=== PATIENT | female | born 1950 | race Caucasian/White ===

== ENCOUNTER 2022-04-19 22:33 | Inpatient (IN) | payer MEDICARE, SELFPAY ==
--- NOTE | ~2022-04-19 | XR_ITS ---
EXAMINATION: XR ERCP DATE: 04/22/2022 14:00 CDT INDICATION: GALLSTONES . TECHNIQUE: 2 fluoroscopic images of the right upper quadrant were obtained during ERCP performed by maryellen pedraza surgeon. I was not present in the operating room. Fluoroscopy exposure time was 105.7 seconds. Cum ulative dose was 23.51 mGy. COMPARISON: None FINDINGS: Endoscope projecting over the right upper quadrant. Wire access into the biliary tree. Contrast fills a minimally dilated common bile duct. Cholecystectomy clips. IMPRESSION: Fluoroscopic documentation of ERCP. Reviewed, dictated and finalized at location [facility].
[2022-04-19 22:20] VITALS: BMI 30.2
--- NOTE | 2022-04-19 22:41 | P.HP_ITS ---
H&P: HPI History of Present Illness Date/Time: 04/19/22 22:41 [facility] Social History Social History Smoking status: Unknown if ever smoked Alcohol intake: unknown Substance use: unknown Spiritual care concerns: No
--- NOTE | 2022-04-19 22:41 | PM.IMHP ---
H&P: HPI History of Present Illness Date/Time: 04/19/22 22:41 [facility] Social History Social History Smoking status: Unknown if ever smoked Alcohol intake: unknown Substance use: unknown Spiritual care concerns: No
[2022-04-19 22:53] VITALS: BP 120/58; PULSE 63; RESP 16; TEMP 36.3; O2SAT 99; BMI 30.2
--- NOTE | 2022-04-19 23:00 | PM.IMHP ---
H&P: HPI History of Present Illness Date/Time: 04/19/22 23:00 Chief Complaint: Choledocholithiasis. Narrative: This is a 71-year-old female with dementia, hypertension, gout, and breast cancer who is being directly admitted to the medical floor from [facility] for further treatment and evaluation as well as consultation with Gastroenterology after she was found to have elevated LFTs and evidence of choledocholithiasis on imaging today. She had a ground level fall at her home 2 weeks ago and sustained a left hip fracture, status post open reduction internal fixation with IM nail on 04/08/2022. Postoperatively she had a drop in her hemoglobin though that has remained stable around 8.0 g. She was sent to [place] for rehabilitation thereafter where unfortunately she has had issues with constipation, insomnia, and increasing confusion with hallucinations. On labs today she was found to have a marked increase in her LFTs and a subsequent CT of the abdomen and pelvis showed biliary ductal dilatation with suggestion of sludge or stone in the common bile duct. Her white blood cell count also jumped to 15.4 and transfer was initiated to [place] for consideration for ERCP. Dr. Sherman has agreed to see the patient in consultation and he recommends starting empiric antibiotics. At the time my evaluation the patient is disoriented and is alert and oriented only to self. She has no complaints aside from mild left hip and thigh pain. She has noticed abdominal pain whatsoever on exam. Review of Systems Review of Systems: Twelve systems were reviewed but are very limited given her dementia and confusion. She has no complaints and states no to every question asked of her. Specifically she denies headache, fever, chills, sweats, chest pain, shortness of breath, abdominal pain, nausea, vomiting, and dysuria. She has reportedly been quite constipated was given an enema today with a good bowel movement. [facility] Past Medical History Medical History (Updated 04/19/22 @ 23:47 by Lakia England PA-C) Alzheimer's dementia Breast cancer Gastroesophageal reflux disease Gout Hypertension Surgical History Surgical History (Updated 04/19/22 @ 23:40 by Lakia England PA-C) History of appendectomy History of bilateral mastectomy History of cholecystectomy History of open reduction and internal fixation (ORIF) procedure (04/08/22) Repair of left hip fracture with IM nail. Family History Family History (Updated 04/19/22 @ 23:09 by Lakia England PA-C) Other Family history unknown Social History Social History (Updated 04/19/22 @ 23:40 by Lakia England PA-C) Social History: Surrogate decision maker: Daya Carmona, daughter. Code status: Full code. Smoking status: Unknown if ever smoked Alcohol intake: never Substance use: never Spiritual care concerns: No Meds Home Medications and Allergies Home Medications Medication Instructions Recorded Confirmed Type acetaminophen 500 mg tablet 500 mg PO Q6H 04/19/22 04/19/22 History allopurinol 300 mg tablet 300 mg PO DAILY 04/19/22 04/19/22 History anastrozole 1 mg tablet 1 mg PO DAILY 04/19/22 04/19/22 History aspirin 81 mg tablet,delayed 81 mg PO DAILY 04/19/22 04/19/22 History release enalapril maleate 10 mg tablet 10 mg PO DAILY 04/19/22 04/19/22 History enoxaparin 40 mg/0.4 mL 40 mg subcut DAILY 04/19/22 04/19/22 History subcutaneous syringe (Lovenox) famotidine 20 mg tablet 20 mg PO BID 04/19/22 04/19/22 History magnesium oxide 400 mg PO DAILY 04/19/22 04/19/22 History memantine 10 mg tablet 10 mg PO QSHIFT 04/19/22 04/19/22 History metoprolol tartrate 25 mg tablet 12.5 mg PO BID 04/19/22 04/19/22 History orphenadrine citrate 100 mg 100 mg PO Q12H 04/19/22 04/19/22 History tablet,extended release piperacillin-tazobactam 3.375 gram 3.375 g IV Q6H 04/19/22 04/19/22 History intravenous solution potassium chloride 20 mEq 20 meq PO D
[2022-04-20] VITALS: BP 120/58; PULSE 63; RESP 16; TEMP 36.3; O2SAT 99
[2022-04-20] MEDS: SODIUM CHLORIDE 0.9% IV 1,000 ML 100 ML IV CONT (00:34)
[2022-04-20 06:14] LABS: Basophils Percent Auto 0.3 % (0.2-1.2); Eosinophils Absolute Auto 0.2 K/mm3 (0-0.3); Eosinophils Percent Auto 1.3 % (0-4.4); Hematocrit 24.3 % (37.0-47.0); Hemoglobin 7.8 g/dL (12.0-15.0); Immature Granulocyte Absolute 0.08 K/mm3 (0.00-0.031); Immature Granulocyte Percent A 0.5 % (0-0.5); Lymphocytes Absolute Auto 0.77 K/mm3 (0.9-3.2); Lymphocytes Percent Auto 5.2 % (18.3-44.2); Mean Corpuscular HGB Conc 32.1 g/dl (32-36); Mean Corpuscular Hemoglobin 30.7 pg (26-34); Mean Corpuscular Volume 95.7 fl (80-100); Mean Platelet Volume 10.9 fl (7.4-10.4); Monocytes Absolute Auto 0.5 K/mm3 (0.1-0.6); Neutrophils Absolute Auto 13.3 K/mm3 (1.3-6.7); Neutrophils Percent Auto 89.7 % (45.5-73.1); Platelet Count Result 309 k/mm3 (150-375); Red Blood Count 2.54 M/mm3 (4.2-5.4); Red Cell Distribution Width 14.1 % (11.5-14.5); White Blood Count 14.9 K/mm3 (4.5-10.0)
[2022-04-20 06:31] LABS: Alanine Aminotransferase 139 U/L (6-35); Albumin Level 3.2 g/dL (3.5-5.1); Alkaline Phosphatase 312 U/L (38-126); Anion Gap 5 mmol/L (8-16); Aspartate Amino Transferase 101 U/L (14-36); Bilirubin Direct 0.8 mg/dL (0-0.3); Bilirubin,Total 3.5 mg/dL (0.2-1.3); Blood Urea Nitrogen 26 mg/dL (7-17); Calcium 8.2 mg/dL (8.4-10.2); Carbon Dioxide 26 mmol/L (22-30); Chloride 101 mmol/L (98-107); Estimated CRCL calculation 42 ml/min; Estimated Glomerular Filt Rate 49; Glucose 78 mg/dL (65-110); Magnesium 1.8 mg/dL (1.6-2.3); Potassium 4.2 mmol/L (3.4-5.0); Sodium 132 mmol/L (137-145)
[2022-04-20 06:32] LABS: INR 1.2; Prothrombin Time 14.8 Seconds (11.1-14.7)
[2022-04-20 06:33] LABS: Partial Thromboplastin Time 35.8 SECONDS (22.3-36.8)
--- NOTE | 2022-04-20 07:16 | PM.IMPN ---
Progress Note: A&P Assessment and Plan (1) Choledocholithiasis: Code(s): K80.50 - Calculus of bile duct without cholangitis or cholecystitis without obstruction Status: Acute Assessment and Plan: CT of the abdomen and pelvis without contrast done at outside facility showed biliary ductal dilatation with suggestion of sludge were stones in the common bile duct. -WBC 14. Elevated LFTs. -GI consulted and appreciate recommendations. -Continue Zosyn IV Q6 hours. -Keep NPO until evaluated by GI for ERCP. (2) Transaminitis: Code(s): R74.01 - Elevation of levels of liver transaminase levels Status: Acute Assessment and Plan: Related to above. Hepatitis panel negative. (3) Delirium due to general medical condition: Code(s): F05 - Delirium due to known physiological condition Status: Acute Assessment and Plan: Underlying h/o dementia. Patient confused and family reports concerns for hallucinations. Her daughter reports the patient has not been sleeping, had recent hospitalization and hip surgery, as well as acute gallbladder disease. -Check TSH, B12 and ammonia level. -Keep awake during the day, blinds open, natural light and orient as needed. -Add seroquel 12.5 mg PO at HS and melatonin 5 mg PO at HS to help with hallucinations and insomnia. (4) Anemia: Code(s): D64.9 - Anemia, unspecified Status: Acute Assessment and Plan: Presumed postop anemia. Hgb 8 on admission and 7.8 this morning. May be a component of dilution since she is getting IV fluids. -Repeat H/H and monitor for s/s acute bleeding. (5) Elevated serum creatinine: Code(s): R79.89 - Other specified abnormal findings of blood chemistry Status: Acute Assessment and Plan: Creatinine 1.10, from 0.80 a few days ago. -Continue IV hydration and repeat labs in a.m. (6) Hypertension: Qualifiers: Hypertension type: primary hypertension Qualified Code(s): I10 - Essential (primary) hypertension Code(s): I10 - Essential (primary) hypertension Status: Chronic Assessment and Plan: Blood pressures stable. -Continue metoprolol with sips of water. (7) Dementia: Qualifiers: Dementia type: unspecified type Code(s): F03.90 - Unspecified dementia without behavioral disturbance Status: Chronic Assessment and Plan: -Continue memantine with sips of water. Plan Continue IV antibiotics and await GI recommendations. Time Spent With Patient Time with patient: 25 - 35 minutes (>50% time spent with patient and family education. ) Subjective Date/time seen: 04/20/22 07:16 Review of Systems Review of Systems: All systems reviewed & are unremarkable except as noted in HPI and below Neurologic: Comments: Confusion and hallucinations Exam Narrative: General: Well-developed older adult female supine in bed. HEENT: Normocephalic. Atraumatic. Wearing glasses. PERRL, EOMI. Mild icterus of the conjunctiva. Oral mucosa moist. Oropharynx clear. Neck: Supple. No lymphadenopathy or JVD. Respiratory: Lungs are clear to auscultation bilaterally. No wheezes, rhonchi or rales. RR regular and unlabored. Cardiovascular: Regular rate and rhythm with S1-S2. No murmur, gallop or rubs. Gastrointestinal: Abdomen is soft, nontender, and nondistended with positive bowel sounds. No guarding or rebound tenderness. Skin: Warm and dry. Mild jaundiced. Left hip dressing clean, dry and intact. Extremities: No cyanosis, clubbing, or edema. Radial and pedal pulses intact. Musculoskeletal: Moves all extremities, minimally reduced ROM at left hip. intact sensation. No cyanosis or pallor. Radial and dorsalis pedis pulses palpable and equal. Neurological: Alert and oriented to self only. Does not know month, year, or location. She knows she is [place] and states she does not like the president . Cranial
[2022-04-20 07:39] LABS: Hepatitis B Surface Antigen Negative (Negative)
[2022-04-20 07:45] LABS: HAV RESULT Negative (Negative); Hepatitis B Core IgM Result Negative (Negative)
[2022-04-20 07:57] LABS: Hepatitis C Virus Antibody Negative (Negative)
[2022-04-20] MEDS: DEXTROSE 5%/0.9% SOD CHL 1,000 ML 100 ML IV CONT (09:37)
[2022-04-20 09:43] VITALS: PULSE 70
[2022-04-20] MEDS: allopurinoL 300 MG TABLET PO (09:43)
[2022-04-20] MEDS: MEMANTINE 10 MG TABLET PO ×2 (09:43→20:11)
[2022-04-20] MEDS: SENNOSIDES 8.6 MG TABLET PO (09:43)
[2022-04-20] MEDS: ANASTROZOLE (*CHEMO) 1 MG TABLET PO (09:43)
[2022-04-20] MEDS: FAMOTIDINE 20 MG TABLET PO ×2 (09:43→17:02)
[2022-04-20] MEDS: METOPROLOL TARTRATE 12.5 MG TABLET PO ×2 (09:43→20:09)
--- NOTE | 2022-04-20 09:54 | PCOTNOTE ---
Attempted OT evaluation this AM; according to EMR pt. fell and required left hip ORIF on 04/08/22. RN to call MD and confirm weightbearing status. Will complete evaluation after WB status is confirmed.
--- NOTE | 2022-04-20 11:40 | PCPTNOTE ---
HOLD PT evaluation, talked with BRANDON Omalley, awaiting ortho orders for her WB status; pt had L hip ORIF 04-08-22 in [facility];
[2022-04-20 14:00] VITALS: BP 136/62; PULSE 64; RESP 16; TEMP 35.9; O2SAT 99
[2022-04-20 14:08] LABS: Hematocrit 23.6 % (37.0-47.0); Hemoglobin 7.5 g/dL (12.0-15.0)
--- NOTE | 2022-04-20 14:14 | WPDGICN ---
Assessment and Plan Assessment and plan (1) Cholangitis: Code(s): K83.09 - Other cholangitis Status: Acute Assessment and Plan: on antibiotic noted new elevation of wbc and liver enzymes will need ercp (2) Choledocholithiasis: Code(s): K80.50 - Calculus of bile duct without cholangitis or cholecystitis without obstruction Status: Acute Assessment and Plan: CT scan a/p reviewed and discussed with family members at bedside will need ERCP (3) Transaminitis: Code(s): R74.01 - Elevation of levels of liver transaminase levels Status: Acute Assessment and Plan: monitor, new elevation and most likely biliary cause she is post cholecystectomy (4) Delirium due to general medical condition: Code(s): F05 - Delirium due to known physiological condition Status: Acute Assessment and Plan: also more confused than usual per family (5) Leukocytosis: Code(s): D72.829 - Elevated white blood cell count, unspecified Status: Acute (6) History of cholecystectomy: Code(s): Z90.49 - Acquired absence of other specified parts of digestive tract Status: Acute (7) History of open reduction and internal fixation (ORIF) procedure: Onset Date: 04/08/22 Code(s): Z98.890 - Other specified postprocedural states Status: Acute GI Consult Note Consult date/time: 04/20/22 14:14 Reason for consult: cholangitis, dilated bile duct HPI: Sanam Yu is a 71 year old female with history of dementia, hypertension, gout, and breast cancer who was directly admitted to the medical floor from [facility] yesterday to the hospitalist service after her doctor discussed the case with me (she is awake and alert but confused, part of history obtained from medical records). She had a ground level fall at her home 2 weeks ago and sustained a left hip fracture, status post open reduction internal fixation with IM nail on 04/08/2022. Postoperatively she had a drop in her hemoglobin though that has remained stable around 8.0 but she had new onset of jaundice with hallucinations and found to have elevated liver enzymes, actually she was evaluated by Dr Barber nurse practitioner who reviewed CT scan a/p that showed biliary ductal dilatation 1.6 cm with suggestion of sludge or stone in the common bile duct, started on antibiotics and transferred her for ERCP evaluation. white blood cell up to 15.4, bili 6.5, alt 226, ast 254 (previously had normal liver enzymes) Review of Systems Constitutional: Constitutional: Reports lethargy Eyes: Eyes: Reports no additional eye complaints ENT: Reports Normal hearing present Cardiovascular: Cardiovascular: Denies chest pain Respiratory: Respiratory: Denies chest congestion Gastrointestinal: Gastrointestinal: Reports no additional gastrointestinal complaints Musculoskeletal: Comments: recent left hip surgery Neurologic: Reports confusion Psychiatric: Psychiatric: Reports confusion [facility] Past Medical History Medical History (Updated 04/20/22 @ 14:55 by Parish Sherman MD) Alzheimer's dementia Breast cancer Cholangitis Gastroesophageal reflux disease Gout Hypertension Leukocytosis Surgical History Surgical History (Updated 04/20/22 @ 14:55 by Parish Sherman MD) History of appendectomy History of bilateral mastectomy History of cholecystectomy History of open reduction and internal fixation (ORIF) procedure (04/08/22) Repair of left hip fracture with IM nail. Family History Family History (Updated 04/19/22 @ 23:09 by Lakia England PA-C) Other Family history unknown Social History Social History (Updated 04/19/22 @ 23:40 by Lakia England PA-C) Social History: Surrogate decision maker: Daya Carmona, daughter. Code status: Full code. Smoking status: Unknown if ever smoked Alcohol intake: never Substance use: never Spirit
[2022-04-20 14:35] LABS: Ammonia < 9 umol/L (9-30)
[2022-04-20 15:24] LABS: Folic Acid 11.1 ng/mL (2.76->20)
[2022-04-20 20:09] VITALS: PULSE 67
[2022-04-20] MEDS: QUEtiapine FUMARATE 12.5 MG TABLET PO (20:09)
[2022-04-20] MEDS: MELATONIN 5 MG TABLET PO (20:11)
[2022-04-20 23:44] VITALS: BP 147/67; PULSE 70; RESP 16; TEMP 36.8; O2SAT 98
[2022-04-21] MEDS: DEXTROSE 5%/0.9% SOD CHL 1,000 ML 100 ML IV CONT ×2 (04:28→15:39)
[2022-04-21 06:27] LABS: Basophils Percent Auto 0.5 % (0.2-1.2); Eosinophils Absolute Auto 0.4 K/mm3 (0-0.3); Eosinophils Percent Auto 4.4 % (0-4.4); Hematocrit 24.8 % (37.0-47.0); Hemoglobin 7.7 g/dL (12.0-15.0); Immature Granulocyte Absolute 0.04 K/mm3 (0.00-0.031); Immature Granulocyte Percent A 0.5 % (0-0.5); Lymphocytes Absolute Auto 0.89 K/mm3 (0.9-3.2); Lymphocytes Percent Auto 10.5 % (18.3-44.2); Mean Corpuscular Hemoglobin 30.1 pg (26-34); Mean Corpuscular Volume 96.9 fl (80-100); Monocytes Absolute Auto 0.3 K/mm3 (0.1-0.6); Neutrophils Absolute Auto 6.9 K/mm3 (1.3-6.7); Neutrophils Percent Auto 81.1 % (45.5-73.1); Platelet Count Result 306 k/mm3 (150-375); Red Blood Count 2.56 M/mm3 (4.2-5.4); Red Cell Distribution Width 13.9 % (11.5-14.5); White Blood Count 8.5 K/mm3 (4.5-10.0)
[2022-04-21 06:28] LABS: Alanine Aminotransferase 93 U/L (6-35); Albumin Level 3.1 g/dL (3.5-5.1); Alkaline Phosphatase 261 U/L (38-126); Anion Gap 3 mmol/L (8-16); Aspartate Amino Transferase 46 U/L (14-36); Bilirubin,Total 1.4 mg/dL (0.2-1.3); Blood Urea Nitrogen 17 mg/dL (7-17); Calcium 8.3 mg/dL (8.4-10.2); Carbon Dioxide 24 mmol/L (22-30); Chloride 106 mmol/L (98-107); Estimated CRCL calculation 51 ml/min; Estimated Glomerular Filt Rate > 60; Glucose 98 mg/dL (65-110); Potassium 3.8 mmol/L (3.4-5.0); Sodium 133 mmol/L (137-145)
[2022-04-21 09:17] VITALS: PULSE 50
[2022-04-21] MEDS: allopurinoL 300 MG TABLET PO (09:17)
[2022-04-21] MEDS: METOPROLOL TARTRATE 12.5 MG TABLET PO ×2 (09:17→19:50)
[2022-04-21] MEDS: MEMANTINE 10 MG TABLET PO ×2 (09:17→19:51)
[2022-04-21] MEDS: FAMOTIDINE 20 MG TABLET PO ×2 (09:17→17:18)
[2022-04-21] MEDS: SENNOSIDES 8.6 MG TABLET PO (09:17)
[2022-04-21] MEDS: ANASTROZOLE (*CHEMO) 1 MG TABLET PO (09:17)
--- NOTE | 2022-04-21 13:32 | WPDGIPROGNO ---
Progress Note: A&P Assessment and Plan (1) Choledocholithiasis: Code(s): K80.50 - Calculus of bile duct without cholangitis or cholecystitis without obstruction Status: Acute Assessment and Plan: ercp tomorrow liver enzymes trending down and she looks better on iv antibiotics (2) Cholangitis: Code(s): K83.09 - Other cholangitis Status: Acute Assessment and Plan: most likely diagnosis blood work in improving and she is already on iv abx (3) Leukocytosis: Code(s): D72.829 - Elevated white blood cell count, unspecified Status: Acute (4) History of cholecystectomy: Code(s): Z90.49 - Acquired absence of other specified parts of digestive tract Status: Acute (5) History of open reduction and internal fixation (ORIF) procedure: Onset Date: 04/08/22 Code(s): Z98.890 - Other specified postprocedural states Status: Acute (6) Anemia: Code(s): D64.9 - Anemia, unspecified Status: Acute Subjective Date/time seen: 04/21/22 13:32 Interval history: she is talking and seems better today, family at bedside. She is also comfortable, denies abd pain Review of Systems Constitutional: Constitutional: Reports lethargy Eyes: Eyes: Reports no additional eye complaints ENT: Reports Normal hearing present Cardiovascular: Cardiovascular: Denies chest pain Respiratory: Respiratory: Denies chest congestion Gastrointestinal: Gastrointestinal: Reports no additional gastrointestinal complaints Musculoskeletal: Comments: recent left hip surgery Neurologic: Reports confusion Psychiatric: Psychiatric: Reports confusion Exam Const: General: comfortable HENMT: General nose exam: Normal nares present Eyes: Sclera: scleral abnormality (icteric) Neck: Neck: supple Resp: Auscultation: clear to auscultation bilaterally Cardio: Rate: regular rate GI: GI Palp: Yes Soft to palpation and No Tenderness to palpation present (GI) Auscultation: normal bowel sounds Back/Spine/Pelvis: Other: s/p left hip surgery Skin: Other: jaundice Neuro: Other: awake and alert, she is talking appropriately Extrem: General: normal to inspection Psych: Affect: normal affect Objective Data Vital Signs Vital Signs: Vital Signs - 24 hr 04/20/22 14:00 04/20/22 20:09 04/20/22 23:44 Temperature 96.7 F L 98.2 F Pulse Rate 64 67 70 Respiratory Rate 16 16 Blood Pressure 136/62 147/67 H Pulse Oximetry 99 98 Oxygen Delivery 04/21/22 09:17 04/21/22 10:21 04/21/22 09:40 Temperature Pulse Rate 50 L Respiratory Rate Blood Pressure Pulse Oximetry Oxygen Delivery Room Air Room Air Intake/Output Intake/Output: Intake & Output 04/18/22 04/19/22 04/20/22 04/21/22 23:59 23:59 23:59 23:59 Intake Total 1100 1140 Output Total 1650 150 Balance -550 990 Meds/Results Medications: Active Medications Generic Name Dose Route Start Last Admin Trade Name Freq PRN Reason Stop Dose Admin Allopurinol 300 mg 04/20/22 08:00 04/21/22 09:17 Allopurinol 300 Mg Tablet PO 300 mg DAILY@0800 IDALIA Administration Anastrozole 1 mg 04/20/22 09:00 04/21/22 09:17 Anastrozole (*Chemo) 1 Mg Tablet PO 1 mg DAILY IDALIA Administration Famotidine 20 mg 04/20/22 09:00 04/21/22 09:17 Famotidine 20 Mg Tablet PO 20 mg BID IDALIA Administration Heparin Sodium (Porcine) 5,000 units 04/20/22 09:00 Heparin Sodium 5,000 Units/Ml Vial SUB-Q Q12HR IDALIA Piperacillin/Tazobactam/Dextrose 3.375 gm in 50 mls @ 100 mls/hr 04/20/22 12:00 04/21/22 12:18 Zosyn 3.375 Gm/D5w 50ml Pm IVPB 100 mls/hr Q6H IDALAI Administration Dextrose/Sodium Chloride 1,000 mls @ 100 mls/hr 04/20/22 07:20 04/21/22 10:07 Dextrose 5% Sodium Chloride 0.9% IV CONT Not Given .Q10H IDALIA Melatonin 5 mg 04/20/22 21:00 04/20/22 20:11 Melatonin 5 Mg Tablet PO 5 mg HS IDALIA Administration Memantine 10
--- NOTE | 2022-04-21 14:25 | PM.IMPN ---
Progress Note: A&P Assessment and Plan (1) Choledocholithiasis: Code(s): K80.50 - Calculus of bile duct without cholangitis or cholecystitis without obstruction Status: Acute Assessment and Plan: CT of the abdomen and pelvis without contrast done at outside facility showed biliary ductal dilatation with suggestion of sludge were stones in the common bile duct. -WBC 14 -->8.5 today. -Elevated LFTs trending down. Tbili 3.5--> 1.4. -GI consulted and appreciate recommendations. -ERCP planned for Sunday 04/22. NPO after midnight. -Continue Zosyn IV Q6 hours. (2) Transaminitis: Code(s): R74.01 - Elevation of levels of liver transaminase levels Status: Acute Assessment and Plan: Improving. Secondary to above. Continue current management. Hepatitis panel negative. (3) Delirium due to general medical condition: Code(s): F05 - Delirium due to known physiological condition Status: Acute Assessment and Plan: Underlying h/o dementia. Patient confused and family reports concerns for hallucinations. Her daughter reports the patient has not been sleeping, had recent hospitalization and hip surgery, as well as acute gallbladder disease. -Appears improved today. -TSH, B12 and ammonia level all within normal limits. -No focal deficit to suggest acute stroke. -Keep awake during the day, blinds open, natural light and orient as needed. -Continue seroquel 12.5 mg PO at HS and melatonin 5 mg PO at HS to help with hallucinations and insomnia. (4) Anemia: Code(s): D64.9 - Anemia, unspecified Status: Acute Assessment and Plan: Presumed postop anemia. Hgb 8 on admission. -Hgb 7.8 -->7.5 -->7.7. -No s/s acute bleeding. Heparin SQ DVT prophylaxis on hold for procedure. -Start iron supplement prior to discharge. (5) Elevated serum creatinine: Code(s): R79.89 - Other specified abnormal findings of blood chemistry Status: Acute Assessment and Plan: Creatinine 1.10 on admission. Likely secondary to dehydration. -Improved. BUN/Creatinine normalized. -Continue IV fluids while NPO. -Daily CMP (6) History of open reduction and internal fixation (ORIF) procedure: Onset Date: 04/08/22 Code(s): Z98.890 - Other specified postprocedural states Status: Chronic Assessment and Plan: Present on admission. -Continue PT/OT with weight bearing as tolerated. -She will discharge back to SNF rehab upon discharge. (7) Hypertension: Qualifiers: Hypertension type: primary hypertension Qualified Code(s): I10 - Essential (primary) hypertension Code(s): I10 - Essential (primary) hypertension Status: Chronic Assessment and Plan: Blood pressures stable. -Continue metoprolol with sips of water. (8) Dementia: Qualifiers: Dementia type: unspecified type Code(s): F03.90 - Unspecified dementia without behavioral disturbance Status: Chronic Assessment and Plan: -Continue memantine with sips of water. Plan CODE STATUS: FULL CODE DISPOSITION: Return to SNF Estimated LOS: discharge in approx 2 days when symptoms resolve. Time Spent With Patient Time with patient: 15 - 25 minutes Subjective Date/time seen: 04/21/22 14:25 Patient is a 71 yo female with medical history of recent hip fracture s/p repair, dementia, hypertension, gout, and breast cancer. She is a direct admit form [facility] for further management of elevated LFTs and choledocholithiasis on imaging. Patient found sitting up in the chair. She has no new complaints. No CP, SOB, abd pain, N/V/D. Her daughter is at beside and reports the patient is less restless today. Jaundice appears improved. Review of Systems Review of Systems: All systems reviewed & are unremarkable except as noted in HPI and below Eyes: Comments: Needs new glasses
[2022-04-21 14:30] VITALS: BP 119/70; PULSE 78; RESP 18; TEMP 36.9; O2SAT 100
[2022-04-21 19:50] VITALS: PULSE 75
[2022-04-21] MEDS: QUEtiapine FUMARATE 12.5 MG TABLET PO (19:51)
[2022-04-21] MEDS: MELATONIN 5 MG TABLET PO (19:52)
[2022-04-21 21:51] VITALS: BP 129/60; PULSE 75; RESP 18; TEMP 37.1; O2SAT 99
[2022-04-22] VITALS (17 sets, daily range): BP systolic 107–171; BP diastolic 10–107; PULSE 58–74; RESP 16–23; TEMP 35.8–37.1; O2SAT 96–100
[2022-04-22] MEDS: DEXTROSE 5%/0.9% SOD CHL 1,000 ML 100 ML IV CONT ×2 (02:08→16:46)
[2022-04-22 06:21] LABS: Basophils Percent Auto 0.5 % (0.2-1.2); Eosinophils Absolute Auto 0.4 K/mm3 (0-0.3); Eosinophils Percent Auto 4.9 % (0-4.4); Hematocrit 22.5 % (37.0-47.0); Hemoglobin 7.1 g/dL (12.0-15.0); Immature Granulocyte Absolute 0.05 K/mm3 (0.00-0.031); Immature Granulocyte Percent A 0.6 % (0-0.5); Lymphocytes Absolute Auto 0.95 K/mm3 (0.9-3.2); Lymphocytes Percent Auto 12.3 % (18.3-44.2); Mean Corpuscular HGB Conc 31.6 g/dl (32-36); Mean Corpuscular Volume 94.9 fl (80-100); Mean Platelet Volume 10.9 fl (7.4-10.4); Monocytes Absolute Auto 0.3 K/mm3 (0.1-0.6); Monocytes Percent Auto 4.2 % (2.6-8.5); Neutrophils Percent Auto 77.5 % (45.5-73.1); Platelet Count Result 301 k/mm3 (150-375); Red Blood Count 2.37 M/mm3 (4.2-5.4); Red Cell Distribution Width 13.9 % (11.5-14.5); White Blood Count 7.7 K/mm3 (4.5-10.0)
[2022-04-22 06:32] LABS: Alanine Aminotransferase 56 U/L (6-35); Albumin Level 2.7 g/dL (3.5-5.1); Alkaline Phosphatase 204 U/L (38-126); Anion Gap 4 mmol/L (8-16); Aspartate Amino Transferase 26 U/L (14-36); Bilirubin,Total 0.9 mg/dL (0.2-1.3); Blood Urea Nitrogen 11 mg/dL (7-17); Calcium 8.2 mg/dL (8.4-10.2); Carbon Dioxide 24 mmol/L (22-30); Chloride 108 mmol/L (98-107); Estimated CRCL calculation 52 ml/min; Estimated Glomerular Filt Rate > 60; Glucose 115 mg/dL (65-110); Potassium 3.6 mmol/L (3.4-5.0); Sodium 136 mmol/L (137-145)
[2022-04-22] MEDS: METOPROLOL TARTRATE 12.5 MG TABLET PO ×2 (08:25→21:51)
[2022-04-22] MEDS: ANASTROZOLE (*CHEMO) 1 MG TABLET PO (08:26)
[2022-04-22] MEDS: MEMANTINE 10 MG TABLET PO ×2 (08:26→21:51)
--- NOTE | 2022-04-22 11:35 | PM.IMPN ---
Progress Note: A&P Assessment and Plan (1) Choledocholithiasis: Code(s): K80.50 - Calculus of bile duct without cholangitis or cholecystitis without obstruction Status: Acute Assessment and Plan: CT of the abdomen and pelvis without contrast done at outside facility showed biliary ductal dilatation with suggestion of sludge were stones in the common bile duct. -WBC 14 -->8.5 -->7.7 -Elevated LFTs trending down. Tbili 3.5--> 1.4 -->0.9. -GI following, ERCP today with extraction of stones and sludge in common bile duct. -Continue Zosyn IV Q6 hours. (2) Transaminitis: Code(s): R74.01 - Elevation of levels of liver transaminase levels Status: Acute Assessment and Plan: Improving. Secondary to above. Hepatitis panel negative. (3) Delirium due to general medical condition: Code(s): F05 - Delirium due to known physiological condition Status: Acute Assessment and Plan: Underlying h/o dementia. Patient confused and family reports concerns for hallucinations. Her daughter reports the patient has not been sleeping, had recent hospitalization and hip surgery, as well as acute gallbladder disease. -Appears improved today. -TSH, B12 and ammonia level all within normal limits. -No focal deficit to suggest acute stroke. -Keep awake during the day, blinds open, natural light and orient as needed. -Continue seroquel 12.5 mg PO at HS and melatonin 5 mg PO at HS to help with hallucinations and insomnia. (4) Anemia: Code(s): D64.9 - Anemia, unspecified Status: Inactive Assessment and Plan: Presumed postop anemia. Hgb 8 on admission. -Hgb 7.8 -->7.5 -->7.7 -->7.1 transfuse 1 unit PRBC. -No s/s acute bleeding. Heparin SQ DVT prophylaxis on hold for procedure. -Start iron supplement. (5) Elevated serum creatinine: Code(s): R79.89 - Other specified abnormal findings of blood chemistry Status: Acute Assessment and Plan: Creatinine 1.10 on admission. Likely secondary to dehydration. -Improved. BUN/Creatinine normalized. -Continue IV fluids while NPO. Saline lock with able to take PO. -Daily CMP (6) History of open reduction and internal fixation (ORIF) procedure: Onset Date: 04/08/22 Code(s): Z98.890 - Other specified postprocedural states Status: Chronic Assessment and Plan: Present on admission. -Continue PT/OT with weight bearing as tolerated. -She will discharge back to SNF rehab upon discharge. (7) Hypertension: Qualifiers: Hypertension type: primary hypertension Qualified Code(s): I10 - Essential (primary) hypertension Code(s): I10 - Essential (primary) hypertension Status: Chronic Assessment and Plan: Blood pressures stable. -Continue metoprolol with sips of water. (8) Dementia: Qualifiers: Dementia type: unspecified type Code(s): F03.90 - Unspecified dementia without behavioral disturbance Status: Chronic Assessment and Plan: -Continue memantine with sips of water. Plan CODE STATUS: FULL CODE DISPOSITION: Return to SNF Estimated LOS: discharge in approx 1-2 days when symptoms resolve. Time Spent With Patient Time with patient: 15 - 25 minutes Subjective Date/time seen: 04/22/22 11:35 She denies new complaints. Nursing sitting at bedside to help reorient patient as needed. She reportedly sat up in the chair for 15 minutes, but then needed to lay back down. No abd pain, N/V/D, chest pain, SOB, dizziness or palpitations. Jaundice improved. Review of Systems Review of Systems: All systems reviewed & are unremarkable except as noted in HPI and below Exam Narrative: General: Well-developed older adult female sitting up in bed. No oxygen. HEENT: Wearing glasses. PERRL, Sclera clear. Oral mucosa moist. Neck: No JVD. Respiratory: Lungs are clear to auscultation bilate
[2022-04-22] MEDS: SODIUM CHLORIDE 0.9% IV 250 ML 30 ML IV CONT (11:41)
--- NOTE | 2022-04-22 12:29 | PC.NURSE ---
Report called to [facility].
--- NOTE | 2022-04-22 13:00 | PC.NURSE ---
To GI Lab via [employer].
[2022-04-22] MEDS: LACTATED RINGERS 1,000 ML 150 ML IV CONT (13:21)
--- NOTE | 2022-04-22 13:31 | WPDANESEPPF ---
Anes - Initial Pre Proc Eval Procedure: Operation Date: 04/22/22 17:00 Proposed Procedures p Endoscopic Retro Cholangiopancreatogram - Parish Sherman MD Date/Time: 04/22/22 13:31 Surgeon: Jeniffer Sung MD Pre Op Diagnosis: Choledocholithiasis Patient Data Age: 71 Gender: F Height: 1.63 m Weight: 81.3 kg Last Vital Signs Temp 36.1 C L 04/22/22 13:18 Pulse 60 04/22/22 13:18 Resp 16 04/22/22 13:18 BP 133/107 H 04/22/22 13:18 Pulse Ox 100 04/22/22 13:18 O2 Del Method Room Air 04/22/22 13:18 Allergies Allergy/AdvReac Type Severity Reaction Status Date / Time naproxen Allergy Unknown Verified 04/22/22 13:17 Home Medications Medication Instructions Recorded Confirmed Type acetaminophen 500 mg tablet 500 mg PO Q6H 04/19/22 04/19/22 History allopurinol 300 mg tablet 300 mg PO DAILY 04/19/22 04/19/22 History anastrozole 1 mg tablet 1 mg PO DAILY 04/19/22 04/19/22 History aspirin 81 mg tablet,delayed 81 mg PO DAILY 04/19/22 04/19/22 History release enalapril maleate 10 mg tablet 10 mg PO DAILY 04/19/22 04/19/22 History enoxaparin 40 mg/0.4 mL 40 mg subcut DAILY 04/19/22 04/19/22 History subcutaneous syringe (Lovenox) famotidine 20 mg tablet 20 mg PO BID 04/19/22 04/19/22 History magnesium oxide 400 mg PO DAILY 04/19/22 04/19/22 History memantine 10 mg tablet 10 mg PO QSHIFT 04/19/22 04/19/22 History metoprolol tartrate 25 mg tablet 12.5 mg PO BID 04/19/22 04/19/22 History orphenadrine citrate 100 mg 100 mg PO Q12H 04/19/22 04/19/22 History tablet,extended release piperacillin-tazobactam 3.375 gram 3.375 g IV Q6H 04/19/22 04/19/22 History intravenous solution potassium chloride 20 mEq 20 meq PO DAILY 04/19/22 04/19/22 History tablet,extended release(part/cryst) (Klor-Con M) sennosides 8.6 mg tablet (senna) 8.6 mg PO DAILY 04/19/22 04/19/22 History triamcinolone acetonide 0.1 % 1 applic topical DAILY 04/19/22 04/19/22 History topical ointment Laboratory Tests 04/22/22 04/22/22 04/22/22 05:38 05:38 09:08 WBC 7.7 K/mm3 K/mm3 (4.5-10.0) RBC 2.37 M/mm3 L M/mm3 (4.2-5.4) Hgb 7.1 g/dL L g/dL (12.0-15.0) Hct 22.5 % L % (37.0-47.0) MCV 94.9 fl fl (80-100) MCH 30.0 pg pg (26-34) MCHC 31.6 g/dl L g/dl (32-36) RDW 13.9 % % (11.5-14.5) Plt Count 301 k/mm3 k/mm3 (150-375) MPV 10.9 fl H fl (7.4-10.4) Immature Gran % (Auto) 0.6 % H % (0-0.5) Neut % (Auto) 77.5 % H % (45.5-73.1) Lymph % (Auto) 12.3 % L % (18.3-44.2) [place] % (Auto) 4.2 % % (2.6-8.5) Eos % (Auto) 4.9 % H % (0-4.4) Baso % (Auto) 0.5 % % (0.2-1.2) Lymph # (Auto) 0.95 K/mm3 K/mm3 (0.9-3.2) [place] # (Auto) 0.3 K/mm3 K/mm3 (0.1-0.6) Eos # (Auto) 0.4 K/mm3 H K/mm3 (0-0.3) Baso # (Auto) 0.0 K/mm3 K/mm3 (0.0-0.1) Abs Immat Gran (auto) 0.05 K/mm3 H K/mm3 (0.00-0.031) Absolute Neuts (auto) 6.0 K/mm3 K/mm3 (1.3-6.7) Absolute Nucleated RBC 0.0 K/mm3 K/mm3 (0.0-0.012) Nucleated RBC % 0.0 % % (0.0-0.2) Sodium 136 mmol/L L mmol/L (137-145) Potassium 3.6 mmol/L mmol/L (3.4-5.0) Chloride 108 mmol/L H mmol/L (98-107) Carbon Dioxide 24 mmol/L mmol/L (22-30) Anion Gap 4 mmol/L L mmol/L (8-16) BUN 11 mg/dL D mg/dL (7-17) Creatinine 0.90 mg/dL mg/dL (0.7-1.0) Estim Creat Clear Calc 52 ml/min ml/min Estimated GFR > 60 (59 - ) Glucose 115 mg/dL H mg/dL (65-110) Calcium 8.2 mg/dL L mg/dL (8.4-10.2) Total Bilirubin 0.9 mg/dL mg/dL (0.2-1.3) AST 26 U/L U/L (14-36) ALT 56 U/L H U/L (6-35) Alkaline Phosphatase 204 U/L H U/L (38-126) Total Protein 5.0 g/dL L g/dL
--- NOTE | 2022-04-22 13:33 | PCPTNOTE ---
The patient treatment was not able to be completed due to patient out of room for testing. Will plan to continue treatment per plan of care.
[2022-04-22] MEDS: FAMOTIDINE 20 MG TABLET PO (16:47)
[2022-04-22] MEDS: MELATONIN 5 MG TABLET PO (21:51)
[2022-04-22] MEDS: QUEtiapine FUMARATE 12.5 MG TABLET PO (21:51)
[2022-04-23 02:13] VITALS: O2SAT 97
[2022-04-23] MEDS: DEXTROSE 5%/0.9% SOD CHL 1,000 ML 100 ML IV CONT (02:48)
[2022-04-23 05:50] VITALS: BP 169/74; PULSE 53; RESP 18; TEMP 36.3; O2SAT 100
[2022-04-23 06:42] LABS: Basophils Percent Auto 0.2 % (0.2-1.2); Eosinophils Percent Auto 0.1 % (0-4.4); Hemoglobin 9.3 g/dL (12.0-15.0); Immature Granulocyte Absolute 0.04 K/mm3 (0.00-0.031); Immature Granulocyte Percent A 0.4 % (0-0.5); Mean Corpuscular Volume 96.8 fl (80-100); Mean Platelet Volume 11.4 fl (7.4-10.4); Monocytes Absolute Auto 0.2 K/mm3 (0.1-0.6); Monocytes Percent Auto 2.1 % (2.6-8.5); Neutrophils Absolute Auto 7.9 K/mm3 (1.3-6.7); Neutrophils Percent Auto 88.2 % (45.5-73.1); Platelet Count Result 343 k/mm3 (150-375); Red Cell Distribution Width 14.4 % (11.5-14.5); White Blood Count 8.9 K/mm3 (4.5-10.0)
[2022-04-23 06:57] LABS: Alanine Aminotransferase 50 U/L (6-35); Albumin Level 3.3 g/dL (3.5-5.1); Alkaline Phosphatase 214 U/L (38-126); Anion Gap 5 mmol/L (8-16); Aspartate Amino Transferase 25 U/L (14-36); Blood Urea Nitrogen 10 mg/dL (7-17); Calcium 8.3 mg/dL (8.4-10.2); Carbon Dioxide 22 mmol/L (22-30); Chloride 110 mmol/L (98-107); Estimated CRCL calculation 58 ml/min; Estimated Glomerular Filt Rate > 60; Glucose 118 mg/dL (65-110); Potassium 3.8 mmol/L (3.4-5.0); Sodium 137 mmol/L (137-145)
[2022-04-23 08:00] VITALS: O2SAT 98
[2022-04-23] MEDS: SENNOSIDES 8.6 MG TABLET PO (08:49)
[2022-04-23] MEDS: allopurinoL 300 MG TABLET PO (08:49)
[2022-04-23] MEDS: FERROUS SULFATE 324 MG TABLET PO (08:49)
[2022-04-23 08:50] VITALS: PULSE 68
[2022-04-23] MEDS: MEMANTINE 10 MG TABLET PO (08:50)
[2022-04-23] MEDS: ANASTROZOLE (*CHEMO) 1 MG TABLET PO (08:50)
[2022-04-23] MEDS: METOPROLOL TARTRATE 12.5 MG TABLET PO (08:50)
[2022-04-23] MEDS: FAMOTIDINE 20 MG TABLET PO (08:50)
[2022-04-23] MEDS: ENALAPRIL MALEATE 10 MG TABLET PO (08:54)
--- NOTE | 2022-04-23 11:37 | P.PNAN_ITS ---
Anes - Prog Note Post-Op Date/Time: 04/23/22 11:37 Cardiovascular status: normal Respiratory status: normal Airway patency: baseline Mental status: baseline Post-Op hydration status: normal Vital Signs: Last Vital Signs Temp 36.3 C L 04/23/22 05:50 Pulse 68 04/23/22 08:50 Resp 18 04/23/22 05:50 BP 169/74 H 04/23/22 05:50 Pulse Ox 100 04/23/22 05:50 O2 Del Method Room Air 04/23/22 02:13 O2 Flow Rate 6 04/22/22 14:52 Pain Score (VAS): 12/06 I/O: Intake & Output 04/22/22 04/23/22 04/23/22 23:59 07:59 15:59 Intake Total 650 1050 240 Output Total 300 600 Balance 350 450 240 Laboratory Tests 04/23/22 05:54 04/23/22 05:54 04/22/22 04/23/22 04/23/22 09:08 05:54 05:54 WBC 8.9 RBC 3.10 L Hgb 9.3 L Hct 30.0 L MCV 96.8 MCH 30.0 MCHC 31.0 L RDW 14.4 Plt Count 343 MPV 11.4 H Immature Gran % (Auto) 0.4 Neut % (Auto) 88.2 H Lymph % (Auto) 9.0 L [place] % (Auto) 2.1 L Eos % (Auto) 0.1 Baso % (Auto) 0.2 Lymph # (Auto) 0.80 L [place] # (Auto) 0.2 Eos # (Auto) 0.0 Baso # (Auto) 0.0 Abs Immat Gran (auto) 0.04 H Absolute Neuts (auto) 7.9 H Absolute Nucleated RBC 0.0 Nucleated RBC % 0.0 Sodium 137 Potassium 3.8 Chloride 110 H Carbon Dioxide 22 Anion Gap 5 L BUN 10 Creatinine 0.80 Estim Creat Clear Calc 58 Estimated GFR > 60 Glucose 118 H Calcium 8.3 L Total Bilirubin 1.0 AST 25 ALT 50 H Alkaline Phosphatase 214 H Total Protein 6.0 L Albumin 3.3 L Blood Type O Negative Antibody Screen Negative Crossmatch See Detail Post-procedural complaints: none Patient Feedback: Patient satisfied with anesthetic care.
[2022-04-23 14:00] VITALS: BP 155/66; PULSE 65; RESP 18; TEMP 36.4; O2SAT 98
--- NOTE | 2022-04-23 14:15 | PM.DS ---
DS: Admitting Diagnosis Discharge Date 04/23/2022 1537 Admitting Diagnosis Choledocholithiasis Transaminitis Elevated serum creatinine DS: Discharge Diagnosis Discharge Diagnosis (1) Cholangitis: Code(s): K83.09 - Other cholangitis Status: Acute (2) Choledocholithiasis: Code(s): K80.50 - Calculus of bile duct without cholangitis or cholecystitis without obstruction Status: Acute (3) Iron deficiency anemia: Code(s): D50.9 - Iron deficiency anemia, unspecified Status: Acute (4) Transaminitis: Code(s): R74.01 - Elevation of levels of liver transaminase levels Status: Acute (5) Leukocytosis: Code(s): D72.829 - Elevated white blood cell count, unspecified Status: Acute (6) Elevated serum creatinine: Code(s): R79.89 - Other specified abnormal findings of blood chemistry Status: Acute (7) Delirium due to general medical condition: Code(s): F05 - Delirium due to known physiological condition Status: Acute (8) History of open reduction and internal fixation (ORIF) procedure: Onset Date: 04/08/22 Code(s): Z98.890 - Other specified postprocedural states Status: Chronic (9) Dementia: Qualifiers: Dementia type: unspecified type Code(s): F03.90 - Unspecified dementia without behavioral disturbance Status: Chronic DS: Summary Hospital Course Hospital Course: Sanam Yu is a 71-year-old female with medical comorbidities of dementia, hypertension, gout, and breast cancer. She was directly admitted to the medical floor from [facility] GI consultation after she was found to have elevated LFTs and evidence of choledocholithiasis on imaging. She had a ground level fall in her home more 2 weeks ago and sustained a left hip fracture, status post open reduction internal fixation with IM nail on 04/08/2022. Postoperatively she had a drop in her hemoglobin though that has remained stable around 8.0 g. She was sent to [facility] thereafter where she has had issues with constipation, insomnia, and increasing confusion with hallucinations. Labs on the day of admission, showed marked increase in her LFTs and a subsequent CT of the abdomen and pelvis showed biliary ductal dilatation with suggestion of sludge or stone in the common bile duct. WBC was 15.4 and transfer was initiated to [facility] for consideration for ERCP. Dr. Sherman agreed to consultation and he recommended empiric antibiotics. The patient was admitted to the medical floor and treated with IV Zosyn 3.375 mg Q6 hours, IV hydration and GI consultation. Her elevated serum creatinine and leukocytosis improved on antibiotics and IV fluids. Serial LFTs were obtained and improved, as well. Her total bilirubin decreased from 3.5 to 0.8, AST decreased 101 to 25, ALT 139 to 50, and alk phos 312 to 214. She was noted to be jaundiced upon admission, which improved dramatically following initiation of treatment as above. The patient underwent ERCP on 04/22/22 showed large filling defects in the common bile duct consistent with stones and sludge, with duct dilation at 14 mm. Stones and large amount of sludge were removed with only clear bile noted at the end of procedure. The patient returned to the floor and continued on IV antibiotics. Her diet was advanced with good tolerance. Once able to take PO, she was transitioned to oral ciprofloxacin 500 mg BID and metronidazole 500 mg TID x 4 more day. During the patient's hospitalization she was noted to have anemia, with hemoglobin 7.8 to 7.1. This was attributed to prior orthopedic surgery, dilution, as well as frequent blood draws. She was transfused 1 unit PRBCs, since her H/H was trending down. Repeat hemoglobin was 9.3. No s/s of active bleeding were noted. She was started on ferrous sulfate 325 mg daily. Upon admission, the patient was significantly confused, from baseline per f
--- NOTE | 2022-04-23 14:32 | WPDGIPROGNO ---
Progress Note: A&P Assessment and Plan (1) Cholangitis: Code(s): K83.09 - Other cholangitis Status: Acute Assessment and Plan: treated with ercp yesterday, large amount of sludge and stones removed she is tolerating diet and bili is normal today she can go home with 5 more days of oral abx follow-up office in 3-4 weeks (2) Choledocholithiasis: Code(s): K80.50 - Calculus of bile duct without cholangitis or cholecystitis without obstruction Status: Acute Assessment and Plan: treated with ercp no complications (3) Transaminitis: Code(s): R74.01 - Elevation of levels of liver transaminase levels Status: Acute Assessment and Plan: slowly trending down repeat labs as outpatient (4) Leukocytosis: Code(s): D72.829 - Elevated white blood cell count, unspecified Status: Acute (5) History of open reduction and internal fixation (ORIF) procedure: Onset Date: 04/08/22 Code(s): Z98.890 - Other specified postprocedural states Status: Chronic (6) Iron deficiency anemia: Code(s): D50.9 - Iron deficiency anemia, unspecified Status: Acute Assessment and Plan: s/p blood transfusion Subjective Date/time seen: 04/23/22 14:32 Interval history: confused but much better, tolerating diet, no abdominal pain Review of Systems Review of Systems: All systems reviewed & are unremarkable except as noted in HPI and below Exam Const: General: comfortable HENMT: General nose exam: Normal nares present Eyes: Sclera: scleral abnormality (icteric) Neck: Neck: supple Resp: Auscultation: clear to auscultation bilaterally Cardio: Rate: regular rate GI: GI Palp: Yes Soft to palpation and No Tenderness to palpation present (GI) Auscultation: normal bowel sounds Back/Spine/Pelvis: Other: s/p left hip surgery Skin: Other: jaundice Neuro: Other: awake and alert, she is talking appropriately but gets confused. Sitter at bedside Extrem: General: normal to inspection Psych: Affect: normal affect Objective Data Vital Signs Vital Signs: Vital Signs - 24 hr 04/22/22 14:52 04/22/22 15:02 04/22/22 15:12 Temperature 98.3 F Pulse Rate 73 66 70 Respiratory Rate 21 H 19 23 H Blood Pressure 150/69 H 153/61 H 121/45 L Pulse Oximetry 100 97 96 Oxygen Delivery Simple Face Mask Room Air Room Air Oxygen Flow Rate 6 04/22/22 15:22 04/22/22 15:32 04/22/22 15:42 Temperature 98.8 F Pulse Rate 66 69 65 Respiratory Rate 21 H 23 H 22 H Blood Pressure 137/89 135/62 147/66 H Pulse Oximetry 100 100 100 Oxygen Delivery Room Air Room Air Room Air Oxygen Flow Rate 04/22/22 15:52 04/22/22 16:00 04/22/22 16:00 Temperature 96.5 F L Pulse Rate 70 65 Respiratory Rate 19 18 16 Blood Pressure 134/69 107/76 Pulse Oximetry 100 100 96 Oxygen Delivery Room Air Room Air Oxygen Flow Rate 04/22/22 21:51 04/22/22 21:59 04/22/22 20:00 Temperature 97.3 F L Pulse Rate 65 64 Respiratory Rate 18 Blood Pressure 171/65 H Pulse Oximetry 99 Oxygen Delivery Room Air Oxygen Flow Rate 04/23/22 02:13 04/23/22 05:50 04/23/22 08:50 Temperature 97.4 F L Pulse Rate 53 L 68 Respiratory Rate 18 Blood Pressure 169/74 H Pulse Oximetry 97 100 Oxygen Delivery Room Air Oxygen Flow Rate 04/23/22 14:00 Temperature 97.6 F Pulse Rate 65 Respiratory Rate 18 Blood Pressure 155/66 H Pulse Oximetry 98 Oxygen Delivery Oxygen Flow Rate Intake/Output Intake/Output: Intake & Output 04/20/22 04/21/22 04/22/22 04/23/22 23:59 23:59 23:59 23:59 Intake Total 1100 2490 2940 1530 Output Total 5311 531 9941 600 Balance -550 2140 1340 930 Meds/Results Medications: Active Medications Generic Name Dose Route Start Last Admin Trade Name Freq PRN Reason Stop Dose Admin Allopurinol 300 mg 04/20/22 08:00 04/23/22 08:49 Allopurinol 300 Mg Tablet PO 300 mg DAILY@0800 [facility] Admini
[2022-04-23] MEDS: metroNIDAZOLE 250 MG TABLET 500 MG PO (15:13)
== END 2022-04-23 16:20 | disposition home or self-care (01) | DRG 445 ==
PROVIDERS: Internal Medicine Gastroenterology; Physician Assistant; Admitting Provider Internal Medicine; PCP Internal Medicine; Visit Provider Nurse Practitioner Family
PROC: 0FC98ZZ Extirpation of Matter from Common Bile Duct, Via Natural or Artificial Opening Endoscopic (ICD-10-PCS; CPT 43260; principal; 2022-04-22 17:00)
DX: K80.50 Calculus of bile duct without cholangitis or cholecystitis without obstruction (principal); K83.09 Other cholangitis; R74.01 Elevation of levels of liver transaminase levels; I10 Essential (primary) hypertension; R79.89 Other specified abnormal findings of blood chemistry; G30.9 Alzheimer's disease, unspecified; F02.80 Dementia in other diseases classified elsewhere, unspecified severity, without behavioral disturbance, psychotic disturbance, mood disturbance, and anxiety; Z85.3 Personal history of malignant neoplasm of breast; K21.9 Gastro-esophageal reflux disease without esophagitis; Z90.49 Acquired absence of other specified parts of digestive tract; Z98.890 Other specified postprocedural states; D72.829 Elevated white blood cell count, unspecified; D50.9 Iron deficiency anemia, unspecified; K86.89 Other specified diseases of pancreas; Z91.81 History of falling; Z79.899 Other long term (current) drug therapy
CPT/HCPCS: 36415; 36430; 74329; 80048; 80053; 80074; 80076; 82140; 82607; 82746; 83735; 84443; 85014; 85018; 85025; 85610; 85730; 86850; 86900; 86901; 86920; 97110; 97116; 97161; 97165; 97530; 97535; A9270; J0330; J1100; J2405; J2543; J2704; J7030; J7042; J7050; J7120; P9016

== ENCOUNTER 2024-12-08 12:31 | Inpatient (IN) | payer MEDICARE, SELFPAY ==
[2024-12-08] VITALS (10 sets, daily range): BP systolic 113–176; BP diastolic 52–88; PULSE 52–115; RESP 16–23; TEMP 36.3–38.9; O2SAT 95–100; BMI 27.8
--- NOTE | ~2024-12-08 | CT_ITS ---
EXAMINATION: CT abdomen pelvis w con DATE: 12/08/2024 14:25 INDICATION: Nausea and vomiting. TECHNIQUE: Computed tomography (CT) of the abdomen and pelvis was performed with 100 mL Omnipaque 350 intravenous contrast. Automated exposure control and iterative reconstruction technique were employe d. The dose-length product was 838.08 mGy-cm. COMPARISON: None. FINDINGS: The visualized portions of lung bases demonstrate mild atelectasis. No pleural effusion. Th e heart size is normal. No pericardial effusion. Breast implants are noted. There is moderate intrahe patic biliary duct dilatation. There are changes of cholecystectomy. The common duct is dilated to 13 mm. There are stones in the common bile duct. The spleen, pancreas, and adrenal glands are normal. T here is cortical thinning of the kidneys. There are no dilated loops of bowel. There are changes of a ppendectomy. There are no pathologically enlarged lymph nodes. There is no free intraperitoneal fluid . The bladder is distended. There is internal fixation of proximal left femur. There is severe lumbar spondylosis and moderate thoracic spondylosis. There is a chronic burst fracture of T12. There is ch ronic compression fracture of T11. IMPRESSION: 1. Choledocholithiasis with moderate intrahepatic and extrahepatic biliary duct dilatation. Reviewed, dictated and finalized at location A. AGENT
--- NOTE | ~2024-12-08 | XR_ITS ---
INTRAOPERATIVE FLUOROSCOPY: CLINICAL HISTORY: 74 years old Female; GALLSTONES PROCEDURE COMMENTS: Limited intraoperative fluoroscopy of the right upper quadrant was performed. CUMULATIVE DOSE: 34.2 mGy FLUOROSCOPY TIME: 165 seconds FINDINGS/IMPRESSION: Please refer to operative note for further details. Reviewed, dictated and finalized at location A. LINE DISPATCHER
--- NOTE | ~2024-12-08 | XR_ITS ---
EXAMINATION: XR chest 1V portable DATE: 12/08/2024 13:31 INDICATION: Altered mental status. Fever. TECHNIQUE: A single frontal view of the chest was obtained. COMPARISON: None. FINDINGS: There is no pneumonia, pleural effusion, or pneumothorax. The heart size is normal. Surgica l clips overlie the chest and abdomen. IMPRESSION: 1. No acute cardiopulmonary disease. Reviewed, dictated and finalized at location A. OPATHIC DOCTOR
--- OUTSIDE RECORDS SUMMARY | 2024-12-08 12:33 | XMS_ITS | Clinical Summary ---
Author Organization [facility] Address [address] [place] [id number] Care Team Providers Care Sports Team Manager Name Role Phone Unavailable Primary Care Provider Unavailabl e Social History Tobacco Use Types Packs/Day Years Used Date Smoking Tobacco: Never Assessed Comments Unknown Sex and Gender Information Value Date Recorded Sex Assigned at Not on file Legal Sex Female 12:30 PM [employer] Gender Identity Not on file Sexual Orientation Not on file Plan of Treatment Health Maintenance Due Date Last Done Comments Colorectal Cancer Screening Colonoscopy (10 Years) 1950 Hepatitis C 1968 DTaP, Tdap and Td Vaccines ( 1 - Tdap) 1969 Mammogram Screening 1990 Zoster Vaccines (1 of 2) 2000 Dexa Scan (General) 2015 Pneumococcal Vaccine: 65+ Ye ars (1 of 1 - PCV) 2015 COVID-19 Vaccine ( - 2023-2 5 season) 2024 Influenza Adult (#1) 2024 RSV Immunization or 60+ Years (1 - 1-dose 75+ series) 2025 Meningococcal B Vaccine Aged Out No l onger eligible based on patient's age to complete this topic Meningococcal Vaccine Aged Out No reema elio eligible based on patient's age to complete this topic RSV Immunizations Under 20 Months Aged Out No longer eligible based on patient's age to complete this topic
--- NOTE | 2024-12-08 12:46 | ECG_ITS ---
Test Date: 2024-12-08 13:50:16 Measurements Intervals Solomon Rate: 117 P: 62 FL: 156 QRS: -13 QRSD: 89 T: 96 QT: 312 QTc: 436 Interpretive Statements SINUS TACHYCARDIA BORDERLINE ST-T WAVE ABNORMALITY- ANTEROLAT/HIGH LAT LEADS BASELINE ARTIFACT- I, II, III, AVR, AVL, AVF, V1-V2, V4-V6 ABNORMAL ECG No previous ECG available for comparison Electronically Signed On 12-08-2024 14:06:58 [employer] by Diogenes Dickens D.O.
[2024-12-08 12:56] LABS: Glucose Point of Care 100 mg/dl (65-105)
--- OUTSIDE RECORDS SUMMARY | 2024-12-08 12:59 | XMS_ITS | Clinical Summary ---
Author Organization [facility] Address [address] [place] [id number] Care Team Providers Care Curatorial Specialist Name Role Phone Unavailable Primary Care Provider Unavailabl e Social History Tobacco Use Types Packs/Day Years Used Date Smoking Tobacco: Never Assessed Comments Unknown Sex and Gender Information Value Date Recorded Sex Assigned at Not on file Legal Sex Female 12:30 PM [employer] Gender Identity Not on file Sexual Orientation [...]
--- NOTE | 2024-12-08 13:07 | ED_ITS ---
HPI - Nausea/Vomiting/Diarrhea General Chief complaint: Nausea/Vomiting/Diarrhea Stated complaint: flu-like sx Time Seen by Provider: 12/08/24 12:45 History of Present Illness HPI Narrative: Patient here with n/v, abd pain; she is confused. Related Data Home Medications ?Medication ?Instructions ?Recorded ?Confirmed ?Last Taken ?Type acetaminophen 500 mg tablet 500 mg PO Q6H 04/19/22 04/19/22 Unknown History allopurinol 300 mg tablet 300 mg PO DAILY 04/19/22 04/19/22 04/19/22 08:49 History anastrozole 1 mg tablet 1 mg PO DAILY 04/19/22 04/19/22 Unknown History aspirin 81 mg tablet,delayed 81 mg PO DAILY 04/19/22 04/19/22 04/19/22 08:49 History release enalapril maleate 10 mg tablet 10 mg PO DAILY 04/19/22 04/19/22 04/19/22 08:49 History enoxaparin 40 mg/0.4 mL 40 mg subcut DAILY 04/19/22 04/19/22 04/19/22 08:53 History subcutaneous syringe (Lovenox) famotidine 20 mg tablet 20 mg PO BID 04/19/22 04/19/22 04/19/22 16:31 History magnesium oxide 400 mg PO DAILY 04/19/22 04/19/22 04/19/22 08:49 History memantine 10 mg tablet 10 mg PO QSHIFT 04/19/22 04/19/22 04/19/22 08:49 History metoprolol tartrate 25 mg tablet 12.5 mg PO BID 04/19/22 04/19/22 04/19/22 16:31 History potassium chloride 20 mEq 20 meq PO DAILY 04/19/22 04/19/22 04/19/22 History tablet,extended release(part/cryst) (Klor-Con M) sennosides 8.6 mg tablet (senna) 8.6 mg PO DAILY 04/19/22 04/19/22 04/19/22 History triamcinolone acetonide 0.1 % 1 applic topical DAILY 04/19/22 04/19/22 04/18/22 09:22 History topical ointment Allergies Allergy/AdvReac Type Severity Reaction Status Date / Time naproxen Allergy Unknown Verified 04/22/22 13:17 Review of Systems 2 Review of Systems: ROS unobtainable: Yes unobtainable due to medical condition PMFSH Past Medical History Medical History Alzheimer's dementia Anemia Breast cancer Gastroesophageal reflux disease Gout Hypertension Leukocytosis Surgical History Surgical History History of appendectomy History of bilateral mastectomy History of cholecystectomy History of open reduction and internal fixation (ORIF) procedure (04/08/22) Repair of left hip fracture with IM nail. Family History Family History Other Family history unknown Social History Social History Social History: Surrogate decision maker: Daya Carmona, daughter. Code status: Full code. Smoking status: Unknown if ever smoked Alcohol intake: never Substance use: never Spiritual care concerns: No Exam 2 Narrative: EXAMINATION OF ORGAN SYSTEMS/BODY AREAS: Constitutional: Vital signs per nursing GENERAL: Uncomfortable patient HEAD: Normal with no signs of head trauma. EYES: EOMI, conjunctiva normal ENT: Hearing grossly intact LUNGS: Nonlabored breathing. HEART: [Regular rate and rhythm] ABD: [Soft], no focal tenderness to palpation EXT: Normal range of motion SKIN: [No rashes or lesions.] NEURO: [Alert and confused, not following commands or speaking coherently. No gross focal sensory or strength deficits.] Course Vital Signs Vital signs: Vital Signs Temperature 101.9 F H 12/08/24 12:36 Pulse Rate 115 H 12/08/24 12:36 Respiratory Rate 20 12/08/24 12:36 Pulse Oximetry 100 12/08/24 12:36 Oxygen Delivery Room Air 12/08/24 12:36 Temperature 100.2 F H 12/08/24 15:37 Pulse Rate 92 12/08/24 15:37 Respiratory Rate 23 H 12/08/24 15:37 Blood Pressure 120/68 12/08/24 15:37 Pulse Oximetry 95 12/08/24 15:37 Oxygen Delivery Room Air 12/08/24 12:36 MDM - Nausea/Vomiting/Diarrhea MDM Narrative Medical decision making narrative: Patient here with n/v, abd pain; cannot provide an hx 1) Differential diagnosis: intraabd infxn, ACS, viral 2) Comorbidities: dementia 3) External notes reviewed: GI notes, adm records 4) History sources independently obtained from: NH paperwork 5) Discussion of management with: GI, hospitalist 6) Independent interpretation of: [] 7) Diagnostic tests or therapies considered but not ordered: [] 8) Social determinants of health: [] 9) Shared decision making: Patient presents with nausea, for history, on exam she is tachycardic, confused, covered in vomit, febrile, abdomen soft without obvious focal tenderness. Sepsis w/u initiated, abx ordered. ++LFTs and WBC, CT showing choledocholithiasis. D/w GI for ERCP; d/w hospitalist for admission. On rpt eval, pt more comfortable, VS improved. Lab Data 12/08/24 13:21 12/08/24 13:21 Labs: Lab Results 12/08/24 12/08/24 Range/Units 12:53 13:21 WBC 10.1 H (4.5-10.0) K/mm3 RBC 4.16 L (4.2-5.4) M/mm3 Hgb 12.4 D (12.0-15.0) g/dL Hct 38.0 (37.0-47.0) % MCV 91.3 (80-100) fl MCH 29.8 (26-34) pg MCHC 32.6 (32-36) g/dl RDW 13.8 (11.5-14.5) % Plt Count 163 D (150-375) k/mm3 MPV 10.9 H (7.4-10.4) fl Immature Gran % (Auto) 0.2 (0-0.5) % Neut % (Auto) 92.9 H (45.5-73.1) % Lymph % (Auto) 5.4 L (18.3-44.2) % [place] % (Auto) 1.0 L (2.6-8.5) % Eos % (Auto) 0.4 (0-4.4) % Baso % (Auto) 0.1 L (0.2-1.2) % Lymph # (Auto) 0.54 L (0.9-3.2) K/mm3 [place] # (Auto) 0.1 (0.1-0.6) K/mm3 Eos # (Auto) 0.0 (0-0.3) K/mm3 Baso # (Auto) 0.0 (0.0-0.1) K/mm3 Abs Immat Gran (auto) 0.02 (0.00-0.031) K/mm3 Absolute Neuts (auto) 9.4 H (1.3-6.7) K/mm3 Absolute Nucleated RBC 0.000 (0.0-0.012) K/mm3 Nucleated RBC % 0.0 (0.0-0.2) % Sodium 137 (137-145) mmol/L Potassium 4.0 (3.4-5.0) mmol/L Chloride 98 (98-107) mmol/L Carbon Dioxide 27 (22-30) mmol/L Anion Gap 12 (4-12) mmol/L BUN 22 H D (7-17) mg/dL Creatinine 0.96 (0.7-1.0) mg/dL Estim Creat Clear Calc Not Reportable Estimated GFR 57 L (59 - ) Glucose 140 H (65-110) mg/dL POC Capillary Glucose 100 (65-105) mg/dl Lactic Acid 2.2 H (0.7-2.0) mmol/L Calcium 9.1 (8.4-10.2) mg/dL Total Bilirubin 2.0 H (0.2-1.3) mg/dL AST 789 H (14-36) U/L ALT 270 H (6-35) U/L Alkaline Phosphatase 453 H (38-126) U/L Total Protein 8.0 (6.3-8.2) g/dL Albumin 4.1 (3.5-5.1) g/dL Lipase 132 (23-300) U/L Influenza A (RT-PCR) Negative (Negative) Influenza B (RT-PCR) Negative (Negative) RSV (RT-PCR) Negative (Negative) SARS-CoV-2 RNA (RT-PCR) Negative (Negative) Critical Care Time Critical Care Time Critical Care Time: Yes Total Critical Care Time: 31 Discharge Plan Discharge Clinical Impression: Sepsis, Choledocholithiasis Patient Disposition: Still a Patient Condition: Serious Patient Language: Spanish Prescriptions: No Action anastrozole 1 mg tablet 1 mg PO DAILY enalapril maleate 10 mg tablet 10 mg PO DAILY aspirin 81 mg tablet,delayed release (DR/EC) 81 mg PO DAILY famotidine 20 mg tablet 20 mg PO BID triamcinolone acetonide 0.1 % ointment 1 applic TOPICAL DAILY allopurinol 300 mg tablet 300 mg PO DAILY memantine 10 mg tablet 10 mg PO QSHIFT metoprolol tartrate 25 mg tablet 12.5 mg PO BID magnesium oxide 400 mg magnesium Tablet 400 mg PO DAILY sennosides [senna] 8.6 mg Tablet 8.6 mg PO DAILY acetaminophen 500 mg Tablet 500 mg PO Q6H potassium chloride [Klor-Con M20] 20 mEq Tablet,Er Particles/Crystals 20 meq PO DAILY enoxaparin [Lovenox] 40 mg/0.4 mL Syringe 40 mg SUBCUT DAILY ciprofloxacin HCl 500 mg Tablet 500 mg PO Q12HR 4 Days Qty: 8 0RF ferrous sulfate 325 mg (65 mg iron) Tablet 324 mg PO DAILY@0800 30 Days Qty: 30 1RF metronidazole 500 mg tablet 500 mg PO Q8H 4 Days Qty: 12 0RF Follow-up/Referrals: [place],Julia Beverly MD [Primary Care Provider] -
[2024-12-08 13:29] LABS: Basophils Percent Auto 0.1 % (0.2-1.2); Eosinophils Percent Auto 0.4 % (0-4.4); Hemoglobin 12.4 g/dL (12.0-15.0); Immature Granulocyte Absolute 0.02 K/mm3 (0.00-0.031); Immature Granulocyte Percent A 0.2 % (0-0.5); Lymphocytes Absolute Auto 0.54 K/mm3 (0.9-3.2); Lymphocytes Percent Auto 5.4 % (18.3-44.2); Mean Corpuscular HGB Conc 32.6 g/dl (32-36); Mean Corpuscular Hemoglobin 29.8 pg (26-34); Mean Corpuscular Volume 91.3 fl (80-100); Mean Platelet Volume 10.9 fl (7.4-10.4); Monocytes Absolute Auto 0.1 K/mm3 (0.1-0.6); Neutrophils Absolute Auto 9.4 K/mm3 (1.3-6.7); Neutrophils Percent Auto 92.9 % (45.5-73.1); Platelet Count Result 163 k/mm3 (150-375); Red Blood Count 4.16 M/mm3 (4.2-5.4); Red Cell Distribution Width 13.8 % (11.5-14.5); White Blood Count 10.1 K/mm3 (4.5-10.0)
[2024-12-08] MEDS: LACTATED RINGERS 1,000 ML 999 ML IV CONT ×2 (13:30→15:33)
[2024-12-08] MEDS: CEFEPIME 2 GM/NS 50 ML 2 GM/50 ML BAG IVPB (13:32)
[2024-12-08] MEDS: ACETAMINOPHEN 500 MG TABLET 1000 MG PO (13:33)
[2024-12-08 13:42] LABS: Lactic Acid Reflex 2.2 mmol/L (0.7-2.0)
[2024-12-08 13:44] LABS: Alanine Aminotransferase 270 U/L (6-35); Albumin Level 4.1 g/dL (3.5-5.1); Alkaline Phosphatase 453 U/L (38-126); Anion Gap 12 mmol/L (4-12); Blood Urea Nitrogen 22 mg/dL (7-17); Calcium 9.1 mg/dL (8.4-10.2); Carbon Dioxide 27 mmol/L (22-30); Chloride 98 mmol/L (98-107); Estimated Glomerular Filt Rate 57; Glucose 140 mg/dL (65-110); Lipase 132 U/L (23-300); Sodium 137 mmol/L (137-145)
[2024-12-08 13:53] LABS: Aspartate Amino Transferase 789 U/L (14-36)
[2024-12-08] MEDS: metroNIDAZOLE 500 MG/ISO 100ML 500 MG/100 ML BAG 100 MG IVPB (14:04)
[2024-12-08 14:05] LABS: Influenza A QL RT-PCR Negative (Negative); Influenza B QL RT-PCR Negative (Negative); RSV RNA, RT-PCR Negative (Negative); SARS-CoV-2 RNA PCR Negative (Negative)
--- NOTE | 2024-12-08 15:14 | PC.NURSE ---
Patient incontinent of stool-pericare done, linens changed
[2024-12-08 16:26] LABS: Reflex Lactic Acid Yes or No Add Lactic
--- NOTE | 2024-12-08 16:47 | PC.NURSE ---
Patient incontinent of liquid brown stool, pericare given, diaper and linen changed
--- NOTE | 2024-12-08 18:09 | PC.NURSE ---
PAtient arrived from ER. Daughter reached to answer questions of admission.
[2024-12-08 18:51] LABS: Lactic Acid 1.1 mmol/L (0.7-2.0)
[2024-12-09] VITALS (13 sets, daily range): BP systolic 121–157; BP diastolic 49–73; PULSE 60–90; RESP 16–20; TEMP 36.7–38.2; O2SAT 96–100
[2024-12-09] MEDS: LACTATED RINGERS 1,000 ML 100 ML IV CONT ×2 (01:55→13:20)
[2024-12-09] MEDS: CEFEPIME 2 GM/NS 50 ML 2 GM/50 ML BAG IVPB ×2 (01:57→13:19)
[2024-12-09] MEDS: metroNIDAZOLE 500 MG/ISO 100ML 500 MG/100 ML BAG 100 MG IVPB ×3 (02:29→17:15)
[2024-12-09 04:04] LABS: Add Urine Microscopic? YES; Appearance Urine Cloudy (Clear); Bacteria Urine 2+ /hpf; Bilirubin Urine Negative (Negative); Blood Urine 1+ (Negative); Color Urine Yellow (Yellow); Glucose Urine UA Negative (Negative); Ketones Urine Negative (Negative); Leukocyte Esterase Ur 3+ LEU/UL (Negative); Need Manual Microscopic Reviewed; Nitrate Urine Negative (Negative); Non Pathogenic Casts 0-2; Protein Urine 1+ mg/dL (Negative); Specific Grav Ur 1.018 (1.001-1.035); Squamous Epithelial Cell Urine None Seen /hpf (Few); WBC Urine >100 /hpf (0-3)
[2024-12-09 04:39] LABS: Basophils Percent Auto 0.2 % (0.2-1.2); Eosinophils Absolute Auto 0.1 K/mm3 (0-0.3); Eosinophils Percent Auto 0.4 % (0-4.4); Hematocrit 34.3 % (37.0-47.0); Immature Granulocyte Absolute 0.04 K/mm3 (0.00-0.031); Immature Granulocyte Percent A 0.3 % (0-0.5); Lymphocytes Absolute Auto 0.43 K/mm3 (0.9-3.2); Mean Corpuscular HGB Conc 32.1 g/dl (32-36); Mean Corpuscular Volume 90.5 fl (80-100); Monocytes Absolute Auto 0.5 K/mm3 (0.1-0.6); Monocytes Percent Auto 3.6 % (2.6-8.5); Neutrophils Absolute Auto 13.1 K/mm3 (1.3-6.7); Neutrophils Percent Auto 92.5 % (45.5-73.1); Platelet Count Result 179 k/mm3 (150-375); Red Blood Count 3.79 M/mm3 (4.2-5.4); Red Cell Distribution Width 13.7 % (11.5-14.5); White Blood Count 14.1 K/mm3 (4.5-10.0)
[2024-12-09 04:50] LABS: INR 1.2; Prothrombin Time 15.8 Seconds (11.1-14.7)
[2024-12-09 05:05] LABS: Alanine Aminotransferase 528 U/L (6-35); Albumin Level 3.4 g/dL (3.5-5.1); Alkaline Phosphatase 428 U/L (38-126); Anion Gap 9 mmol/L (4-12); Bilirubin,Total 3.2 mg/dL (0.2-1.3); Blood Urea Nitrogen 20 mg/dL (7-17); Calcium 8.7 mg/dL (8.4-10.2); Carbon Dioxide 28 mmol/L (22-30); Chloride 98 mmol/L (98-107); Estimated CRCL calculation 47 ml/min; Estimated Glomerular Filt Rate > 60; Glucose 102 mg/dL (65-110); Magnesium 1.4 mg/dL (1.6-2.3); Potassium 3.8 mmol/L (3.4-5.0); Sodium 135 mmol/L (137-145)
[2024-12-09 05:08] LABS: Procalcitonin 52.5 ng/mL
[2024-12-09 05:49] LABS: Aspartate Amino Transferase 761 U/L (14-36)
--- NOTE | 2024-12-09 06:32 | PC.NURSE ---
Left message for pt's daughter/POA, Daya Carmona ([phone]) to obtain consent for ERCP today.
--- NOTE | 2024-12-09 07:48 | PM.IMHP ---
H&P: HPI History of Present Illness Date/Time: 12/09/24 07:48 Chief Complaint: Nausea/Vomiting/Diarrhea Narrative: 71-year-old female with Choledocholithiasis,dementia, hypertension, gout, and breast cancer presented to ED for flu like symptoms. In the ED patient was tachycardic, confused, febrile. Pertinent ED labs: WBC 14.1, hemoglobin 11, hematocrit 34.3, platelet 179, Patient was admitted due to increased LFTs and WBC, CT scan showing choledocholithiasis. Of note patient was previously admitted in March 2022 for the same symptoms and underwent ERCP with removal of large amount of sludge and stones. Patient underwent cholecystectomy about 50 years ago and also had appendectomy 5 years ago. Pending GI evaluation. Patient will undergo ERCP tomorrow. Currently patient is started on cefepime and metronidazole. Review of Systems Review of Systems: ROS unobtainable: Yes unobtainable due to medical condition PMFSH Past Medical History Medical History (Updated 12/09/24 @ 15:53 by Parish Sherman MD) SIRS (systemic inflammatory response syndrome) Leukocytosis Anemia Gout Gastroesophageal reflux disease Hypertension Alzheimer's dementia Breast cancer Surgical History Surgical History History of open reduction and internal fixation (ORIF) procedure (04/08/22) Repair of left hip fracture with IM nail. History of cholecystectomy History of appendectomy History of bilateral mastectomy Family History Family History Other Family history unknown Social History Social History Social History: Surrogate decision maker: Daya Carmona, daughter. Code status: Full code. Smoking status: Never smoker Second hand tobacco smoke exposure: No Alcohol intake: never Substance use: never Do You Feel Safe in your Home?: Yes Lack of Transportation: YES Lack of Food: Never True Current Housing: I Have Housing Concerned About Future Housing: No Difficulty Paying Gas/Electric Bills: No Difficulty Paying for Meds: No Currently Unemployed: No Education: High School Diploma/GED Difficulty w/ Childcare or Family Care: No Spiritual care concerns: No Meds Home Medications and Allergies Home Medications ?Medication ?Instructions ?Recorded ?Confirmed ?Type acetaminophen 500 mg tablet 500 mg PO Q6H 04/19/22 12/08/24 History allopurinol 300 mg tablet 300 mg PO DAILY 04/19/22 12/08/24 History anastrozole 1 mg tablet 1 mg PO DAILY 04/19/22 12/08/24 History aspirin 81 mg tablet,delayed 81 mg PO DAILY 04/19/22 12/08/24 History release enalapril maleate 10 mg tablet 10 mg PO DAILY 04/19/22 12/08/24 History famotidine 20 mg tablet 20 mg PO BID 04/19/22 12/08/24 History memantine 10 mg tablet 10 mg PO BID 04/19/22 12/08/24 History metoprolol tartrate 25 mg tablet 12.5 mg PO BID 04/19/22 12/08/24 History Allergies Allergy/AdvReac Type Severity Reaction Status Date / Time naproxen Allergy Unknown Verified 04/22/22 13:17 Vital Signs Vital Signs - 24 hr 12/08/24 12:36 12/08/24 14:04 12/08/24 15:37 Temperature 101.9 F H 102.1 F H 100.2 F H Pulse Rate 115 H 92 Respiratory Rate 20 23 H Blood Pressure 120/68 Pulse Oximetry 100 95 Oxygen Delivery Room Air 12/08/24 16:49 12/08/24 17:24 12/08/24 18:00 Temperature 98.3 F Pulse Rate 87 78 72 Respiratory Rate 16 18 Blood Pressure 113/88 117/52 L Pulse Oximetry 95 96 Oxygen Delivery 12/08/24 19:36 12/08/24 20:00 12/08/24 20:00 Temperature 97.5 F L Pulse Rate 62 60 Respiratory Rate 18 Blood Pressure 129/61 Pulse Oximetry 100 Oxygen Delivery Room Air 12/08/24 22:00 12/08/24 23:49 12/09/24 00:00 Temperature 97.4 F L Pulse Rate 52 L 60 Respiratory Rate 18 Blood Pressure 176/67 H Pulse Oximetry 100 Oxygen Delivery Room Air 12/09/24 00:00 12/09/24 02:00 12/09/24 02:01 Temperature 98.2 F Pulse Rate 60 82 Respiratory Rate Blood Pressure Pulse Oximetry Oxygen Delivery 12/09/24 04:00 12/09/24 04:00 12/09/24 04:00 Temperature 98.4 F Pulse Rate 90 77 Respiratory Rate 18 Blood Pressure 150/66 H Pulse Oximetry 100 Oxygen Delivery Room Air 12/09/24 05:12 12/09/24 06:00 Temperature 100.6 F H Pulse Rate 79 Respiratory Rate Blood Pressure Pulse Oximetry Oxygen Delivery Exam Narrative: EXAMINATION OF ORGAN SYSTEMS/BODY AREAS: Constitutional: Vital signs per nursing GENERAL: Uncomfortable patient HEAD: Normal with no signs of head trauma. EYES: EOMI, conjunctiva normal ENT: Hearing grossly intact LUNGS: Nonlabored breathing. HEART: [Regular rate and rhythm] ABD: [Soft], no focal tenderness to palpation EXT: Normal range of motion SKIN: [No rashes or lesions.] NEURO: [Alert and confused, not following commands or speaking coherently. No gross focal sensory or strength deficits.] H&P: Results Labs Labs: Short CBC 12/08/24 12/09/24 Range/Units 13:21 03:51 WBC 10.1 H 14.1 H (4.5-10.0) K/mm3 Hgb 12.4 D 11.0 L (12.0-15.0) g/dL Hct 38.0 34.3 L (37.0-47.0) % Plt Count 163 D 179 (150-375) k/mm3 BMP 12/08/24 12/09/24 13:21 03:51 Sodium 137 135 L Potassium 4.0 3.8 Chloride 98 98 Carbon Dioxide 27 28 BUN 22 H D 20 H Creatinine 0.96 0.90 Glucose 140 H 102 Calcium 9.1 8.7 Liver Function 12/08/24 12/09/24 Range/Units 13:21 03:51 Total Bilirubin 2.0 H 3.2 H (0.2-1.3) mg/dL AST 789 H 761 H (14-36) U/L ALT 270 H 528 H (6-35) U/L Alkaline Phosphatase 453 H 428 H (38-126) U/L Albumin 4.1 3.4 L (3.5-5.1) g/dL Urine 12/09/24 Range/Units 03:15 Urine Color Yellow (Yellow) Urine Appearance Cloudy H (Clear) Urine pH 8.0 (5.0-9.0) Ur Specific [place] 1.018 (1.001-1.035) Urine Protein 1+ H (Negative) mg/dL Urine Glucose (UA) Negative (Negative) mg/dL Assessment and Plan Assessment and plan (1) History of cholecystectomy: Code(s): Z90.49 - Acquired absence of other specified parts of digestive tract Status: Acute (2) Choledocholithiasis: Code(s): K80.50 - Calculus of bile duct without cholangitis or cholecystitis without obstruction Status: Acute (3) Transaminitis: Code(s): R74.01 - Elevation of levels of liver transaminase levels Status: Acute (4) Hypertension: Qualifiers: Hypertension type: primary hypertension Qualified Code(s): I10 - Essential (primary) hypertension Code(s): I10 - Essential (primary) hypertension Status: Chronic (5) Iron deficiency anemia: Code(s): D50.9 - Iron deficiency anemia, unspecified Status: Acute (6) Leukocytosis: Code(s): D72.829 - Elevated white blood cell count, unspecified Status: Acute Plan Choledocholithiasis Currently on cefepime and metronidazole Possible ERCP tomorrow CT abd :Choledocholithiasis with moderate intrahepatic and extrahepatic biliary duct dilatation. Tolerating liquid diet Remote history of cholecystectomy and appendectomy NPO after midnight Monitor vitals Gastroenterology following HTN Continue enalapril 10 mg Metoprolol 12.5 mg p.o. b.i.d. Hospitalist MIPS Advance Care Plan I have confirmed that the patient's Advanced Care Plan is present, code status is documented, or surrogate decision maker is listed in patient medical record.: Yes Medication Reconciliation I have utilized all available resources to obtain, update and review the patients current medications (includes all prescriptions, OTC, herbals, cannabis, and nutritional supplements).: Yes
[2024-12-09] MEDS: ACETAMINOPHEN 500 MG TABLET PO ×3 (08:30→17:14)
--- NOTE | 2024-12-09 15:49 | P.CONGI_ITS ---
Assessment and Plan Assessment and plan (1) Choledocholithiasis: Code(s): K80.50 - Calculus of bile duct without cholangitis or cholecystitis without obstruction Status: Acute Assessment and Plan: CT scan a/p reviewed, will need again ERCP- will assess if needs also cholangioscopy with EHL possible cholangitis again (elevated liver enzymes, high wbc and pain) on antibiotics (2) Transaminitis: Code(s): R74.01 - Elevation of levels of liver transaminase levels Status: Acute Assessment and Plan: monitor, from stone in bile duct she is post cholecystectomy (3) SIRS (systemic inflammatory response syndrome): Code(s): R65.10 - Systemic inflammatory response syndrome (SIRS) of non-infectious origin without acute organ dysfunction Status: Acute (4) Delirium due to general medical condition: Code(s): F05 - Delirium due to known physiological condition Status: Acute Assessment and Plan: confused and sitter at bedside (5) Leukocytosis: Code(s): D72.829 - Elevated white blood cell count, unspecified Status: Acute (6) History of cholecystectomy: Code(s): Z90.49 - Acquired absence of other specified parts of digestive tract Status: Acute GI Consult Note Consult date/time: 12/09/24 15:49 Reason for consult: choledocholithiasis HPI: Sanam Yu is a 74 year old female with history of dementia, hypertension, gout, and breast cancer with previous choledocholithiasis treated with ERCP in 2021 by me, removal stones/debris. She is here with abdominal pain, n/v. She is pleasantly confused and history obtained from records. Noted again elevated liver enzymes bili 2, wbc 14k, CT scan showed choledocholithiasis (s/p mo several years ago), started on antibiotics and admitted to hospital. Review of Systems 2 Review of Systems: ROS unobtainable: Yes unobtainable due to mental status PMFSH Past Medical History Medical History (Updated 12/09/24 @ 15:53 by Parish Sherman MD) SIRS (systemic inflammatory response syndrome) Leukocytosis Anemia Gout Gastroesophageal reflux disease Hypertension Alzheimer's dementia Breast cancer Surgical History Surgical History History of open reduction and internal fixation (ORIF) procedure (04/08/22) Repair of left hip fracture with IM nail. History of cholecystectomy History of appendectomy History of bilateral mastectomy Family History Family History Other Family history unknown Social History Social History Social History: Surrogate decision maker: Daya Carmona, daughter. Code status: Full code. Smoking status: Never smoker Second hand tobacco smoke exposure: No Alcohol intake: never Substance use: never Do You Feel Safe in your Home?: Yes Lack of Transportation: YES Lack of Food: Never True Current Housing: I Have Housing Concerned About Future Housing: No Difficulty Paying Gas/Electric Bills: No Difficulty Paying for Meds: No Currently Unemployed: No Education: High School Diploma/GED Difficulty w/ Childcare or Family Care: No Spiritual care concerns: No Meds Home Medications and Allergies Home Medications ?Medication ?Instructions ?Recorded ?Confirmed ?Type acetaminophen 500 mg tablet 500 mg PO Q6H 04/19/22 12/08/24 History allopurinol 300 mg tablet 300 mg PO DAILY 04/19/22 12/08/24 History anastrozole 1 mg tablet 1 mg PO DAILY 04/19/22 12/08/24 History aspirin 81 mg tablet,delayed 81 mg PO DAILY 04/19/22 12/08/24 History release enalapril maleate 10 mg tablet 10 mg PO DAILY 04/19/22 12/08/24 History famotidine 20 mg tablet 20 mg PO BID 04/19/22 12/08/24 History memantine 10 mg tablet 10 mg PO BID 04/19/22 12/08/24 History metoprolol tartrate 25 mg tablet 12.5 mg PO BID 04/19/22 12/08/24 History Allergies Allergy/AdvReac Type Severity Reaction Status Date / Time naproxen Allergy Unknown Verified 04/22/22 13:17 Vital Signs Vital Signs - 24 hr 12/08/24 16:49 12/08/24 17:24 12/08/24 18:00 Temperature 98.3 F Pulse Rate 87 78 72 Respiratory Rate 16 18 Blood Pressure 113/88 117/52 L Pulse Oximetry 95 96 Oxygen Delivery 12/08/24 19:36 12/08/24 20:00 12/08/24 20:00 Temperature 97.5 F L Pulse Rate 62 60 Respiratory Rate 18 Blood Pressure 129/61 Pulse Oximetry 100 Oxygen Delivery Room Air 12/08/24 22:00 12/08/24 23:49 12/09/24 00:00 Temperature 97.4 F L Pulse Rate 52 L 60 Respiratory Rate 18 Blood Pressure 176/67 H Pulse Oximetry 100 Oxygen Delivery Room Air 12/09/24 00:00 12/09/24 02:00 12/09/24 02:01 Temperature 98.2 F Pulse Rate 60 82 Respiratory Rate Blood Pressure Pulse Oximetry Oxygen Delivery 12/09/24 04:00 12/09/24 04:00 12/09/24 04:00 Temperature 98.4 F Pulse Rate 90 77 Respiratory Rate 18 Blood Pressure 150/66 H Pulse Oximetry 100 Oxygen Delivery Room Air 12/09/24 05:12 12/09/24 06:00 12/09/24 08:00 Temperature 100.6 F H 100.8 F H Pulse Rate 79 84 Respiratory Rate 20 Blood Pressure 157/73 H Pulse Oximetry 96 Oxygen Delivery 12/09/24 08:34 12/09/24 08:34 12/09/24 10:00 Temperature Pulse Rate 84 84 80 Respiratory Rate 20 Blood Pressure Pulse Oximetry 96 Oxygen Delivery Room Air 12/09/24 11:20 12/09/24 15:39 Temperature 98.1 F 98.0 F Pulse Rate 70 62 Respiratory Rate 18 16 Blood Pressure 121/49 L 130/73 Pulse Oximetry 97 100 Oxygen Delivery Exam 2 Const: General: comfortable Other: pleasantly confused sitter (patient earlier pulled out her iv) HENMT: Face/Nose/Sinus: Normal nares present Eyes: General: appearance normal, both eyes and all related structures Neck: Neck: supple Resp: Auscultation: clear to auscultation bilaterally Cardio: Rate: regular rate GI: GI Palp: Yes Soft to palpation and No Tenderness to palpation present (GI) Auscultation: normal bowel sounds Back/Spine/Pelvis: Other: s/p left hip surgery Skin: General skin exam: normal color Neuro: Speech: normal speech Other: awake and alert, she is talking appropriately but gets confused. Sitter at bedside she could not tell me why she is here Extrem: General: normal to inspection Psych: Affect: normal affect Results Labs 12/09/24 03:51 12/09/24 03:51 Labs: Short CBC 12/09/24 Range/Units 03:51 WBC 14.1 H (4.5-10.0) K/mm3 Hgb 11.0 L (12.0-15.0) g/dL Hct 34.3 L (37.0-47.0) % Plt Count 179 (150-375) k/mm3 BMP 12/09/24 03:51 Sodium 135 L Potassium 3.8 Chloride 98 Carbon Dioxide 28 BUN 20 H Creatinine 0.90 Glucose 102 Calcium 8.7 Liver Function 12/09/24 Range/Units 03:51 Total Bilirubin 3.2 H (0.2-1.3) mg/dL AST 761 H (14-36) U/L ALT 528 H (6-35) U/L Alkaline Phosphatase 428 H (38-126) U/L Albumin 3.4 L (3.5-5.1) g/dL Urine 12/09/24 Range/Units 03:15 Urine Color Yellow (Yellow) Urine Appearance Cloudy H (Clear) Urine pH 8.0 (5.0-9.0) Ur Specific [place] 1.018 (1.001-1.035) Urine Protein 1+ H (Negative) mg/dL Urine Glucose (UA) Negative (Negative) mg/dL
[2024-12-09] MEDS: MEMANTINE 10 MG TABLET PO (17:14)
[2024-12-09] MEDS: FAMOTIDINE 20 MG TABLET PO (17:14)
[2024-12-09] MEDS: METOPROLOL TARTRATE 12.5 MG TABLET PO (20:43)
[2024-12-10] VITALS (15 sets, daily range): BP systolic 108–158; BP diastolic 64–92; PULSE 58–89; RESP 16–20; TEMP 36.7–39.1; O2SAT 95–100
[2024-12-10] MEDS: ACETAMINOPHEN 500 MG TABLET PO ×6 (00:10→19:55)
[2024-12-10] MEDS: LACTATED RINGERS 1,000 ML 100 ML IV CONT (01:00)
[2024-12-10] MEDS: CEFEPIME 2 GM/NS 50 ML 2 GM/50 ML BAG IVPB ×2 (01:00→13:26)
[2024-12-10] MEDS: metroNIDAZOLE 500 MG/ISO 100ML 500 MG/100 ML BAG 100 MG IVPB ×3 (01:32→17:44)
[2024-12-10 04:41] LABS: Hematocrit 31.2 % (37.0-47.0); Mean Corpuscular HGB Conc 32.1 g/dl (32-36); Mean Corpuscular Hemoglobin 29.2 pg (26-34); Mean Platelet Volume 12.3 fl (7.4-10.4); Platelet Count Result 166 k/mm3 (150-375); Red Blood Count 3.43 M/mm3 (4.2-5.4); Red Cell Distribution Width 13.9 % (11.5-14.5); White Blood Count 8.3 K/mm3 (4.5-10.0)
[2024-12-10 04:55] LABS: Alanine Aminotransferase 293 U/L (6-35); Albumin Level 3.1 g/dL (3.5-5.1); Alkaline Phosphatase 308 U/L (38-126); Anion Gap 8 mmol/L (4-12); Aspartate Amino Transferase 250 U/L (14-36); Bilirubin,Total 1.1 mg/dL (0.2-1.3); Blood Urea Nitrogen 16 mg/dL (7-17); Calcium 8.3 mg/dL (8.4-10.2); Carbon Dioxide 27 mmol/L (22-30); Chloride 99 mmol/L (98-107); Estimated CRCL calculation 53 ml/min; Estimated Glomerular Filt Rate > 60; Glucose 101 mg/dL (65-110); Potassium 3.4 mmol/L (3.4-5.0); Sodium 134 mmol/L (137-145)
[2024-12-10] MEDS: FAMOTIDINE 20 MG TABLET PO ×2 (08:36→17:44)
[2024-12-10] MEDS: METOPROLOL TARTRATE 12.5 MG TABLET PO ×2 (08:36→19:55)
[2024-12-10] MEDS: allopurinoL 300 MG TABLET PO (08:37)
[2024-12-10] MEDS: ENALAPRIL MALEATE 10 MG TABLET PO (08:37)
[2024-12-10] MEDS: MEMANTINE 10 MG TABLET PO ×2 (08:37→17:44)
[2024-12-10] MEDS: ONDANSETRON INJ 4 MG/2 ML VIAL IV PUSH (08:48)
--- NOTE | 2024-12-10 10:30 | PC.NURSE ---
PT WENT TO SURGERY.
[2024-12-10] MEDS: LACTATED RINGERS 1,000 ML 150 ML IV CONT (10:46)
--- NOTE | 2024-12-10 10:54 | P.PNAN_ITS ---
Anes - Initial Pre Proc Eval Procedure: Operation Date: 12/10/24 12:00 Proposed Procedures p Endoscopic Retro Cholangiopancreatogram with possible cholangioscopy - Parish Sherman MD Date/Time: 12/10/24 10:54 Surgeon: Baltazar Walden MD Pre Op Diagnosis: choledocholithiasis Patient Data Age: 74 Gender: F Height: 1.63 m Weight: 78.2 kg Last Vital Signs Temp 36.7 C 12/10/24 10:30 Pulse 65 12/10/24 10:30 Resp 18 12/10/24 10:30 BP 144/92 H 12/10/24 10:30 Pulse Ox 97 12/10/24 10:30 O2 Del Method Room Air 12/10/24 10:30 Allergies Allergy/AdvReac Type Severity Reaction Status Date / Time naproxen Allergy Unknown Verified 12/10/24 10:37 Home Medications ?Medication ?Instructions ?Recorded ?Confirmed ?Type acetaminophen 500 mg tablet 500 mg PO Q6H 04/19/22 12/08/24 History allopurinol 300 mg tablet 300 mg PO DAILY 04/19/22 12/08/24 History anastrozole 1 mg tablet 1 mg PO DAILY 04/19/22 12/08/24 History aspirin 81 mg tablet,delayed 81 mg PO DAILY 04/19/22 12/08/24 History release enalapril maleate 10 mg tablet 10 mg PO DAILY 04/19/22 12/08/24 History famotidine 20 mg tablet 20 mg PO BID 04/19/22 12/08/24 History memantine 10 mg tablet 10 mg PO BID 04/19/22 12/08/24 History metoprolol tartrate 25 mg tablet 12.5 mg PO BID 04/19/22 12/08/24 History Laboratory Tests 12/10/24 03:51 WBC 8.3 K/mm3 (4.5-10.0) RBC 3.43 L M/mm3 (4.2-5.4) Hgb 10.0 L g/dL (12.0-15.0) Hct 31.2 L % (37.0-47.0) MCV 91.0 fl (80-100) MCH 29.2 pg (26-34) MCHC 32.1 g/dl (32-36) RDW 13.9 % (11.5-14.5) Plt Count 166 k/mm3 (150-375) MPV 12.3 H fl (7.4-10.4) Sodium 134 L mmol/L (137-145) Potassium 3.4 mmol/L (3.4-5.0) Chloride 99 mmol/L (98-107) Carbon Dioxide 27 mmol/L (22-30) Anion Gap 8 mmol/L (4-12) BUN 16 mg/dL (7-17) Creatinine 0.82 mg/dL (0.7-1.0) Estim Creat Clear Calc 53 ml/min Estimated GFR > 60 (59 - ) Glucose 101 mg/dL (65-110) Calcium 8.3 L mg/dL (8.4-10.2) Total Bilirubin 1.1 mg/dL (0.2-1.3) AST 250 H U/L (14-36) ALT 293 H U/L (6-35) Alkaline Phosphatase 308 H U/L (38-126) Total Protein 6.0 L g/dL (6.3-8.2) Albumin 3.1 L g/dL (3.5-5.1) Patient hx anesthesia problems: none Family hx anesthesia problems: none Results Review: All pre-operative results and documents have been reviewed as part of the pre- operative evaluation. [facility] Past Medical History Medical History SIRS (systemic inflammatory response syndrome) Leukocytosis Anemia Gout Gastroesophageal reflux disease Hypertension Alzheimer's dementia Breast cancer Surgical History Surgical History History of open reduction and internal fixation (ORIF) procedure (04/08/22) Repair of left hip fracture with IM nail. History of cholecystectomy History of appendectomy History of bilateral mastectomy Family History Family History Other Family history unknown Social History Social History Social History: Surrogate decision maker: Daya Carmona, daughter. Code status: Full code. Smoking status: Never smoker Second hand tobacco smoke exposure: No Alcohol intake: never Substance use: never Do You Feel Safe in your Home?: Yes Lack of Transportation: YES Lack of Food: Never True Current Housing: I Have Housing Concerned About Future Housing: No Difficulty Paying Gas/Electric Bills: No Difficulty Paying for Meds: No Currently Unemployed: No Education: High School Diploma/GED Difficulty w/ Childcare or Family Care: No Spiritual care concerns: No Anes - Eval Final PreProcedure Day of Procedure 12/10/24 10:54 Patient weight: overweight Heart: regular rate and rhythm Lungs: clear to auscultation Airway: Mallampati scale class 1 Neurological: alert and oriented Last oral intake: >/= 8 hours ASA classification: III Emergent: no Anesthetic plan: proceed Anesthesia type and monitoring: general ETT and standard monitoring Results Review: All pre-operative results and documents have been reviewed as part of the pre- operative evaluation. Informed Consent: The patient's anesthetic plan and its attendant risks and benefits were discussed with the patient/family/POA. Questions were solicited and answers provided to the satisfaction of the patient/family/POA.
--- NOTE | 2024-12-10 10:58 | P.PNAN_ITS ---
Anes - Eval Final PreProcedure Day of Procedure 12/10/24 10:58 Patient weight: overweight Heart: regular rate and rhythm Lungs: clear to auscultation Airway: Mallampati scale class 1 Neurological: alert and oriented (x1 ) Last oral intake: >/= 8 hours ASA classification: III Emergent: no Anesthetic plan: proceed Anesthesia type and monitoring: general ETT and standard monitoring Results Review: All pre-operative results and documents have been reviewed as part of the pre- operative evaluation. Informed Consent: The patient's anesthetic plan and its attendant risks and benefits were discussed with the patient/family/POA. Questions were solicited and answers provided to the satisfaction of the patient/family/POA.
--- NOTE | 2024-12-10 11:12 | PM.IMPN ---
Progress Note: A&P Assessment and Plan (1) History of cholecystectomy: Code(s): Z90.49 - Acquired absence of other specified parts of digestive tract Status: Acute (2) Choledocholithiasis: Code(s): K80.50 - Calculus of bile duct without cholangitis or cholecystitis without obstruction Status: Acute (3) Transaminitis: Code(s): R74.01 - Elevation of levels of liver transaminase levels Status: Acute (4) Hypertension: Qualifiers: Hypertension type: primary hypertension Qualified Code(s): I10 - Essential (primary) hypertension Code(s): I10 - Essential (primary) hypertension Status: Chronic (5) Iron deficiency anemia: Code(s): D50.9 - Iron deficiency anemia, unspecified Status: Acute (6) Leukocytosis: Code(s): D72.829 - Elevated white blood cell count, unspecified Status: Acute Plan Choledocholithiasis Currently on cefepime and metronidazole Possible ERCP tomorrow CT abd :Choledocholithiasis with moderate intrahepatic and extrahepatic biliary duct dilatation. Tolerating liquid diet Remote history of cholecystectomy and appendectomy NPO after midnight Monitor vitals Gastroenterology following HTN Continue enalapril 10 mg Metoprolol 12.5 mg p.o. b.i.d. Subjective Date/time seen: 12/10/24 11:12 Interval history: No acute events. Patient will undergo ERCP Review of Systems Review of Systems: ROS unobtainable: Yes unobtainable due to medical condition Exam Narrative: EXAMINATION OF ORGAN SYSTEMS/BODY AREAS: Constitutional: Vital signs per nursing GENERAL: Uncomfortable patient HEAD: Normal with no signs of head trauma. EYES: EOMI, conjunctiva normal ENT: Hearing grossly intact LUNGS: Nonlabored breathing. HEART: [Regular rate and rhythm] ABD: [Soft], no focal tenderness to palpation EXT: Normal range of motion SKIN: [No rashes or lesions.] NEURO: [Alert and confused, not following commands or speaking coherently. No gross focal sensory or strength deficits.] Objective Data Vital Signs Vital Signs: Vital Signs - 24 hr 12/09/24 11:20 12/09/24 12:00 12/09/24 12:00 Temperature 98.1 F Pulse Rate 70 68 62 Respiratory Rate 18 Blood Pressure 121/49 L Pulse Oximetry 97 Oxygen Delivery Room Air 12/09/24 15:39 12/09/24 20:00 12/09/24 20:00 Temperature 98.0 F 98.3 F Pulse Rate 62 77 77 Respiratory Rate 16 16 16 Blood Pressure 130/73 143/61 H Pulse Oximetry 100 98 98 Oxygen Delivery Room Air 12/10/24 00:00 12/10/24 07:59 12/10/24 08:00 Temperature 102 F H 99.4 F Pulse Rate 89 80 Respiratory Rate 18 18 Blood Pressure 157/91 H 158/87 H Pulse Oximetry 95 100 Oxygen Delivery Room Air 12/10/24 08:36 12/10/24 10:30 Temperature 98.1 F Pulse Rate 85 65 Respiratory Rate 18 Blood Pressure 144/92 H Pulse Oximetry 97 Oxygen Delivery Room Air Intake/Output Intake/Output: Intake & Output 12/07/24 12/08/24 12/09/24 12/10/24 23:59 23:59 23:59 23:59 Intake Total 2150 1400 1300 Output Total 200 700 Balance 2150 1200 600 Meds/Results Medications: Active Medications Generic Name Dose Route Start Last Admin Trade Name Freq PRN Reason Stop Dose Admin Acetaminophen 500 mg 12/09/24 01:35 12/10/24 08:37 Acetaminophen 500 Mg Tablet PO 500 mg Q4H PRN Administration Mild Pain (1-3) or Fever Acetaminophen 500 mg 12/09/24 13:05 12/10/24 06:59 Acetaminophen 500 Mg Tablet PO Not Given Q6HR IDALIA Allopurinol 300 mg 12/10/24 09:00 12/10/24 08:37 Allopurinol 300 Mg Tablet PO 300 mg DAILY IDALIA Administration Enalapril Maleate 10 mg 12/10/24 09:00 12/10/24 08:37 Enalapril Maleate 10 Mg Tablet PO 10 mg DAILY IDALIA Administration Enalaprilat 1.25 mg 12/09/24 01:33 Enalaprilat 1.25 Mg/Ml Vial IV PUSH Q6HR PRN hypertension Famotidine 20 mg 12/09/24 17:00 12/10/24 08:36 Famotidine 20 Mg Tablet PO 20 mg BID IDALIA Administration Lactated Ringer's 1,000 mls @ 100 mls/hr 12/09/24 01:35 12/10/24 08:34 Lr - Lactated Ringers Iv IV CONT Not Given .Q10H IDALIA Cefepime HCl 2 gm in 50 mls @ 100 mls/hr 12/09/24 02:00 12/10/24 01:00 Maxipime 2 Gm/Ns 50 Ml IVPB 100 mls/hr Q12H IDALIA Administration Metronidazole 500 mg in 100 mls @ 100 mls/hr 12/09/24 02:00 12/10/24 10:52 Flagyl 500 Mg/Iso Soln 100 Ml IVPB 100 mls/hr Q8H IDALIA Administration Lactated Ringer's 1,000 mls @ 150 mls/hr 12/10/24 10:45 12/10/24 10:46 Lr - Lactated Ringers Iv IV CONT 150 mls/hr .Q6H40M IDALIA Administration Memantine 10 mg 12/09/24 17:00 12/10/24 08:37 Memantine 10 Mg Tablet PO 10 mg BID IDALIA Administration Metoprolol Tartrate 12.5 mg 12/09/24 21:00 12/10/24 08:36 Metoprolol Tartrate 12.5 Mg Tablet PO 12.5 mg Q12HR IDALIA Administration Ondansetron HCl 4 mg 12/08/24 15:32 12/10/24 08:48 Ondansetron Inj 4 Mg/2 Ml Vial IV PUSH 4 mg Q4H PRN Administration Nausea Radiology Results: ITS Impressions Chest X-Ray 12/08/24 13:31 IMPRESSION: 1. No acute cardiopulmonary disease. Abdomen/Pelvis CT 12/08/24 14:27 IMPRESSION: 1. Choledocholithiasis with moderate intrahepatic and extrahepatic biliary duct dilatation. Labs Labs: Laboratory Results - last 24 hr 12/10/24 03:51 WBC 8.3 RBC 3.43 L Hgb 10.0 L Hct 31.2 L MCV 91.0 MCH 29.2 MCHC 32.1 RDW 13.9 Plt Count 166 MPV 12.3 H Sodium 134 L Potassium 3.4 Chloride 99 Carbon Dioxide 27 Anion Gap 8 BUN 16 Creatinine 0.82 Estim Creat Clear Calc 53 Estimated GFR > 60 Glucose 101 Calcium 8.3 L Total Bilirubin 1.1 AST 250 H ALT 293 H Alkaline Phosphatase 308 H Total Protein 6.0 L Albumin 3.1 L Hospitalist [facility] Advance Care Plan I have confirmed that the patient's Advanced Care Plan is present, code status is documented, or surrogate decision maker is listed in patient medical record.: Yes Medication Reconciliation I have utilized all available resources to obtain, update and review the patients current medications (includes all prescriptions, OTC, herbals, cannabis, and nutritional supplements).: Yes
--- NOTE | 2024-12-10 14:37 | PC.NURSE ---
On 12/10/24, the student, [ Bhakti Cabrera], provided care and completed [facility] documentation on this patient. I have reviewed the student's documentation and agree with the findings.
[2024-12-11] VITALS: BP 163/80; PULSE 67; RESP 16; TEMP 37.1; O2SAT 99
[2024-12-11] MEDS: CEFEPIME 2 GM/NS 50 ML 2 GM/50 ML BAG IVPB (01:10)
[2024-12-11] MEDS: metroNIDAZOLE 500 MG/ISO 100ML 500 MG/100 ML BAG 100 MG IVPB ×2 (01:10→08:59)
[2024-12-11] MEDS: ACETAMINOPHEN 500 MG TABLET PO ×3 (01:17→12:07)
[2024-12-11 05:20] LABS: Hematocrit 30.5 % (37.0-47.0); Hemoglobin 9.8 g/dL (12.0-15.0); Mean Corpuscular HGB Conc 32.1 g/dl (32-36); Mean Corpuscular Volume 90.2 fl (80-100); Mean Platelet Volume 12.3 fl (7.4-10.4); Platelet Count Result 146 k/mm3 (150-375); Red Blood Count 3.38 M/mm3 (4.2-5.4); Red Cell Distribution Width 13.6 % (11.5-14.5); White Blood Count 6.4 K/mm3 (4.5-10.0)
[2024-12-11 06:02] LABS: Alanine Aminotransferase 180 U/L (6-35); Albumin Level 2.9 g/dL (3.5-5.1); Alkaline Phosphatase 269 U/L (38-126); Anion Gap 9 mmol/L (4-12); Aspartate Amino Transferase 91 U/L (14-36); Bilirubin,Total 0.7 mg/dL (0.2-1.3); Blood Urea Nitrogen 14 mg/dL (7-17); Calcium 8.1 mg/dL (8.4-10.2); Carbon Dioxide 25 mmol/L (22-30); Chloride 100 mmol/L (98-107); Estimated CRCL calculation 49 ml/min; Estimated Glomerular Filt Rate > 60; Glucose 97 mg/dL (65-110); Potassium 3.3 mmol/L (3.4-5.0); Sodium 134 mmol/L (137-145)
[2024-12-11 08:00] VITALS: BP 146/72; PULSE 54; RESP 16; TEMP 36.8; O2SAT 96
[2024-12-11 08:58] VITALS: PULSE 63
[2024-12-11] MEDS: ENALAPRIL MALEATE 10 MG TABLET PO (08:58)
[2024-12-11] MEDS: MEMANTINE 10 MG TABLET PO (08:58)
[2024-12-11] MEDS: METOPROLOL TARTRATE 12.5 MG TABLET PO (08:58)
[2024-12-11] MEDS: allopurinoL 300 MG TABLET PO (08:58)
[2024-12-11] MEDS: FAMOTIDINE 20 MG TABLET PO (08:58)
--- NOTE | 2024-12-11 12:23 | WPDGIPROGNO ---
Progress Note: A&P Assessment and Plan (1) Choledocholithiasis: Code(s): K80.50 - Calculus of bile duct without cholangitis or cholecystitis without obstruction Status: Acute Assessment and Plan: Patient is status post ERCP yesterday with removal of stones and debris from the common bile duct, increasing the size of the sphincterotomy. She is clinically stable and her transaminases are clearly trending down. She may be discharged today after lunch. Follow-up if needed with Dr. Strange as an outpatient. Plan - discharge today Subjective Date/time seen: 12/11/24 12:23 Interval history: The patient is asymptomatic, no abdominal pain, no fever. Exam Narrative: Abdomen: Soft, nontender, nondistended, no rebound. Rest of the exam within normal limits. Objective Data Vital Signs Vital Signs: Vital Signs - 24 hr 12/10/24 13:34 12/10/24 15:26 12/10/24 19:55 Temperature 98.0 F 98.2 F 102.3 F H Pulse Rate 64 60 Respiratory Rate 18 18 Blood Pressure 151/64 H 132/91 H Pulse Oximetry 100 99 Oxygen Delivery 12/10/24 19:56 12/10/24 20:00 12/10/24 21:00 Temperature 102.3 F H 100.0 F H Pulse Rate 78 Respiratory Rate 18 Blood Pressure 152/88 H Pulse Oximetry 98 Oxygen Delivery Room Air 12/11/24 00:00 12/11/24 08:00 12/11/24 08:00 Temperature 98.7 F 98.3 F Pulse Rate 67 54 L Respiratory Rate 16 16 Blood Pressure 163/80 H 146/72 H Pulse Oximetry 99 96 Oxygen Delivery Room Air 12/11/24 08:58 Temperature Pulse Rate 63 Respiratory Rate Blood Pressure Pulse Oximetry Oxygen Delivery Intake/Output Intake/Output: Intake & Output 12/08/24 12/09/24 12/10/24 12/11/24 23:59 23:59 23:59 23:59 Intake Total 2150 1400 1750.0 470 Output Total 200 1250 325 Balance 2150 1200 500.0 145 Meds/Results Medications: Active Medications Generic Name Dose Route Start Last Admin Trade Name Freq PRN Reason Stop Dose Admin Acetaminophen 500 mg 12/09/24 01:35 12/11/24 01:17 Acetaminophen 500 Mg Tablet PO 500 mg Q4H PRN Administration Mild Pain (1-3) or Fever Acetaminophen 500 mg 12/09/24 13:05 12/11/24 12:07 Acetaminophen 500 Mg Tablet PO 500 mg Q6HR IDALIA Administration Allopurinol 300 mg 12/10/24 09:00 12/11/24 08:58 Allopurinol 300 Mg Tablet PO 300 mg DAILY IDALIA Administration Enalapril Maleate 10 mg 12/10/24 09:00 12/11/24 08:58 Enalapril Maleate 10 Mg Tablet PO 10 mg DAILY IDALIA Administration Enalaprilat 1.25 mg 12/09/24 01:33 Enalaprilat 1.25 Mg/Ml Vial IV PUSH Q6HR PRN hypertension Famotidine 20 mg 12/09/24 17:00 12/11/24 08:58 Famotidine 20 Mg Tablet PO 20 mg BID IDALIA Administration Cefepime HCl 2 gm in 50 mls @ 100 mls/hr 12/09/24 02:00 12/11/24 02:46 Maxipime 2 Gm/Ns 50 Ml IVPB Infused Q12H IDALIA Infusion Metronidazole 500 mg in 100 mls @ 100 mls/hr 12/09/24 02:00 12/11/24 08:59 Flagyl 500 Mg/Iso Soln 100 Ml IVPB 100 mls/hr Q8H IDALIA Administration Memantine 10 mg 12/09/24 17:00 12/11/24 08:58 Memantine 10 Mg Tablet PO 10 mg BID IDALIA Administration Metoprolol Tartrate 12.5 mg 12/09/24 21:00 12/11/24 08:58 Metoprolol Tartrate 12.5 Mg Tablet PO 12.5 mg Q12HR IDALIA Administration Ondansetron HCl 4 mg 12/08/24 15:32 12/10/24 08:48 Ondansetron Inj 4 Mg/2 Ml Vial IV PUSH 4 mg Q4H PRN Administration Nausea Radiology Results: ITS Impressions Chest X-Ray 12/08/24 13:31 IMPRESSION: 1. No acute cardiopulmonary disease. Abdomen/Pelvis CT 12/08/24 14:27 IMPRESSION: 1. Choledocholithiasis with moderate intrahepatic and extrahepatic biliary duct dilatation. Labs Labs: Laboratory Results - last 24 hr 12/11/24 04:48 WBC 6.4 RBC 3.38 L Hgb 9.8 L Hct 30.5 L MCV 90.2 MCH 29.0 MCHC 32.1 RDW 13.6 Plt Count 146 L MPV 12.3 H Sodium 134 L Potassium 3.3 L Chloride 100 Carbon Dioxide 25 Anion Gap 9 BUN 14 Creatinine 0.89 Estim Creat Clear Calc 49 Estimated GFR > 60 Glucose 97 Calcium 8.1 L Total Bilirubin 0.7 AST 91 H ALT 180 H Alkaline Phosphatase 269 H Total Protein 6.0 L Albumin 2.9 L
--- NOTE | 2024-12-11 13:51 | PM.IMPN ---
Progress Note: A&P Assessment and Plan (1) History of cholecystectomy: Code(s): Z90.49 - Acquired absence of other specified parts of digestive tract Status: Acute (2) Choledocholithiasis: Code(s): K80.50 - Calculus of bile duct without cholangitis or cholecystitis without obstruction Status: Acute (3) Transaminitis: Code(s): R74.01 - Elevation of levels of liver transaminase levels Status: Acute (4) Hypertension: Qualifiers: Hypertension type: primary hypertension Qualified Code(s): I10 - Essential (primary) hypertension Code(s): I10 - Essential (primary) hypertension Status: Chronic (5) Iron deficiency anemia: Code(s): D50.9 - Iron deficiency anemia, unspecified Status: Acute (6) Leukocytosis: Code(s): D72.829 - Elevated white blood cell count, unspecified Status: Acute Plan Choledocholithiasis Currently on cefepime and metronidazole Patient successfully underwent ERCP yesterday with removal of stones and debris from the common bile duct, increasing the size of the sphincterotomy. CT abd :Choledocholithiasis with moderate intrahepatic and extrahepatic biliary duct dilatation. Tolerating liquid diet Remote history of cholecystectomy and appendectomy NPO after midnight Monitor vitals Gastroenterology following HTN Continue enalapril 10 mg Metoprolol 12.5 mg p.o. b.i.d. Subjective Date/time seen: 12/11/24 13:51 Interval history: Patient successfully underwent ERCP yesterday with removal of stones and debris from the common bile duct, increasing the size of the sphincterotomy. Patient started on diet to monitor for another day if she is able to tolerate the diet and the transaminase levels are currently trending down. Review of Systems Review of Systems: ROS unobtainable: Yes unobtainable due to medical condition Exam Narrative: EXAMINATION OF ORGAN SYSTEMS/BODY AREAS: Constitutional: Vital signs per nursing GENERAL: Uncomfortable patient HEAD: Normal with no signs of head trauma. EYES: EOMI, conjunctiva normal ENT: Hearing grossly intact LUNGS: Nonlabored breathing. HEART: [Regular rate and rhythm] ABD: [Soft], no focal tenderness to palpation EXT: Normal range of motion SKIN: [No rashes or lesions.] NEURO: [Alert and confused, not following commands or speaking coherently. No gross focal sensory or strength deficits.] Objective Data Vital Signs Vital Signs: Vital Signs - 24 hr 12/10/24 15:26 12/10/24 19:55 12/10/24 19:56 Temperature 98.2 F 102.3 F H 102.3 F H Pulse Rate 60 78 Respiratory Rate 18 18 Blood Pressure 132/91 H 152/88 H Pulse Oximetry 99 98 Oxygen Delivery 12/10/24 20:00 12/10/24 21:00 12/11/24 00:00 Temperature 100.0 F H 98.7 F Pulse Rate 67 Respiratory Rate 16 Blood Pressure 163/80 H Pulse Oximetry 99 Oxygen Delivery Room Air 12/11/24 08:00 12/11/24 08:00 12/11/24 08:58 Temperature 98.3 F Pulse Rate 54 L 63 Respiratory Rate 16 Blood Pressure 146/72 H Pulse Oximetry 96 Oxygen Delivery Room Air Intake/Output Intake/Output: Intake & Output 12/08/24 12/09/24 12/10/24 12/11/24 23:59 23:59 23:59 23:59 Intake Total 2150 1400 1750.0 590 Output Total 200 1250 325 Balance 2150 1200 500.0 265 Meds/Results Medications: Active Medications Generic Name Dose Route Start Last Admin Trade Name Freq PRN Reason Stop Dose Admin Acetaminophen 500 mg 12/09/24 01:35 12/11/24 01:17 Acetaminophen 500 Mg Tablet PO 500 mg Q4H PRN Administration Mild Pain (1-3) or Fever Acetaminophen 500 mg 12/09/24 13:05 12/11/24 12:07 Acetaminophen 500 Mg Tablet PO 500 mg Q6HR IDALIA Administration Allopurinol 300 mg 12/10/24 09:00 12/11/24 08:58 Allopurinol 300 Mg Tablet PO 300 mg DAILY IDALIA Administration Enalapril Maleate 10 mg 12/10/24 09:00 12/11/24 08:58 Enalapril Maleate 10 Mg Tablet PO 10 mg DAILY IDALIA Administration Enalaprilat 1.25 mg 12/09/24 01:33 Enalaprilat 1.25 Mg/Ml Vial IV PUSH Q6HR PRN hypertension Famotidine 20 mg 12/09/24 17:00 12/11/24 08:58 Famotidine 20 Mg Tablet PO 20 mg BID IDALIA Administration Memantine 10 mg 12/09/24 17:00 12/11/24 08:58 Memantine 10 Mg Tablet PO 10 mg BID IDALIA Administration Metoprolol Tartrate 12.5 mg 12/09/24 21:00 12/11/24 08:58 Metoprolol Tartrate 12.5 Mg Tablet PO 12.5 mg Q12HR IDALIA Administration Ondansetron HCl 4 mg 12/08/24 15:32 12/10/24 08:48 Ondansetron Inj 4 Mg/2 Ml Vial IV PUSH 4 mg Q4H PRN Administration Nausea Radiology Results: ITS Impressions Chest X-Ray 12/08/24 13:31 IMPRESSION: 1. No acute cardiopulmonary disease. Abdomen/Pelvis CT 12/08/24 14:27 IMPRESSION: 1. Choledocholithiasis with moderate intrahepatic and extrahepatic biliary duct dilatation. Labs Labs: Laboratory Results - last 24 hr 12/11/24 04:48 WBC 6.4 RBC 3.38 L Hgb 9.8 L Hct 30.5 L MCV 90.2 MCH 29.0 MCHC 32.1 RDW 13.6 Plt Count 146 L MPV 12.3 H Sodium 134 L Potassium 3.3 L Chloride 100 Carbon Dioxide 25 Anion Gap 9 BUN 14 Creatinine 0.89 Estim Creat Clear Calc 49 Estimated GFR > 60 Glucose 97 Calcium 8.1 L Total Bilirubin 0.7 AST 91 H ALT 180 H Alkaline Phosphatase 269 H Total Protein 6.0 L Albumin 2.9 L Hospitalist [facility] Advance Care Plan I have confirmed that the patient's Advanced Care Plan is present, code status is documented, or surrogate decision maker is listed in patient medical record.: Yes Medication Reconciliation I have utilized all available resources to obtain, update and review the patients current medications (includes all prescriptions, OTC, herbals, cannabis, and nutritional supplements).: Yes
[2024-12-11 16:00] VITALS: BP 162/82; PULSE 62; RESP 20; TEMP 37.2; O2SAT 99
--- NOTE | 2024-12-11 16:18 | PM.DS ---
DS: Admitting Diagnosis Discharge Date 12/11/2024 Admitting Diagnosis Nausea/Vomiting/Diarrhea DS: Discharge Diagnosis Discharge Diagnosis (1) History of cholecystectomy: Code(s): Z90.49 - Acquired absence of other specified parts of digestive tract Status: Acute (2) Choledocholithiasis: Code(s): K80.50 - Calculus of bile duct without cholangitis or cholecystitis without obstruction Status: Acute (3) Transaminitis: Code(s): R74.01 - Elevation of levels of liver transaminase levels Status: Acute (4) Hypertension: Qualifiers: Hypertension type: primary hypertension Qualified Code(s): I10 - Essential (primary) hypertension Code(s): I10 - Essential (primary) hypertension Status: Chronic (5) Iron deficiency anemia: Code(s): D50.9 - Iron deficiency anemia, unspecified Status: Acute (6) Leukocytosis: Code(s): D72.829 - Elevated white blood cell count, unspecified Status: Acute DS: Summary Hospital Course Hospital Course: 71-year-old female with Choledocholithiasis,dementia, hypertension, gout, and breast cancer presented to ED for flu like symptoms. In the ED patient was tachycardic, confused, febrile. Pertinent ED labs: WBC 14.1, hemoglobin 11, hematocrit 34.3, platelet 179, Patient was admitted due to increased LFTs and WBC, CT scan showing choledocholithiasis. Of note patient was previously admitted in March 2022 for the same symptoms and underwent ERCP with removal of large amount of sludge and stones. Patient underwent cholecystectomy about 50 years ago and also had appendectomy 5 years ago. Pending GI evaluation. Patient will undergo ERCP tomorrow. Patient is started on cefepime and metronidazole which was discontinued upon discharge. Choledocholithiasis Resolved Currently on cefepime and metronidazole Patient successfully underwent ERCP yesterday with removal of stones and debris from the common bile duct, increasing the size of the sphincterotomy. CT abd :Choledocholithiasis with moderate intrahepatic and extrahepatic biliary duct dilatation. Tolerating regular diet Remote history of cholecystectomy and appendectomy Follow-up with the Gastroenterology in a week HTN Continue enalapril 10 mg Metoprolol 12.5 mg p.o. b.i.d. Please repeat the CMP to monitor liver enzymes level with PCP or GI Status at Discharge Cognitive/behavioral status at discharge: Stable Time Spent with Patient Time attestation: Total time spent providing and/or coordinating discharge services: 45minutes Exam Narrative: EXAMINATION OF ORGAN SYSTEMS/BODY AREAS: Constitutional: Vital signs per nursing GENERAL: Uncomfortable patient HEAD: Normal with no signs of head trauma. EYES: EOMI, conjunctiva normal ENT: Hearing grossly intact LUNGS: Nonlabored breathing. HEART: [Regular rate and rhythm] ABD: [Soft], no focal tenderness to palpation EXT: Normal range of motion SKIN: [No rashes or lesions.] NEURO: [Alert and confused, not following commands or speaking coherently. No gross focal sensory or strength deficits.] DS: Data Data Completed and Pending Labs on day of discharge: Labs from last 24 hours 12/11/24 04:48 WBC 6.4 RBC 3.38 L Hgb 9.8 L Hct 30.5 L MCV 90.2 MCH 29.0 MCHC 32.1 RDW 13.6 Plt Count 146 L MPV 12.3 H Sodium 134 L Potassium 3.3 L Chloride 100 Carbon Dioxide 25 Anion Gap 9 BUN 14 Creatinine 0.89 Estim Creat Clear Calc 49 Estimated GFR > 60 Glucose 97 Calcium 8.1 L Total Bilirubin 0.7 AST 91 H ALT 180 H Alkaline Phosphatase 269 H Total Protein 6.0 L Albumin 2.9 L Preliminary micro results at discharge 12/09/24 03:15 Urine Culture - Preliminary Unspecified 12/08/24 13:21 Blood Culture - Preliminary Blood 12/08/24 13:30 Blood Culture - Preliminary Blood Discharge Plan Discharge Attending physician on discharge: Lázaro Toussaint Discharging Clinician: Lázaro Toussaint Anticipated Discharge Date/Time: 12/11/24 16:15 Patient Disposition: NH Intermediate/Asst Living Activity: as tolerated Diet: as tolerated Discharge Instructions: Please follow-up with Gastroenterology in a week Please repeat the labs in a week and take it to PCP or Gastroenterology. In the event of abdominal pain, nausea vomiting please return to ED. Patient Instructions: Antibiotic Form Patient Language: Turkish Stand Alone Forms: General Discharge Information Follow-up/Referrals: Chouteau,Julia Beverly MD [Primary Care Provider] - Tramaine Henley MD [Physician] - Discharge Medications: Continued anastrozole 1 mg tablet 1 mg PO DAILY enalapril maleate 10 mg tablet 10 mg PO DAILY aspirin 81 mg tablet,delayed release (DR/EC) 81 mg PO DAILY famotidine 20 mg tablet 20 mg PO BID allopurinol 300 mg tablet 300 mg PO DAILY memantine 10 mg tablet 10 mg PO BID metoprolol tartrate 25 mg tablet 12.5 mg PO BID acetaminophen 500 mg Tablet 500 mg PO Q6H Other Ambulatory Orders: Comprehensive Metabolic Panel (Routine) Timeframe: 1 Week Location: Determined by Patient Ordered By: Lázaro Toussaint Date of admission: 12/08/24 15:32 Primary Care Provider: Brenda,Julia Beverly Admitting Provider: Baltazar Walden Attending physician on admission: Baltazar Walden Condition: Stable
== END 2024-12-11 16:55 | DRG 395 ==
LOC: ANHED 16:07 → ANHIMU 16:07
PROVIDERS: General Practice; Internal Medicine Gastroenterology; Admitting Provider Hospitalist; Emergency Provider Emergency Medicine; PCP Internal Medicine; Visit Provider General Practice
PROC: 0FC98ZZ Extirpation of Matter from Common Bile Duct, Via Natural or Artificial Opening Endoscopic (ICD-10-PCS; CPT 43260; principal; 2024-12-10 12:00)
DX: K91.86 Retained cholelithiasis following cholecystectomy (principal); I10 Essential (primary) hypertension; D50.9 Iron deficiency anemia, unspecified; M10.9 Gout, unspecified; K21.9 Gastro-esophageal reflux disease without esophagitis; G30.9 Alzheimer's disease, unspecified; F02.80 Dementia in other diseases classified elsewhere, unspecified severity, without behavioral disturbance, psychotic disturbance, mood disturbance, and anxiety; Z20.822 Contact with and (suspected) exposure to COVID-19; Z85.3 Personal history of malignant neoplasm of breast; Z79.82 Long term (current) use of aspirin; Z90.49 Acquired absence of other specified parts of digestive tract
CPT/HCPCS: 36415; 71045; 74177; 74329; 80053; 81001; 82948; 83605; 83690; 83735; 84145; 85025; 85027; 85610; 87040; 87086; 87181; 87637; 93005; 96365; 96367; 96375; 99285; A9270; J0330; J0692; J1836; J2405; J2704; J7120; Q9966; Q9967

== ENCOUNTER 2024-12-20 07:33 | Emergency (ER) | payer MEDICARE, SELFPAY ==
--- NOTE | ~2024-12-20 | XR_ITS ---
EXAMINATION: XR chest 1V portable DATE: 12/20/2024 08:05 INDICATION: Fever. TECHNIQUE: A single frontal view of the chest was obtained. COMPARISON: Chest view 12/08/2024, CT abdomen and pelvis 12/08/2024 FINDINGS: There is no pneumonia, pleural effusion, or pneumothorax. The heart size is normal. Surgica l clips in the right upper quadrant are likely from cholecystectomy. Breast implants are noted. IMPRESSION: 1. No acute cardiopulmonary disease. Reviewed, dictated and finalized at location [] INIST MATE
[2024-12-20 07:37] VITALS: BP 146/87; PULSE 97; RESP 16; TEMP 37.2; O2SAT 97
--- NOTE | 2024-12-20 07:47 | ED_ITS ---
HPI - General Adult General Chief complaint: Weakness Stated complaint: WEAKNESS Time Seen by Provider: 12/20/24 07:39 History of Present Illness HPI narrative: 74-year-old female presented to the emergency department for evaluation of high fever and abdominal pain per the memory care unit where she resides. Upon arrival emergency department patient is currently afebrile denies any complaints. Patient denies any chest pain shortness of breath. Patient denies any nausea vomiting diarrhea. Patient is well-appearing in no distress. Related Data Home Medications ?Medication ?Instructions ?Recorded ?Confirmed ?Last Taken ?Type acetaminophen 500 mg tablet 500 mg PO Q6H 04/19/22 12/08/24 Unknown History allopurinol 300 mg tablet 300 mg PO DAILY 04/19/22 12/08/24 12/07/24 08:00 History 300 mg anastrozole 1 mg tablet 1 mg PO DAILY 04/19/22 12/08/24 12/07/24 08:00 History 1 mg aspirin 81 mg tablet,delayed 81 mg PO DAILY 04/19/22 12/08/24 12/07/24 08:00 History release 81 mg enalapril maleate 10 mg tablet 10 mg PO DAILY 04/19/22 12/08/24 12/07/24 06:00 History 10 mg famotidine 20 mg tablet 20 mg PO BID 04/19/22 12/08/24 12/07/24 08:00 History 20 mg memantine 10 mg tablet 10 mg PO BID 04/19/22 12/08/24 04/19/22 08:49 History metoprolol tartrate 25 mg tablet 12.5 mg PO BID 04/19/22 12/08/24 12/07/24 08:00 History 12.5 mg Allergies Allergy/AdvReac Type Severity Reaction Status Date / Time naproxen Allergy Unknown Verified 12/10/24 10:37 Review of Systems Review of Systems: All systems reviewed & are unremarkable except as noted in HPI and below PMFSH Past Medical History Medical History SIRS (systemic inflammatory response syndrome) Leukocytosis Anemia Gout Gastroesophageal reflux disease Hypertension Alzheimer's dementia Breast cancer Surgical History Surgical History History of open reduction and internal fixation (ORIF) procedure (04/08/22) Repair of left hip fracture with IM nail. History of cholecystectomy History of appendectomy History of bilateral mastectomy Family History Family History Other Family history unknown Social History Social History Social History: Surrogate decision maker: Daya Carmona, daughter. Code status: Full code. Smoking status: Never smoker Second hand tobacco smoke exposure: No Alcohol intake: never Substance use: never Do You Feel Safe in your Home?: Yes Lack of Transportation: YES Lack of Food: Never True Current Housing: I Have Housing Concerned About Future Housing: No Difficulty Paying Gas/Electric Bills: No Difficulty Paying for Meds: No Currently Unemployed: No Education: High School Diploma/GED Difficulty w/ Childcare or Family Care: No Spiritual care concerns: No Exam Narrative: APPEARANCE: Well appearing, no pain, no distress, well-nourished. HEAD: normocephalic, atraumatic. EYES: PERRLA/EOMI, conjunctivae clear. NOSE: Normal no drainage EARS:TMS clear with good light reflex. THROAT: Pharynx clear, no exudate. NECK: Supple. No adenopathy, no masses. RESPIRATORY: Airway patent, respirations nonlabored. Clear to auscultation bilaterally, no rales, rhonchi, wheezing. CARDIOVASCULAR: Regular rate and rhythm without murmurs rubs or gallops. ABDOMINAL: Soft, nontender, nondistended, normal bowel sounds MUSCULOSKELETAL: Moves all extremities. Strength/ROM intact, No edema, No calf tenderness. NEURO: Alert but not orientated SKIN: Warm, dry. Normal Color Course Vital Signs Vital signs: Vital Signs Temperature 98.9 F 12/20/24 07:37 Pulse Rate 97 12/20/24 07:37 Respiratory Rate 16 12/20/24 07:37 Blood Pressure 146/87 H 12/20/24 07:37 Pulse Oximetry 97 12/20/24 07:37 Temperature 98.9 F 12/20/24 11:01 Pulse Rate 86 12/20/24 11:01 Respiratory Rate 20 12/20/24 11:01 Blood Pressure 126/68 12/20/24 11:01 Pulse Oximetry 100 12/20/24 11:01 Medical Decision Making MDM Narrative Medical decision making narrative: [age] old female presented emergency department for evaluation for possible fever and abdominal pain. Upon arrival emergency department patient denies any pain or complaint, patient has no abdominal tenderness to palpation. Patient is afebrile. UA, chest x-ray and COVID swab were ordered. COVID flu RSV was negative. Urine was negative for nitrates and leukocyte esterase but did have many squamous cells +4 bacteria and some red than white cells. Urine culture was ordered. Chest x-ray shows no acute cardiopulmonary abnormality. Differential Diagnosis Differential Diagnosis: Pneumonia, COVID, RSV, influenza, UTI Vital Signs Vital Signs: Vital Signs Temperature 98.9 F 12/20/24 07:37 Pulse Rate 97 12/20/24 07:37 Respiratory Rate 16 12/20/24 07:37 Blood Pressure 146/87 H 12/20/24 07:37 Pulse Oximetry 97 12/20/24 07:37 Temperature 98.9 F 12/20/24 11:01 Pulse Rate 86 12/20/24 11:01 Respiratory Rate 20 12/20/24 11:01 Blood Pressure 126/68 12/20/24 11:01 Pulse Oximetry 100 12/20/24 11:01 Lab Data Lab results reviewed: Yes I reviewed the patient's lab results. Labs: Lab Results 12/20/24 12/20/24 Range/Units 08:09 08:16 Urine Color Dark yellow (Yellow) Urine Appearance Cloudy H (Clear) Urine pH 6.0 (5.0-9.0) Ur Specific Howard 1.026 (1.001-1.035) Urine Protein 2+ H (Negative) mg/dL Urine Glucose (UA) Negative (Negative) mg/dL Urine Ketones 1+ H (Negative) mg/dL Ur Blood (Man) Negative (Negative) Urine Nitrate Negative (Negative) Urine Bilirubin Negative (Negative) Urine Urobilinogen 1.0 (<2.0) mg/dL Add Ur Microanalysis Reviewed Leukocyte Esterase Rfl Negative (Negative) RITA/UL Urine RBC 3-5 H (0-2) /hpf Urine WBC 6-10 H (0-3) /hpf Ur Squamous Epith Cells Many H (Few) /hpf Urine Bacteria 4+ H /hpf Urine Casts 11-20 Influenza A (RT-PCR) Negative (Negative) Influenza B (RT-PCR) Negative (Negative) RSV (RT-PCR) Negative (Negative) SARS-CoV-2 RNA (RT-PCR) Negative (Negative) Imaging Data Radiologist's impression: Impressions Chest X-Ray 12/20/24 08:15 IMPRESSION: 1. No acute cardiopulmonary disease. Discharge Plan Discharge Clinical Impression: Fever, Abdominal pain Patient Disposition: Home, Self-Care Condition: Stable Instructions: Antibiotic Form, General Patient Instructions, Abdominal Pain (ED) Additional Instructions: Upon arrival to the emergency department patient was afebrile and had no complaints. Chest x-ray was negative for any acute cardiopulmonary abnormality and patient was negative for influenza RSV and for COVID, urine culture is pending. Patient should have close follow-up with her primary care physician. Patient Language: Togolese Prescriptions: No Action anastrozole 1 mg tablet 1 mg PO DAILY enalapril maleate 10 mg tablet 10 mg PO DAILY aspirin 81 mg tablet,delayed release (DR/EC) 81 mg PO DAILY famotidine 20 mg tablet 20 mg PO BID allopurinol 300 mg tablet 300 mg PO DAILY memantine 10 mg tablet 10 mg PO BID metoprolol tartrate 25 mg tablet 12.5 mg PO BID acetaminophen 500 mg Tablet 500 mg PO Q6H Follow-up/Referrals: Brenda,Julia Beverly MD [Primary Care Provider] -
--- OUTSIDE RECORDS SUMMARY | 2024-12-20 08:11 | XMS_ITS | Clinical Summary ---
Author Organization [facility] Address [address] [place] [address] Care Team Providers Care Court Interpreter Name Role Phone Unavailable Primary Care Provider Unavailabl e Social History Tobacco Use Types Packs/Day Years Used Date Smoking Tobacco: Never Assessed Comments Unknown Sex and Gender Information Value Date Recorded Sex Assigned at Not on file Legal Sex Female 12:30 PM STUDENT Gender Identity Not on file Sexual Orientation [...]
[2024-12-20 08:53] LABS: Influenza A QL RT-PCR Negative (Negative); Influenza B QL RT-PCR Negative (Negative); RSV RNA, RT-PCR Negative (Negative); SARS-CoV-2 RNA PCR Negative (Negative)
[2024-12-20 09:17] LABS: Add Urine Microscopic? YES; Appearance Urine Cloudy (Clear); Bacteria Urine 4+ /hpf; Bilirubin Urine Negative (Negative); Blood Urine Negative (Negative); Color Urine Dark Yellow (Yellow); Glucose Urine UA Negative (Negative); Ketones Urine 1+ mg/dL (Negative); Leukocyte Esterase Ur Negative LEU/UL (Negative); Need Manual Microscopic Reviewed; Nitrate Urine Negative (Negative); Protein Urine 2+ mg/dL (Negative); Specific Grav Ur 1.026 (1.001-1.035); Squamous Epithelial Cell Urine Many /hpf (Few)
[2024-12-20 11:01] VITALS: BP 126/68; PULSE 86; RESP 20; TEMP 37.2; O2SAT 100
== END 2024-12-20 11:04 ==
PROVIDERS: Emergency Provider Emergency Medicine; PCP Internal Medicine
DX: R50.9 Fever, unspecified (principal); R10.9 Unspecified abdominal pain; Z20.822 Contact with and (suspected) exposure to COVID-19; G30.9 Alzheimer's disease, unspecified; F02.80 Dementia in other diseases classified elsewhere, unspecified severity, without behavioral disturbance, psychotic disturbance, mood disturbance, and anxiety; I10 Essential (primary) hypertension; M10.9 Gout, unspecified; K21.9 Gastro-esophageal reflux disease without esophagitis; Z85.3 Personal history of malignant neoplasm of breast; Z90.49 Acquired absence of other specified parts of digestive tract; Z90.13 Acquired absence of bilateral breasts and nipples; Z79.82 Long term (current) use of aspirin; Z79.899 Other long term (current) drug therapy
CPT/HCPCS: 71045; 81001; 87086; 87181; 87637; 99283

== ENCOUNTER 2024-12-21 07:36 | Emergency (ER) | payer MEDICARE, SELFPAY ==
[2024-12-21] VITALS (8 sets, daily range): BP systolic 126–146; BP diastolic 63–80; PULSE 56; RESP 16–18; TEMP 36.7; O2SAT 94–98
--- NOTE | ~2024-12-21 | CT_ITS ---
EXAMINATION: CT abdomen pelvis w con DATE: 12/21/2024 08:53 INDICATION: Abdominal pain. TECHNIQUE: Computed tomography (CT) of the abdomen and pelvis was performed with 100 mL Omnipaque 350 intravenous contrast. Automated exposure control and iterative reconstruction technique were employe d. The dose-length product was 445.18 mGy-cm. COMPARISON: CT abdomen and pelvis 12/08/24 FINDINGS: The visualized portions of the lung bases demonstrate mild atelectasis. No pleural effusion . The heart size is normal. There are coronary artery calcifications. No pericardial effusion. There are bilateral breast implants. There is mild intrahepatic biliary duct dilatation, and the common prateek t measures 10 mm, likely secondary to cholecystectomy. Pneumobilia is noted, likely secondary to sphi ncterotomy. The spleen, pancreas, and adrenal glands are normal. There is cortical thinning of the ki dneys. There are cysts in left kidney measuring up to 8 mm. There are no dilated loops of bowel. Ther e are changes of appendectomy. There are no pathologically enlarged lymph nodes. There is no free int raperitoneal fluid. There is internal fixation of left femur. There is severe lumbar spondylosis. The re are chronic burst fractures of T11 and T12. IMPRESSION: 1. No specific etiology for the patient's symptoms. Reviewed, dictated and finalized at location A. UCT CRAFTSMAN
--- NOTE | 2024-12-21 07:58 | ED.ABDPAIN ---
HPI - Abdominal Pain General Chief Complaint: Abdominal Pain Stated Complaint: abd pain Time Seen by Provider: 12/21/24 07:57 Source: patient Mode of arrival: ambulatory Limitations: no limitations History of Present Illness HPI narrative: 74 YEARS OLD WHITE FEMALE CAME FROM SNF BY AMBULANCE WITH A REPORT THAT PATIENT COMPLAINING OF ABDOMINAL PAIN. PATIENT WAS SEEN YESTERDAY FOR SAME, ON ARRIVAL TO THE ED PATIENT IS ASYMPTOMATIC.. PATIENT DENIES ANY NAUSEA, VOMITING ABDOMINAL PAIN CHEST PAIN SHORTNESS OF BREATH BACK PAIN OR ANY OTHER SYMPTOMS. PATIENT IS ORIENTED TO HER NAME ONLY, THAT IS HER BASELINE. PATIENT TALKING NONSENSE Related Data Home Medications ?Medication ?Instructions ?Recorded ?Confirmed ?Last Taken ?Type acetaminophen 500 mg tablet 500 mg PO Q6H 04/19/22 12/08/24 Unknown History allopurinol 300 mg tablet 300 mg PO DAILY 04/19/22 12/08/24 12/07/24 08:00 History 300 mg anastrozole 1 mg tablet 1 mg PO DAILY 04/19/22 12/08/24 12/07/24 08:00 History 1 mg aspirin 81 mg tablet,delayed 81 mg PO DAILY 04/19/22 12/08/24 12/07/24 08:00 History release 81 mg enalapril maleate 10 mg tablet 10 mg PO DAILY 04/19/22 12/08/24 12/07/24 06:00 History 10 mg famotidine 20 mg tablet 20 mg PO BID 04/19/22 12/08/24 12/07/24 08:00 History 20 mg memantine 10 mg tablet 10 mg PO BID 04/19/22 12/08/24 04/19/22 08:49 History metoprolol tartrate 25 mg tablet 12.5 mg PO BID 04/19/22 12/08/24 12/07/24 08:00 History 12.5 mg Allergies Allergy/AdvReac Type Severity Reaction Status Date / Time naproxen Allergy Unknown Verified 12/10/24 10:37 Review of Systems Review of Systems: ROS unobtainable: Yes unobtainable due to mental status PMFSH Past Medical History Medical History SIRS (systemic inflammatory response syndrome) Leukocytosis Anemia Gout Gastroesophageal reflux disease Hypertension Alzheimer's dementia Breast cancer Surgical History Surgical History History of open reduction and internal fixation (ORIF) procedure (04/08/22) Repair of left hip fracture with IM nail. History of cholecystectomy History of appendectomy History of bilateral mastectomy Family History Family History Other Family history unknown Social History Social History Social History: Surrogate decision maker: Daya Carmona, daughter. Code status: Full code. Smoking status: Never smoker Second hand tobacco smoke exposure: No Alcohol intake: never Substance use: never Do You Feel Safe in your Home?: Yes Lack of Transportation: YES Lack of Food: Never True Current Housing: I Have Housing Concerned About Future Housing: No Difficulty Paying Gas/Electric Bills: No Difficulty Paying for Meds: No Currently Unemployed: No Education: High School Diploma/GED Difficulty w/ Childcare or Family Care: No Spiritual care concerns: No Exam Narrative: GENERAL APPEARANCE: WELL-DEVELOPED, WELL-NOURISHED SKIN: NORMAL COLOR HEAD: NORMOCEPHALIC, NONTRAUMATIC EYES: CLEAR CONJUNCTIVA ENT: OROPHARYNX NORMAL, EARS NORMAL, NOSE NORMAL NECK: SUPPLE, NONTENDER CHEST AND RESPIRATORY: AIRWAY PATENT, NO RESPIRATORY DISTRESS, NO ACCESSORY MUSCLE USE HEART: REGULAR RATE/RHYTHM ABDOMEN: SOFT, NONTENDER, NO ORGANOMEGALY, QUIET BOWEL SOUNDS VASCULAR: NORMAL PERIPHERAL PULSES, NORMAL CAPILLARY REFILL. MUSCULOSKELETAL: NORMAL RANGE OF MOTION, NONTENDER BACK NEUROLOGIC: ALERT AND ORIENTED TO HER NAME ONLY Course Vital Signs Vital signs: Vital Signs Temperature 36.7 C 12/21/24 07:40 Respiratory Rate 16 12/21/24 07:40 Temperature 36.7 C 12/21/24 07:40 Pulse Rate 56 L 12/21/24 11:21 Respiratory Rate 18 12/21/24 11:21 Blood Pressure 142/66 H 12/21/24 11:21 Pulse Oximetry 98 12/21/24 11:21 MDM - Abdominal Pain MDM Narrative Medical decision making narrative: PATIENT PRESENTS WITH POSSIBLE ABDOMINAL PAIN, HISTORY OF DEMENTIA, ORIENTED TO HER NAME ONLY VITAL SIGNS ON ARRIVAL SHOWED PHYSICAL EXAMINATION IS INSIGNIFICANT EXCEPT FOR DEMENTIA AND DISORIENTATION DIFFERENTIAL DIAGNOSIS ANXIETY, DEPRESSION, ELECTROLYTE IMBALANCE, DEHYDRATION BLOOD WORKUP TODAY INCLUDES CBC, CMP, TROPONIN, PT PTT, LIPASE SHOWED WBC OF 15.9, POTASSIUM 3.2, TROPONIN 0.062, 3 HOURS LATER DROPPED TO 0.046 URINALYSIS SHOWED NO ACUTE ABNORMALITY EKG ON ARRIVAL SHOWED NEW NEW CHANGES COMPARED TO [address] ABDOMEN AND PELVIS WITH IV CONTRAST SHOWED NO ACUTE ABNORMALITIES DIAGNOSIS HYPOKALEMIA, DISPOSITION BACK TO SNF Differential Diagnosis Differential diagnosis: Likely other (GENERAL APPEARANCE: WELL-DEVELOPED, WELL-NOURISHEDSKIN: NORMAL COLORHEAD: NORMOCEPHALIC, NONTRAUMATICEYES: CLEAR CONJUNCTIVAENT: OROPHARYNX NORMAL, EARS NORMAL, NOSE NORMALNECK: SUPPLE, NONTENDERCHEST AND RESPIRATORY: AIRWAY PATENT, NO RESPIRATORY DISTRESS, NO ACCESSORY MUSCLE USEHEART: REGULAR RATE) Medical Records Attestation: I reviewed the patient's medical records. Lab Data Attestation: I reviewed the patient's lab results. 12/21/24 08:18 12/21/24 08:17 Labs: Lab Results 12/21/24 12/21/24 12/21/24 Range/Units 08:17 08:18 08:33 WBC 15.9 H (4.5-10.0) K/mm3 RBC 3.54 L (4.2-5.4) M/mm3 Hgb 10.3 L (12.0-15.0) g/dL Hct 31.3 L (37.0-47.0) % MCV 88.4 (80-100) fl MCH 29.1 (26-34) pg MCHC 32.9 (32-36) g/dl RDW 13.5 (11.5-14.5) % Plt Count 331 D (150-375) k/mm3 MPV 11.1 H (7.4-10.4) fl Immature Gran % (Auto) 0.6 H (0-0.5) % Neut % (Auto) 93.8 H (45.5-73.1) % Lymph % (Auto) 3.5 L (18.3-44.2) % Churchill % (Auto) 1.9 L (2.6-8.5) % Eos % (Auto) 0.0 (0-4.4) % Baso % (Auto) 0.2 (0.2-1.2) % Lymph # (Auto) 0.56 L (0.9-3.2) K/mm3 Churchill # (Auto) 0.3 (0.1-0.6) K/mm3 Eos # (Auto) 0.0 (0-0.3) K/mm3 Baso # (Auto) 0.0 (0.0-0.1) K/mm3 Abs Immat Gran (auto) 0.09 H (0.00-0.031) K/mm3 Absolute Neuts (auto) 14.9 H (1.3-6.7) K/mm3 Absolute Nucleated RBC 0.000 (0.0-0.012) K/mm3 Nucleated RBC % 0.0 (0.0-0.2) % Sodium 136 L (137-145) mmol/L Potassium 3.2 L (3.4-5.0) mmol/L Chloride 100 (98-107) mmol/L Carbon Dioxide 24 (22-30) mmol/L Anion Gap 12 (4-12) mmol/L BUN 24 H D (7-17) mg/dL Creatinine 0.82 (0.7-1.0) mg/dL Estim Creat Clear Calc 47 ml/min Estimated GFR > 60 (59 - ) Glucose 131 H (65-110) mg/dL Lactic Acid 1.0 (0.7-2.0) mmol/L Calcium 8.9 (8.4-10.2) mg/dL Total Bilirubin 0.9 (0.2-1.3) mg/dL AST 24 (14-36) U/L ALT 30 (6-35) U/L Alkaline Phosphatase 142 H (38-126) U/L Troponin I 0.062 H* (0.000-0.034) ng/mL Total Protein 7.0 (6.3-8.2) g/dL Albumin 3.5 (3.5-5.1) g/dL Lipase 36 (23-300) U/L Influenza A (RT-PCR) Negative (Negative) Influenza B (RT-PCR) Negative (Negative) RSV (RT-PCR) Negative (Negative) SARS-CoV-2 RNA (RT-PCR) Negative (Negative) 12/21/24 Range/Units 11:55 WBC (4.5-10.0) K/mm3 RBC (4.2-5.4) M/mm3 Hgb (12.0-15.0) g/dL Hct (37.0-47.0) % MCV (80-100) fl MCH (26-34) pg MCHC (32-36) g/dl RDW (11.5-14.5) % Plt Count (150-375) k/mm3 MPV (7.4-10.4) fl Immature Gran % (Auto) (0-0.5) % Neut % (Auto) (45.5-73.1) % Lymph % (Auto) (18.3-44.2) % Churchill % (Auto) (2.6-8.5) % Eos % (Auto) (0-4.4) % Baso % (Auto) (0.2-1.2) % Lymph # (Auto) (0.9-3.2) K/mm3 Churchill # (Auto) (0.1-0.6) K/mm3 Eos # (Auto) (0-0.3) K/mm3 Baso # (Auto) (0.0-0.1) K/mm3 Abs Immat Gran (auto) (0.00-0.031) K/mm3 Absolute Neuts (auto) (1.3-6.7) K/mm3 Absolute Nucleated RBC (0.0-0.012) K/mm3 Nucleated RBC % (0.0-0.2) % Sodium (137-145) mmol/L Potassium (3.4-5.0) mmol/L Chloride (98-107) mmol/L Carbon Dioxide (22-30) mmol/L Anion Gap (4-12) mmol/L BUN (7-17) mg/dL Creatinine (0.7-1.0) mg/dL Estim Creat Clear Calc ml/min Estimated GFR (59 - ) Glucose (65-110) mg/dL Lactic Acid (0.7-2.0) mmol/L Calcium (8.4-10.2) mg/dL Total Bilirubin (0.2-1.3) mg/dL AST (14-36) U/L ALT (6-35) U/L Alkaline Phosphatase (38-126) U/L Troponin I 0.046 H* D (0.000-0.034) ng/mL Total Protein (6.3-8.2) g/dL Albumin (3.5-5.1) g/dL Lipase (23-300) U/L Influenza A (RT-PCR) (Negative) Influenza B (RT-PCR) (Negative) RSV (RT-PCR) (Negative) SARS-CoV-2 RNA (RT-PCR) (Negative) Imaging Data Radiologist's impression: ITS Impressions Abdomen/Pelvis CT 12/21/24 08:55 IMPRESSION: 1. No specific etiology for the patient's symptoms. Discharge Plan Discharge Clinical Impression: Hypokalemia Patient Disposition: NH Assisted/Asst Living Condition: Stable Instructions: Hypokalemia (ED) Additional Instructions: RETURN IF SYMPTOMS ARE WORSENING , CALL YOUR FAMILY PHYSICIAN FOR APPOINTMENT, TAKE TYLENOL NEEDED FOR ACHES AND PAIN, CONTINUE HOME MEDICATIONS. Patient Language: Korean Prescriptions: New potassium chloride [Klor-Con M20] 20 mEq tablet,ER particles/crystals 40 meq PO BID 3 Days Qty: 6 0RF No Action anastrozole 1 mg tablet 1 mg PO DAILY enalapril maleate 10 mg tablet 10 mg PO DAILY aspirin 81 mg tablet,delayed release (DR/EC) 81 mg PO DAILY famotidine 20 mg tablet 20 mg PO BID allopurinol 300 mg tablet 300 mg PO DAILY memantine 10 mg tablet 10 mg PO BID metoprolol tartrate 25 mg tablet 12.5 mg PO BID acetaminophen 500 mg Tablet 500 mg PO Q6H Follow-up/Referrals: [place],Julia Beverly MD [Primary Care Provider] -
--- NOTE | 2024-12-21 07:59 | ECG_ITS ---
Test Date: 2024-12-21 08:29:46 Measurements Intervals Rainbow Rate: 76 P: 20 KS: 137 QRS: 1 QRSD: 91 T: 17 QT: 421 QTc: 476 Interpretive Statements SINUS RHYTHM BORDERLINE T WAVE ABNORMALITY- INFERIOR LEADS BASELINE ARTIFACT- I, III, AVL BORDERLINE ECG Compared to ECG 12/08/2024 13:50:16 HEART RATE HAS DECREASED Electronically Signed On 12-21-2024 11:57:58 COFFEE MAKER SERVICER by Diogenes Dickens D.O.
--- OUTSIDE RECORDS SUMMARY | 2024-12-21 08:11 | XMS_ITS | Clinical Summary ---
Author Organization [facility] Address [address] [place] [id number] Care Team Providers Care Correctional Nurse Name Role Phone Unavailable Primary Care Provider Unavailabl e Social History Tobacco Use Types Packs/Day Years Used Date Smoking Tobacco: Never Assessed Comments Unknown Sex and Gender Information Value Date Recorded Sex Assigned at Not on file Legal Sex Female 12:30 PM RFID ANALYST Gender Identity Not on file Sexual Orientation [...]
[2024-12-21 08:23] LABS: Basophils Percent Auto 0.2 % (0.2-1.2); Hematocrit 31.3 % (37.0-47.0); Hemoglobin 10.3 g/dL (12.0-15.0); Immature Granulocyte Absolute 0.09 K/mm3 (0.00-0.031); Immature Granulocyte Percent A 0.6 % (0-0.5); Lymphocytes Absolute Auto 0.56 K/mm3 (0.9-3.2); Lymphocytes Percent Auto 3.5 % (18.3-44.2); Mean Corpuscular HGB Conc 32.9 g/dl (32-36); Mean Corpuscular Hemoglobin 29.1 pg (26-34); Mean Corpuscular Volume 88.4 fl (80-100); Mean Platelet Volume 11.1 fl (7.4-10.4); Monocytes Absolute Auto 0.3 K/mm3 (0.1-0.6); Monocytes Percent Auto 1.9 % (2.6-8.5); Neutrophils Absolute Auto 14.9 K/mm3 (1.3-6.7); Neutrophils Percent Auto 93.8 % (45.5-73.1); Platelet Count Result 331 k/mm3 (150-375); Red Blood Count 3.54 M/mm3 (4.2-5.4); Red Cell Distribution Width 13.5 % (11.5-14.5); White Blood Count 15.9 K/mm3 (4.5-10.0)
[2024-12-21 08:34] LABS: Alanine Aminotransferase 30 U/L (6-35); Albumin Level 3.5 g/dL (3.5-5.1); Alkaline Phosphatase 142 U/L (38-126); Anion Gap 12 mmol/L (4-12); Aspartate Amino Transferase 24 U/L (14-36); Bilirubin,Total 0.9 mg/dL (0.2-1.3); Blood Urea Nitrogen 24 mg/dL (7-17); Calcium 8.9 mg/dL (8.4-10.2); Carbon Dioxide 24 mmol/L (22-30); Chloride 100 mmol/L (98-107); Estimated CRCL calculation 47 ml/min; Estimated Glomerular Filt Rate > 60; Glucose 131 mg/dL (65-110); Potassium 3.2 mmol/L (3.4-5.0); Sodium 136 mmol/L (137-145)
[2024-12-21] MEDS: SODIUM CHLORIDE 0.9% IV 1,000 ML 999 ML IV CONT (08:39)
[2024-12-21 08:51] LABS: Troponin I 0.062 ng/mL (0.000-0.034)
[2024-12-21 09:14] LABS: Influenza A QL RT-PCR Negative (Negative); Influenza B QL RT-PCR Negative (Negative); RSV RNA, RT-PCR Negative (Negative); SARS-CoV-2 RNA PCR Negative (Negative)
[2024-12-21 09:26] LABS: Lipase 36 U/L (23-300)
--- NOTE | 2024-12-21 11:15 | ECG_ITS ---
Test Date: 2024-12-21 11:31:05 Measurements Intervals [place] Rate: 59 P: 15 AL: 141 QRS: 1 QRSD: 95 T: -5 QT: 498 QTc: 494 Interpretive Statements SINUS BRADYCARDIA MINIMAL Q WAVES- HIGH LATERAL LEADS NONSPECIFIC T-WAVE ABNORMALITY- INFERIOR LEADS BORDERLINE ECG Compared to ECG 12/21/2024 08:29:46 HEART RATE HAS DECREASED Electronically Signed On 12-21-2024 12:17:03 GREEN FEED ATTENDANT by Diogenes Dickens D.O.
[2024-12-21 12:36] LABS: Troponin I 0.046 ng/mL (0.000-0.034)
[2024-12-21] MEDS: POTASSIUM CHLORIDE 20 MEQ PACKET (FOR LIQUID) 40 MEQ PO (13:48)
== END 2024-12-21 13:57 ==
PROVIDERS: Emergency Provider Emergency Medicine; PCP Internal Medicine
DX: E87.6 Hypokalemia (principal); Z79.82 Long term (current) use of aspirin; K21.9 Gastro-esophageal reflux disease without esophagitis; I10 Essential (primary) hypertension; Z85.3 Personal history of malignant neoplasm of breast; G30.9 Alzheimer's disease, unspecified; F02.80 Dementia in other diseases classified elsewhere, unspecified severity, without behavioral disturbance, psychotic disturbance, mood disturbance, and anxiety; Z20.822 Contact with and (suspected) exposure to COVID-19
CPT/HCPCS: 36415; 74177; 80053; 83605; 83690; 84484; 85025; 87637; 93005; 96360; 99284; A9270; J7030; Q9967

== ENCOUNTER 2024-12-22 07:14 | Emergency (ER) | payer MEDICARE, SELFPAY ==
[2024-12-22] VITALS (9 sets, daily range): BP systolic 124–176; BP diastolic 65–139; PULSE 83–125; RESP 17–31; TEMP 36.8–39.6; O2SAT 96–100
--- NOTE | ~2024-12-22 | XR_ITS ---
EXAMINATION: XR chest 1V portable DATE: 12/22/2024 08:29 INDICATION: Fever. TECHNIQUE: A single frontal view of the chest was obtained. COMPARISON: Chest single view 12/20/2024, CT abdomen and pelvis 12/21/2024 FINDINGS: There is no pneumonia, pleural effusion, or pneumothorax. The heart size is normal. Surgica l clips in the right upper quadrant are likely from cholecystectomy. Breast implants are noted. IMPRESSION: 1. No acute cardiopulmonary disease. Reviewed, dictated and finalized at location [] TION PLANNER
--- OUTSIDE RECORDS SUMMARY | 2024-12-22 07:17 | XMS_ITS | Clinical Summary ---
Author Organization [facility] Address [address] [place] [id number] Care Team Providers Care High [employer] Assistant Principal Name Role Phone Unavailable Primary Care Provider Unavailabl e Social History Tobacco Use Types Packs/Day Years Used Date Smoking Tobacco: Never Assessed Comments Unknown Sex and Gender Information Value Date Recorded Sex Assigned at Not on file Legal Sex Female 12:30 PM SUPERVISOR FINISHING ROOM Gender Identity Not on file Sexual Orientation [...]
--- NOTE | 2024-12-22 07:20 | ECG_ITS ---
Test Date: 2024-12-22 07:12:57 Measurements Intervals [place] Rate: 125 P: 98 SD: 168 QRS: -14 QRSD: 89 T: 75 QT: 336 QTc: 485 Interpretive Statements SINUS TACHYCARDIA NONSPECIFIC ST & T-WAVE ABNORMALITY- ANT/HIGH LAT LEADS BASELINE ARTIFACT- I, II, AVR, V1-V2 ABNORMAL ECG Compared to ECG 12/21/2024 11:31:05 HEART RATE HAS INCREASED Electronically Signed On 12-22-2024 08:51:30 DRIVER LICENSE AGENT by Diogenes Dickens D.O.
--- NOTE | 2024-12-22 07:36 | ED_ITS ---
HPI - Fever General Chief Complaint: Fever Stated Complaint: fever, ams, htn since this am History of Present Illness HPI Narrative: Patient is a 74-year-old female who presents ER with new confusion. Evaluated yesterday with some mild hyperkalemia and discharged home. Patient now febrile with increased confusion. Typically orient x2. No focal weakness. Patient not able to provide history about which she is feeling. Related Data Home Medications ?Medication ?Instructions ?Recorded ?Confirmed ?Last Taken ?Type acetaminophen 500 mg tablet 500 mg PO Q6H 04/19/22 12/08/24 Unknown History allopurinol 300 mg tablet 300 mg PO DAILY 04/19/22 12/08/24 12/07/24 08:00 History 300 mg anastrozole 1 mg tablet 1 mg PO DAILY 04/19/22 12/08/24 12/07/24 08:00 History 1 mg aspirin 81 mg tablet,delayed 81 mg PO DAILY 04/19/22 12/08/24 12/07/24 08:00 History release 81 mg enalapril maleate 10 mg tablet 10 mg PO DAILY 04/19/22 12/08/24 12/07/24 06:00 History 10 mg famotidine 20 mg tablet 20 mg PO BID 04/19/22 12/08/24 12/07/24 08:00 History 20 mg memantine 10 mg tablet 10 mg PO BID 04/19/22 12/08/24 04/19/22 08:49 History metoprolol tartrate 25 mg tablet 12.5 mg PO BID 04/19/22 12/08/24 12/07/24 08:00 History 12.5 mg Allergies Allergy/AdvReac Type Severity Reaction Status Date / Time naproxen Allergy Unknown Verified 12/21/24 13:36 Review of Systems 2 Review of Systems: ROS unobtainable: Yes unobtainable due to mental status [facility] Past Medical History Medical History SIRS (systemic inflammatory response syndrome) Leukocytosis Anemia Gout Gastroesophageal reflux disease Hypertension Alzheimer's dementia Breast cancer Surgical History Surgical History History of open reduction and internal fixation (ORIF) procedure (04/08/22) Repair of left hip fracture with IM nail. History of cholecystectomy History of appendectomy History of bilateral mastectomy Family History Family History Other Family history unknown Social History Social History Social History: Surrogate decision maker: Daya Carmona, daughter. Code status: Full code. Smoking status: Never smoker Second hand tobacco smoke exposure: No Alcohol intake: never Substance use: never Do You Feel Safe in your Home?: Yes Lack of Transportation: YES Lack of Food: Never True Current Housing: I Have Housing Concerned About Future Housing: No Difficulty Paying Gas/Electric Bills: No Difficulty Paying for Meds: No Currently Unemployed: No Education: High School Diploma/GED Difficulty w/ Childcare or Family Care: No Spiritual care concerns: No Exam 2 Narrative: GENERAL: Chronically ill-appearing, well-nourished, and in no acute distress. HEAD: Normocephalic, atraumatic. EYES: PERRL and EOMI. ENT: Mucous membranes moist. CHEST: Clear to auscultation. No respiratory distress. HEART: Tachycardic and regular. Normal peripheral pulses. ABDOMEN: Soft, nontender, nondistended. EXTREMITIES: Normal range of motion. No edema. SKIN: Warm, dry, no rash. NEURO: Alert and oriented x2. 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 She is orient x2. Nonspecific leukocytosis. Positive COVID. No longer tachycardic now that she has been hydrated and fevers broken. I discussed the case with the patient's granddaughter who is at the bedside who is also discussed it with the POA. CXR w/o PNA. No renal failure. Comfortable with discharge back to facility with oral Paxlovid. Vital Signs Vital signs: Vital Signs Temperature 103.2 F H 12/22/24 07:08 Pulse Rate 125 H 12/22/24 07:08 Respiratory Rate 31 H 12/22/24 07:08 Blood Pressure 158/139 H 12/22/24 07:08 Pulse Oximetry 100 12/22/24 07:08 Oxygen Delivery Room Air 12/22/24 07:08 Temperature 100.3 F H 12/22/24 08:59 Pulse Rate 83 12/22/24 09:46 Respiratory Rate 17 12/22/24 09:46 Blood Pressure 124/65 12/22/24 09:46 Pulse Oximetry 96 12/22/24 09:46 Oxygen Delivery Room Air 12/22/24 07:08 MDM - Fever Lab Data 12/22/24 07:59 12/22/24 07:59 Labs: Lab Results 12/22/24 12/22/24 Range/Units 07:20 07:59 WBC 17.1 H (4.5-10.0) K/mm3 RBC 3.87 L (4.2-5.4) M/mm3 Hgb 11.3 L (12.0-15.0) g/dL Hct 34.1 L (37.0-47.0) % MCV 88.1 (80-100) fl MCH 29.2 (26-34) pg MCHC 33.1 (32-36) g/dl RDW 13.5 (11.5-14.5) % Plt Count 322 (150-375) k/mm3 MPV 11.2 H (7.4-10.4) fl Immature Gran % (Auto) 0.8 H (0-0.5) % Neut % (Auto) 95.8 H (45.5-73.1) % Lymph % (Auto) 1.0 L (18.3-44.2) % [place] % (Auto) 2.2 L (2.6-8.5) % Eos % (Auto) 0.0 (0-4.4) % Baso % (Auto) 0.2 (0.2-1.2) % Lymph # (Auto) 0.17 L (0.9-3.2) K/mm3 [place] # (Auto) 0.4 (0.1-0.6) K/mm3 Eos # (Auto) 0.0 (0-0.3) K/mm3 Baso # (Auto) 0.0 (0.0-0.1) K/mm3 Abs Immat Gran (auto) 0.13 H (0.00-0.031) K/mm3 Absolute Neuts (auto) 16.4 H (1.3-6.7) K/mm3 Absolute Nucleated RBC 0.000 (0.0-0.012) K/mm3 Nucleated RBC % 0.0 (0.0-0.2) % PT 14.6 (11.1-14.7) Seconds INR 1.1 APTT 34.6 (22.3-36.8) Seconds Sodium 133 L (137-145) mmol/L Potassium 3.1 L (3.4-5.0) mmol/L Chloride 96 L (98-107) mmol/L Carbon Dioxide 24 (22-30) mmol/L Anion Gap 13 H (4-12) mmol/L BUN 22 H (7-17) mg/dL Creatinine 0.83 (0.7-1.0) mg/dL Estim Creat Clear Calc Not Reportable Estimated GFR > 60 (59 - ) Glucose 131 H (65-110) mg/dL Calcium 8.9 (8.4-10.2) mg/dL Total Bilirubin 0.8 (0.2-1.3) mg/dL AST 26 (14-36) U/L ALT 28 (6-35) U/L Alkaline Phosphatase 153 H (38-126) U/L Total Protein 8.0 (6.3-8.2) g/dL Albumin 3.6 (3.5-5.1) g/dL Urine Color Yellow (Yellow) Urine Appearance Clear (Clear) Urine pH 6.0 (5.0-9.0) Ur Specific [place] 1.014 (1.001-1.035) Urine Protein 2+ H (Negative) mg/dL Urine Glucose (UA) Negative (Negative) mg/dL Urine Ketones 1+ H (Negative) mg/dL Ur Blood (Man) 1+ H (Negative) Urine Nitrate Negative (Negative) Urine Bilirubin Negative (Negative) Urine Urobilinogen 0.2 (<2.0) mg/dL Leukocyte Esterase Rfl Negative (Negative) RITA/UL Urine RBC 0-2 (0-2) /hpf Urine WBC 0-5 (0-3) /hpf Ur Squamous Epith Cells None seen (Few) /hpf Urine Bacteria None seen /hpf Urine Casts 0-2 Influenza A (RT-PCR) Negative (Negative) Influenza B (RT-PCR) Negative (Negative) RSV (RT-PCR) Negative (Negative) SARS-CoV-2 RNA (RT-PCR) Positive A (Negative) Imaging Data Radiologist's impression: ITS Impressions Chest X-Ray 12/22/24 08:32 IMPRESSION: 1. No acute cardiopulmonary disease. ECG Data EKG #1: ECG completion date: 12/22/24 ECG completion time: 07:12 EKG Interpretation: tachycardia (125), sinus rhythm, non-specific ST changes, normal QRS, normal QT and NL axis Discharge Plan Discharge Clinical Impression: COVID Patient Disposition: Home, Self-Care Condition: Stable Instructions: COVID-19 (Coronavirus Disease 2019) (ED) Additional Instructions: Return ER if you cannot keep down food/water/medication, you lose consciousness, have additional concerns. You have a COVID infection and Paxilovid may help minimize any symptoms you have during the illness. Patient Language: [place] Prescriptions: New Paxlovid 300 mg (150 mg x 2)-100 mg tablets,dose pack See Rx Instructions .ROUTE .COMPLEX Qty: 30 0RF Rx Instructions: take TWO 150 mg tablets of nirmatrelvir with ONE 100 mg tablet of ritonavir twice daily for 5 days No Action potassium chloride [Klor-Con M20] 20 mEq tablet,ER particles/crystals 40 meq PO BID 3 Days Qty: 6 0RF anastrozole 1 mg tablet 1 mg PO DAILY enalapril maleate 10 mg tablet 10 mg PO DAILY aspirin 81 mg tablet,delayed release (DR/EC) 81 mg PO DAILY famotidine 20 mg tablet 20 mg PO BID allopurinol 300 mg tablet 300 mg PO DAILY memantine 10 mg tablet 10 mg PO BID metoprolol tartrate 25 mg tablet 12.5 mg PO BID acetaminophen 500 mg Tablet 500 mg PO Q6H Follow-up/Referrals: Brenda,Julia Beverly MD [Primary Care Provider] - 1 Week
[2024-12-22] MEDS: SODIUM CHLORIDE 0.9% IV 1,000 ML 999 ML IV CONT (07:53)
[2024-12-22] MEDS: ACETAMINOPHEN 650 MG SUPPOSITORY RECTAL (08:04)
[2024-12-22 08:06] LABS: Basophils Percent Auto 0.2 % (0.2-1.2); Hematocrit 34.1 % (37.0-47.0); Hemoglobin 11.3 g/dL (12.0-15.0); Immature Granulocyte Absolute 0.13 K/mm3 (0.00-0.031); Immature Granulocyte Percent A 0.8 % (0-0.5); Lymphocytes Absolute Auto 0.17 K/mm3 (0.9-3.2); Mean Corpuscular HGB Conc 33.1 g/dl (32-36); Mean Corpuscular Hemoglobin 29.2 pg (26-34); Mean Corpuscular Volume 88.1 fl (80-100); Mean Platelet Volume 11.2 fl (7.4-10.4); Monocytes Absolute Auto 0.4 K/mm3 (0.1-0.6); Monocytes Percent Auto 2.2 % (2.6-8.5); Neutrophils Absolute Auto 16.4 K/mm3 (1.3-6.7); Neutrophils Percent Auto 95.8 % (45.5-73.1); Platelet Count Result 322 k/mm3 (150-375); Red Blood Count 3.87 M/mm3 (4.2-5.4); Red Cell Distribution Width 13.5 % (11.5-14.5); White Blood Count 17.1 K/mm3 (4.5-10.0)
[2024-12-22 08:14] LABS: Add Urine Microscopic? YES; Appearance Urine Clear (Clear); Bacteria Urine None Seen /hpf; Bilirubin Urine Negative (Negative); Blood Urine 1+ (Negative); Color Urine Yellow (Yellow); Glucose Urine UA Negative (Negative); Ketones Urine 1+ mg/dL (Negative); Leukocyte Esterase Ur Negative LEU/UL (Negative); Nitrate Urine Negative (Negative); Non Pathogenic Casts 0-2; Protein Urine 2+ mg/dL (Negative); RBC Urine 0-2 /hpf (0-2); Specific Grav Ur 1.014 (1.001-1.035); Squamous Epithelial Cell Urine None Seen /hpf (Few); Urobilinogen Urine 0.2 mg/dL (<2.0); WBC Urine 0-5 /hpf (0-3)
[2024-12-22 08:20] LABS: Alanine Aminotransferase 28 U/L (6-35); Albumin Level 3.6 g/dL (3.5-5.1); Alkaline Phosphatase 153 U/L (38-126); Anion Gap 13 mmol/L (4-12); Aspartate Amino Transferase 26 U/L (14-36); Bilirubin,Total 0.8 mg/dL (0.2-1.3); Blood Urea Nitrogen 22 mg/dL (7-17); Calcium 8.9 mg/dL (8.4-10.2); Carbon Dioxide 24 mmol/L (22-30); Chloride 96 mmol/L (98-107); Estimated Glomerular Filt Rate > 60; Glucose 131 mg/dL (65-110); Potassium 3.1 mmol/L (3.4-5.0); Sodium 133 mmol/L (137-145)
[2024-12-22 08:42] LABS: Influenza A QL RT-PCR Negative (Negative); Influenza B QL RT-PCR Negative (Negative); RSV RNA, RT-PCR Negative (Negative); SARS-CoV-2 RNA PCR Positive (Negative)
[2024-12-22 08:44] LABS: INR 1.1; Prothrombin Time 14.6 Seconds (11.1-14.7)
[2024-12-22 08:45] LABS: Partial Thromboplastin Time 34.6 Seconds (22.3-36.8)
--- NOTE | 2024-12-22 10:13 | PC.NURSE ---
Spoke with BRANDON Yo at [facility] for d/c instructions.
== END 2024-12-22 10:20 ==
PROVIDERS: Emergency Provider Emergency Medicine; PCP Internal Medicine
DX: U07.1 COVID-19 (principal); Z79.82 Long term (current) use of aspirin; K21.9 Gastro-esophageal reflux disease without esophagitis; G30.9 Alzheimer's disease, unspecified; F02.80 Dementia in other diseases classified elsewhere, unspecified severity, without behavioral disturbance, psychotic disturbance, mood disturbance, and anxiety; Z85.3 Personal history of malignant neoplasm of breast; R65.10 Systemic inflammatory response syndrome (SIRS) of non-infectious origin without acute organ dysfunction
CPT/HCPCS: 36415; 71045; 80053; 81001; 85025; 85610; 85730; 87637; 93005; 96360; 99284; A9270; J7030

== ENCOUNTER 2024-12-24 18:19 | Inpatient (IN) | payer MEDICARE, SELFPAY ==
--- NOTE | ~2024-12-24 | XR_ITS ---
XR chest 1V portable Ordering provider: Baltazar Walden MD History: 74 years Female with . fever . Comparison: December 29, 2024 FINDINGS: MEDIASTINUM: The cardiac silhouette is not enlarged. Prominent sushant. LUNGS: No effusions or pneumothorax. Prominent bronchovascular markings in the lower lobes with inter stitial thickening. Pneumonitis is not excluded. Follow-up advised. OTHER: No free air under the diaphragm. Degenerative changes of the spine. IMPRESSION: Prominent markings in the lower lobes with interstitial thickening. Pneumonitis cannot be excluded. F ollow-up advised. Reviewed, dictated and finalized at location A. IMPRESSION: Prominent markings in the lower lobes with interstitial thickening. Pneumonitis cannot be excluded. Follow-up advised.
--- NOTE | ~2024-12-24 | XR_ITS ---
EXAMINATION: XR abdomen/kub 1V DATE: 01/05/2025 13:48 INDICATION: Constipation. TECHNIQUE: A supine view of the abdomen on 2 radiographs was obtained. COMPARISON: CT abdomen and pelvis 12/31/2024 FINDINGS: There are no dilated loops of bowel. There is a paucity of stool in the colon. There are ph leboliths in the pelvis. Surgical clips in the right upper quadrant are likely from cholecystectomy. There is internal fixation of left femur. IMPRESSION: 1. Normal bowel gas pattern. Reviewed, dictated and finalized at location B.
--- NOTE | ~2024-12-24 | CT_ITS ---
CT chest abdomen pelvis w con Ordering provider: German Vale MD History: 74 years Female with . fever, HTN, recent mo . Comparison: None. Technique: CT chest with IV contrast. CT abdomen and pelvis CT abdomen and pelvis with IV and with or al contrast. Radiation reduction technique utilized.The dose-length product was 914.31 mGy-cm. 100 mL Omnipaque 35 0 was given IV. A FINDINGS: CHEST: Bilateral breast implants. --VISUALIZED THORACIC INLET: Normal. --MEDIASTINUM: Aorta/coronary arteries: Mild atheromatous disease. Ascending aorta measures 3.2 cm. Heart/other: The heart is not enlarged. Lymph nodes: No mediastinal or hilar adenopathy. Small prevascular lymph nodes are noted. --LUNGS: No pulmonary nodules or masses. No infiltrates or effusions. No pneumothorax. --MUSCULOSKELETAL: Soft tissues: The superficial soft tissues are normal. Bones: Age appropriate degenerative changes of the spine. No suspicious bony lytic or sclerotic lesio ns. Loss of volume of T12 which is most likely chronic is noted. Defect seen in the sternum is most l ikely artifactual. ABDOMEN/PELVIS: --MUSCULOSKELETAL: Bones: Age appropriate degenerative changes of the spine. No suspicious bony lytic or sclerotic lesio ns. Postoperative changes in the left hip. Bilateral sacroiliitis. Superficial soft tissues: The superficial soft tissues are normal. --UPPER ABDOMINAL ORGANS: Liver: Air is seen in the bile ducts of the left lobe of the liver. CBD measures 8 mm. Small hypodens ity seen in the dome of the liver in the right lobe which are most likely tiny cysts. Gallbladder: Status post cholecystectomy. Spleen: Normal. Stomach/duodenum: Normal. Pancreas: Normal. Adrenals: Normal. Kidneys: Normal. --PELVIC ORGANS: The bladder is normal. No bladder stones. --BOWEL AND MESENTERY: Colon: Mild diverticulosis without diverticulitis sigmoid colon. Status post appendectomy. Small Bowel: Normal. No obstruction. Peritoneum/mesentery: No free air or free fluid. No mesenteric lymphadenopathy. --RETROPERITONEUM: Mild atheromatous disease of the abdominal aorta. No retroperitoneal lymphadenop athy. IMPRESSION: CHEST: 1. No acute cardiopulmonary pathology. 2. Loss of volume of T12 which is most likely chronic. ABDOMEN/PELVIS: 1. No evidence of appendicitis, diverticulitis or intestinal obstruction. 2. Air is seen in the bile ducts of the left lobe of the liver. Reviewed, dictated and finalized at location A. ND WATER CONTRACTOR
--- NOTE | ~2024-12-24 | CT_ITS ---
CLINICAL INDICATION: Fever COMPARISON: 12/24/2024. TECHNIQUE: Multiple contiguous axial images of the abdomen and pelvis were performed following the ad ministration of with 100 mL Omnipaque-350 intravenous contrast The dose-length product (DLP) was 674.14 mGy-cm. Automated exposure control and iterative reconstruction technique were employed. FINDINGS/OBSERVATIONS: Visualized lower thorax: The bilateral lung bases are clear. The heart is enlarged, without pericardial effusion. Small hiatal hernia is present. Liver: Pneumobilia is again identified, for which prior sphincterotomy (on 12/10/2024) is suspected. The liver otherwise enhances homogeneously, and is not enlarged measuring 18 cm in longitudinal dimen pedrito. The subcentimeter focus of decreased attenuation within the dome of the liver, likely is artifactual from the decreased attenuation in the hepatic veins. No findings within the liver to suggest an intrahepatic abscess. Gallbladder and biliary system: The gallbladder is surgically absent. Pancreas: The pancreas enhances homogeneously without ductal dilatation. Spleen: The spleen enhances homogeneously and is not enlarged measuring 11 cm in longitudinal dimension. Kidneys: The bilateral kidneys enhance symmetrically without hydronephrosis or renal calculi. Adrenal glands: Unremarkable. Gastrointestinal tract: Colonic diverticulosis without surrounding inflammatory change. Appendix: Clips are identified within the cecum/appendiceal stump suggesting prior appendectomy (axial series, images 129 through 133). Vasculature: Unremarkable. Lymph nodes: No pathologically enlarged or morphologically suspicious lymph nodes within the retroperitoneum or at the root of the mesentery. Pelvic structures: The bladder is only minimally distended, and otherwise unremarkable. The uterus is anteverted and anteflexed and contains multiple bulky calcifications suggesting prior f ibroid disease. Body wall and musculoskeletal: Small fat-containing umbilical hernia. Moderate degenerative disease within the lumbar spine, with osteophyte formation, disc space narrowin g, endplate changes and vacuum phenomena. IMPRESSION: No findings within the abdomen or pelvis to suggest a source of patient's fever, as detailed above. Reviewed, dictated and finalized at location A. NEL OPENER OUTSOLES IMPRESSION: No findings within the abdomen or pelvis to suggest a source of patient's fever , as detailed above.
--- NOTE | ~2024-12-24 | XR_ITS ---
EXAMINATION: XR chest PICC line DATE: 01/05/2025 12:22 INDICATION: Central line placement. TECHNIQUE: A single frontal view of the chest was obtained. COMPARISON: Chest single view 01/03/[address] 12/31/2024 FINDINGS: There is no pneumonia, pleural effusion, or pneumothorax. The heart size is normal. A right upper extremity peripherally inserted central venous catheter (PICC) is seen with tip at the superio r cavoatrial junction. Surgical clips overlie the chest and abdomen. Breast implants are noted. IMPRESSION: 1. PICC tip at the superior cavoatrial junction. Reviewed, dictated and finalized at location B.
--- NOTE | ~2024-12-24 | XR_ITS ---
EXAMINATION: XR chest 2V DATE: 12/29/2024 11:23 INDICATION: Fever TECHNIQUE: frontal and lateral views of the chest were obtained. COMPARISON: Chest radiograph dated 01/23/2025 FINDINGS: The lungs are clear with no focal airspace opacities, pulmonary edema, pleural effusion or pneumothor ax. The cardiomediastinal silhouette is normal. Surgical clips at the left breast and axilla. Cholecy stectomy clips the upper abdomen. Bilateral breast implants. Mild kyphosis at the lower thoracic spin e associated chronic T11 and T12 compression fractures. IMPRESSION: 1. No acute cardiopulmonary disease. Reviewed, dictated and finalized at location B. LANE TUBE BUILDER
--- NOTE | ~2024-12-24 | CT_ITS ---
CT brain wo con Ordering provider: German Vale MD History: 74 years Female with . AMS . Comparison: None. Technique: CT of the head without contrast. Radiation reduction technique utilized.The dose-length pr oduct was 1362 mGy-cm. FINDINGS: BRAIN PARENCHYMA AND CSF SPACES: No midline shift, mass effect or hemorrhage. The brain parenchyma a nd CSF spaces are otherwise normal. VISUALIZED PARANASAL SINUSES: Well aerated. MASTOIDS: Well aerated. BONES: The bones appear intact. SOFT TISSUES: Visualized nasopharynx is normal. Superficial soft tissues are normal. IMPRESSION: No acute intracranial findings. Reviewed, dictated and finalized at location A. NOLOGY RISK INTERN
--- NOTE | ~2024-12-24 | XR_ITS ---
EXAMINATION: XR chest 2V DATE: 12/27/2024 12:27 INDICATION: Cough and fever. TECHNIQUE: Frontal and lateral views of the chest were obtained. COMPARISON: Chest single view 12/22/2024, chest CT 12/24/2024 FINDINGS: There is no pneumonia, pleural effusion, or pneumothorax. The heart size is normal. Surgica l clips in the right upper quadrant are likely from cholecystectomy. There is a surgical clip in left chest wall. Breast implants are noted. There is chronic anterior wedging of multiple thoracolumbar v ertebral bodies. IMPRESSION: 1. No acute cardiopulmonary disease. Reviewed, dictated and finalized at location A. ENGINEER
--- NOTE | ~2024-12-24 | CT_ITS ---
EXAMINATION: CT brain wo con DATE: 12/31/2024 13:28 INDICATION: Altered mental status. TECHNIQUE: Computed tomography (CT) of the head was performed without intravenous contrast. The mA wa s adjusted according to patient size. Iterative reconstruction technique was employed. The dose-lengt h product was 605.33 mGy-cm. COMPARISON: Head CT 12/24/2024 FINDINGS: There is no intracranial hemorrhage, acute infarction, or abnormal intracranial mass lesion . There are scattered areas of low attenuation in the cerebral white matter. The ventricles are thelma l in size. The orbits are normal. The paranasal sinuses are clear. The mastoid air cells are normal. IMPRESSION: 1. Mild nonspecific cerebral white matter disease, which likely represents chronic small vessel ische bebeto disease. Reviewed, dictated and finalized at location A. P DEBURRER IMPRESSION: 1. Mild nonspecific cerebral white matter disease, which likely represents automatic buffing wheel former macie small vessel ischemic disease.
--- NOTE | ~2024-12-24 | XR_ITS ---
EXAMINATION: XR lumbar puncture diagnostic DATE: 12/31/2024 13:11 INDICATION: Fever and confusion. TECHNIQUE: Consent was provided by a family member. The skin overlying the L3-L4 level was prepped an d draped in usual sterile fashion. Subcutaneous 1% lidocaine was used for local anesthesia. A 20 ga uge spinal needle was advanced under fluoroscopic guidance. The needle was removed and the entry site was cleaned and dressed. There were no immediate complications. Fluoroscopy exposure time was 0.1 m inutes. The total number of images was 1. FINDINGS: Real-time fluoroscopy demonstrates the needle at the L3-L4 level. The opening pressure was 12 cm water (Normal range is variably defined as 6-20 cm water and up to 25 cm water in obese patient s. Pressure >25 cm water is one of the modified Dandy criteria for idiopathic intracranial hypertensi on). 13 mL of clear, colorless fluid was collected in 4 tubes. IMPRESSION: 1. Successful fluoro-guided lumbar puncture. Reviewed, dictated and finalized at location A. K LETTERER
--- NOTE | ~2024-12-24 | CT_ITS ---
EXAMINATION: CTA chest abdomen pelvis DATE: 12/31/2024 13:23 INDICATION: Fever of unknown origin TECHNIQUE: Computed tomography (CT) of the chest, abdomen and pelvis was performed with 100 mL Omnipa que-350 intravenous contrast. Sagittal and coronal reconstructions were performed. The dose-length pr oduct was 1150.6 mGy-cm. COMPARISON: 12/28/2024 FINDINGS: Chest: Small right and trace left posterior layering pleural effusions with mild dependent atelectasis in th e bilateral lower lobes. No pneumonia or pulmonary edema. Heart size is normal. Atherosclerotic coron augusto artery calcifications. No pericardial effusion. Bilateral breast implants. Thoracic aorta is norm al in caliber with no dissection. No pathologically enlarged abdominal or pelvic lymphadenopathy. Mod erate lower cervical and mild thoracic spondylosis. Chronic T11 and T12 compression fractures. Abdomen and pelvis: Again seen is pneumobilia in the common bile duct and nondependent liver likely related to prior chol ecystectomy and hysterectomy with surgical clips the gallbladder fossa. Possible diffuse hepatic stea tosis although assessment is limited on arterial phase postcontrast imaging. Spleen, pancreas, bilate ral adrenal glands and right kidney are normal. 7 mm low-attenuation cyst at the upper pole the right kidney and 8 mm soft tissue density lesion at the lower pole of the left kidney which could represen t either a proteinaceous/hemorrhagic cyst or solid neoplasm. Postoperative change of prior appendecto my with surgical clips near the tip the cecum. Fluid in the colon consistent with nonspecific diarrhe a. No bowel obstruction. Bladder, uterus and bilateral adnexa are unremarkable. No abscess or free in traperitoneal gas or fluid. Abdominal aorta is normal in caliber with no dissection. There is moderat e 50-70% stenosis at the proximal left renal artery. Moderate lumbar spondylosis. Partially visualize d antegrade intramedullary flip and femoral neck dynamic compression screw fixation at the proximal le ft femur with old healed intratrochanteric fracture. IMPRESSION: 1. Fluid throughout the colon consistent with nonspecific diarrhea. Correlate clinically for gastroen teritis. 2. Small right and trace left posterior layering pleural effusions. 3. Mild cardiomegaly. 4. Indeterminate 8 mm soft tissue density lesion at the lower pole the left kidney which could repres ent a proteinaceous/hemorrhagic cyst or solid renal cell carcinoma. Recommend pre and postcontrast MR I or CT for further evaluation. Reviewed, dictated and finalized at location B. LITY SERVICE ASSOCIATE IMPRESSION: 1. Fluid throughout the colon consistent with nonspecific diarrhea. Correlate c linically for gastroenteritis. 2. Small right and trace left posterior layering pleural effusions. 3. Mild cardiomegaly. 4. Indeterminate 8 mm soft tissue density lesion at the lower pole the left kid kate which could represent a proteinaceous/hemorrhagic cyst or solid renal cell carcinoma. Recommend pre and postcontrast MRI or CT for further evaluation.
[2024-12-24 18:21] VITALS: BP 204/102; PULSE 107; RESP 34; TEMP 38.1; O2SAT 100
--- NOTE | 2024-12-24 18:32 | ECG_ITS ---
Test Date: 2024-12-24 18:27:24 Measurements Intervals [place] Rate: 102 P: 0 WV: 0 QRS: 14 QRSD: 89 T: 78 QT: 346 QTc: 452 Interpretive Statements SINUS TACHYCARDIA NONSPECIFIC ST & T-WAVE ABNORMALITY- HIGH LATERAL LEADS BASELINE ARTIFACT- I, II, III, AVR, AVL, AVF, V1-V6 BORDERLINE ECG Compared to ECG 12/22/2024 07:12:57 HEART RATE HAS DECREASED Electronically Signed On 12-24-2024 19:15:39 THREAD MILLING MACHINE SET UP OPERATOR by Diogenes Dickens D.O.
[2024-12-24 18:57] LABS: Basophils Percent Auto 0.2 % (0.2-1.2); Hematocrit 33.2 % (37.0-47.0); Hemoglobin 11.1 g/dL (12.0-15.0); Immature Granulocyte Absolute 0.12 K/mm3 (0.00-0.031); Immature Granulocyte Percent A 0.6 % (0-0.5); Lymphocytes Percent Auto 1.5 % (18.3-44.2); Mean Corpuscular HGB Conc 33.4 g/dl (32-36); Mean Corpuscular Hemoglobin 29.1 pg (26-34); Mean Corpuscular Volume 87.1 fl (80-100); Mean Platelet Volume 11.4 fl (7.4-10.4); Monocytes Absolute Auto 0.3 K/mm3 (0.1-0.6); Monocytes Percent Auto 1.6 % (2.6-8.5); Neutrophils Percent Auto 96.1 % (45.5-73.1); Platelet Count Result 299 k/mm3 (150-375); Red Blood Count 3.81 M/mm3 (4.2-5.4); Red Cell Distribution Width 13.6 % (11.5-14.5); White Blood Count 19.7 K/mm3 (4.5-10.0)
[2024-12-24 19:10] LABS: INR 1.1; Prothrombin Time 14.7 Seconds (11.1-14.7)
[2024-12-24 19:11] LABS: Alanine Aminotransferase 23 U/L (6-35); Albumin Level 3.8 g/dL (3.5-5.1); Alkaline Phosphatase 159 U/L (38-126); Anion Gap 14 mmol/L (4-12); Aspartate Amino Transferase 28 U/L (14-36); Bilirubin,Total 0.8 mg/dL (0.2-1.3); Blood Urea Nitrogen 30 mg/dL (7-17); Calcium 8.9 mg/dL (8.4-10.2); Carbon Dioxide 22 mmol/L (22-30); Chloride 96 mmol/L (98-107); Estimated CRCL calculation 28 ml/min; Estimated Glomerular Filt Rate 36; Glucose 109 mg/dL (65-110); Partial Thromboplastin Time 33.4 Seconds (22.3-36.8); Potassium 3.5 mmol/L (3.4-5.0); Sodium 132 mmol/L (137-145)
--- OUTSIDE RECORDS SUMMARY | 2024-12-24 19:11 | XMS_ITS | Clinical Summary ---
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
[2024-12-24] MEDS: LACTATED RINGERS 1,000 ML 999 ML IV CONT ×2 (19:18→19:19)
[2024-12-24] MEDS: LACTATED RINGERS 200 ML 999 ML IV CONT (19:24)
[2024-12-24 19:26] VITALS: BP 168/87; PULSE 94; PULSE 96; RESP 26; TEMP 38.7; O2SAT 100
--- NOTE | 2024-12-24 19:29 | ED.AMS ---
HPI - Altered Mental Status General Chief Complaint: Altered Mental Status Stated Complaint: altered loc, low 02 sat, htn Time Seen by Provider: 12/24/24 19:04 History of Present Illness HPI narrative: 74-year-old female with complex past medical history including recent admission to the hospital for choledocholithiasis requiring ERCP, she has a history of hypertension and dementia as well as breast cancer. Today she presents with acute mental status changes altered from baseline, hypertensive, febrile, tachycardic, tachypneic. She appears very ill and brought back to room 11 for resuscitation and evaluation. Patient is not able to provide me collateral information as she is very altered at this time. No evidence of trauma. She appears ill and frail. Review of the EMR for additional information shows that she was treated with cefepime and Flagyl during her choledocholithiasis episode, was recently here 2 days ago diagnosed with COVID and started on Paxlovid and presenting here today with mental status changes. Related Data Home Medications ?Medication ?Instructions ?Recorded ?Confirmed ?Last Taken ?Type acetaminophen 500 mg tablet 500 mg PO Q6H 04/19/22 12/08/24 Unknown History allopurinol 300 mg tablet 300 mg PO DAILY 04/19/22 12/08/24 12/07/24 08:00 History 300 mg anastrozole 1 mg tablet 1 mg PO DAILY 04/19/22 12/08/24 12/07/24 08:00 History 1 mg aspirin 81 mg tablet,delayed 81 mg PO DAILY 04/19/22 12/08/24 12/07/24 08:00 History release 81 mg enalapril maleate 10 mg tablet 10 mg PO DAILY 04/19/22 12/08/24 12/07/24 06:00 History 10 mg famotidine 20 mg tablet 20 mg PO BID 04/19/22 12/08/24 12/07/24 08:00 History 20 mg memantine 10 mg tablet 10 mg PO BID 04/19/22 12/08/24 04/19/22 08:49 History metoprolol tartrate 25 mg tablet 12.5 mg PO BID 04/19/22 12/08/24 12/07/24 08:00 History 12.5 mg Allergies Allergy/AdvReac Type Severity Reaction Status Date / Time naproxen Allergy Unknown Verified 12/24/24 22:29 Review of Systems Review of Systems: As reviewed above in HPI PMFSH Past Medical History Medical History SIRS (systemic inflammatory response syndrome) Leukocytosis Anemia Gout Gastroesophageal reflux disease Hypertension Alzheimer's dementia Breast cancer Surgical History Surgical History History of open reduction and internal fixation (ORIF) procedure (04/08/22) Repair of left hip fracture with IM nail. History of cholecystectomy History of appendectomy History of bilateral mastectomy Family History Family History Other Family history unknown Social History Social History Social History: Surrogate decision maker: Daya Carmona, daughter. Code status: Full code. Smoking status: Never smoker Second hand tobacco smoke exposure: No Alcohol intake: never Substance use: never Do You Feel Safe in your Home?: Yes Lack of Transportation: YES Lack of Food: Never True Current Housing: I Have Housing Concerned About Future Housing: No Difficulty Paying Gas/Electric Bills: No Difficulty Paying for Meds: No Currently Unemployed: No Education: High School Diploma/GED Difficulty w/ Childcare or Family Care: No Spiritual care concerns: No Exam Narrative: GENERAL: Ill-appearing, acute distress with tachypnea, tachycardia. Not able to answer questions appropriately HEAD: [Normocephalic, atraumatic.] EYES: [PERRLA and EOMI.] ENT: Nares clear, no rhinorrhea or epistaxis. Mucous membranes dry NECK: Supple. CHEST: Coarse bibasilar breath sounds, tachypnea. No accessory muscle use. HEART: Tachycardic rate with regular rhythm. No murmur heard. [Normal peripheral pulses.] ABDOMEN: [Soft, nondistended], tender to palpation in the right upper quadrant, [No rigidity or guarding] EXTREMITIES: Normal range of motion. Nonpitting edema in the legs SKIN: Warm, dry, no rash. NEURO: [No focal deficits]. Alert and oriented x1 which is her name, not at her baseline presently PSYCH: [Normal mood and affect.] Course Vital Signs Vital signs: Vital Signs Temperature 38.1 C H 12/24/24 18:21 Pulse Rate 107 H 12/24/24 18:21 Respiratory Rate 34 H 12/24/24 18:21 Blood Pressure 204/102 H 12/24/24 18:21 Pulse Oximetry 100 12/24/24 18:21 Oxygen Delivery Room Air 12/24/24 18:21 Temperature 36.3 C L 12/25/24 04:00 Pulse Rate 55 L 12/25/24 04:00 Respiratory Rate 16 12/25/24 04:00 Blood Pressure 177/78 H 12/25/24 04:00 Pulse Oximetry 100 12/25/24 04:00 Oxygen Delivery Room Air 12/24/24 18:30 MDM - Altered Mental Status MDM Narrative Medical decision making narrative: 74-year-old female recently hospitalized for choledocholithiasis status post ERCP. She also has a history of hypertension breast cancer as well as Alzheimer's dementia. Recently diagnosed with COVID in ER visit 2 days ago and started on PACS fluid. Today she presents altered, febrile, tachycardic and tachypneic. She is not able to provide collateral formation, she appears very ill and septic potentially as she is febrile and tachycardic with recent infectious source likely being GI related. She was brought back to room 11. For resuscitation. Septic bundle was initiated, broad-spectrum antibiotics with vancomycin cefepime ordered, 30 cc/kg bolus of lactated Ringer's are initiated. She was provided Tylenol for her fever, CT scans of the chest abdomen pelvis were obtained. Differential diagnosis includes cholangitis, recurrent choledocholithiasis, cholecystitis, sepsis, pneumonia, COVID, intracranial pathology. CT of the head was added on in addition to lactic acid, blood cultures, CBC, CMP, troponin. Patient was placed on aircraft quality control inspector and pulse oximetry and re-evaluated after interventions. Patient is not at her baseline mentation although has a history of dementia. Workup shows a leukocytosis of 19.7, hemoglobin 11.1 which is at her baseline. Platelets within normal range. Normal coagulation panel. Chemistry panel shows normal potassium, acute kidney injury with a creatinine of 1.41 compared to her baseline that was normal and discharged 2 days ago. Negative lactic acid. Normal LFTs. Troponin downtrending at 0.031. Elevated CRP. Urinalysis without any infection. patient did test positive for COVID. CT scan shows no acute cardiopulmonary process, no evidence of pancreatitis, appendicitis, diverticulitis or obstruction. Air in the biliary tree and left lower the liver. Head CT without any acute findings. EKG shows sinus tachycardia and no signs of acute ischemia. I called and discussed the case with Dr. Strange from Gastroenterology regarding patient's presentation, status post ERCP and concerns for sepsis, we went over the CT scan and given the normal LFTs and air in the biliary tree likely from the endoscopy he does not suspect cholangitis or other intra-abdominal process at this time. He will see the patient inpatient. Patient was re-evaluated, doing better without any oxygen, no longer as tachypneic or tachycardic. Fever has broke after Tylenol. Blood pressure came down. She requires hospitalization at this time for further evaluation and treatment. I discussed the case with the hospitalist team who accepted her to an intermediate care unit bed at this time. Admit orders were placed. Lab Data 12/25/24 04:30 12/25/24 04:30 Labs: Lab Results 12/24/24 12/24/24 12/24/24 Range/Units 18:48 19:39 19:41 WBC 19.7 H (4.5-10.0) K/mm3 RBC 3.81 L (4.2-5.4) M/mm3 Hgb 11.1 L (12.0-15.0) g/dL Hct 33.2 L (37.0-47.0) % MCV 87.1 (80-100) fl MCH 29.1 (26-34) pg MCHC 33.4 (32-36) g/dl RDW 13.6 (11.5-14.5) % Plt Count 299 (150-375) k/mm3 MPV 11.4 H (7.4-10.4) fl Immature Gran % (Auto) 0.6 H (0-0.5) % Neut % (Auto) 96.1 H (45.5-73.1) % Lymph % (Auto) 1.5 L (18.3-44.2) % [place] % (Auto) 1.6 L (2.6-8.5) % Eos % (Auto) 0.0 (0-4.4) % Baso % (Auto) 0.2 (0.2-1.2) % Lymph # (Auto) 0.30 L (0.9-3.2) K/mm3 [place] # (Auto) 0.3 (0.1-0.6) K/mm3 Eos # (Auto) 0.0 (0-0.3) K/mm3 Baso # (Auto) 0.0 (0.0-0.1) K/mm3 Abs Immat Gran (auto) 0.12 H (0.00-0.031) K/mm3 Absolute Neuts (auto) 19.0 H (1.3-6.7) K/mm3 Absolute Nucleated RBC 0.000 (0.0-0.012) K/mm3 Nucleated RBC % 0.0 (0.0-0.2) % PT 14.7 (11.1-14.7) Seconds INR 1.1 APTT 33.4 (22.3-36.8) Seconds Sodium 132 L (137-145) mmol/L Potassium 3.5 (3.4-5.0) mmol/L Chloride 96 L (98-107) mmol/L Carbon Dioxide 22 (22-30) mmol/L Anion Gap 14 H (4-12) mmol/L BUN 30 H (7-17) mg/dL Creatinine 1.41 H (0.7-1.0) mg/dL Estim Creat Clear Calc 28 ml/min Estimated GFR 36 L (59 - ) Glucose 109 (65-110) mg/dL Lactic Acid 1.5 (0.7-2.0) mmol/L Calcium 8.9 (8.4-10.2) mg/dL Total Bilirubin 0.8 (0.2-1.3) mg/dL AST 28 (14-36) U/L ALT 23 (6-35) U/L Alkaline Phosphatase 159 H (38-126) U/L Troponin I 0.031 (0.000-0.034) ng/mL C-Reactive Protein 7.3 H (<1.0) mg/dL Total Protein 8.0 (6.3-8.2) g/dL Albumin 3.8 (3.5-5.1) g/dL Urine Color Yellow (Yellow) Urine Appearance Clear (Clear) Urine pH 5.5 (5.0-9.0) Ur Specific [place] 1.009 (1.001-1.035) Urine Protein Trace (Negative) mg/dL Urine Glucose (UA) Negative (Negative) mg/dL Urine Ketones Negative (Negative) mg/dL Ur Blood (Man) Trace (Negative) Urine Nitrate Negative (Negative) Urine Bilirubin Negative (Negative) Urine Urobilinogen 0.2 (<2.0) mg/dL Add Ur Microanalysis Reviewed Leukocyte Esterase Rfl Negative (Negative) RITA/UL Urine RBC 0-2 (0-2) /hpf Urine WBC 0-5 (0-3) /hpf Ur Squamous Epith Cells None seen (Few) /hpf Urine Bacteria None seen /hpf Urine Casts 3-5 Nasal MRSA (PCR) Not detected (NOT DETECTE) Discharge Plan Discharge Clinical Impression: COVID, Acute alteration in mental status, Sepsis, Acute kidney injury, COVID-19 Patient Disposition: Still a Patient Condition: Guarded Prognosis
[2024-12-24] MEDS: CEFEPIME 2 GM/NS 50 ML 2 GM/50 ML BAG IVPB (19:40)
[2024-12-24 19:59] LABS: Add Urine Microscopic? YES; Appearance Urine Clear (Clear); Bacteria Urine None Seen /hpf; Bilirubin Urine Negative (Negative); Blood Urine Trace (Negative); Color Urine Yellow (Yellow); Glucose Urine UA Negative (Negative); Ketones Urine Negative (Negative); Leukocyte Esterase Ur Negative LEU/UL (Negative); Need Manual Microscopic Reviewed; Nitrate Urine Negative (Negative); Protein Urine Trace mg/dL (Negative); RBC Urine 0-2 /hpf (0-2); Specific Grav Ur 1.009 (1.001-1.035); Squamous Epithelial Cell Urine None Seen /hpf (Few); Urobilinogen Urine 0.2 mg/dL (<2.0); WBC Urine 0-5 /hpf (0-3); pH Urine 5.5 (5.0-9.0)
[2024-12-24 20:04] LABS: Lactic Acid Reflex 1.5 mmol/L (0.7-2.0)
[2024-12-24 20:07] LABS: CRP 7.3 mg/dL (<1.0)
[2024-12-24 20:15] LABS: Troponin I 0.031 ng/mL (0.000-0.034)
[2024-12-24] MEDS: VANCOMYCIN 1,000 MG/NS 250 ML 1,000 MG/250 ML BAG 250 MG IVPB (20:23)
[2024-12-24 21:05] LABS: MRSA (PCR) NOT DETECTED (NOT DETECTE)
[2024-12-24 21:28] VITALS: BP 149/71; PULSE 78; RESP 20; TEMP 37.1; O2SAT 100
--- NOTE | 2024-12-24 22:12 | PC.NURSE ---
spoke with Tia Stacy [place] nurse who advised that patient is normally alert to self and place.
[2024-12-24] MEDS: LACTATED RINGERS 1,000 ML 125 ML IV CONT (22:22)
[2024-12-24 23:20] VITALS: BP 140/76; PULSE 55; RESP 13; TEMP 36.8; O2SAT 98
--- NOTE | 2024-12-24 23:30 | P.HP_ITS ---
H&P: HPI History of Present Illness Date/Time: 12/25/24 00:59 Chief Complaint: 1. Malaise 2. Fatigue 3. Fever 4. Abdominal pain Narrative: Sanam Yu is a 74 yo F with a mhx significant for dementia, GERD, Hy pertension, She presented to the emergency department for evaluation of high fever and abdominal pain per the memory care unit where she resides. With no known modifying factors for her symptoms, she has become progressively fatigued with increased somnolence and anorexia. She denies symptoms of chest pain shortness of breath, nausea vomiting diarrhea. Patient is well-appearing in no distress. She does not smoke/chew tobacco, drink alcohol or consume recreational drugs. Work-up findings: WBC 18; Hb 10; PLT 250 Na 134; K 3.1; BUN 30; Cr 1.41; GFR 36 Troponin 0.031; ECG: Sinus tachycardia; no evidence of ischemia CXR: Unremarkable Head CT. Unremarkable CTAP: Unremarkable Sanam Yu will be admitted, evaluated and managed for COVID-19 infection Review of Systems Review of Systems: ROS unobtainable: Yes unobtainable due to mental status PMFSH Past Medical History Medical History SIRS (systemic inflammatory response syndrome) Leukocytosis Anemia Gout Gastroesophageal reflux disease Hypertension Alzheimer's dementia Breast cancer Surgical History Surgical History History of open reduction and internal fixation (ORIF) procedure (04/08/22) Repair of left hip fracture with IM nail. History of cholecystectomy History of appendectomy History of bilateral mastectomy Family History Family History Other Family history unknown Social History Social History Social History: Surrogate decision maker: Daya Carmona, daughter. Code status: Full code. Smoking status: Never smoker Second hand tobacco smoke exposure: No Alcohol intake: never Substance use: never Do You Feel Safe in your Home?: Yes Lack of Transportation: YES Lack of Food: Never True Current Housing: I Have Housing Concerned About Future Housing: No Difficulty Paying Gas/Electric Bills: No Difficulty Paying for Meds: No Currently Unemployed: No Education: High School Diploma/GED Difficulty w/ Childcare or Family Care: No Spiritual care concerns: No Meds Home Medications and Allergies Home Medications ?Medication ?Instructions ?Recorded ?Confirmed ?Type acetaminophen 500 mg tablet 500 mg PO Q6H 04/19/22 12/08/24 History allopurinol 300 mg tablet 300 mg PO DAILY 04/19/22 12/08/24 History anastrozole 1 mg tablet 1 mg PO DAILY 04/19/22 12/08/24 History aspirin 81 mg tablet,delayed 81 mg PO DAILY 04/19/22 12/08/24 History release enalapril maleate 10 mg tablet 10 mg PO DAILY 04/19/22 12/08/24 History famotidine 20 mg tablet 20 mg PO BID 04/19/22 12/08/24 History memantine 10 mg tablet 10 mg PO BID 04/19/22 12/08/24 History metoprolol tartrate 25 mg tablet 12.5 mg PO BID 04/19/22 12/08/24 History potassium chloride 20 mEq 40 meq (2 x 20 mEq) PO BID 3 days 12/21/24 Rx tablet,extended #6 tabs release(part/cryst) (Klor-Con M) nirmatrelvir 300 mg (150 mg See Rx Instructions PO .COMPLEX 12/22/24 Rx x2)-ritonavir 100 mg tablet,dose #30 ea pack (Paxlovid) Allergies Allergy/AdvReac Type Severity Reaction Status Date / Time naproxen Allergy Unknown Verified 12/24/24 22:29 Vital Signs Vital Signs - 24 hr 12/24/24 18:21 12/24/24 18:30 12/24/24 19:26 Temperature 100.5 F H Pulse Rate 107 H 96 Respiratory Rate 34 H Blood Pressure 204/102 H Pulse Oximetry 100 Oxygen Delivery Room Air Room Air 12/24/24 19:26 12/24/24 21:28 12/24/24 23:20 Temperature 101.7 F H 98.8 F 98.2 F Pulse Rate 94 78 55 L Respiratory Rate 26 H 20 13 Blood Pressure 168/87 H 149/71 H 140/76 Pulse Oximetry 100 100 98 Oxygen Delivery Exam Const: General: comfortable and no acute distress HENMT: Mouth: Yes dry mucous membranes Eyes: General: appearance normal, both eyes and all related structures Sclera: sclerae normal Pupils: Equal, round and reactive pupils present Neck: Neck: supple Resp: Effort & Inspection: normal respiratory effort Cardio: Rate: tachycardic Rhythm: regular rhythm GI: Auscultation: normal bowel sounds Skin: General skin exam: normal color Neuro: Speech: normal speech Motor exam (neuro): Normal motor muscle tone present throughout Extrem: General: normal to inspection Psych: Other: Confused H&P: Results Labs Labs: Short CBC 12/24/24 Range/Units 18:48 WBC 19.7 H (4.5-10.0) K/mm3 Hgb 11.1 L (12.0-15.0) g/dL Hct 33.2 L (37.0-47.0) % Plt Count 299 (150-375) k/mm3 BMP 12/24/24 18:48 Sodium 132 L Potassium 3.5 Chloride 96 L Carbon Dioxide 22 BUN 30 H Creatinine 1.41 H Glucose 109 Calcium 8.9 Cardiac Enzymes 12/24/24 Range/Units 19:39 Troponin I 0.031 (0.000-0.034) ng/mL Liver Function 12/24/24 Range/Units 18:48 Total Bilirubin 0.8 (0.2-1.3) mg/dL AST 28 (14-36) U/L ALT 23 (6-35) U/L Alkaline Phosphatase 159 H (38-126) U/L Albumin 3.8 (3.5-5.1) g/dL Urine 12/24/24 Range/Units 19:41 Urine Color Yellow (Yellow) Urine Appearance Clear (Clear) Urine pH 5.5 (5.0-9.0) Ur Specific [place] 1.009 (1.001-1.035) Urine Protein Trace (Negative) mg/dL Urine Glucose (UA) Negative (Negative) mg/dL Assessment and Plan Assessment and plan (1) COVID: Code(s): U07.1 - COVID-19 Status: Acute (2) PRASANTH (acute kidney injury): Code(s): N17.9 - Acute kidney failure, unspecified Status: Acute Plan Acute and principal conditions 1. COVID-19 infection 2. Hypokalemia 3. PRASANTH Rx; Supportive management of COVID Replete and monitor K Avoid nephrotoxins; IVFs Chronic and stable conditions 1. GERD. 2. Gout. 3. Dementia 4. Hypertension Miscellaneous care 1. Code status. Full 2. Nutrition. regular diet 3. VTE prophylaxis. SCDs; [facility] Quality VTE Prophylaxis VTE prophylaxis: mechanical ordered and pharmacologic ordered Hospitalist MIPS Advance Care Plan I have confirmed that the patient's Advanced Care Plan is present, code status is documented, or surrogate decision maker is listed in patient medical record.: Yes Medication Reconciliation I have utilized all available resources to obtain, update and review the patients current medications (includes all prescriptions, OTC, herbals, cannabis, and nutritional supplements).: Yes The patient is not eligible for med reconciliation; the patient is in a emergent medical situation where delaying treatment would jeopardize the patients health.: Yes
[2024-12-25] VITALS (18 sets, daily range): BP systolic 160–177; BP diastolic 72–97; PULSE 45–97; RESP 16–20; TEMP 36.3–36.9; O2SAT 95–100; BMI 26.8; BMI 25.9
--- NOTE | 2024-12-25 01:38 | ADMGEN ---
This patient, Sanam Yu, was admitted to IMU Room 213-01 on 12/25/24 at 0112. Patient/family oriented to hospital policies and general routines including ID bracelet, bed and alarms, visiting hours, pain management, procedures, bathroom and other care routines, personal items, smoking policy, room service/diet, and visiting hours. Pt with AMS, only A&Ox1 at this time. H&P obtained from medical records and [facility] paperwork. No family available at this time to confirm correctness. Information on how to activate the Rapid Response Team has been discussed. Patient/Family are encouraged to report perceived risks to care and to ask questions if they do not understand what they are told or what they should do.
[2024-12-25 04:48] LABS: Basophils Percent Auto 0.2 % (0.2-1.2); Eosinophils Percent Auto 0.1 % (0-4.4); Hematocrit 30.9 % (37.0-47.0); Hemoglobin 10.2 g/dL (12.0-15.0); Immature Granulocyte Absolute 0.12 K/mm3 (0.00-0.031); Immature Granulocyte Percent A 0.7 % (0-0.5); Lymphocytes Absolute Auto 1.17 K/mm3 (0.9-3.2); Lymphocytes Percent Auto 6.5 % (18.3-44.2); Mean Corpuscular Hemoglobin 29.1 pg (26-34); Mean Corpuscular Volume 88.3 fl (80-100); Mean Platelet Volume 11.7 fl (7.4-10.4); Monocytes Absolute Auto 0.4 K/mm3 (0.1-0.6); Monocytes Percent Auto 2.4 % (2.6-8.5); Neutrophils Absolute Auto 16.3 K/mm3 (1.3-6.7); Neutrophils Percent Auto 90.1 % (45.5-73.1); Platelet Count Result 250 k/mm3 (150-375); Red Cell Distribution Width 13.8 % (11.5-14.5); White Blood Count 18.1 K/mm3 (4.5-10.0)
[2024-12-25 05:00] LABS: Alanine Aminotransferase 19 U/L (6-35); Alkaline Phosphatase 112 U/L (38-126); Anion Gap 11 mmol/L (4-12); Aspartate Amino Transferase 20 U/L (14-36); Bilirubin,Total 0.6 mg/dL (0.2-1.3); Blood Urea Nitrogen 23 mg/dL (7-17); Calcium 8.1 mg/dL (8.4-10.2); Carbon Dioxide 26 mmol/L (22-30); Chloride 97 mmol/L (98-107); Estimated CRCL calculation 37 ml/min; Estimated Glomerular Filt Rate 51; Glucose 99 mg/dL (65-110); Potassium 3.1 mmol/L (3.4-5.0); Sodium 134 mmol/L (137-145)
[2024-12-25] MEDS: LACTATED RINGERS 1,000 ML 125 ML IV CONT (06:42)
[2024-12-25] MEDS: POTASSIUM CHLORIDE INJ 40 MEQ in SODIUM CHLORIDE 0.9% IV 500 ML 130 MEQ IVPB (07:46)
--- NOTE | 2024-12-25 08:58 | P.PNIM_ITS ---
Progress Note: A&P Assessment and Plan (1) COVID: Code(s): U07.1 - COVID-19 Status: Acute Assessment and Plan: Patient tested positive on 12/22/24. Paxlovid ordered but she has not started this yet. Patient currently on room air. Will hold on starting remdesivir have family bring in the Paxlovid. Continue supportive care. (2) SIRS (systemic inflammatory response syndrome): Code(s): R65.10 - Systemic inflammatory response syndrome (SIRS) of non-infectious origin without acute organ dysfunction Status: Acute Assessment and Plan: Patient presents with fever and found to have elevated WBC, tachycardia and tachypnea. CT of the chest, abdomen and pelvis with contrast showed no acute cardiopulmonary disease and no acute findings in the abdomen or pelvis imaging. She had air in the bile ducts but had undergone recent ERCP on 12/10/2024. Urinalysis was clear. Patient was treated with IV antibiotics after appropriate cultures obtain. Antibiotics were not continued. Blood cultures are no growth to date. Fever has resolved. Vital signs are improved. Suspect sirs related to COVID 19. Okay to move to [facility] floor on tele. Check Apnea Link (3) PRASANTH (acute kidney injury): Code(s): N17.9 - Acute kidney failure, unspecified Status: Acute Assessment and Plan: Creatinine elevated at 1.4 with a normal underlying baseline. She was given IV fluids in her creatinine has improved to 1.0. Kidneys appeared normal by imaging. Given that she has COVID, will stop IV fluids and follow (4) Hypokalemia: Code(s): E87.6 - Hypokalemia Status: Acute Assessment and Plan: Patient with potassium 3.1. IV potassium was ordered. Repeat potassium is now 3.3. Will continue to replace. She may not have had significant benefit with the replacement because her magnesium is low 1.1. Will replace magnesium today as well. Repeat levels later today and continue to replace as needed (5) Dementia: Qualifiers: Dementia type: unspecified type Code(s): F03.90 - Unspecified dementia, unspecified severity, without behavioral disturbance, psychotic disturbance, mood disturbance, and anxiety Status: Chronic Assessment and Plan: Stable. Resume Nam[place]. (6) Hypertension: Qualifiers: Hypertension type: primary hypertension Qualified Code(s): I10 - Essential (primary) hypertension Code(s): I10 - Essential (primary) hypertension Status: Chronic Assessment and Plan: Patient's blood pressure was reviewed on 12/25 Blood pressure was markedly elevated on admission but better today. Will resume home medications. Follow Plan 1. Code status. Full 2. Nutrition. regular diet 3. VTE prophylaxis. SCDs; IDALIA Subjective Date/time seen: 12/25/24 08:58 Interval history: 74yo female with HTN, dementia and gout here for fevers and malaise. Patient is alert but confused. Dtr in the room and she was updated. Review of Systems Review of Systems: ROS unobtainable: Yes unobtainable due to mental status Exam Narrative: Tm 101.7 97.5 166/75 60 18 100% ra Gen - NARD Chest - CTA bilaterally, nml RR CV - RRR S1/S2. Tele showing heart rate drops into the 40's at times when she sleeps. Abd - Soft, NT/ND, Positive BS Ext - No pedal edema. 2+ DP bilaterally. Neuro - Alert but confused. Psych - Nml mood and affect Skin - Warm and dry Objective Data Vital Signs Vital Signs: Vital Signs - 24 hr 12/24/24 18:21 12/24/24 18:30 12/24/24 19:26 Temperature 100.5 F H Pulse Rate 107 H 96 Respiratory Rate 34 H Blood Pressure 204/102 H Pulse Oximetry 100 Oxygen Delivery Room Air Room Air 12/24/24 19:26 12/24/24 21:28 12/24/24 23:20 Temperature 101.7 F H 98.8 F 98.2 F Pulse Rate 94 78 55 L Respiratory Rate 26 H 20 13 Blood Pressure 168/87 H 149/71 H 140/76 Pulse Oximetry 100 100 98 Oxygen Delivery 12/25/24 00:57 12/25/24 01:15 12/25/24 01:20 Temperature 97.6 F Pulse Rate 63 63 62 Respiratory Rate 16 16 Blood Pressure 160/87 H Pulse Oximetry 100 100 Oxygen Delivery Room Air 12/25/24 02:00 12/25/24 04:00 12/25/24 04:00 Temperature 97.4 F L Pulse Rate 51 L 55 L 67 Respiratory Rate 16 Blood Pressure 177/78 H Pulse Oximetry 100 Oxygen Delivery 12/25/24 05:40 12/25/24 06:00 12/25/24 07:54 Temperature 97.5 F L Pulse Rate 55 L 45 L 60 Respiratory Rate 16 18 Blood Pressure 166/75 H Pulse Oximetry 100 100 Oxygen Delivery Room Air Intake/Output Intake/Output: Intake & Output 12/22/24 12/23/24 12/24/24 12/25/24 23:59 23:59 23:59 23:59 Intake Total 2500 1083.3 Output Total 100 600 Balance 2400 483.3 Meds/Results Medications: Active Medications Generic Name Dose Route Start Last Admin Trade Name Freq PRN Reason Stop Dose Admin Acetaminophen 650 mg 12/24/24 22:04 Acetaminophen 325 Mg Tablet PO Q4H PRN Mild Pain (1-3) or Fever Acetaminophen 500 mg 12/25/24 09:00 Acetaminophen 500 Mg Tablet PO Q6H IDALIA Albuterol/Ipratropium 3 ml 12/25/24 00:57 Ipratropium 0.5 Mg/Albuterol Sulfate 2.5 Mg Ampul.Neb 3 Ml INHALATION Q4HRT PRN shortness of breath/Wheezing Allopurinol 300 mg 12/25/24 09:00 Allopurinol 300 Mg Tablet PO DAILY [facility] Aspirin 81 mg 12/25/24 09:00 Aspirin 81 Mg Enteric Tablet PO DAILY [facility] Enalapril Maleate 10 mg 12/25/24 09:00 Enalapril Maleate 10 Mg Tablet PO DAILY IDALIA Famotidine 20 mg 12/25/24 09:00 Famotidine 20 Mg Tablet PO BID IDALIA Guaifenesin/Dextromethorphan 10 ml 12/25/24 00:57 Guaifenesin/Dextromethorphan 10 Ml Udc PO Q4H PRN Cough Heparin Sodium (Porcine) 5,000 units 12/25/24 09:00 Heparin Sodium 5,000 Units/Ml Vial SUB-Q Q12HR IDALIA Hydroxyzine HCl 25 mg 12/25/24 21:00 Hydroxyzine Hcl 25 Mg Tablet PO HS IDALIA Lactated Ringer's 1,000 mls @ 125 mls/hr 12/24/24 22:05 12/25/24 07:46 Lr - Lactated Ringers Iv IV CONT 0 mls/hr .Q8H IDALIA Infusion Potassium Chloride 40 meq/ 520 mls @ 130 mls/hr 12/25/24 06:55 12/25/24 07:46 Sodium Chloride IVPB 12/25/24 10:54 130 mls/hr ONCE ONE Administration Melatonin 5 mg 12/25/24 00:57 Melatonin 5 Mg Tablet PO HS PRN Insomnia Memantine 10 mg 12/25/24 09:00 Memantine 10 Mg Tablet PO BID IDLAIA Metoprolol Tartrate 12.5 mg 12/25/24 09:00 Metoprolol Tartrate 12.5 Mg Tablet PO BID IDALIA Non-Formulary Medication 1 mg 12/25/24 09:00 Anastrozole PO 01/24/25 08:59 DAILY IDALIA Non-Formulary Medication 0 each 12/25/24 09:00 Nirmatrelvir-Ritonavir [Paxlovid] .ROUTE 01/24/25 08:59 .COMPLEX IDALIA Ondansetron HCl 4 mg 12/24/24 22:04 Ondansetron Inj 4 Mg/2 Ml Vial IV PUSH Q4H PRN Nausea Prochlorperazine Edisylate 10 mg 12/25/24 00:57 Prochlorperazine Edisylate 10 Mg/2 Ml Vial IV PUSH Q6H PRN Nausea And Vomiting Vancomycin HCl 1 each 12/24/24 19:22 Vancomycin For Acute Kidney Injury IVPB PRN PRN Vancomycin Protocol Radiology Results: ITS Impressions Head CT 12/24/24 20:34 IMPRESSION: No acute intracranial findings. Chest/Abdomen/Pelvis CT 12/24/24 20:40 IMPRESSION: CHEST: 1. No acute cardiopulmonary pathology. 2. Loss of volume of T12 which is most likely chronic. ABDOMEN/PELVIS: 1. No evidence of appendicitis, diverticulitis or intestinal obstruction. 2. Air is seen in the bile ducts of the left lobe of the liver. Labs Labs: Laboratory Results - last 24 hr 12/24/24 12/24/24 12/24/24 18:48 19:39 19:41 WBC 19.7 H RBC 3.81 L Hgb 11.1 L Hct 33.2 L MCV 87.1 MCH 29.1 MCHC 33.4 RDW 13.6 Plt Count 299 MPV 11.4 H Immature Gran % (Auto) 0.6 H Neut % (Auto) 96.1 H Lymph % (Auto) 1.5 L [place] % (Auto) 1.6 L Eos % (Auto) 0.0 Baso % (Auto) 0.2 Lymph # (Auto) 0.30 L [place] # (Auto) 0.3 Eos # (Auto) 0.0 Baso # (Auto) 0.0 Abs Immat Gran (auto) 0.12 H Absolute Neuts (auto) 19.0 H Absolute Nucleated RBC 0.000 Nucleated RBC % 0.0 PT 14.7 INR 1.1 APTT 33.4 Sodium 132 L Potassium 3.5 Chloride 96 L Carbon Dioxide 22 Anion Gap 14 H BUN 30 H Creatinine 1.41 H Estim Creat Clear Calc 28 Estimated GFR 36 L Glucose 109 Lactic Acid 1.5 Calcium 8.9 Total Bilirubin 0.8 AST 28 ALT 23 Alkaline Phosphatase 159 H Troponin I 0.031 C-Reactive Protein 7.3 H Total Protein 8.0 Albumin 3.8 Urine Color Yellow Urine Appearance Clear Urine pH 5.5 Ur Specific [place] 1.009 Urine Protein Trace Urine Glucose (UA) Negative Urine Ketones Negative Ur Blood (Man) Trace Urine Nitrate Negative Urine Bilirubin Negative Urine Urobilinogen 0.2 Add Ur Microanalysis Reviewed Leukocyte Esterase Rfl Negative Urine RBC 0-2 Urine WBC 0-5 Ur Squamous Epith Cells None seen Urine Bacteria None seen Urine Casts 3-5 Nasal MRSA (PCR) Not detected 12/25/24 04:30 WBC 18.1 H RBC 3.50 L Hgb 10.2 L Hct 30.9 L MCV 88.3 MCH 29.1 MCHC 33.0 RDW 13.8 Plt Count 250 MPV 11.7 H Immature Gran % (Auto) 0.7 H Neut % (Auto) 90.1 H Lymph % (Auto) 6.5 L [place] % (Auto) 2.4 L Eos % (Auto) 0.1 Baso % (Auto) 0.2 Lymph # (Auto) 1.17 [place] # (Auto) 0.4 Eos # (Auto) 0.0 Baso # (Auto) 0.0 Abs Immat Gran (auto) 0.12 H Absolute Neuts (auto) 16.3 H Absolute Nucleated RBC 0.000 Nucleated RBC % 0.0 PT INR APTT Sodium 134 L Potassium 3.1 L Chloride 97 L Carbon Dioxide 26 Anion Gap 11 BUN 23 H Creatinine 1.05 H Estim Creat Clear Calc 37 Estimated GFR 51 L Glucose 99 Lactic Acid Calcium 8.1 L Total Bilirubin 0.6 AST 20 ALT 19 Alkaline Phosphatase 112 Troponin I C-Reactive Protein Total Protein 6.0 L Albumin 3.0 L Urine Color Urine Appearance Urine pH Ur Specific [place] Urine Protein Urine Glucose (UA) Urine Ketones Ur Blood (Man) Urine Nitrate Urine Bilirubin Urine Urobilinogen Add Ur Microanalysis Leukocyte Esterase Rfl Urine RBC Urine WBC Ur Squamous Epith Cells Urine Bacteria Urine Casts Nasal MRSA (PCR)
[2024-12-25 09:41] LABS: Magnesium 1.1 mg/dL (1.6-2.3)
--- NOTE | 2024-12-25 10:11 | P.CONGI_ITS ---
Assessment and Plan Assessment and plan (1) COVID: Code(s): U07.1 - COVID-19 Status: Acute Assessment and Plan: this is cause of presentation and fever she is comfortable now noted normal liver enzymes, no abdominal pain no need of further intervention (2) SIRS (systemic inflammatory response syndrome): Code(s): R65.10 - Systemic inflammatory response syndrome (SIRS) of non-infectious origin without acute organ dysfunction Status: Acute (3) PRASANTH (acute kidney injury): Code(s): N17.9 - Acute kidney failure, unspecified Status: Acute Assessment and Plan: by primary (4) Choledocholithiasis: Code(s): K80.50 - Calculus of bile duct without cholangitis or cholecystitis without obstruction Status: Acute Assessment and Plan: this was already treated with ercp about 2 weeks ago, stones were removed GI Consult Note Consult date/time: 12/25/24 10:11 Reason for consult: fever, recent ERCP, + COVID HPI: Sanam Yu is a 74 year old female with history of dementia, hypertension, gout, and breast cancer with previous choledocholithiasis treated with ERCP in 2021 by [place], removal stones/debris then came to office with again elevated liver enzymes and imaging noted stones in bile duct. She had outpatient ERCP 12/10/24 with successful removal of stones and then went home. She is here with new onset of fever and anorexia. Liver enzymes this time normal, + COVID. She is poor historian but denies any abdominal pain and she is comfortable. CT scan no acute changes, noted air in bile duct. Review of Systems 2 Constitutional: Constitutional: Reports chills Comments: fever ENT: Reports Normal hearing present Cardiovascular: Cardiovascular: Denies chest pain Respiratory: Respiratory: Reports cough Gastrointestinal: Gastrointestinal: Denies vomiting Musculoskeletal: Musculoskeletal: Denies neck pain Integumentary/Breasts: Skin/Breast: Denies rash Psychiatric: Psychiatric: Reports confusion PMFSH Past Medical History Medical History SIRS (systemic inflammatory response syndrome) Leukocytosis Anemia Gout Gastroesophageal reflux disease Hypertension Alzheimer's dementia Breast cancer Surgical History Surgical History History of open reduction and internal fixation (ORIF) procedure (04/08/22) Repair of left hip fracture with IM nail. History of cholecystectomy History of appendectomy History of bilateral mastectomy Family History Family History Other Family history unknown Social History Social History Social History: Surrogate decision maker: Daya Carmona, daughter. Code status: Full code. Smoking status: Never smoker Second hand tobacco smoke exposure: No Alcohol intake: never Substance use: never Substance use type: does not use Do You Feel Safe in your Home?: Yes Lack of Transportation: YES Lack of Food: Never True Current Housing: I Have Housing Concerned About Future Housing: No Difficulty Paying Gas/Electric Bills: No Difficulty Paying for Meds: No Currently Unemployed: No Education: High School Diploma/GED Difficulty w/ Childcare or Family Care: No Spiritual care concerns: No Meds Home Medications and Allergies Home Medications ?Medication ?Instructions ?Recorded ?Confirmed ?Type acetaminophen 500 mg tablet 500 mg PO Q6H 04/19/22 12/25/24 History allopurinol 300 mg tablet 300 mg PO DAILY 04/19/22 12/25/24 History anastrozole 1 mg tablet 1 mg PO DAILY 04/19/22 12/25/24 History aspirin 81 mg tablet,delayed 81 mg PO DAILY 04/19/22 12/25/24 History release enalapril maleate 10 mg tablet 10 mg PO DAILY 04/19/22 12/25/24 History famotidine 20 mg tablet 20 mg PO BID 04/19/22 12/25/24 History memantine 10 mg tablet 10 mg PO BID 04/19/22 12/25/24 History metoprolol tartrate 25 mg tablet 12.5 mg PO BID 04/19/22 12/25/24 History nirmatrelvir 300 mg (150 mg See Rx Instructions PO .COMPLEX 12/22/24 12/25/24 Rx x2)-ritonavir 100 mg tablet,dose #30 ea pack (Paxlovid) hydroxyzine HCl 25 mg tablet 25 mg PO HS 12/25/24 12/25/24 History Allergies Allergy/AdvReac Type Severity Reaction Status Date / Time Sulfa (Sulfonamide Allergy Unknown Unknown Verified 12/25/24 08:02 Antibiotics) naproxen Allergy Unknown Verified 12/25/24 08:02 quetiapine AdvReac Unknown Unknown Verified 12/25/24 08:02 Vital Signs Vital Signs - 24 hr 12/24/24 18:21 12/24/24 18:30 12/24/24 19:26 Temperature 100.5 F H Pulse Rate 107 H 96 Respiratory Rate 34 H Blood Pressure 204/102 H Pulse Oximetry 100 Oxygen Delivery Room Air Room Air 12/24/24 19:26 12/24/24 21:28 12/24/24 23:20 Temperature 101.7 F H 98.8 F 98.2 F Pulse Rate 94 78 55 L Respiratory Rate 26 H 20 13 Blood Pressure 168/87 H 149/71 H 140/76 Pulse Oximetry 100 100 98 Oxygen Delivery 12/25/24 00:57 12/25/24 01:15 12/25/24 01:20 Temperature 97.6 F Pulse Rate 63 63 62 Respiratory Rate 16 16 Blood Pressure 160/87 H Pulse Oximetry 100 100 Oxygen Delivery Room Air 12/25/24 02:00 12/25/24 04:00 12/25/24 04:00 Temperature 97.4 F L Pulse Rate 51 L 55 L 67 Respiratory Rate 16 Blood Pressure 177/78 H Pulse Oximetry 100 Oxygen Delivery 12/25/24 05:40 12/25/24 06:00 12/25/24 07:54 Temperature 97.5 F L Pulse Rate 55 L 45 L 60 Respiratory Rate 16 18 Blood Pressure 166/75 H Pulse Oximetry 100 100 Oxygen Delivery Room Air 12/25/24 08:40 Temperature Pulse Rate Respiratory Rate Blood Pressure Pulse Oximetry 95 Oxygen Delivery Room Air Exam 2 Const: General: comfortable HENMT: Face/Nose/Sinus: Normal nares present Eyes: General: appearance normal, both eyes and all related structures Neck: Neck: supple Resp: Auscultation: clear to auscultation bilaterally Cardio: Rate: regular rate GI: GI Palp: Yes Soft to palpation and No Tenderness to palpation present (GI) Auscultation: normal bowel sounds Skin: General skin exam: normal color Neuro: Speech: normal speech Other: awake and alert, she is talking appropriately but gets confused. she could not tell me why she is here Extrem: General: normal to inspection Psych: Affect: normal affect Results Labs 12/25/24 04:30 12/25/24 04:30 Labs: Short CBC 12/24/24 12/25/24 Range/Units 18:48 04:30 WBC 19.7 H 18.1 H (4.5-10.0) K/mm3 Hgb 11.1 L 10.2 L (12.0-15.0) g/dL Hct 33.2 L 30.9 L (37.0-47.0) % Plt Count 299 250 (150-375) k/mm3 BMP 12/24/24 12/25/24 18:48 04:30 Sodium 132 L 134 L Potassium 3.5 3.1 L Chloride 96 L 97 L Carbon Dioxide 22 26 BUN 30 H 23 H Creatinine 1.41 H 1.05 H Glucose 109 99 Calcium 8.9 8.1 L Cardiac Enzymes 12/24/24 Range/Units 19:39 Troponin I 0.031 (0.000-0.034) ng/mL Liver Function 12/24/24 12/25/24 Range/Units 18:48 04:30 Total Bilirubin 0.8 0.6 (0.2-1.3) mg/dL AST 28 20 (14-36) U/L ALT 23 19 (6-35) U/L Alkaline Phosphatase 159 H 112 (38-126) U/L Albumin 3.8 3.0 L (3.5-5.1) g/dL Urine 12/24/24 Range/Units 19:41 Urine Color Yellow (Yellow) Urine Appearance Clear (Clear) Urine pH 5.5 (5.0-9.0) Ur Specific [place] 1.009 (1.001-1.035) Urine Protein Trace (Negative) mg/dL Urine Glucose (UA) Negative (Negative) mg/dL
[2024-12-25] MEDS: METOPROLOL TARTRATE 12.5 MG TABLET PO ×2 (10:37→23:00)
[2024-12-25] MEDS: ENALAPRIL MALEATE 10 MG TABLET PO (10:37)
[2024-12-25] MEDS: MEMANTINE 10 MG TABLET PO ×2 (10:37→23:00)
[2024-12-25] MEDS: allopurinoL 300 MG TABLET PO (10:38)
[2024-12-25] MEDS: ASPIRIN 81 MG ENTERIC TABLET PO (10:38)
[2024-12-25] MEDS: ACETAMINOPHEN 500 MG TABLET PO (10:38)
[2024-12-25] MEDS: FAMOTIDINE 20 MG TABLET PO ×2 (10:38→23:00)
[2024-12-25] MEDS: HEPARIN SODIUM 5,000 UNITS/ML VIAL 5000 UNITS SUB-Q ×2 (10:42→23:01)
[2024-12-25] MEDS: MAGNESIUM SULF 2 GM/WATER 50ML 2 GM/50 ML BAG IVPB ×2 (13:49→23:00)
[2024-12-25 14:03] LABS: Potassium 3.3 mmol/L (3.4-5.0)
[2024-12-25] MEDS: POTASSIUM CHLORIDE 20 MEQ ER TABLET 40 MEQ PO (16:19)
[2024-12-25] MEDS: ACETAMINOPHEN 325 MG TABLET 650 MG PO (17:11)
[2024-12-25 18:23] LABS: Magnesium 1.4 mg/dL (1.6-2.3); Potassium 3.7 mmol/L (3.4-5.0)
[2024-12-25] MEDS: hydrOXYzine HCL 25 MG TABLET PO (23:00)
[2024-12-25] MEDS: MELATONIN 5 MG TABLET PO (23:00)
[2024-12-26] VITALS (11 sets, daily range): BP systolic 112–145; BP diastolic 61–92; PULSE 36–91; RESP 18–20; TEMP 36.3–36.9; O2SAT 99–100
[2024-12-26] MEDS: ACETAMINOPHEN 325 MG TABLET 650 MG PO ×4 (00:27→18:21)
[2024-12-26 04:54] LABS: Basophils Absolute Auto 0.1 K/mm3 (0.0-0.1); Basophils Percent Auto 0.3 % (0.2-1.2); Eosinophils Percent Auto 0.1 % (0-4.4); Hematocrit 29.5 % (37.0-47.0); Hemoglobin 9.7 g/dL (12.0-15.0); Immature Granulocyte Absolute 0.14 K/mm3 (0.00-0.031); Immature Granulocyte Percent A 0.8 % (0-0.5); Lymphocytes Absolute Auto 1.07 K/mm3 (0.9-3.2); Lymphocytes Percent Auto 5.8 % (18.3-44.2); Mean Corpuscular HGB Conc 32.9 g/dl (32-36); Mean Corpuscular Hemoglobin 29.4 pg (26-34); Mean Corpuscular Volume 89.4 fl (80-100); Monocytes Absolute Auto 0.6 K/mm3 (0.1-0.6); Monocytes Percent Auto 3.2 % (2.6-8.5); Neutrophils Absolute Auto 16.7 K/mm3 (1.3-6.7); Neutrophils Percent Auto 89.8 % (45.5-73.1); Platelet Count Result 229 k/mm3 (150-375); Red Cell Distribution Width 13.8 % (11.5-14.5); White Blood Count 18.5 K/mm3 (4.5-10.0)
[2024-12-26 05:10] LABS: Alanine Aminotransferase 16 U/L (6-35); Albumin Level 2.8 g/dL (3.5-5.1); Alkaline Phosphatase 113 U/L (38-126); Anion Gap 9 mmol/L (4-12); Aspartate Amino Transferase 19 U/L (14-36); Bilirubin,Total 0.6 mg/dL (0.2-1.3); Blood Urea Nitrogen 19 mg/dL (7-17); Calcium 8.3 mg/dL (8.4-10.2); Carbon Dioxide 24 mmol/L (22-30); Chloride 98 mmol/L (98-107); Estimated CRCL calculation 40 ml/min; Estimated Glomerular Filt Rate 55; Glucose 111 mg/dL (65-110); Magnesium 2.1 mg/dL (1.6-2.3); Potassium 3.4 mmol/L (3.4-5.0); Sodium 131 mmol/L (137-145)
--- NOTE | 2024-12-26 06:50 | PCRCNOTE ---
RN stated thst pt would not kep APNEA LINK on, so the sleep study was not complete.
[2024-12-26] MEDS: ANASTROZOLE (*CHEMO) 1 MG TABLET PO (08:32)
[2024-12-26] MEDS: allopurinoL 300 MG TABLET PO (08:32)
[2024-12-26] MEDS: ASPIRIN 81 MG ENTERIC TABLET PO (08:32)
[2024-12-26] MEDS: FAMOTIDINE 20 MG TABLET PO ×2 (08:32→22:19)
[2024-12-26] MEDS: MEMANTINE 10 MG TABLET PO ×2 (08:32→22:20)
[2024-12-26] MEDS: ENALAPRIL MALEATE 10 MG TABLET PO (08:32)
[2024-12-26] MEDS: HEPARIN SODIUM 5,000 UNITS/ML VIAL 5000 UNITS SUB-Q ×2 (08:33→22:20)
--- NOTE | 2024-12-26 08:50 | P.PNIM_ITS ---
Progress Note: A&P Assessment and Plan (1) COVID: Code(s): U07.1 - COVID-19 Status: Acute Assessment and Plan: Patient tested positive for COVID on 12/22/24. Paxlovid ordered but she has not started this yet. Patient currently on room air. Will hold on starting remdesivir and have family bring in the Paxlovid. Continue supportive care. (2) SIRS (systemic inflammatory response syndrome): Code(s): R65.10 - Systemic inflammatory response syndrome (SIRS) of non-infectious origin without acute organ dysfunction Status: Acute Assessment and Plan: Patient presents with fever and found to have elevated WBC, tachycardia and tachypnea. CT of the chest, abdomen and pelvis with contrast showed no acute cardiopulmonary disease and no acute findings in the abdomen or pelvis imaging. She had air in the bile ducts but had undergone recent ERCP on 12/10/2024. Urinalysis was clear. Patient was treated with IV antibiotics after appropriate cultures obtain. Antibiotics were not continued. BCx are no growth to date. Fever has resolved. Vital signs are improved. Suspect sirs related to COVID 19. WBC about the same today. Apnea Link ordered. (3) PRASANTH (acute kidney injury): Code(s): N17.9 - Acute kidney failure, unspecified Status: Acute Assessment and Plan: Creatinine elevated at 1.4 with a normal underlying baseline. She was given IV fluids in her creatinine has improved to 1.0. Kidneys appeared normal by imaging. Follow off IV fluids (4) Hypokalemia: Code(s): E87.6 - Hypokalemia Status: Acute Assessment and Plan: Patient with potassium 3.1. IV potassium was ordered. Repeat potassium is now 3.4. Mag 2.1. Continue to monitor and replace. (5) Dementia: Qualifiers: Dementia type: unspecified type Code(s): F03.90 - Unspecified dementia, unspecified severity, without behavioral disturba nce, psychotic disturbance, mood disturbance, and anxiety Status: Chronic Assessment and Plan: Stable. Continue Namenda. (6) Hypertension: Qualifiers: Hypertension type: primary hypertension Qualified Code(s): I10 - Essential (primary) hypertension Code(s): I10 - Essential (primary) hypertension Status: Chronic Assessment and Plan: Patient's blood pressure was reviewed on 3/2 Blood pressure was markedly elevated on admission but better today. Could be compensatory to low HR. Will follow (7) Bradycardia: Code(s): R00.1 - Bradycardia, unspecified Status: Acute Assessment and Plan: HR drops to 30's now overnight. Will hold metoprolol and follow on tele. She has Apnea link ordered. Check TSH Plan 1. Code status. Full 2. Nutrition. regular diet 3. VTE prophylaxis. SCDs; IDALIA Subjective Date/time seen: 12/26/24 08:50 Interval history: 74yo female with HTN, dementia and gout here for fevers and malaise. Patient is alert but confused so hx unreliable Review of Systems Review of Systems: ROS unobtainable: Yes unobtainable due to mental status Exam Narrative: AF 98.0 144/61 36 18 100% ra Gen - NARD Chest - CTA bilaterally, nml RR CV - bradycardic but regular. Tele showing heart rate drops into the 30's at times when she sleeps. Abd - Soft, NT/ND, Positive BS Ext - No pedal edema. 2+ DP bilaterally. Neuro - Alert but confused. Psych - Nml mood and affect Skin - Warm and dry Objective Data Vital Signs Vital Signs: Vital Signs - 24 hr 12/25/24 10:37 12/25/24 12:00 12/25/24 12:32 Temperature 97.5 F L Pulse Rate 58 L 62 58 L Respiratory Rate 16 Blood Pressure 168/76 H Pulse Oximetry 100 Oxygen Delivery 12/25/24 16:14 12/25/24 16:25 12/25/24 20:00 Temperature 98.3 F Pulse Rate 61 69 94 Respiratory Rate 18 20 Blood Pressure 161/72 H Pulse Oximetry 100 99 Oxygen Delivery Room Air 12/25/24 20:00 12/25/24 20:05 12/25/24 23:00 Temperature 98.5 F Pulse Rate 97 94 75 Respiratory Rate 20 Blood Pressure 163/97 H Pulse Oximetry 99 Oxygen Delivery 12/26/24 00:00 12/26/24 04:00 12/26/24 04:00 Temperature Pulse Rate 91 51 L 43 L Respiratory Rate 18 Blood Pressure Pulse Oximetry 99 Oxygen Delivery Room Air 12/26/24 04:11 12/26/24 08:02 12/26/24 08:32 Temperature 98.5 F 98.0 F Pulse Rate 51 L 42 L 36 L Respiratory Rate 18 18 Blood Pressure 112/61 144/61 H Pulse Oximetry 99 100 Oxygen Delivery Intake/Output Intake/Output: Intake & Output 12/23/24 12/24/24 12/25/24 12/26/24 23:59 23:59 23:59 23:59 Intake Total 2500 2413.3 450 Output Total 100 1300 500 Balance 2400 1113.3 -50 Meds/Results Medications: Active Medications Generic Name Dose Route Start Last Admin Trade Name Freq PRN Reason Stop Dose Admin Acetaminophen 500 mg 12/25/24 09:00 12/25/24 16:20 Acetaminophen 500 Mg Tablet PO Not Given Q6H IDALIA Acetaminophen 650 mg 12/25/24 18:00 12/26/24 08:33 Acetaminophen 325 Mg Tablet PO 650 mg Q6HR IDALIA Administration Albuterol/Ipratropium 3 ml 12/25/24 00:57 Ipratropium 0.5 Mg/Albuterol Sulfate 2.5 Mg Ampul.Neb 3 Ml INHALATION Q4HRT PRN shortness of breath/Wheezing Allopurinol 300 mg 12/25/24 09:00 12/26/24 08:32 Allopurinol 300 Mg Tablet PO 300 mg DAILY IDALIA Administration Anastrozole 1 mg 12/26/24 09:00 12/26/24 08:32 Anastrozole (*Chemo) 1 Mg Tablet PO 1 mg DAILY IDALIA Administration Aspirin 81 mg 12/25/24 09:00 12/26/24 08:32 Aspirin 81 Mg Enteric Tablet PO 81 mg DAILY IDALIA Administration Enalapril Maleate 10 mg 12/25/24 09:00 12/26/24 08:32 Enalapril Maleate 10 Mg Tablet PO 10 mg DAILY IDALIA Administration Famotidine 20 mg 12/25/24 09:00 12/26/24 08:32 Famotidine 20 Mg Tablet PO 20 mg Q12HR IDALIA Administration Guaifenesin/Dextromethorphan 10 ml 12/25/24 00:57 Guaifenesin/Dextromethorphan 10 Ml Udc PO Q4H PRN Cough Heparin Sodium (Porcine) 5,000 units 12/25/24 09:00 12/26/24 08:33 Heparin Sodium 5,000 Units/Ml Vial SUB-Q 5,000 units Q12HR IDALIA Administration Hydroxyzine HCl 25 mg 12/25/24 21:00 12/25/24 23:00 Hydroxyzine Hcl 25 Mg Tablet PO 25 mg HS IDALIA Administration Melatonin 5 mg 12/25/24 00:57 12/25/24 23:00 Melatonin 5 Mg Tablet PO 5 mg HS PRN Administration Insomnia Memantine 10 mg 12/25/24 09:00 12/26/24 08:32 Memantine 10 Mg Tablet PO 10 mg Q12HR IDALIA Administration Miscellaneous Information 0 each 12/25/24 00:01 12/26/24 00:54 Nonformulary Drug (Nirmatrelvir-Ritonavir [Paxlovid] 300 Mg (150 Mg X 2)-100 Mg Tablets,Do XX 01/24/25 00:00 Not Given CLARIFY IDALIA Non-Formulary Medication 0 each 12/25/24 09:00 Nirmatrelvir-Ritonavir [Paxlovid] .ROUTE 01/24/25 08:59 .COMPLEX IDALIA Ondansetron HCl 4 mg 12/24/24 22:04 Ondansetron Inj 4 Mg/2 Ml Vial IV PUSH Q4H PRN Nausea Potassium Chloride 40 meq 12/26/24 08:45 Potassium Chloride 20 Meq Packet (For Liquid) PO 12/26/24 08:46 ONCE ONE Prochlorperazine Edisylate 10 mg 12/25/24 00:57 Prochlorperazine Edisylate 10 Mg/2 Ml Vial IV PUSH Q6H PRN Nausea And Vomiting Radiology Results: ITS Impressions Head CT 12/24/24 20:34 IMPRESSION: No acute intracranial findings. Chest/Abdomen/Pelvis CT 12/24/24 20:40 IMPRESSION: CHEST: 1. No acute cardiopulmonary pathology. 2. Loss of volume of T12 which is most likely chronic. ABDOMEN/PELVIS: 1. No evidence of appendicitis, diverticulitis or intestinal obstruction. 2. Air is seen in the bile ducts of the left lobe of the liver. Labs Labs: Laboratory Results - last 24 hr 12/25/24 12/25/24 12/25/24 04:30 13:45 17:57 WBC RBC Hgb Hct MCV MCH MCHC RDW Plt Count MPV Immature Gran % (Auto) Neut % (Auto) Lymph % (Auto) [place] % (Auto) Eos % (Auto) Baso % (Auto) Lymph # (Auto) [place] # (Auto) Eos # (Auto) Baso # (Auto) Abs Immat Gran (auto) Absolute Neuts (auto) Absolute Nucleated RBC Nucleated RBC % Sodium Potassium 3.3 L 3.7 Chloride Carbon Dioxide Anion Gap BUN Creatinine Estim Creat Clear Calc Estimated GFR Glucose Calcium Magnesium 1.1 L 1.4 L Total Bilirubin AST ALT Alkaline Phosphatase Total Protein Albumin 12/26/24 04:32 WBC 18.5 H RBC 3.30 L Hgb 9.7 L Hct 29.5 L MCV 89.4 MCH 29.4 MCHC 32.9 RDW 13.8 Plt Count 229 MPV 12.0 H Immature Gran % (Auto) 0.8 H Neut % (Auto) 89.8 H Lymph % (Auto) 5.8 L [place] % (Auto) 3.2 Eos % (Auto) 0.1 Baso % (Auto) 0.3 Lymph # (Auto) 1.07 [place] # (Auto) 0.6 Eos # (Auto) 0.0 Baso # (Auto) 0.1 Abs Immat Gran (auto) 0.14 H Absolute Neuts (auto) 16.7 H Absolute Nucleated RBC 0.000 Nucleated RBC % 0.0 Sodium 131 L Potassium 3.4 Chloride 98 Carbon Dioxide 24 Anion Gap 9 BUN 19 H Creatinine 0.98 Estim Creat Clear Calc 40 Estimated GFR 55 L Glucose 111 H Calcium 8.3 L Magnesium 2.1 Total Bilirubin 0.6 AST 19 ALT 16 Alkaline Phosphatase 113 Total Protein 6.0 L Albumin 2.8 L
--- NOTE | 2024-12-26 10:04 | WPDGIPROGNO ---
Progress Note: A&P Assessment and Plan (1) SIRS (systemic inflammatory response syndrome): Code(s): R65.10 - Systemic inflammatory response syndrome (SIRS) of non-infectious origin without acute organ dysfunction Status: Acute Assessment and Plan: resolved and due to covid no GI issues, normal liver enzymes and no abdominal pain (2) COVID: Code(s): U07.1 - COVID-19 Status: Acute Assessment and Plan: stable (3) PRASANTH (acute kidney injury): Code(s): N17.9 - Acute kidney failure, unspecified Status: Acute Assessment and Plan: resolved (4) History of ERCP: Code(s): Z98.890 - Other specified postprocedural states Status: Acute Assessment and Plan: ct scan reviewed, no more stones (5) Dementia: Qualifiers: Dementia type: unspecified type Code(s): F03.90 - Unspecified dementia, unspecified severity, without behavioral disturbance, psychotic disturbance, mood disturbance, and anxiety Status: Chronic Subjective Date/time seen: 12/26/24 10:04 Interval history: she is comfortable and tolerating regular diet no more fever no abdominal pain Review of Systems Review of Systems: All systems reviewed & are unremarkable except as noted in HPI and below Exam Const: General: comfortable Other: having lunch HENMT: Face/Nose/Sinus: Normal nares present Eyes: General: appearance normal, both eyes and all related structures Neck: Neck: supple Resp: Auscultation: clear to auscultation bilaterally Cardio: Rate: regular rate GI: GI Palp: Yes Soft to palpation and No Tenderness to palpation present (GI) Auscultation: normal bowel sounds Skin: General skin exam: normal color Neuro: Speech: normal speech Other: awake and alert, she is talking appropriately but gets confused. she could not tell me why she is here Extrem: General: normal to inspection Psych: Affect: normal affect Objective Data Vital Signs Vital Signs: Vital Signs - 24 hr 12/25/24 10:37 12/25/24 12:00 12/25/24 12:32 Temperature 97.5 F L Pulse Rate 58 L 62 58 L Respiratory Rate 16 Blood Pressure 168/76 H Pulse Oximetry 100 Oxygen Delivery 12/25/24 16:14 12/25/24 16:25 12/25/24 20:00 Temperature 98.3 F Pulse Rate 61 69 94 Respiratory Rate 18 20 Blood Pressure 161/72 H Pulse Oximetry 100 99 Oxygen Delivery Room Air 12/25/24 20:00 12/25/24 20:05 12/25/24 23:00 Temperature 98.5 F Pulse Rate 97 94 75 Respiratory Rate 20 Blood Pressure 163/97 H Pulse Oximetry 99 Oxygen Delivery 12/26/24 00:00 12/26/24 04:00 12/26/24 04:00 Temperature Pulse Rate 91 51 L 43 L Respiratory Rate 18 Blood Pressure Pulse Oximetry 99 Oxygen Delivery Room Air 12/26/24 04:11 12/26/24 08:02 12/26/24 08:32 Temperature 98.5 F 98.0 F Pulse Rate 51 L 42 L 36 L Respiratory Rate 18 18 Blood Pressure 112/61 144/61 H Pulse Oximetry 99 100 Oxygen Delivery Intake/Output Intake/Output: Intake & Output 12/23/24 12/24/24 12/25/24 12/26/24 23:59 23:59 23:59 23:59 Intake Total 2500 2413.3 450 Output Total 100 1300 500 Balance 2400 1113.3 -50 Meds/Results Medications: Active Medications Generic Name Dose Route Start Last Admin Trade Name Freq PRN Reason Stop Dose Admin Acetaminophen 650 mg 12/25/24 18:00 12/26/24 08:33 Acetaminophen 325 Mg Tablet PO 650 mg Q6HR IDALIA Administration Albuterol/Ipratropium 3 ml 12/25/24 00:57 Ipratropium 0.5 Mg/Albuterol Sulfate 2.5 Mg Ampul.Neb 3 Ml INHALATION Q4HRT PRN shortness of breath/Wheezing Allopurinol 300 mg 12/25/24 09:00 12/26/24 08:32 Allopurinol 300 Mg Tablet PO 300 mg DAILY IDALIA Administration Anastrozole 1 mg 12/26/24 09:00 12/26/24 08:32 Anastrozole (*Chemo) 1 Mg Tablet PO 1 mg DAILY IDALIA Administration Aspirin 81 mg 12/25/24 09:00 12/26/24 08:32 Aspirin 81 Mg Enteric Tablet PO 81 mg DAILY IDALIA Administration Enalapril Maleate 10 mg 12/25/24 09:00 12/26/24 08:32 Enalapril Maleate 10 Mg Tablet PO 10 mg DAILY IDALIA Administration Famotidine 20 mg 12/25/24 09:00 12/26/24 08:32 Famotidine 20 Mg Tablet PO 20 mg Q12HR IDALIA Administration Guaifenesin/Dextromethorphan 10 ml 12/25/24 00:57 Guaifenesin/Dextromethorphan 10 Ml Udc PO Q4H PRN Cough Heparin Sodium (Porcine) 5,000 units 12/25/24 09:00 12/26/24 08:33 Heparin Sodium 5,000 Units/Ml Vial SUB-Q 5,000 units Q12HR IDALIA Administration Hydroxyzine HCl 25 mg 12/25/24 21:00 12/25/24 23:00 Hydroxyzine Hcl 25 Mg Tablet PO 25 mg HS IDALIA Administration Melatonin 5 mg 12/25/24 00:57 12/25/24 23:00 Melatonin 5 Mg Tablet PO 5 mg HS PRN Administration Insomnia Memantine 10 mg 12/25/24 09:00 12/26/24 08:32 Memantine 10 Mg Tablet PO 10 mg Q12HR IDALIA Administration Miscellaneous Information 0 each 12/25/24 00:01 12/26/24 00:54 Nonformulary Drug (Nirmatrelvir-Ritonavir [Paxlovid] 300 Mg (150 Mg X 2)-100 Mg Tablets,Do XX 01/24/25 00:00 Not Given CLARIFY IDALIA Non-Formulary Medication 0 each 12/25/24 09:00 Nirmatrelvir-Ritonavir [Paxlovid] .ROUTE 01/24/25 08:59 .COMPLEX IDALIA Ondansetron HCl 4 mg 12/24/24 22:04 Ondansetron Inj 4 Mg/2 Ml Vial IV PUSH Q4H PRN Nausea Prochlorperazine Edisylate 10 mg 12/25/24 00:57 Prochlorperazine Edisylate 10 Mg/2 Ml Vial IV PUSH Q6H PRN Nausea And Vomiting Radiology Results: ITS Impressions Head CT 12/24/24 20:34 IMPRESSION: No acute intracranial findings. Chest/Abdomen/Pelvis CT 12/24/24 20:40 IMPRESSION: CHEST: 1. No acute cardiopulmonary pathology. 2. Loss of volume of T12 which is most likely chronic. ABDOMEN/PELVIS: 1. No evidence of appendicitis, diverticulitis or intestinal obstruction. 2. Air is seen in the bile ducts of the left lobe of the liver. Labs Labs: Laboratory Results - last 24 hr 12/25/24 12/25/24 12/26/24 13:45 17:57 04:32 WBC 18.5 H RBC 3.30 L Hgb 9.7 L Hct 29.5 L MCV 89.4 MCH 29.4 MCHC 32.9 RDW 13.8 Plt Count 229 MPV 12.0 H Immature Gran % (Auto) 0.8 H Neut % (Auto) 89.8 H Lymph % (Auto) 5.8 L [place] % (Auto) 3.2 Eos % (Auto) 0.1 Baso % (Auto) 0.3 Lymph # (Auto) 1.07 [place] # (Auto) 0.6 Eos # (Auto) 0.0 Baso # (Auto) 0.1 Abs Immat Gran (auto) 0.14 H Absolute Neuts (auto) 16.7 H Absolute Nucleated RBC 0.000 Nucleated RBC % 0.0 Sodium 131 L Potassium 3.3 L 3.7 3.4 Chloride 98 Carbon Dioxide 24 Anion Gap 9 BUN 19 H Creatinine 0.98 Estim Creat Clear Calc 40 Estimated GFR 55 L Glucose 111 H Calcium 8.3 L Magnesium 1.4 L 2.1 Total Bilirubin 0.6 AST 19 ALT 16 Alkaline Phosphatase 113 Total Protein 6.0 L Albumin 2.8 L
--- NOTE | 2024-12-26 11:01 | PCPTNOTE ---
Pt currently has bedrest orders 11:01. Nursing notified would be able to evaluate patient once bedrest orders lifted. Will check back as able.
[2024-12-26] MEDS: POTASSIUM CHLORIDE 20 MEQ PACKET (FOR LIQUID) 40 MEQ PO (13:34)
[2024-12-26] MEDS: hydrOXYzine HCL 25 MG TABLET PO (22:20)
[2024-12-26] MEDS: MELATONIN 5 MG TABLET PO (22:21)
[2024-12-27] VITALS (10 sets, daily range): BP systolic 111–162; BP diastolic 68–99; PULSE 52–135; RESP 16–20; TEMP 35.6–38.4; O2SAT 95–100
--- NOTE | 2024-12-27 00:12 | PCRCNOTE ---
RN states the patient keeps ripping off her playground monitor, all the wires, and her gown. Apnea link will not be completed due to patient being noncompliant.
[2024-12-27] MEDS: ACETAMINOPHEN 325 MG TABLET 650 MG PO ×4 (00:56→23:58)
[2024-12-27 04:45] LABS: Basophils Percent Auto 0.2 % (0.2-1.2); Eosinophils Percent Auto 0.2 % (0-4.4); Hematocrit 37.5 % (37.0-47.0); Hemoglobin 11.9 g/dL (12.0-15.0); Immature Granulocyte Percent A 0.6 % (0-0.5); Lymphocytes Absolute Auto 1.28 K/mm3 (0.9-3.2); Lymphocytes Percent Auto 7.6 % (18.3-44.2); Mean Corpuscular HGB Conc 31.7 g/dl (32-36); Mean Corpuscular Hemoglobin 29.7 pg (26-34); Mean Corpuscular Volume 93.5 fl (80-100); Mean Platelet Volume 11.9 fl (7.4-10.4); Monocytes Absolute Auto 0.5 K/mm3 (0.1-0.6); Monocytes Percent Auto 2.8 % (2.6-8.5); Neutrophils Percent Auto 88.6 % (45.5-73.1); Platelet Count Result 317 k/mm3 (150-375); Red Blood Count 4.01 M/mm3 (4.2-5.4); Red Cell Distribution Width 13.9 % (11.5-14.5); White Blood Count 16.9 K/mm3 (4.5-10.0)
[2024-12-27 05:14] LABS: Albumin Level 3.8 g/dL (3.5-5.1); Anion Gap 13 mmol/L (4-12); Blood Urea Nitrogen 20 mg/dL (7-17); Calcium 9.3 mg/dL (8.4-10.2); Carbon Dioxide 25 mmol/L (22-30); Chloride 96 mmol/L (98-107); Estimated CRCL calculation 44 ml/min; Estimated Glomerular Filt Rate > 60; Glucose 80 mg/dL (65-110); Magnesium 1.4 mg/dL (1.6-2.3); Phosphorus 3.6 mg/dL (2.5-4.5); Potassium 4.5 mmol/L (3.4-5.0); Sodium 134 mmol/L (137-145)
--- NOTE | 2024-12-27 09:02 | PM.IMPN ---
Progress Note: A&P Assessment and Plan (1) SIRS (systemic inflammatory response syndrome): Code(s): R65.10 - Systemic inflammatory response syndrome (SIRS) of non-infectious origin without acute organ dysfunction Status: Acute Assessment and Plan: Patient presents with fever and found to have elevated WBC, tachycardia and tachypnea. CT of the chest, abdomen and pelvis with contrast showed no acute cardiopulmonary disease and no acute findings in the abdomen or pelvis imaging. She had air in the bile ducts but had undergone recent ERCP on 12/10/2024. Urinalysis was clear. Patient was treated with IV antibiotics after appropriate cultures obtain but antibiotics were not continued. BCx are no growth to date. Fever has recurred. Suspect sirs related to COVID 19 but still having fevers. WBC still elevated but trending down. Will reculture. Continue scheduled Tylenol (2) COVID: Code(s): U07.1 - COVID-19 Status: Acute Assessment and Plan: Patient tested positive for COVID on 12/22/24. Paxlovid ordered but she had not started this yet. Patient currently on room air. Will hold on starting remdesivir since her only risk factor is age. CRP 7.3 (cut off at >7.5) and Troponin not 2xULN. Continue supportive care. (3) PRASANTH (acute kidney injury): Code(s): N17.9 - Acute kidney failure, unspecified Status: Acute Assessment and Plan: Creatinine elevated at 1.4 with a normal underlying baseline. She was given IV fluids and her creatinine has improved to 0.9. Kidneys appeared normal by imaging. Off IV fluids now. Follow (4) Hypokalemia: Code(s): E87.6 - Hypokalemia Status: Acute Assessment and Plan: Patient with potassium 3.1. Potassium was replaced. K+ 4.5 but Mag 1.4. Replace Mag Continue to monitor and replace. (5) Dementia: Qualifiers: Dementia type: unspecified type Code(s): F03.90 - Unspecified dementia, unspecified severity, without behavioral disturbance, psychotic disturbance, mood disturbance, and anxiety Status: Chronic Assessment and Plan: Stable. Continue Namenda. (6) Hypertension: Qualifiers: Hypertension type: primary hypertension Qualified Code(s): I10 - Essential (primary) hypertension Code(s): I10 - Essential (primary) hypertension Status: Chronic Assessment and Plan: Patient's blood pressure was reviewed on 12/27 Blood pressure was markedly elevated on admission but better today. Could be compensatory to low HR. Will follow (7) Bradycardia: Code(s): R00.1 - Bradycardia, unspecified Status: Acute Assessment and Plan: HR drops to 30's overnight so metoprolol held. She now has tachycardia but sinus mechanism and felt related to agitation. TSH normal. Follow on tele. Resume metoprolol at lower dose. Schedule melatonin Plan 1. Code status. Full 2. Nutrition. regular diet 3. VTE prophylaxis. SCDs; IDALIA Subjective Date/time seen: 12/27/24 09:02 Interval history: 74yo female with HTN, dementia and gout here for fevers and malaise. Patient is alert but confused. Unable to get ApneaLink last night. Having fevers again. Daughter in the room and she was updated. Per RN, patient was up some of the night with agitation. Review of Systems Review of Systems: ROS unobtainable: Yes unobtainable due to mental status Exam Narrative: Tm 101.1 162/95 118 20 98% ra Gen - NARD Chest - CTA bilaterally, nml RR CV - RRR S1/S2; Tele showing sinus tachycardia this morning (RN feels related to her agitation) Abd - Soft, NT/ND, Positive BS Ext - No pedal edema Neuro - Alert but confused. Psych - Nml mood and affect Skin - Warm and dry Objective Data Vital Signs Vital Signs: Vital Signs - 24 hr 12/26/24 12:00 12/26/24 14:00 12/26/24 16:00 Temperature Pulse Rate 42 L 55 L 68 Respiratory Rate Blood Pressure Pulse Oximetry Oxygen Delivery 12/26/24 16:00 12/26/24 20:00 12/26/24 22:00 Temperature 97.3 F L Pulse Rate 58 L 59 L Respiratory Rate 20 Blood Pressure 145/92 H Pulse Oximetry 100 Oxygen Delivery Room Air 12/26/24 22:00 12/27/24 00:00 12/27/24 00:00 Temperature 97.9 F Pulse Rate 48 L 74 52 L Respiratory Rate 20 Blood Pressure 146/99 H Pulse Oximetry 96 Oxygen Delivery 12/27/24 02:00 12/27/24 04:00 12/27/24 04:00 Temperature 101.1 F H Pulse Rate 66 94 118 H Respiratory Rate 20 Blood Pressure 162/95 H Pulse Oximetry 98 Oxygen Delivery Intake/Output Intake/Output: Intake & Output 12/24/24 12/25/24 12/26/24 12/27/24 23:59 23:59 23:59 23:59 Intake Total 2500 2413.3 690 100 Output Total 100 1300 500 Balance 2400 1113.3 190 100 Meds/Results Medications: Active Medications Generic Name Dose Route Start Last Admin Trade Name Freq PRN Reason Stop Dose Admin Acetaminophen 650 mg 12/25/24 18:00 12/27/24 00:56 Acetaminophen 325 Mg Tablet PO 650 mg Q6HR IDALIA Administration Albuterol/Ipratropium 3 ml 12/25/24 00:57 Ipratropium 0.5 Mg/Albuterol Sulfate 2.5 Mg Ampul.Neb 3 Ml INHALATION Q4HRT PRN shortness of breath/Wheezing Allopurinol 300 mg 12/25/24 09:00 12/26/24 08:32 Allopurinol 300 Mg Tablet PO 300 mg DAILY IDALIA Administration Anastrozole 1 mg 12/26/24 09:00 12/26/24 08:32 Anastrozole (*Chemo) 1 Mg Tablet PO 1 mg DAILY IDALIA Administration Aspirin 81 mg 12/25/24 09:00 12/26/24 08:32 Aspirin 81 Mg Enteric Tablet PO 81 mg DAILY IDALIA Administration Enalapril Maleate 10 mg 12/25/24 09:00 12/26/24 08:32 Enalapril Maleate 10 Mg Tablet PO 10 mg DAILY IDALIA Administration Famotidine 20 mg 12/25/24 09:00 12/26/24 22:19 Famotidine 20 Mg Tablet PO 20 mg Q12HR IDALIA Administration Guaifenesin/Dextromethorphan 10 ml 12/25/24 00:57 Guaifenesin/Dextromethorphan 10 Ml Udc PO Q4H PRN Cough Heparin Sodium (Porcine) 5,000 units 12/25/24 09:00 12/26/24 22:20 Heparin Sodium 5,000 Units/Ml Vial SUB-Q 5,000 units Q12HR IDALIA Administration Hydroxyzine HCl 25 mg 12/25/24 21:00 12/26/24 22:20 Hydroxyzine Hcl 25 Mg Tablet PO 25 mg HS IDALIA Administration Melatonin 5 mg 12/25/24 00:57 12/26/24 22:21 Melatonin 5 Mg Tablet PO 5 mg HS PRN Administration Insomnia Memantine 10 mg 12/25/24 09:00 12/26/24 22:20 Memantine 10 Mg Tablet PO 10 mg Q12HR IDALIA Administration Miscellaneous Information 0 each 12/25/24 00:01 12/26/24 00:54 Nonformulary Drug (Nirmatrelvir-Ritonavir [Paxlovid] 300 Mg (150 Mg X 2)-100 Mg Tablets,Do XX 01/24/25 00:00 Not Given CLARIFY IDALIA Non-Formulary Medication 0 each 12/25/24 09:00 Nirmatrelvir-Ritonavir [Paxlovid] .ROUTE 01/24/25 08:59 .COMPLEX IDALIA Ondansetron HCl 4 mg 12/24/24 22:04 Ondansetron Inj 4 Mg/2 Ml Vial IV PUSH Q4H PRN Nausea Prochlorperazine Edisylate 10 mg 12/25/24 00:57 Prochlorperazine Edisylate 10 Mg/2 Ml Vial IV PUSH Q6H PRN Nausea And Vomiting Radiology Results: ITS Impressions Head CT 12/24/24 20:34 IMPRESSION: No acute intracranial findings. Chest/Abdomen/Pelvis CT 12/24/24 20:40 IMPRESSION: CHEST: 1. No acute cardiopulmonary pathology. 2. Loss of volume of T12 which is most likely chronic. ABDOMEN/PELVIS: 1. No evidence of appendicitis, diverticulitis or intestinal obstruction. 2. Air is seen in the bile ducts of the left lobe of the liver. Labs Labs: Laboratory Results - last 24 hr 12/27/24 04:34 WBC 16.9 H RBC 4.01 L Hgb 11.9 L Hct 37.5 MCV 93.5 MCH 29.7 MCHC 31.7 L RDW 13.9 Plt Count 317 MPV 11.9 H Immature Gran % (Auto) 0.6 H Neut % (Auto) 88.6 H Lymph % (Auto) 7.6 L [place] % (Auto) 2.8 Eos % (Auto) 0.2 Baso % (Auto) 0.2 Lymph # (Auto) 1.28 [place] # (Auto) 0.5 Eos # (Auto) 0.0 Baso # (Auto) 0.0 Abs Immat Gran (auto) 0.10 H Absolute Neuts (auto) 15.0 H Absolute Nucleated RBC 0.000 Nucleated RBC % 0.0 Sodium 134 L Potassium 4.5 Chloride 96 L Carbon Dioxide 25 Anion Gap 13 H BUN 20 H Creatinine 0.89 Estim Creat Clear Calc 44 Estimated GFR > 60 Glucose 80 Calcium 9.3 Phosphorus 3.6 Magnesium 1.4 L Albumin 3.8 Vitamin B12 875.0 TSH (Reflex) 2.670
[2024-12-27 09:06] LABS: Folic Acid 8.6 ng/mL (2.76->20)
[2024-12-27] MEDS: allopurinoL 300 MG TABLET PO (10:36)
[2024-12-27] MEDS: ENALAPRIL MALEATE 10 MG TABLET PO (10:36)
[2024-12-27] MEDS: ANASTROZOLE (*CHEMO) 1 MG TABLET PO (10:36)
[2024-12-27] MEDS: ASPIRIN 81 MG ENTERIC TABLET PO (10:36)
[2024-12-27] MEDS: FAMOTIDINE 20 MG TABLET PO ×2 (10:36→20:30)
[2024-12-27] MEDS: MEMANTINE 10 MG TABLET PO ×2 (10:37→20:29)
[2024-12-27] MEDS: HEPARIN SODIUM 5,000 UNITS/ML VIAL 5000 UNITS SUB-Q ×2 (13:52→20:30)
[2024-12-27] MEDS: METOPROLOL SUCCINATE EXT REL 12.5 MG TABCR PO (15:15)
[2024-12-27] MEDS: MAGNESIUM SULF 2 GM/WATER 50ML 2 GM/50 ML BAG IVPB (15:25)
--- NOTE | 2024-12-27 18:35 | PC.NURSE ---
patient arrived to room 253 from [facility] 231, patient assessed and oriented to new room and shown call light. bed alarm on
[2024-12-27] MEDS: hydrOXYzine HCL 25 MG TABLET PO (20:29)
[2024-12-27] MEDS: MELATONIN 5 MG TABLET PO (20:29)
[2024-12-28] VITALS (13 sets, daily range): BP systolic 129–156; BP diastolic 57–66; PULSE 44–128; RESP 18–20; TEMP 36.4–39.6; O2SAT 93–100
[2024-12-28] MEDS: ACETAMINOPHEN 325 MG TABLET 650 MG PO ×3 (05:13→16:22)
[2024-12-28 06:15] LABS: Basophils Percent Auto 0.2 % (0.2-1.2); Eosinophils Absolute Auto 0.1 K/mm3 (0-0.3); Eosinophils Percent Auto 1.2 % (0-4.4); Hematocrit 29.5 % (37.0-47.0); Hemoglobin 9.9 g/dL (12.0-15.0); Immature Granulocyte Absolute 0.07 K/mm3 (0.00-0.031); Immature Granulocyte Percent A 0.6 % (0-0.5); Lymphocytes Absolute Auto 1.51 K/mm3 (0.9-3.2); Lymphocytes Percent Auto 12.7 % (18.3-44.2); Mean Corpuscular HGB Conc 33.6 g/dl (32-36); Mean Corpuscular Hemoglobin 30.2 pg (26-34); Mean Corpuscular Volume 89.9 fl (80-100); Monocytes Absolute Auto 0.4 K/mm3 (0.1-0.6); Monocytes Percent Auto 3.1 % (2.6-8.5); Neutrophils Absolute Auto 9.8 K/mm3 (1.3-6.7); Neutrophils Percent Auto 82.2 % (45.5-73.1); Platelet Count Result 224 k/mm3 (150-375); Red Blood Count 3.28 M/mm3 (4.2-5.4); Red Cell Distribution Width 13.6 % (11.5-14.5); White Blood Count 11.9 K/mm3 (4.5-10.0)
--- NOTE | 2024-12-28 06:26 | PM.IMPN ---
Progress Note: A&P Assessment and Plan (1) SIRS (systemic inflammatory response syndrome): Code(s): R65.10 - Systemic inflammatory response syndrome (SIRS) of non-infectious origin without acute organ dysfunction Status: Acute Assessment and Plan: Patient presents with fever and found to have elevated WBC, tachycardia and tachypnea. CT of the chest, abdomen and pelvis with contrast showed no acute cardiopulmonary disease and no acute findings in the abdomen or pelvis imaging. She had air in the bile ducts but had undergone recent ERCP on 12/10/2024. UCx grew Enterococus last month but was a contaminated sample. Urinalysis here was clear. Patient was treated with IV antibiotics after appropriate cultures obtain but antibiotics were not continued. BCx are no growth to date. CXR was clear. Fever has recurred. Suspect SIRS related to COVID but still having fevers. WBC still elevated but trending down. Recultured yesterday but no other source of infection noted. Continue scheduled Tylenol If no fevers and BCx remain negative, will discharge tomorrow. (2) COVID: Code(s): U07.1 - COVID-19 Status: Acute Assessment and Plan: Patient tested positive for COVID on 12/22/24. Paxlovid ordered but she had not started this yet. Patient currently on room air. Will hold on starting remdesivir since her only risk factor is age. CRP 7.3 (cut off at >7.5) and Troponin not 2xULN. Continue supportive care. (3) PRASANTH (acute kidney injury): Code(s): N17.9 - Acute kidney failure, unspecified Status: Acute Assessment and Plan: Creatinine elevated at 1.4 with a normal underlying baseline. She was given IV fluids and her creatinine has improved to 0.9. Kidneys appeared normal by imaging. Off IV fluids now. Follow (4) Hypokalemia: Code(s): E87.6 - Hypokalemia Status: Acute Assessment and Plan: Patient with potassium 3.1. Potassium was replaced. Continue to monitor and replace. (5) Dementia: Qualifiers: Dementia type: unspecified type Code(s): F03.90 - Unspecified dementia, unspecified severity, without behavioral disturbance, psychotic disturbance, mood disturbance, and anxiety Status: Chronic Assessment and Plan: Stable. Continue Namenda. (6) Hypertension: Qualifiers: Hypertension type: primary hypertension Qualified Code(s): I10 - Essential (primary) hypertension Code(s): I10 - Essential (primary) hypertension Status: Chronic Assessment and Plan: Patient's blood pressure was reviewed on 12/28 Blood pressure was markedly elevated on admission but better today. Could be compensatory to low HR. Will add Norvasc. Will follow (7) Bradycardia: Code(s): R00.1 - Bradycardia, unspecified Status: Acute Assessment and Plan: HR drops to 30's overnight so metoprolol held. She now has tachycardia but sinus mechanism and felt related to agitation. Persistent bradycardia at night so will stop metoprolol TSH normal. Follow on tele. Plan 1. Code status. Full 2. Nutrition. regular diet 3. VTE prophylaxis. SCDs; IDALIA Subjective Date/time seen: 12/28/24 06:26 Interval history: 74yo female with HTN, dementia and gout here for fevers and malaise. Patient alert but confused and unable to provide hx. Exam Narrative: AF 97.7 153/57 58 20 100% ra Gen - NARD Chest - CTA bilaterally, nml RR CV - RRR S1/S2; Tele showing 4b run NSVT and mild bradycardia at night Abd - Soft, NT/ND, Positive BS Ext - No pedal edema Neuro - Alert but confused. Psych - Nml mood and affect Skin - Warm and dry Objective Data Vital Signs Vital Signs: Vital Signs - 24 hr 12/27/24 08:00 12/27/24 08:00 12/27/24 08:00 Temperature 99.4 F Pulse Rate 135 H 126 H Respiratory Rate 20 Blood Pressure 148/79 H Pulse Oximetry 95 Oxygen Delivery Room Air 12/27/24 09:49 12/27/24 11:22 12/27/24 12:00 Temperature Pulse Rate 83 Respiratory Rate Blood Pressure Pulse Oximetry Oxygen Delivery Room Air Room Air 12/27/24 12:51 12/27/24 15:15 12/27/24 16:45 Temperature 96.1 F L 97.6 F Pulse Rate 83 58 L 60 Respiratory Rate 16 16 Blood Pressure 111/68 131/68 Pulse Oximetry 97 100 Oxygen Delivery 12/27/24 20:00 12/27/24 20:00 12/27/24 20:34 Temperature 97.5 F L Pulse Rate 56 L 61 Respiratory Rate 18 Blood Pressure 153/72 H Pulse Oximetry 99 Oxygen Delivery Room Air 12/28/24 00:00 12/28/24 04:00 12/28/24 05:04 Temperature 97.7 F Pulse Rate 63 44 L 58 L Respiratory Rate 20 Blood Pressure 153/57 H Pulse Oximetry 100 Oxygen Delivery Intake/Output Intake/Output: Intake & Output 12/25/24 12/26/24 12/27/24 12/28/24 23:59 23:59 23:59 23:59 Intake Total 2413.3 690 100 0 Output Total 1300 500 0 Balance 1113.3 190 100 0 Meds/Results Medications: Active Medications Generic Name Dose Route Start Last Admin Trade Name Freq PRN Reason Stop Dose Admin Acetaminophen 650 mg 12/25/24 18:00 12/28/24 05:13 Acetaminophen 325 Mg Tablet PO 650 mg Q6HR IDALIA Administration Albuterol/Ipratropium 3 ml 12/25/24 00:57 Ipratropium 0.5 Mg/Albuterol Sulfate 2.5 Mg Ampul.Neb 3 Ml INHALATION Q4HRT PRN shortness of breath/Wheezing Allopurinol 300 mg 12/25/24 09:00 12/27/24 10:36 Allopurinol 300 Mg Tablet PO 300 mg DAILY IDALIA Administration Anastrozole 1 mg 12/26/24 09:00 12/27/24 10:36 Anastrozole (*Chemo) 1 Mg Tablet PO 1 mg DAILY IDALIA Administration Aspirin 81 mg 12/25/24 09:00 12/27/24 10:36 Aspirin 81 Mg Enteric Tablet PO 81 mg DAILY IDALIA Administration Enalapril Maleate 10 mg 12/25/24 09:00 12/27/24 10:36 Enalapril Maleate 10 Mg Tablet PO 10 mg DAILY IDALIA Administration Famotidine 20 mg 12/25/24 09:00 12/27/24 20:30 Famotidine 20 Mg Tablet PO 20 mg Q12HR IDALIA Administration Guaifenesin/Dextromethorphan 10 ml 12/25/24 00:57 Guaifenesin/Dextromethorphan 10 Ml Udc PO Q4H PRN Cough Heparin Sodium (Porcine) 5,000 units 12/25/24 09:00 12/27/24 20:30 Heparin Sodium 5,000 Units/Ml Vial SUB-Q 5,000 units Q12HR IDALIA Administration Hydroxyzine HCl 25 mg 12/25/24 21:00 12/27/24 20:29 Hydroxyzine Hcl 25 Mg Tablet PO 25 mg HS IDALIA Administration Melatonin 5 mg 12/27/24 21:00 12/27/24 20:29 Melatonin 5 Mg Tablet PO 5 mg HS IDALIA Administration Memantine 10 mg 12/25/24 09:00 12/27/24 20:29 Memantine 10 Mg Tablet PO 10 mg Q12HR IDALIA Administration Metoprolol Succinate 12.5 mg 12/27/24 13:35 12/27/24 15:15 Metoprolol Succinate Ext Rel 12.5 Mg Tabcr PO 12.5 mg QAM IDALIA Administration Miscellaneous Information 0 each 12/25/24 00:01 12/26/24 00:54 Nonformulary Drug (Nirmatrelvir-Ritonavir [Paxlovid] 300 Mg (150 Mg X 2)-100 Mg Tablets,Do XX 01/24/25 00:00 Not Given CLARIFY IDALIA Non-Formulary Medication 0 each 12/25/24 09:00 Nirmatrelvir-Ritonavir [Paxlovid] .ROUTE 01/24/25 08:59 .COMPLEX IDALIA Ondansetron HCl 4 mg 12/24/24 22:04 Ondansetron Inj 4 Mg/2 Ml Vial IV PUSH Q4H PRN Nausea Prochlorperazine Edisylate 10 mg 12/25/24 00:57 Prochlorperazine Edisylate 10 Mg/2 Ml Vial IV PUSH Q6H PRN Nausea And Vomiting Radiology Results: ITS Impressions Head CT 12/24/24 20:34 IMPRESSION: No acute intracranial findings. Chest/Abdomen/Pelvis CT 12/24/24 20:40 IMPRESSION: CHEST: 1. No acute cardiopulmonary pathology. 2. Loss of volume of T12 which is most likely chronic. ABDOMEN/PELVIS: 1. No evidence of appendicitis, diverticulitis or intestinal obstruction. 2. Air is seen in the bile ducts of the left lobe of the liver. Chest X-Ray 12/27/24 12:35 IMPRESSION: 1. No acute cardiopulmonary disease. Labs Labs: Laboratory Results - last 24 hr 12/27/24 12/28/24 04:34 06:03 WBC 11.9 H RBC 3.28 L Hgb 9.9 L Hct 29.5 L MCV 89.9 MCH 30.2 MCHC 33.6 RDW 13.6 Plt Count 224 MPV 12.0 H Immature Gran % (Auto) 0.6 H Neut % (Auto) 82.2 H Lymph % (Auto) 12.7 L [place] % (Auto) 3.1 Eos % (Auto) 1.2 Baso % (Auto) 0.2 Lymph # (Auto) 1.51 [place] # (Auto) 0.4 Eos # (Auto) 0.1 Baso # (Auto) 0.0 Abs Immat Gran (auto) 0.07 H Absolute Neuts (auto) 9.8 H Absolute Nucleated RBC 0.000 Nucleated RBC % 0.0 Folate 8.6
[2024-12-28 06:28] LABS: Anion Gap 5 mmol/L (4-12); Blood Urea Nitrogen 23 mg/dL (7-17); Calcium 8.8 mg/dL (8.4-10.2); Carbon Dioxide 30 mmol/L (22-30); Chloride 95 mmol/L (98-107); Estimated CRCL calculation 44 ml/min; Estimated Glomerular Filt Rate > 60; Glucose 80 mg/dL (65-110); Magnesium 1.8 mg/dL (1.6-2.3); Potassium 3.6 mmol/L (3.4-5.0); Sodium 130 mmol/L (137-145)
[2024-12-28] MEDS: METOPROLOL SUCCINATE EXT REL 12.5 MG TABCR PO (09:05)
[2024-12-28] MEDS: allopurinoL 300 MG TABLET PO (09:05)
[2024-12-28] MEDS: ANASTROZOLE (*CHEMO) 1 MG TABLET PO (09:05)
[2024-12-28] MEDS: ENALAPRIL MALEATE 10 MG TABLET PO (09:05)
[2024-12-28] MEDS: ASPIRIN 81 MG ENTERIC TABLET PO (09:05)
[2024-12-28] MEDS: MEMANTINE 10 MG TABLET PO ×2 (09:06→20:53)
[2024-12-28] MEDS: HEPARIN SODIUM 5,000 UNITS/ML VIAL 5000 UNITS SUB-Q ×2 (09:06→20:53)
[2024-12-28] MEDS: FAMOTIDINE 20 MG TABLET PO ×2 (09:06→20:53)
--- NOTE | 2024-12-28 16:36 | PM.CCN ---
Critical Care Event Note Summary Code activated: No Narrative: Please see addendum to PN today for details. 45 minutes spent on critical care time. This case had a high probability of a clinically significant, sudden, or life threatening deterioration of this patient's condition which required my full and direct attention, intervention and personal management. Critical care time: 30 - 74 mins
[2024-12-28 17:24] LABS: Influenza A QL RT-PCR Negative (Negative); Influenza B QL RT-PCR Negative (Negative); RSV RNA, RT-PCR Negative (Negative); SARS-CoV-2 RNA PCR Negative (Negative)
[2024-12-28] MEDS: PIPERACILLN/TAZ 3.375GM/NS50ML 3.375 GM/50 ML BAG IVPB (17:27)
[2024-12-28 17:29] LABS: Add Urine Microscopic? YES; Appearance Urine Clear (Clear); Bacteria Urine None Seen /hpf; Bilirubin Urine Negative (Negative); Blood Urine Negative (Negative); Color Urine Yellow (Yellow); Glucose Urine UA Negative (Negative); Hyaline Casts Urine Present /lpf; Ketones Urine 1+ mg/dL (Negative); Leukocyte Esterase Ur Negative LEU/UL (Negative); Need Manual Microscopic Reviewed; Nitrate Urine Negative (Negative); Protein Urine 1+ mg/dL (Negative); RBC Urine 0-2 /hpf (0-2); Specific Grav Ur 1.024 (1.001-1.035); Squamous Epithelial Cell Urine Few /hpf (Few); WBC Urine 0-5 /hpf (0-3)
[2024-12-28] MEDS: DOXYCYCLINE 100 MG/NS 100 ML 100 MG/100 ML BAG IVPB (18:39)
[2024-12-28 19:28] LABS: Basophils Percent Auto 0.2 % (0.2-1.2); Hematocrit 30.5 % (37.0-47.0); Immature Granulocyte Percent A 0.6 % (0-0.5); Lymphocytes Absolute Auto 0.31 K/mm3 (0.9-3.2); Lymphocytes Percent Auto 1.9 % (18.3-44.2); Mean Corpuscular HGB Conc 32.8 g/dl (32-36); Mean Corpuscular Hemoglobin 29.2 pg (26-34); Mean Corpuscular Volume 88.9 fl (80-100); Mean Platelet Volume 12.2 fl (7.4-10.4); Monocytes Absolute Auto 0.6 K/mm3 (0.1-0.6); Monocytes Percent Auto 3.7 % (2.6-8.5); Neutrophils Percent Auto 93.6 % (45.5-73.1); Platelet Count Result 234 k/mm3 (150-375); Red Blood Count 3.43 M/mm3 (4.2-5.4); Red Cell Distribution Width 13.8 % (11.5-14.5); White Blood Count 16.1 K/mm3 (4.5-10.0)
[2024-12-28 19:41] LABS: Lactic Acid Reflex 0.9 mmol/L (0.7-2.0)
[2024-12-28 19:42] LABS: Alanine Aminotransferase 14 U/L (6-35); Albumin Level 3.1 g/dL (3.5-5.1); Alkaline Phosphatase 122 U/L (38-126); Anion Gap 13 mmol/L (4-12); Aspartate Amino Transferase 18 U/L (14-36); Bilirubin,Total 0.6 mg/dL (0.2-1.3); Blood Urea Nitrogen 22 mg/dL (7-17); CRP 8.5 mg/dL (<1.0); Calcium 8.5 mg/dL (8.4-10.2); Carbon Dioxide 21 mmol/L (22-30); Chloride 94 mmol/L (98-107); Estimated CRCL calculation 44 ml/min; Estimated Glomerular Filt Rate > 60; Glucose 82 mg/dL (65-110); Lipase 48 U/L (23-300); Potassium 3.8 mmol/L (3.4-5.0); Sodium 128 mmol/L (137-145)
[2024-12-28 20:02] LABS: MRSA (PCR) NOT DETECTED (NOT DETECTE)
[2024-12-28 20:23] LABS: Procalcitonin 5.8 ng/mL
[2024-12-28] MEDS: hydrOXYzine HCL 25 MG TABLET PO (20:53)
[2024-12-28] MEDS: MELATONIN 5 MG TABLET PO (20:53)
[2024-12-29] VITALS (14 sets, daily range): BP systolic 132–184; BP diastolic 57–108; PULSE 44–109; RESP 16–18; TEMP 36.5–39.8; O2SAT 92–99; BMI 24.6
[2024-12-29] MEDS: PIPERACILLN/TAZ 3.375GM/NS50ML 3.375 GM/50 ML BAG IVPB ×5 (02:36→23:37)
[2024-12-29 04:53] LABS: Basophils Percent Auto 0.2 % (0.2-1.2); Eosinophils Percent Auto 0.1 % (0-4.4); Hematocrit 28.9 % (37.0-47.0); Hemoglobin 9.5 g/dL (12.0-15.0); Immature Granulocyte Absolute 0.13 K/mm3 (0.00-0.031); Immature Granulocyte Percent A 0.7 % (0-0.5); Lymphocytes Absolute Auto 1.25 K/mm3 (0.9-3.2); Lymphocytes Percent Auto 6.7 % (18.3-44.2); Mean Corpuscular HGB Conc 32.9 g/dl (32-36); Mean Corpuscular Hemoglobin 29.5 pg (26-34); Mean Corpuscular Volume 89.8 fl (80-100); Mean Platelet Volume 11.8 fl (7.4-10.4); Monocytes Absolute Auto 0.5 K/mm3 (0.1-0.6); Monocytes Percent Auto 2.9 % (2.6-8.5); Neutrophils Absolute Auto 16.8 K/mm3 (1.3-6.7); Neutrophils Percent Auto 89.4 % (45.5-73.1); Platelet Count Result 222 k/mm3 (150-375); Red Blood Count 3.22 M/mm3 (4.2-5.4); Red Cell Distribution Width 13.9 % (11.5-14.5); White Blood Count 18.7 K/mm3 (4.5-10.0)
[2024-12-29 05:02] LABS: Alanine Aminotransferase 13 U/L (6-35); Alkaline Phosphatase 118 U/L (38-126); Anion Gap 8 mmol/L (4-12); Aspartate Amino Transferase 17 U/L (14-36); Bilirubin,Total 0.6 mg/dL (0.2-1.3); Blood Urea Nitrogen 23 mg/dL (7-17); Calcium 8.6 mg/dL (8.4-10.2); Carbon Dioxide 27 mmol/L (22-30); Chloride 94 mmol/L (98-107); Estimated CRCL calculation 42 ml/min; Estimated Glomerular Filt Rate 58; Glucose 90 mg/dL (65-110); Potassium 3.8 mmol/L (3.4-5.0); Sodium 129 mmol/L (137-145)
[2024-12-29] MEDS: DOXYCYCLINE 100 MG/NS 100 ML 100 MG/100 ML BAG IVPB (09:22)
[2024-12-29] MEDS: ENALAPRIL MALEATE 10 MG TABLET PO (09:29)
[2024-12-29] MEDS: ASPIRIN 81 MG ENTERIC TABLET PO (09:29)
[2024-12-29] MEDS: ANASTROZOLE (*CHEMO) 1 MG TABLET PO (09:29)
[2024-12-29] MEDS: FAMOTIDINE 20 MG TABLET PO ×2 (09:29→20:23)
[2024-12-29] MEDS: MEMANTINE 10 MG TABLET PO ×2 (09:29→20:23)
[2024-12-29] MEDS: allopurinoL 300 MG TABLET PO (09:30)
--- NOTE | 2024-12-29 09:32 | P.PNIM_ITS ---
Progress Note: A&P Assessment and Plan (1) PRASANTH (acute kidney injury): Code(s): N17.9 - Acute kidney failure, unspecified Status: Acute (2) Sepsis: Code(s): A41.9 - Sepsis, unspecified organism Status: Acute (3) Delirium due to general medical condition: Code(s): F05 - Delirium due to known physiological condition Status: Acute (4) COVID-19: Code(s): U07.1 - COVID-19 Status: Acute Plan sepsis Code(s): R65.10 - Systemic inflammatory response syndrome (SIRS) of non-infectious origin without acute organ dysfunction Status: Acute Assessment and Plan: Patient presents with fever and found to have elevated WBC, tachycardia and tachypnea. CT of the chest, abdomen and pelvis with contrast showed no acute cardiopulmonary disease and no acute findings in the abdomen or pelvis imaging. She had air in the bile ducts but had undergone recent ERCP on 12/10/2024. UCx grew Enterococus last month but was a contaminated sample. Urinalysis here was clear. Patient was treated with IV antibiotics after appropriate cultures obtain but antibiotics were not continued. BCx are no growth to date. CXR was clear. Fever has recurred. Suspect SIRS related to COVID but still having fevers. WBC still elevated but trending down. Recultured yesterday but no other source of infection noted. Continue scheduled Tylenol 12/29: Patient had fever 103.2 yesterday evening, rapid response was called, leukocytosis is trending up yesterday, white blood cell [id number] with neutrophils left shift. Meeting criteria of sepsis Repeated CT scan December 28, that showed Pneumobilia is again identified, for which prior sphincterotomy (on 12/10/2024) is suspected. Repeat blood culture on December 28 has no growth so far. Started with doxycycline and Zosyn on December 28, patient is afebrile overnight, but leukocytosis is getting worse, continue Zosyn and switch from doxy to vancomycin IV 12/29 (2) COVID: Code(s): U07.1 - COVID-19 Status: Acute Assessment and Plan: Patient tested positive for COVID on 12/22/24. Paxlovid ordered but she had not started this yet. Patient currently on room air. Will hold on starting remdesivir since her only risk factor is age. CRP 7.3 (cut off at >7.5) and Troponin not 2xULN. Continue supportive care. PRASANTH (acute kidney injury), hyponatremia Code(s): N17.9 - Acute kidney failure, unspecified Status: Acute Assessment and Plan: Creatinine elevated at 1.4 with a normal underlying baseline. Kidneys appeared normal by imaging. s/w NS 125 mL/hour on 12/29, patient had high fever yesterday (4) Hypokalemia: Code(s): E87.6 - Hypokalemia Status: Acute Assessment and Plan: Patient with potassium 3.1. Potassium was replaced. Continue to monitor and replace. (5) Dementia: Qualifiers: Dementia type: unspecified type Code(s): F03.90 - Unspecified dementia, unspecified severity, without behavioral disturbance, psychotic disturbance, mood disturbance, and anxiety Status: Chronic Assessment and Plan: Stable. Continue Namenda. (6) Hypertension: Qualifiers: Hypertension type: primary hypertension Qualified Code(s): I10 - Essential (primary) hypertension Code(s): I10 - Essential (primary) hypertension Status: Chronic Assessment and Plan: Patient's blood pressure was reviewed on 12/28 Blood pressure was markedly elevated on admission but better today. Could be compensatory to low HR. Will add Norvasc. Will follow (7) Bradycardia: Code(s): R00.1 - Bradycardia, unspecified Status: Acute Assessment and Plan: HR drops to 30's overnight so metoprolol held. She now has tachycardia but sinus mechanism and felt related to agitation. Persistent bradycardia at night so will stop metoprolol TSH normal. Follow on tele. Subjective Date/time seen: 12/29/24 09:32 Interval history: 74yo female with HTN, dementia and gout here for fevers and malaise. Patient alert but confused and unable to provide hx. Exam Narrative: AF 97.7 153/57 58 20 100% ra Gen - NARD Chest - CTA bilaterally, nml RR CV - RRR S1/S2; Tele showing 4b run NSVT and mild bradycardia at night Abd - Soft, NT/ND, Positive BS Ext - No pedal edema Neuro - Alert but confused. Psych - Nml mood and affect Skin - Warm and dry Objective Data Vital Signs Vital Signs: Vital Signs - 24 hr 12/28/24 11:43 12/28/24 12:00 12/28/24 16:00 Temperature 97.5 F L 102.1 F H Pulse Rate 61 Respiratory Rate Blood Pressure Pulse Oximetry Oxygen Delivery 12/28/24 16:00 12/28/24 17:00 12/28/24 17:13 Temperature 103.2 F H Pulse Rate 128 H 100 Respiratory Rate 18 Blood Pressure 156/63 H Pulse Oximetry 97 Oxygen Delivery 12/28/24 18:57 12/28/24 20:00 12/28/24 20:00 Temperature 102.6 F H Pulse Rate 93 Respiratory Rate Blood Pressure Pulse Oximetry Oxygen Delivery Room Air 12/28/24 20:09 12/29/24 00:00 12/29/24 03:25 Temperature 98.1 F 97.7 F Pulse Rate 92 60 54 L Respiratory Rate 18 18 Blood Pressure 129/66 132/57 L Pulse Oximetry 93 99 Oxygen Delivery 12/29/24 04:00 Temperature Pulse Rate 53 L Respiratory Rate Blood Pressure Pulse Oximetry Oxygen Delivery Intake/Output Intake/Output: Intake & Output 12/26/24 12/27/24 12/28/24 12/29/24 23:59 23:59 23:59 23:59 Intake Total 690 100 150 170 Output Total 500 0 75 Balance 190 100 75 170 Meds/Results Medications: Active Medications Generic Name Dose Route Start Last Admin Trade Name Freq PRN Reason Stop Dose Admin Acetaminophen 1,000 mg 12/28/24 18:59 Acetaminophen 500 Mg Tablet PO Q6H PRN Mild Pain (1-3) or Fever Albuterol/Ipratropium 3 ml 12/25/24 00:57 Ipratropium 0.5 Mg/Albuterol Sulfate 2.5 Mg Ampul.Neb 3 Ml INHALATION Q4HRT PRN shortness of breath/Wheezing Allopurinol 300 mg 12/25/24 09:00 12/28/24 09:05 Allopurinol 300 Mg Tablet PO 300 mg DAILY IDALIA Administration Anastrozole 1 mg 12/26/24 09:00 12/28/24 09:05 Anastrozole (*Chemo) 1 Mg Tablet PO 1 mg DAILY IDALIA Administration Aspirin 81 mg 12/25/24 09:00 12/28/24 09:05 Aspirin 81 Mg Enteric Tablet PO 81 mg DAILY IDALIA Administration Enalapril Maleate 10 mg 12/25/24 09:00 12/28/24 09:05 Enalapril Maleate 10 Mg Tablet PO 10 mg DAILY IDALIA Administration Famotidine 20 mg 12/25/24 09:00 12/28/24 20:53 Famotidine 20 Mg Tablet PO 20 mg Q12HR IDALIA Administration Guaifenesin/Dextromethorphan 10 ml 12/25/24 00:57 Guaifenesin/Dextromethorphan 10 Ml Udc PO Q4H PRN Cough Heparin Sodium (Porcine) 5,000 units 12/25/24 09:00 12/28/24 20:53 Heparin Sodium 5,000 Units/Ml Vial SUB-Q 5,000 units Q12HR IDALIA Administration Hydroxyzine HCl 25 mg 12/25/24 21:00 12/28/24 20:53 Hydroxyzine Hcl 25 Mg Tablet PO 25 mg HS IDALIA Administration Piperacillin/Tazobactam/Dextrose 3.375 gm in 50 mls @ 100 mls/hr 12/28/24 17:00 12/29/24 06:02 Zosyn 3.375 Gm/Ns 50 Ml IVPB 100 mls/hr Q6HR IDALIA Administration Doxycycline Hyclate 100 mg in 100 mls @ 100 mls/hr 12/28/24 19:00 12/29/24 09:22 Vibramycin 100 Mg/Ns 100 Ml IVPB 100 mls/hr Q12HR IDALIA Administration Melatonin 5 mg 12/27/24 21:00 12/28/24 20:53 Melatonin 5 Mg Tablet PO 5 mg HS IDALIA Administration Memantine 10 mg 12/25/24 09:00 12/28/24 20:53 Memantine 10 Mg Tablet PO 10 mg Q12HR IDALIA Administration Miscellaneous Information 0 each 12/25/24 00:01 12/26/24 00:54 Nonformulary Drug (Nirmatrelvir-Ritonavir [Paxlovid] 300 Mg (150 Mg X 2)-100 Mg Tablets,Do XX 01/24/25 00:00 Not Given CLARIFY [facility] Non-Formulary Medication 0 each 12/25/24 09:00 Nirmatrelvir-Ritonavir [Paxlovid] .ROUTE 01/24/25 08:59 .COMPLEX IDALIA Ondansetron HCl 4 mg 12/24/24 22:04 Ondansetron Inj 4 Mg/2 Ml Vial IV PUSH Q4H PRN Nausea Prochlorperazine Edisylate 10 mg 12/25/24 00:57 Prochlorperazine Edisylate 10 Mg/2 Ml Vial IV PUSH Q6H PRN Nausea And Vomiting Radiology Results: ITS Impressions Head CT 12/24/24 20:34 IMPRESSION: No acute intracranial findings. Chest/Abdomen/Pelvis CT 12/24/24 20:40 IMPRESSION: CHEST: 1. No acute cardiopulmonary pathology. 2. Loss of volume of T12 which is most likely chronic. ABDOMEN/PELVIS: 1. No evidence of appendicitis, diverticulitis or intestinal obstruction. 2. Air is seen in the bile ducts of the left lobe of the liver. Chest X-Ray 12/27/24 12:35 IMPRESSION: 1. No acute cardiopulmonary disease. Abdomen/Pelvis CT 12/28/24 19:00 IMPRESSION: No findings within the abdomen or pelvis to suggest a source of patient's fever, as detailed above. Labs Labs: Laboratory Results - last 24 hr 12/28/24 12/28/24 12/28/24 16:40 18:42 19:06 WBC 16.1 H RBC 3.43 L Hgb 10.0 L Hct 30.5 L MCV 88.9 MCH 29.2 MCHC 32.8 RDW 13.8 Plt Count 234 MPV 12.2 H Immature Gran % (Auto) 0.6 H Neut % (Auto) 93.6 H Lymph % (Auto) 1.9 L [place] % (Auto) 3.7 Eos % (Auto) 0.0 Baso % (Auto) 0.2 Lymph # (Auto) 0.31 L [place] # (Auto) 0.6 Eos # (Auto) 0.0 Baso # (Auto) 0.0 Abs Immat Gran (auto) 0.10 H Absolute Neuts (auto) 15.0 H Absolute Nucleated RBC 0.000 Nucleated RBC % 0.0 Sodium 128 L Potassium 3.8 Chloride 94 L Carbon Dioxide 21 L Anion Gap 13 H BUN 22 H Creatinine 0.88 Estim Creat Clear Calc 44 Estimated GFR > 60 Glucose 82 Lactic Acid 0.9 Calcium 8.5 Total Bilirubin 0.6 AST 18 ALT 14 Alkaline Phosphatase 122 C-Reactive Protein 8.5 H Total Protein 7.0 Albumin 3.1 L Lipase 48 Procalcitonin 5.8 Urine Color Yellow Urine Appearance Clear Urine pH 6.0 Ur Specific [place] 1.024 Urine Protein 1+ H Urine Glucose (UA) Negative Urine Ketones 1+ H Ur Blood (Man) Negative Urine Nitrate Negative Urine Bilirubin Negative Urine Urobilinogen 1.0 Add Ur Microanalysis Reviewed Leukocyte Esterase Rfl Negative Urine RBC 0-2 Urine WBC 0-5 Ur Squamous Epith Cells Few Urine Bacteria None seen Urine Casts 6-10 Hyaline Casts Present Nasal MRSA (PCR) Not detected Influenza A (RT-PCR) Negative Influenza B (RT-PCR) Negative RSV (RT-PCR) Negative SARS-CoV-2 RNA (RT-PCR) Negative 12/29/24 04:45 WBC 18.7 H RBC 3.22 L Hgb 9.5 L Hct 28.9 L MCV 89.8 MCH 29.5 MCHC 32.9 RDW 13.9 Plt Count 222 MPV 11.8 H Immature Gran % (Auto) 0.7 H Neut % (Auto) 89.4 H Lymph % (Auto) 6.7 L [place] % (Auto) 2.9 Eos % (Auto) 0.1 Baso % (Auto) 0.2 Lymph # (Auto) 1.25 [place] # (Auto) 0.5 Eos # (Auto) 0.0 Baso # (Auto) 0.0 Abs Immat Gran (auto) 0.13 H Absolute Neuts (auto) 16.8 H Absolute Nucleated RBC 0.000 Nucleated RBC % 0.0 Sodium 129 L Potassium 3.8 Chloride 94 L Carbon Dioxide 27 Anion Gap 8 BUN 23 H Creatinine 0.94 Estim Creat Clear Calc 42 Estimated GFR 58 L Glucose 90 Lactic Acid Calcium 8.6 Total Bilirubin 0.6 AST 17 ALT 13 Alkaline Phosphatase 118 C-Reactive Protein Total Protein 6.0 L Albumin 3.0 L Lipase Procalcitonin Urine Color Urine Appearance Urine pH Ur Specific [place] Urine Protein Urine Glucose (UA) Urine Ketones Ur Blood (Man) Urine Nitrate Urine Bilirubin Urine Urobilinogen Add Ur Microanalysis Leukocyte Esterase Rfl Urine RBC Urine WBC Ur Squamous Epith Cells Urine Bacteria Urine Casts Hyaline Casts Nasal MRSA (PCR) Influenza A (RT-PCR) Influenza B (RT-PCR) RSV (RT-PCR) SARS-CoV-2 RNA (RT-PCR)
[2024-12-29] MEDS: HEPARIN SODIUM 5,000 UNITS/ML VIAL 5000 UNITS SUB-Q ×2 (09:39→20:23)
[2024-12-29] MEDS: SODIUM CHLORIDE 0.9% IV 1,000 ML 125 ML IV CONT ×2 (10:19→21:36)
[2024-12-29] MEDS: VANCOMYCIN 1,750 MG/NS 500 ML 1,750 MG/500 ML BAG 250 MG IVPB (10:59)
--- NOTE | 2024-12-29 12:48 | P.CDI_ITS ---
CDI Query Clarification Request BMI: 24.7 Nutritional Diagnostic Statement: Please refer to the comprehensive nutrition assessment for further information. If you agree with diagnosis of Severe Protein Calorie Malnutrition as related to inadequate protein energy intake in setting of acute disease as evidenced by < 50% of estimated energy needs and significant weight loss of 1% (8 ibs) in 5 days. Please specify severity if known: * Mild * Moderate * Severe * Other/Unknown <Coty Mehta RN - Last Filed: 12/29/24 12:48> BMI: 24.7 Nutritional Diagnostic Statement: Please refer to the comprehensive nutrition assessment for further information. If you agree with diagnosis of Severe Protein Calorie Malnutrition as related to inadequate protein energy intake in setting of acute disease as evidenced by < 50% of estimated energy needs and significant weight loss of 1% (8 ibs) in 5 days. Please specify severity if known: <Baltazar Walden MD - Last Filed: 12/29/24 18:14> Clarified Diagnosis Clarified Diagnosis: mild malnutrition <Baltazar Walden MD - Last Filed: 12/29/24 18:14>
[2024-12-29] MEDS: ACETAMINOPHEN 500 MG TABLET 1000 MG PO ×2 (15:13→21:43)
[2024-12-29] MEDS: hydrOXYzine HCL 25 MG TABLET PO (20:23)
[2024-12-29] MEDS: MELATONIN 5 MG TABLET PO (20:23)
[2024-12-30] VITALS (12 sets, daily range): BP systolic 123–142; BP diastolic 62–67; PULSE 43–90; RESP 14–16; TEMP 36.4–38.1; O2SAT 96–100
[2024-12-30] MEDS: PIPERACILLN/TAZ 3.375GM/NS50ML 3.375 GM/50 ML BAG IVPB ×3 (05:18→17:05)
[2024-12-30] MEDS: SODIUM CHLORIDE 0.9% IV 1,000 ML 125 ML IV CONT ×2 (05:22→15:30)
[2024-12-30 06:15] LABS: Basophils Percent Auto 0.1 % (0.2-1.2); Hematocrit 26.7 % (37.0-47.0); Hemoglobin 8.7 g/dL (12.0-15.0); Immature Granulocyte Absolute 0.14 K/mm3 (0.00-0.031); Immature Granulocyte Percent A 0.9 % (0-0.5); Lymphocytes Absolute Auto 0.88 K/mm3 (0.9-3.2); Lymphocytes Percent Auto 5.9 % (18.3-44.2); Mean Corpuscular HGB Conc 32.6 g/dl (32-36); Mean Corpuscular Hemoglobin 29.1 pg (26-34); Mean Corpuscular Volume 89.3 fl (80-100); Mean Platelet Volume 11.8 fl (7.4-10.4); Monocytes Absolute Auto 0.5 K/mm3 (0.1-0.6); Monocytes Percent Auto 3.3 % (2.6-8.5); Neutrophils Absolute Auto 13.4 K/mm3 (1.3-6.7); Neutrophils Percent Auto 89.8 % (45.5-73.1); Platelet Count Result 192 k/mm3 (150-375); Red Blood Count 2.99 M/mm3 (4.2-5.4); Red Cell Distribution Width 13.8 % (11.5-14.5); White Blood Count 14.9 K/mm3 (4.5-10.0)
[2024-12-30 06:22] LABS: Estimated CRCL calculation 48 ml/min; Estimated Glomerular Filt Rate > 60
--- NOTE | 2024-12-30 07:20 | ECG_ITS ---
Test Date: 2024-12-30 07:37:14 Measurements Intervals [place] Rate: 45 P: 83 HI: 169 QRS: 6 QRSD: 102 T: 8 QT: 527 QTc: 460 Interpretive Statements SINUS BRADYCARDIA NONSPECIFIC T-WAVE ABNORMALITY PROLONGED QT INTERVAL Compared to ECG 12/24/2024 18:27:24 T-wave abnormality now present Prolonged QT interval now present Sinus tachycardia no longer present Electronically Signed On 12-30-2024 14:00:02 [employer] by Vazquez Curtis M.D.
--- NOTE | 2024-12-30 07:59 | P.PNIM_ITS ---
Progress Note: A&P Assessment and Plan (1) PRASANTH (acute kidney injury): Code(s): N17.9 - Acute kidney failure, unspecified Status: Acute (2) Sepsis: Code(s): A41.9 - Sepsis, unspecified organism Status: Acute (3) Delirium due to general medical condition: Code(s): F05 - Delirium due to known physiological condition Status: Acute (4) COVID-19: Code(s): U07.1 - COVID-19 Status: Acute Plan sepsis Code(s): R65.10 - Systemic inflammatory response syndrome (SIRS) of non-infectious origin without acute organ dysfunction Status: Acute Assessment and Plan: Patient presents with fever and found to have elevated WBC, tachycardia and tachypnea. CT of the chest, abdomen and pelvis with contrast showed no acute cardiopulmonary disease and no acute findings in the abdomen or pelvis imaging. She had air in the bile ducts but had undergone recent ERCP on 12/10/2024. UCx grew Enterococus last month but was a contaminated sample. Urinalysis here was clear. Patient was treated with IV antibiotics after appropriate cultures obtain but antibiotics were not continued. BCx are no growth to date. CXR was clear. Fever has recurred. Suspect SIRS related to COVID but still having fevers. WBC still elevated but trending down. Recultured yesterday but no other source of infection noted. Continue scheduled Tylenol 12/29: Patient had fever 103.2 yesterday evening, rapid response was called, leukocytosis is trending up yesterday, white blood cell [id number] with neutrophils left shift. Meeting criteria of sepsis Repeated CT scan December 28, that showed Pneumobilia is again identified, for which prior sphincterotomy (on 12/10/2024) is suspected. Repeat blood culture on December 28 has no growth so far. Started with doxycycline and Zosyn on December 28, patient is afebrile overnight, but leukocytosis is getting worse, continue Zosyn and switch from doxy to vancomycin IV 12/29 Leukocytosis improving, blood culture negative, patient fever yesterday, afebrile overnight per nurse report, repeated chest x-ray on December 29 shows no acute cardiopulmonary issues. Continue current treatment 12/30 (2) COVID: Code(s): U07.1 - COVID-19 Status: Acute Assessment and Plan: Patient tested positive for COVID on 12/22/24. Paxlovid ordered but she had not started this yet. Patient currently on room air. Will hold on starting remdesivir since her only risk factor is age. CRP 7.3 (cut off at >7.5) and Troponin not 2xULN. Continue supportive care. PRASANTH (acute kidney injury), hyponatremia Code(s): N17.9 - Acute kidney failure, unspecified Status: Acute Assessment and Plan: Creatinine elevated at 1.4 with a normal underlying baseline. Kidneys appeared normal by imaging. s/w NS 125 mL/hour on 12/29, patient had high fever yesterday (4) Hypokalemia: Code(s): E87.6 - Hypokalemia Status: Acute Assessment and Plan: Patient with potassium 3.1. Potassium was replaced. Continue to monitor and replace Sinus bradycardia EKG shows sinus bradycardia heart rate 45, no specific ST or T-wave changes QTC 460 Follow-up BMP magnesium level, follow-up echocardiogram Avoid beta-frieda and calcium channel frieda Telemetry monitoring. Dementia: Qualifiers: Dementia type: unspecified type Code(s): F03.90 - Unspecified dementia, unspecified severity, without behavioral disturbance, psychotic disturbance, mood disturbance, and anxiety Status: Chronic Assessment and Plan: Stable. Continue Namenda. (6) Hypertension: Qualifiers: Hypertension type: primary hypertension Qualified Code(s): I10 - Essential (primary) hypertension Code(s): I10 - Essential (primary) hypertension Status: Chronic Assessment and Plan: Patient's blood pressure was reviewed on 12/28 Blood pressure was markedly elevated on admission but better today. Could be compensatory to low HR. Will add Norvasc. Will follow (7) Bradycardia: Code(s): R00.1 - Bradycardia, unspecified Status: Acute Assessment and Plan: HR drops to 30's overnight so metoprolol held. She now has tachycardia but sinus mechanism and felt related to agitation. Persistent bradycardia at night so will stop metoprolol TSH normal. Follow on tele. Subjective Date/time seen: 12/30/24 07:59 Interval history: Patient had fever yesterday evening, leukocytosis is improving white blood cell [id number], chemistry reviewed, sodium 129 stable, elevated BUN creatinine 23/0.94, blood culture negative Exam Narrative: GENERAL: Pleasant, in no acute distress. Well-nourished. - EYES: EOMI. Anicteric. - HENT: Moist mucous membranes. - LUNGS: Clear to auscultation bilateral ly, no wheezing, rhonchi, or rales. - CARDIOVASCULAR: Regular rate and rhyth m. No murmur. No JVD. - ABDOMEN: Soft, non-tender and non-dist ended. No palpable masses. - EXTREMITIES: No edema. Peripheral puls es 2+. Non-tender. - NEUROLOGIC: No focal neurological defi cits. CN II-XII grossly intact. - PSYCHIATRIC: Awake, Alert and oriented x 3. Appropriate mood and affect. - SKIN: No rashes or lesions. Warm. - LYMPH: No cervical lymphadenopathy. Objective Data Vital Signs Vital Signs: Vital Signs - 24 hr 12/29/24 08:00 12/29/24 09:30 12/29/24 12:00 Temperature Pulse Rate 44 L 63 Respiratory Rate Blood Pressure Pulse Oximetry Oxygen Delivery Room Air 12/29/24 14:00 12/29/24 15:13 12/29/24 16:00 Temperature 101.3 F H 101.3 F H Pulse Rate 90 71 Respiratory Rate 16 Blood Pressure 151/108 H Pulse Oximetry 92 Oxygen Delivery 12/29/24 16:13 12/29/24 20:00 12/29/24 21:43 Temperature 98.3 F 103.6 F H Pulse Rate 95 Respiratory Rate Blood Pressure Pulse Oximetry Oxygen Delivery 12/29/24 21:50 12/29/24 23:00 12/29/24 23:02 Temperature 103.6 F H 100.6 F H 100.6 F H Pulse Rate 109 H Respiratory Rate 16 Blood Pressure 184/78 H Pulse Oximetry 97 Oxygen Delivery 12/30/24 00:00 12/30/24 00:16 12/30/24 04:00 Temperature 98.3 F Pulse Rate 88 90 50 L Respiratory Rate 16 Blood Pressure 123/64 Pulse Oximetry 96 Oxygen Delivery 12/30/24 06:42 Temperature 97.6 F Pulse Rate 60 Respiratory Rate 14 Blood Pressure 130/62 Pulse Oximetry 98 Oxygen Delivery Intake/Output Intake/Output: Intake & Output 12/27/24 12/28/24 12/29/24 12/30/24 23:59 23:59 23:59 23:59 Intake Total 401 586 1468 1120.8 Output Total 0 75 300 300 Balance 231 32 2805 820.8 Meds/Results Medications: Active Medications Generic Name Dose Route Start Last Admin Trade Name Freq PRN Reason Stop Dose Admin Acetaminophen 1,000 mg 12/28/24 18:59 12/29/24 21:43 Acetaminophen 500 Mg Tablet PO 1,000 mg Q6H PRN Administration Mild Pain (1-3) or Fever Albuterol/Ipratropium 3 ml 12/25/24 00:57 Ipratropium 0.5 Mg/Albuterol Sulfate 2.5 Mg Ampul.Neb 3 Ml INHALATION Q4HRT PRN shortness of breath/Wheezing Allopurinol 300 mg 12/25/24 09:00 12/29/24 09:30 Allopurinol 300 Mg Tablet PO 300 mg DAILY IDALIA Administration Anastrozole 1 mg 12/26/24 09:00 12/29/24 09:29 Anastrozole (*Chemo) 1 Mg Tablet PO 1 mg DAILY IDALIA Administration Aspirin 81 mg 12/25/24 09:00 12/29/24 09:29 Aspirin 81 Mg Enteric Tablet PO 81 mg DAILY IDALIA Administration Enalapril Maleate 10 mg 12/25/24 09:00 12/29/24 09:29 Enalapril Maleate 10 Mg Tablet PO 10 mg DAILY IDALIA Administration Famotidine 20 mg 12/25/24 09:00 12/29/24 20:23 Famotidine 20 Mg Tablet PO 20 mg Q12HR IDALIA Administration Guaifenesin/Dextromethorphan 10 ml 12/25/24 00:57 Guaifenesin/Dextromethorphan 10 Ml Udc PO Q4H PRN Cough Heparin Sodium (Porcine) 5,000 units 12/25/24 09:00 12/29/24 20:23 Heparin Sodium 5,000 Units/Ml Vial SUB-Q 5,000 units Q12HR IDALIA Administration Hydroxyzine HCl 25 mg 12/25/24 21:00 12/29/24 20:23 Hydroxyzine Hcl 25 Mg Tablet PO 25 mg HS IDALIA Administration Piperacillin/Tazobactam/Dextrose 3.375 gm in 50 mls @ 100 mls/hr 12/28/24 17:00 12/30/24 05:18 Zosyn 3.375 Gm/Ns 50 Ml IVPB 100 mls/hr Q6HR IDALIA Administration Sodium Chloride 1,000 mls @ 125 mls/hr 12/29/24 09:50 12/30/24 05:22 Normal Saline Iv IV CONT 125 mls/hr .Q8H IDALIA Administration Vancomycin HCl 1,000 mg in 250 mls @ 250 mls/hr 12/30/24 11:00 Vancomycin 1,000 Mg/Ns 250 Ml IVPB Q24H IDALIA Melatonin 5 mg 12/27/24 21:00 12/29/24 20:23 Melatonin 5 Mg Tablet PO 5 mg HS IDALIA Administration Memantine 10 mg 12/25/24 09:00 12/29/24 20:23 Memantine 10 Mg Tablet PO 10 mg Q12HR IDALIA Administration Miscellaneous Information 0 each 12/25/24 00:01 12/26/24 00:54 Nonformulary Drug (Nirmatrelvir-Ritonavir [Paxlovid] 300 Mg (150 Mg X 2)-100 Mg Tablets,Do XX 01/24/25 00:00 Not Given CLARIFY IDALIA Non-Formulary Medication 0 each 12/25/24 09:00 Nirmatrelvir-Ritonavir [Paxlovid] .ROUTE 01/24/25 08:59 .COMPLEX IDALIA Ondansetron HCl 4 mg 12/24/24 22:04 Ondansetron Inj 4 Mg/2 Ml Vial IV PUSH Q4H PRN Nausea Prochlorperazine Edisylate 10 mg 12/25/24 00:57 Prochlorperazine Edisylate 10 Mg/2 Ml Vial IV PUSH Q6H PRN Nausea And Vomiting Radiology Results: ITS Impressions Head CT 12/24/24 20:34 IMPRESSION: No acute intracranial findings. Chest/Abdomen/Pelvis CT 12/24/24 20:40 IMPRESSION: CHEST: 1. No acute cardiopulmonary pathology. 2. Loss of volume of T12 which is most likely chronic. ABDOMEN/PELVIS: 1. No evidence of appendicitis, diverticulitis or intestinal obstruction. 2. Air is seen in the bile ducts of the left lobe of the liver. Abdomen/Pelvis CT 12/28/24 19:00 IMPRESSION: No findings within the abdomen or pelvis to suggest a source of patient's fever, as detailed above. Chest X-Ray 12/29/24 11:24 IMPRESSION: 1. No acute cardiopulmonary disease. Labs Labs: Laboratory Results - last 24 hr 12/30/24 05:50 WBC 14.9 H RBC 2.99 L Hgb 8.7 L Hct 26.7 L MCV 89.3 MCH 29.1 MCHC 32.6 RDW 13.8 Plt Count 192 MPV 11.8 H Immature Gran % (Auto) 0.9 H Neut % (Auto) 89.8 H Lymph % (Auto) 5.[address] [place] % (Auto) 3.3 Eos % (Auto) 0.0 Baso % (Auto) 0.1 L Lymph # (Auto) 0.[address] [place] # (Auto) 0.5 Eos # (Auto) 0.0 Baso # (Auto) 0.0 Abs Immat Gran (auto) 0.14 H Absolute Neuts (auto) 13.4 H Absolute Nucleated RBC 0.000 Nucleated RBC % 0.0 Creatinine 0.80 Estim Creat Clear Calc 48 Estimated GFR > 60
--- NOTE | 2024-12-30 08:08 | ECHO_ITS ---
Patient Info Name: Sanam Yu Age: 74 years : 1950 Gender: Female Ht: 65 in Wt: 156 lbs BSA: 1.82 m2 HR: 60 bpm BP: 130 / 62 mmHg Heart Rhythm: Sinus Rhythm Exam Date: 12/30/2024 10:06 AM Exam Location: Echo Lab Patient Status: Inpatient Admit Date: 12/24/2024 Staff Ordering Physician: Baltazar Walden MD Commercial Production Editor: Mica Stone RDCS Attending Provider: Valente Cadet MD Exam Type: CA echo doppler color flow Study Info Indications - Bradycardia Complete two-dimensional, color flow and Doppler transthoracic echocardiogram is performed. Summary 1. Complete two-dimensional, color flow and Doppler transthoracic echocardiogram is performed. 2. The left ventricle is normal in size and systolic function. The left ventricular ejection fraction is visually estimated to be 60-65%. 3. There is grade 2 diastolic dysfunction. 4. There is no significant valvular disease. Left Ventricle The left ventricle is normal in size and systolic function. The left ventricular ejection fraction is visually estimated to be 60-65%. There is grade 2 diastolic dysfunction. Right Ventricle The right ventricle is normal in size and systolic function. Left Atria The left atrium is moderately dilated. Atrial Septum The atrial septum is not well visualized. Aortic Valve The aortic valve is trileaflet and opens well. There is no aortic regurgitation. Pulmonic Valve The pulmonic valve is grossly normal. There is no color Doppler evidence of pulmonic valve regurgitation. Mitral Valve The mitral valve is sclerotic but opens well. There is mitral annular calcification. There is trace mitral regurgitation. Tricuspid Valve The tricuspid valve is grossly normal. There is trace tricuspid regurgitation. Pericardium/Pleural The pericardium is not well visualized. Inferior Vena Cava Inferior vena cava is not well visualized. Aorta The aortic root at the level of sinus of Valsalva measures 3.2 cm in diameter. Left Ventricular Outflow Tract Name Value Normal LVOT 2D LVOT Diameter 2.0 cm LVOT Doppler LVOT Peak Gradient 3 mmHg LVOT Mean Gradient 2 mmHg LVOT VTI 21 cm LVOT VTI/AV VTI Ratio 0.6 LVOT Stroke Volume 65 ml LVOT CO 2.7 l/min LVOT CI 1.5 l/min/m2 Pulmonic Valve Name Value Normal RVOT Doppler RVOT Peak Gradient 2 mmHg PV Doppler PV Peak Gradient 4 mmHg Mitral Valve Name Value Normal MV Doppler MV Decel [place] 336 cm/s2 MV PHT 71 ms MV Area (PHT) 3.1 cm2 4.0-5.0 MV Diastolic Function MV E Peak Velocity 82 cm/s MV A Peak Velocity 83 cm/s MV E/A 1.0 MV Decel Time 244 ms MV Annular TDI MV E/e' (Septal) 15.9 <=8.0 MV E/e' (Lateral) 13.1 <=8.0 MV E/e' (Average) 14.5 Tricuspid Valve Name Value Normal TV Regurgitation Doppler TR Peak Velocity 193 cm/s TR Peak Gradient 12 mmHg Aortic Valve Name Value Normal AV Doppler AV Peak Velocity 150 cm/s AV Peak Gradient 9 mmHg AV Mean Gradient 4 mmHg AV VTI 35 cm AV Area (Cont Eq VTI) 1.9 cm2 >=3.0 AV Area (Cont Eq Prasanth) 1.9 cm2 AV Regurgitation 2D LVOT Area 3.0 cm2 Ventricles Name Value Normal LV Dimensions 2D/MM IVS Diastolic Thickness (2D) 0.8 cm 0.6-1.0 LVID Diastole (2D) 4.4 cm 3.8-5.2 LVIW Diastolic Thickness (2D) 1.1 cm 0.6-0.9 LVID Systole (2D) 2.8 cm 2.2-3.5 LVOT Diameter 2.0 cm LV Mass (2D Cubed) 134.69 g 67.00-162.00 LV Mass Index (2D Cubed) 74 g/m2 43-95 Relative Wall Thickness (2D) 0.47 LV Fractional Shortening/Ejection Fraction 2D/MM LV Fractional Shortening (2D) 33 % 27-45 LV EF (2D Teicholz) 62 % 54-74 LV Diastolic Volume (4C MOD) 94 ml LV EF (4C MOD) 54 % LV Diastolic Volume (2C MOD) 90 ml LV EF (2C MOD) 60 % LV Diastolic Volume (BP MOD) 93 ml 46-106 LV Diastolic Volume Index (BP MOD) 51 ml/m2 29-61 LV Systolic Volume (BP MOD) 43 ml 14-42 LV Systolic Volume Index (BP MOD) 23 ml/m2 8-24 LV EF (BP MOD) 54 % 54-74 LV Diastolic Length (4C) 7.9 cm LV Systolic Length (4C) 6.1 cm LV Stroke Volume (4C MOD) 56 ml Atria Name Value Normal LA Dimensions LA Volume (4C A-L) 66 ml LA Volume (BP A-L) 76 ml Report Signatures
[2024-12-30 08:40] LABS: Anion Gap 9 mmol/L (4-12); Blood Urea Nitrogen 17 mg/dL (7-17); Calcium 8.2 mg/dL (8.4-10.2); Carbon Dioxide 23 mmol/L (22-30); Chloride 100 mmol/L (98-107); Estimated CRCL calculation 48 ml/min; Estimated Glomerular Filt Rate > 60; Glucose 116 mg/dL (65-110); Magnesium 1.4 mg/dL (1.6-2.3); Potassium 3.3 mmol/L (3.4-5.0); Sodium 132 mmol/L (137-145)
[2024-12-30] MEDS: FAMOTIDINE 20 MG TABLET PO ×2 (08:54→20:43)
[2024-12-30] MEDS: ANASTROZOLE (*CHEMO) 1 MG TABLET PO (08:54)
[2024-12-30] MEDS: ASPIRIN 81 MG ENTERIC TABLET PO (08:54)
[2024-12-30] MEDS: ACETAMINOPHEN 500 MG TABLET 1000 MG PO ×2 (08:54→17:05)
[2024-12-30] MEDS: MEMANTINE 10 MG TABLET PO ×2 (08:54→20:43)
[2024-12-30] MEDS: allopurinoL 300 MG TABLET PO (08:54)
[2024-12-30] MEDS: HEPARIN SODIUM 5,000 UNITS/ML VIAL 5000 UNITS SUB-Q ×2 (09:03→20:43)
[2024-12-30] MEDS: VANCOMYCIN 1,000 MG/NS 250 ML 1,000 MG/250 ML BAG 250 MG IVPB (12:08)
[2024-12-30] MEDS: hydrOXYzine HCL 25 MG TABLET PO (20:43)
[2024-12-30] MEDS: MELATONIN 5 MG TABLET PO (20:43)
[2024-12-31] VITALS (17 sets, daily range): BP systolic 100–150; BP diastolic 57–81; PULSE 42–121; RESP 16–18; TEMP 36.4–39.4; O2SAT 92–99
[2024-12-31] MEDS: PIPERACILLN/TAZ 3.375GM/NS50ML 3.375 GM/50 ML BAG IVPB ×5 (00:16→23:25)
[2024-12-31] MEDS: SODIUM CHLORIDE 0.9% IV 1,000 ML 125 ML IV CONT ×2 (00:17→11:08)
[2024-12-31] MEDS: ACETAMINOPHEN 500 MG TABLET 1000 MG PO (05:36)
[2024-12-31 07:01] LABS: Basophils Percent Auto 0.3 % (0.2-1.2); Eosinophils Percent Auto 0.2 % (0-4.4); Hematocrit 34.2 % (37.0-47.0); Hemoglobin 10.9 g/dL (12.0-15.0); Immature Granulocyte Absolute 0.15 K/mm3 (0.00-0.031); Immature Granulocyte Percent A 1.2 % (0-0.5); Immature Platelet Fraction Pct 9.5 % (0.9-11.2); Lymphocytes Absolute Auto 0.35 K/mm3 (0.9-3.2); Lymphocytes Percent Auto 2.7 % (18.3-44.2); Mean Corpuscular HGB Conc 31.9 g/dl (32-36); Mean Corpuscular Hemoglobin 29.3 pg (26-34); Mean Corpuscular Volume 91.9 fl (80-100); Mean Platelet Volume 11.8 fl (7.4-10.4); Monocytes Absolute Auto 0.3 K/mm3 (0.1-0.6); Monocytes Percent Auto 2.2 % (2.6-8.5); Neutrophils Absolute Auto 12.2 K/mm3 (1.3-6.7); Neutrophils Percent Auto 93.4 % (45.5-73.1); Platelet Count Result 166 k/mm3 (150-375); Red Blood Count 3.72 M/mm3 (4.2-5.4); Red Cell Distribution Width 14.2 % (11.5-14.5)
[2024-12-31 07:17] LABS: Anion Gap 13 mmol/L (4-12); Blood Urea Nitrogen 14 mg/dL (7-17); Calcium 8.6 mg/dL (8.4-10.2); Carbon Dioxide 19 mmol/L (22-30); Chloride 102 mmol/L (98-107); Estimated CRCL calculation 53 ml/min; Estimated Glomerular Filt Rate > 60; Glucose 97 mg/dL (65-110); Magnesium 1.2 mg/dL (1.6-2.3); Potassium 3.3 mmol/L (3.4-5.0); Sodium 134 mmol/L (137-145)
--- NOTE | 2024-12-31 08:11 | P.PNIM_ITS ---
Progress Note: A&P Assessment and Plan (1) PRASANTH (acute kidney injury): Code(s): N17.9 - Acute kidney failure, unspecified Status: Acute (2) Sepsis: Code(s): A41.9 - Sepsis, unspecified organism Status: Acute (3) Delirium due to general medical condition: Code(s): F05 - Delirium due to known physiological condition Status: Acute (4) COVID-19: Code(s): U07.1 - COVID-19 Status: Acute Plan sepsis Code(s): R65.10 - Systemic inflammatory response syndrome (SIRS) of non-infectious origin without acute organ dysfunction Status: Acute Assessment and Plan: Patient presents with fever and found to have elevated WBC, tachycardia and tachypnea. CT of the chest, abdomen and pelvis with contrast showed no acute cardiopulmonary disease and no acute findings in the abdomen or pelvis imaging. She had air in the bile ducts but had undergone recent ERCP on 12/10/2024. UCx grew Enterococus last month but was a contaminated sample. Urinalysis here was clear. Patient was treated with IV antibiotics after appropriate cultures obtain but antibiotics were not continued. BCx are no growth to date. CXR was clear. Fever has recurred. Suspect SIRS related to COVID but still having fevers. WBC still elevated but trending down. Recultured yesterday but no other source of infection noted. Continue scheduled Tylenol 12/29: Patient had fever 103.2 yesterday evening, rapid response was called, leukocytosis is trending up yesterday, white blood cell 18209 with neutrophils left shift. Meeting criteria of sepsis Repeated CT scan December 28, that showed Pneumobilia is again identified, for which prior sphincterotomy (on 12/10/2024) is suspected. Repeat blood culture on December 28 has no growth so far. Started with doxycycline and Zosyn on December 28, patient is afebrile overnight, but leukocytosis is getting worse, continue Zosyn and switch from doxy to vancomycin IV 12/29 Leukocytosis improving, blood culture negative, patient fever yesterday, afebrile overnight per nurse report, repeated chest x-ray on December 29 shows no acute cardiopulmonary issues. Continue current treatment 12/30 Patient had fever overnight, but leukocytosis is trending down, will repeat blood culture urine culture and CTA chest abdomen pelvis, unclear source of infe ction, lumbar puncture, continue vancomycin and Zosyn, and add acyclovir , I have discussed case with Dr. De La Rosa neurologist, he agrees the plan 12/31 Altered mental status Patient had fever overnight, patient is on vancomycin Zosyn Pending CT head without contrast, lumbar puncture, add Acyclovir Neuro check COVID: Code(s): U07.1 - COVID-19 Status: Acute Assessment and Plan: Patient tested positive for COVID on 12/22/24. Paxlovid ordered but she had not started this yet. Patient currently on room air. hold on starting remdesivir since her only risk factor is age. CRP 7.3 (cut off at >7.5) and Troponin not 2xULN. Continue supportive care. Hypomagnesemia and hypokalemia Replete with potassium chloride and magnesium sulfate Follow-up BMP magnesium PRASANTH (acute kidney injury), hyponatremia Code(s): N17.9 - Acute kidney failure, unspecified Status: Acute Assessment and Plan: Creatinine elevated at 1.4 with a normal underlying baseline. Kidneys appeared normal by imaging. s/w NS 125 mL/hour on 12/29, patient had high fever yesterday (4) Hypokalemia: Code(s): E87.6 - Hypokalemia Status: Acute Assessment and Plan: Patient with potassium 3.1. Potassium was replaced. Continue to monitor and replace Sinus bradycardia EKG shows sinus bradycardia heart rate 45, no specific ST or T-wave changes QTC 460 Follow-up BMP magnesium level, follow-up echocardiogram Avoid beta-frieda and calcium channel frieda Telemetry monitoring. Dementia: Qualifiers: Dementia type: unspecified type Code(s): F03.90 - Unspecified dementia, unspecified severity, without behavioral disturbance, psychotic disturbance, mood disturbance, and anxiety Status: Chronic Assessment and Plan: Stable. Continue Namenda. (6) Hypertension: Qualifiers: Hypertension type: primary hypertension Qualified Code(s): I10 - Essential (primary) hypertension Code(s): I10 - Essential (primary) hypertension Status: Chronic Assessment and Plan: Patient's blood pressure was reviewed on 12/28 Blood pressure was markedly elevated on admission but better today. Could be compensatory to low HR. Will add Norvasc. Will follow (7) Bradycardia: Code(s): R00.1 - Bradycardia, unspecified Status: Acute Assessment and Plan: HR drops to 30's overnight so metoprolol held. She now has tachycardia but sinus mechanism and felt related to agitation. Persistent bradycardia at night so will stop metoprolol TSH normal. Follow on tele. Subjective Date/time seen: 12/31/24 08:11 Interval history: I saw and examined patient today. Patient has been having fever over the night, patient is noted confused. Point saw exam patient, patient arousable, drowsy. Unable to follow commands Per nurse report, patient did have nausea vomiting. Patient also did have complaints chest pain abdomen pain, dysuria Labs reviewed, leukocytosis continue improving, white blood cells 13,000 today Chemistry showed hyponatremia, sodium improving, potassium 3.3, replete potassium chloride Blood cultures on December 28 has no grows Exam Narrative: GENERAL: Somnolent in no acute distress. Well-nourished. - EYES: EOMI. Anicteric. - HENT: Moist mucous membranes. - LUNGS: Clear to auscultation bilateral ly, no wheezing, rhonchi, or rales. - CARDIOVASCULAR: Regular rate and rhyth m. No murmur. No JVD. - ABDOMEN: Soft, non-tender and non-dist ended. No palpable masses. - EXTREMITIES: No edema. Peripheral puls es 2+. Non-tender. - NEUROLOGIC: No focal neurological defi cits. CN II-XII grossly intact. - PSYCHIATRIC: Confused not oriented x 3. - SKIN: No rashes or lesions. Warm. - LYMPH: No cervical lymphadenopathy. Objective Data Vital Signs Vital Signs: Vital Signs - 24 hr 12/30/24 08:54 12/30/24 08:55 12/30/24 09:54 Temperature 100.6 F H 98.4 F Pulse Rate Respiratory Rate Blood Pressure Pulse Oximetry Oxygen Delivery Room Air 12/30/24 12:00 12/30/24 15:53 12/30/24 16:00 Temperature 98.2 F Pulse Rate 53 L 50 L 54 L Respiratory Rate 15 Blood Pressure 131/67 Pulse Oximetry 100 Oxygen Delivery 12/30/24 20:00 12/30/24 21:11 12/31/24 00:00 Temperature 97.6 F Pulse Rate 66 57 L 42 L Respiratory Rate 16 Blood Pressure 142/65 H Pulse Oximetry 100 Oxygen Delivery 12/31/24 00:24 12/31/24 04:00 12/31/24 05:43 Temperature 98.0 F 100.2 F H Pulse Rate 62 56 L 121 H Respiratory Rate 16 16 Blood Pressure 146/64 H 150/81 H Pulse Oximetry 95 94 Oxygen Delivery 12/31/24 06:43 12/31/24 07:09 12/31/24 07:26 Temperature 102.5 F H 103.0 F H 102.9 F H Pulse Rate Respiratory Rate Blood Pressure Pulse Oximetry Oxygen Delivery Intake/Output Intake/Output: Intake & Output 12/28/24 12/29/24 12/30/24 12/31/24 23:59 23:59 23:59 23:59 Intake Total 150 1540 3998.8 350 Output Total 75 300 300 Balance 75 1240 3698.8 350 Meds/Results Medications: Active Medications Generic Name Dose Route Start Last Admin Trade Name Freq PRN Reason Stop Dose Admin Acetaminophen 1,000 mg 12/28/24 18:59 12/31/24 05:36 Acetaminophen 500 Mg Tablet PO 1,000 mg Q6H PRN Administration Mild Pain (1-3) or Fever Albuterol/Ipratropium 3 ml 12/25/24 00:57 Ipratropium 0.5 Mg/Albuterol Sulfate 2.5 Mg Ampul.Neb 3 Ml INHALATION Q4HRT PRN shortness of breath/Wheezing Allopurinol 300 mg 12/25/24 09:00 12/30/24 08:54 Allopurinol 300 Mg Tablet PO 300 mg DAILY IDALIA Administration Anastrozole 1 mg 12/26/24 09:00 12/30/24 08:54 Anastrozole (*Chemo) 1 Mg Tablet PO 1 mg DAILY IDALIA Administration Aspirin 81 mg 12/25/24 09:00 12/30/24 08:54 Aspirin 81 Mg Enteric Tablet PO 81 mg DAILY IDALIA Administration Enalapril Maleate 10 mg 12/25/24 09:00 12/30/24 09:05 Enalapril Maleate 10 Mg Tablet PO Not Given DAILY IDALIA Famotidine 20 mg 12/25/24 09:00 12/30/24 20:43 Famotidine 20 Mg Tablet PO 20 mg Q12HR IDALIA Administration Guaifenesin/Dextromethorphan 10 ml 12/25/24 00:57 Guaifenesin/Dextromethorphan 10 Ml Udc PO Q4H PRN Cough Heparin Sodium (Porcine) 5,000 units 12/25/24 09:00 12/30/24 20:43 Heparin Sodium 5,000 Units/Ml Vial SUB-Q 5,000 units Q12HR IDALIA Administration Hydroxyzine HCl 25 mg 12/25/24 21:00 12/30/24 20:43 Hydroxyzine Hcl 25 Mg Tablet PO 25 mg HS IDALIA Administration Piperacillin/Tazobactam/Dextrose 3.375 gm in 50 mls @ 100 mls/hr 12/28/24 17:00 12/31/24 05:55 Zosyn 3.375 Gm/Ns 50 Ml IVPB Infused Q6HR IDALIA Infusion Sodium Chloride 1,000 mls @ 125 mls/hr 12/29/24 09:50 12/31/24 00:17 Normal Saline Iv IV CONT 125 mls/hr .Q8H IDALIA Administration Vancomycin HCl 1,000 mg in 250 mls @ 250 mls/hr 12/30/24 11:00 12/30/24 13:08 Vancomycin 1,000 Mg/Ns 250 Ml IVPB Infused Q24H IDALIA Infusion Melatonin 5 mg 12/27/24 21:00 12/30/24 20:43 Melatonin 5 Mg Tablet PO 5 mg HS IDALIA Administration Memantine 10 mg 12/25/24 09:00 12/30/24 20:43 Memantine 10 Mg Tablet PO 10 mg Q12HR IDALIA Administration Ondansetron HCl 4 mg 12/24/24 22:04 Ondansetron Inj 4 Mg/2 Ml Vial IV PUSH Q4H PRN Nausea Perflutren Lipid Microsphere 0 ml 12/30/24 08:08 Perflutren Lipid Microspheres 1.5 Ml Vial Diluted To 10 Ml Total Volume IV PUSH 01/02/25 08:08 ONCE PRN adequate visualization Protocol Prochlorperazine Edisylate 10 mg 12/25/24 00:57 Prochlorperazine Edisylate 10 Mg/2 Ml Vial IV PUSH Q6H PRN Nausea And Vomiting Radiology Results: ITS Impressions Head CT 12/24/24 20:34 IMPRESSION: No acute intracranial findings. Chest/Abdomen/Pelvis CT 12/24/24 20:40 IMPRESSION: CHEST: 1. No acute cardiopulmonary pathology. 2. Loss of volume of T12 which is most likely chronic. ABDOMEN/PELVIS: 1. No evidence of appendicitis, diverticulitis or intestinal obstruction. 2. Air is seen in the bile ducts of the left lobe of the liver. Abdomen/Pelvis CT 12/28/24 19:00 IMPRESSION: No findings within the abdomen or pelvis to suggest a source of patient's fever, as detailed above. Chest X-Ray 12/29/24 11:24 IMPRESSION: 1. No acute cardiopulmonary disease. Labs Labs: Laboratory Results - last 24 hr 12/30/24 12/31/24 05:45 06:54 WBC 13.0 H RBC 3.72 L Hgb 10.9 L Hct 34.2 L MCV 91.9 MCH 29.3 MCHC 31.9 L RDW 14.2 Plt Count 166 MPV 11.8 H Immature Gran % (Auto) 1.2 H Neut % (Auto) 93.4 H Lymph % (Auto) 2.7 L [place] % (Auto) 2.2 L Eos % (Auto) 0.2 Baso % (Auto) 0.3 Lymph # (Auto) 0.35 L [place] # (Auto) 0.3 Eos # (Auto) 0.0 Baso # (Auto) 0.0 Abs Immat Gran (auto) 0.15 H Absolute Neuts (auto) 12.2 H Absolute Nucleated RBC 0.000 Nucleated RBC % 0.0 % Immature Plt Fraction 9.5 Sodium 132 L 134 L Potassium 3.3 L 3.3 L Chloride 100 102 Carbon Dioxide 23 19 L Anion Gap 9 13 H BUN 17 14 Creatinine 0.80 0.72 Estim Creat Clear Calc 48 53 Estimated GFR > 60 > 60 Glucose 116 H 97 Calcium 8.2 L 8.6 Magnesium 1.4 L 1.2 L
[2024-12-31] MEDS: MEMANTINE 10 MG TABLET PO ×2 (08:43→20:53)
[2024-12-31] MEDS: ASPIRIN 81 MG ENTERIC TABLET PO (08:43)
[2024-12-31] MEDS: ENALAPRIL MALEATE 10 MG TABLET PO (08:43)
[2024-12-31] MEDS: FAMOTIDINE 20 MG TABLET PO ×2 (08:43→20:53)
[2024-12-31] MEDS: allopurinoL 300 MG TABLET PO (08:43)
[2024-12-31] MEDS: ANASTROZOLE (*CHEMO) 1 MG TABLET PO (08:43)
[2024-12-31 10:16] LABS: Prothrombin Time 13.9 Seconds (11.1-14.7)
[2024-12-31 10:17] LABS: Partial Thromboplastin Time 35.3 Seconds (22.3-36.8)
[2024-12-31 10:18] LABS: Vancomycin Trough 12.8 ug/mL (10.0-20.0)
--- NOTE | 2024-12-31 11:00 | ECG_ITS ---
Test Date: 2024-12-31 11:16:32 Measurements Intervals [place] Rate: 93 P: 35 ND: 130 QRS: 3 QRSD: 93 T: 30 QT: 369 QTc: 460 Interpretive Statements SINUS RHYTHM NONSPECIFIC T-WAVE ABNORMALITY ABNORMAL ECG Compared to ECG 12/30/2024 07:37:14 PATIENT IS NO LONGER BRADYCARDIC Electronically Signed On 01-01-2025 15:17:41 [employer]PER[employer] by Bandar Mares M.D.
[2024-12-31 11:50] LABS: Troponin I 0.048 ng/mL (0.000-0.034)
--- NOTE | 2024-12-31 12:03 | PCNFU ---
Nutrition Follow-Up Complete: Severe Protein Calorie Malnutrition as related to inadequate protein energy intake in setting of acute disease as evidenced by < 50% of estimated energy needs and significant weight loss of 1% (8 ibs) in 5 days. Goal: Adequate Intake of at least 75% of meals/supplements Patient is not meeting goal. Will continue current goal. Pt current nutrition is Heart Healthy with Ensure Enlive TID. Last recorded weight is 69.4 kg, up from 67.2 kg on admit. Bowel Motility: Last reported BM / Labs Reviewed:K 3.3, NA 134, Hct 34.2, Hgb 10.9 Meds Noted:Sodium Chloride, Vancomycin, Zosyn, Pepcid Skin: WNL Additional Notes: Patient current with heart healthy diet with Ensure Enlive (350 kcal/20 gm protein). Intake has been < 25% of meals x 7 days. Patient refused breakfast today. Spoke with hospital today regarding nutrition. Diet order changed per MD orders to regular diet. Discussions regarding possible NGT feedings due to poor po intake. If family is agreeable to NGT feedings, recommend Jevity 1.5 at 20 ml/hr advance by 10 ml q 4 hours to goal rate of 50 ml/hr. Tube feeding at goal rate providing 1650 kcal/70 gm protein/836 ml water. Flush 100 ml q [address] will monitor weight, ,labs, skin, intake, meds every 3 days.
[2024-12-31] MEDS: LORazepam INJ (*CRX) 2 MG/ML VIAL 0.5 MG IV PUSH (12:07)
--- NOTE | 2024-12-31 12:10 | PC.NURSE ---
Patient to radiology via bed
[2024-12-31] MEDS: VANCOMYCIN 1,250 MG/NS 250 ML 1,250 MG/250 ML BAG 166.67 MG IVPB (13:30)
--- NOTE | 2024-12-31 13:30 | PC.NURSE ---
Patient returned to floor via bed following CTA and lumbar puncture. No patient complaints at this time.
[2024-12-31] MEDS: MAGNESIUM SULF 2 GM/WATER 50ML 2 GM/50 ML BAG IVPB (13:36)
[2024-12-31 13:44] LABS: Glucose CSF 45 mg/dL (40-70); Total Protein CSF 72 mg/dL (12-60)
[2024-12-31 14:26] LABS: Appearance CSF Clear (Clear); CSF source CSF; Color CSF Colorless (Colorless)
[2024-12-31 14:27] LABS: Nucleated Cell CSF 6 /uL (0-5)
[2024-12-31 14:28] LABS: Neutrophils CSF 1 % (0-6); Red Blood Cell CSF 3.85 (0-2)
[2024-12-31 14:29] LABS: Lymphocytes CSF 69 % (40-80); Macrophages CSF 3; Monocytes CSF 20 % (15-45); Other Cells CSF 7 %
[2024-12-31 15:01] LABS: Troponin I 0.051 ng/mL (0.000-0.034)
[2024-12-31] MEDS: POTASSIUM CHLORIDE INJ 40 MEQ in SODIUM CHLORIDE 0.9% IV 500 ML 130 MEQ IVPB (15:36)
--- NOTE | 2024-12-31 15:53 | P.CONCA_ITS ---
Assessment and Plan Assessment and plan (1) Sepsis: Code(s): A41.9 - Sepsis, unspecified organism Status: Acute Plan 1. Chest pain, unable to obtain any history from the patient. No known prior cardiac history. EKG with nonspecific STTW abnormality. Troponins are mildly elevated and flat. PLAN: -Unable to obtain any history from the patient, therefore, unable to further characterize the chest pain that she had. However, no objective evidence of an acute coronary syndrome. Troponins are flat. EKG with nonspecific STTW changes. Echocardiogram done yesterday shows normal LVEF, no significant valvular disease. At this time, do not recommend additional cardiac testing. Monitor for any recurrent symptoms. Cardiology will sign off at this time, however, call us back if needed. History of Present Illness History of Present Illness Consult date/time: 12/31/24 15:53 Requesting physician: Baltazar Walden MD Consult reason: chest pain Reason For Visit: Sepsis, COVID, AMS, Recent choledocholithiasis Narrative: We are consulted for chest pain. Unable to obtain any history from the patient, therefore, history obtained from the chart, patient's medical team. Sanam is a 74 year old female who was admitted back on 12/24 for malaise, fatigue, fever, abdominal pain. Found with COVID. Undergoing workup and treatment of sepsis, possible meningitis. Underwent lumbar puncture today. Patient reportedly complained of chest pain today. EKG obtained which shows sinus rhythm, nonspecific STTW abnormality. Troponins were checked and found to be 0.048, 0.051. No prior cardiac history from what I can see from chart review. Review of Systems 2 Review of Systems: ROS unobtainable: Yes unobtainable due to mental status PMFSH Past Medical History Medical History SIRS (systemic inflammatory response syndrome) Leukocytosis Anemia Gout Gastroesophageal reflux disease Hypertension Alzheimer's dementia Breast cancer Surgical History Surgical History History of ERCP History of open reduction and internal fixation (ORIF) procedure (04/08/22) Repair of left hip fracture with IM nail. History of cholecystectomy History of appendectomy History of bilateral mastectomy Family History Family History Other Family history unknown Social History Social History Social History: Surrogate decision maker: Daya Carmona, daughter. Code status: Full code. Smoking status: Never smoker Second hand tobacco smoke exposure: No Alcohol intake: never Substance use: never Substance use type: does not use Do You Feel Safe in your Home?: Yes Lack of Transportation: YES Lack of Food: Never True Current Housing: I Have Housing Concerned About Future Housing: No Difficulty Paying Gas/Electric Bills: No Difficulty Paying for Meds: No Currently Unemployed: No Education: High School Diploma/GED Difficulty w/ Childcare or Family Care: No Spiritual care concerns: No Meds Home Medications and Allergies Home Medications ?Medication ?Instructions ?Recorded ?Confirmed ?Type acetaminophen 500 mg tablet 500 mg PO Q6H 04/19/22 12/25/24 History allopurinol 300 mg tablet 300 mg PO DAILY 04/19/22 12/25/24 History anastrozole 1 mg tablet 1 mg PO DAILY 04/19/22 12/25/24 History aspirin 81 mg tablet,delayed 81 mg PO DAILY 04/19/22 12/25/24 History release enalapril maleate 10 mg tablet 10 mg PO DAILY 04/19/22 12/25/24 History famotidine 20 mg tablet 20 mg PO BID 04/19/22 12/25/24 History memantine 10 mg tablet 10 mg PO BID 04/19/22 12/25/24 History metoprolol tartrate 25 mg tablet 12.5 mg PO BID 04/19/22 12/25/24 History nirmatrelvir 300 mg (150 mg See Rx Instructions PO .COMPLEX 12/22/24 12/25/24 Rx x2)-ritonavir 100 mg tablet,dose #30 ea pack (Paxlovid) hydroxyzine HCl 25 mg tablet 25 mg PO HS 12/25/24 12/25/24 History Allergies Allergy/AdvReac Type Severity Reaction Status Date / Time Sulfa (Sulfonamide Allergy Unknown Unknown Verified 12/25/24 08:02 Antibiotics) naproxen Allergy Unknown Verified 12/25/24 08:02 quetiapine AdvReac Unknown Unknown Verified 12/25/24 08:02 Vital Signs Vital Signs - 24 hr 12/30/24 16:00 12/30/24 20:00 12/30/24 21:11 Temperature 36.4 C Pulse Rate 54 L 66 57 L Respiratory Rate 16 Blood Pressure 142/65 H Pulse Oximetry 100 Oxygen Delivery 12/31/24 00:00 12/31/24 00:24 12/31/24 04:00 Temperature 36.7 C Pulse Rate 42 L 62 56 L Respiratory Rate 16 Blood Pressure 146/64 H Pulse Oximetry 95 Oxygen Delivery 12/31/24 05:43 12/31/24 06:43 12/31/24 07:09 Temperature 37.9 C H 39.2 C H 39.4 C H Pulse Rate 121 H Respiratory Rate 16 Blood Pressure 150/81 H Pulse Oximetry 94 Oxygen Delivery 12/31/24 07:26 12/31/24 08:00 12/31/24 08:42 Temperature 39.4 C H 39.4 C H Pulse Rate 89 Respiratory Rate Blood Pressure Pulse Oximetry Oxygen Delivery 12/31/24 08:45 12/31/24 10:49 12/31/24 12:00 Temperature 37.1 C Pulse Rate 81 Respiratory Rate Blood Pressure Pulse Oximetry Oxygen Delivery Room Air 12/31/24 13:09 12/31/24 13:09 12/31/24 13:58 Temperature 36.4 C Pulse Rate 79 77 67 Respiratory Rate 18 16 18 Blood Pressure 111/59 L 113/60 100/57 L Pulse Oximetry 93 92 97 Oxygen Delivery Exam 2 Const: Other: Ill appearing female. Resp: Effort & Inspection: normal respiratory effort Cardio: Rate: regular rate Rhythm: regular rhythm Heart sounds: no murmurs Neuro: Other: Altered mental status. Quite sleepy. Results Labs and Meds 12/31/24 06:54 12/31/24 06:54 Lab results: Cardiac Enzymes 12/31/24 12/31/24 Range/Units 11:20 14:19 Troponin I 0.048 H* 0.051 H* (0.000-0.034) ng/mL Coagulation 12/31/24 Range/Units 09:38 PT 13.9 (11.1-14.7) Seconds APTT 35.3 (22.3-36.8) Seconds CBC 12/31/24 Range/Units 06:54 WBC 13.0 H (4.5-10.0) K/mm3 RBC 3.72 L (4.2-5.4) M/mm3 Hgb 10.9 L (12.0-15.0) g/dL Hct 34.2 L (37.0-47.0) % Plt Count 166 (150-375) k/mm3 Lymph # (Auto) 0.35 L (0.9-3.2) K/mm3 [place] # (Auto) 0.3 (0.1-0.6) K/mm3 Eos # (Auto) 0.0 (0-0.3) K/mm3 Baso # (Auto) 0.0 (0.0-0.1) K/mm3 Comprehensive Metabolic Panel 12/31/24 Range/Units 06:54 Sodium 134 L (137-145) mmol/L Potassium 3.3 L (3.4-5.0) mmol/L Chloride 102 (98-107) mmol/L Carbon Dioxide 19 L (22-30) mmol/L BUN 14 (7-17) mg/dL Creatinine 0.72 (0.7-1.0) mg/dL Glucose 97 (65-110) mg/dL Calcium 8.6 (8.4-10.2) mg/dL Intake and Output 12/30/24 12/31/24 12/31/24 23:59 07:59 15:59 Intake Total 9110 749 1208 Balance 5031 660 2639 Intake: IV 8777 838 5084 Sodium Chloride 0.9% IV 1,000 1000 1000 ml @ 125 mls/hr IV CONT .Q8H IDALIA Rx#:[id number] Piperacilln/Kendrick 3.375GM/Ns50ml 50 100 3.375 gm In 50 ml @ 100 mls/hr IVPB Q6HR IDALIA Rx#:[id number] Vancomycin 1,250 mg/Ns 250 ml 1 250 ,250 mg In 250 ml @ 166.667 mls /hr IVPB Q24H IDALIA Rx#:[id number] Oral 120 250 Other: # Unmeasured Voids 1 3 # Incontinent Voids 1 Number of Bowel Movements Today 1 Patient Weight 12/31/24 23:59 Weight 69.4 kg
[2024-12-31] MEDS: WATER IVPB ×2 (15:54→21:12)
[2024-12-31] MEDS: DEXTROSE 5% IVPB ×2 (15:54→21:12)
[2024-12-31] MEDS: ACYCLOVIR SODIUM IVPB ×2 (15:54→21:12)
[2024-12-31] MEDS: hydrOXYzine HCL 25 MG TABLET PO (20:53)
[2024-12-31] MEDS: MELATONIN 5 MG TABLET PO (20:53)
[2024-12-31] MEDS: HEPARIN SODIUM 5,000 UNITS/ML VIAL 5000 UNITS SUB-Q (20:56)
[2024-12-31 22:57] LABS: Add Urine Microscopic? YES; Appearance Urine Clear (Clear); Bacteria Urine None Seen /hpf; Bilirubin Urine Negative (Negative); Blood Urine Negative (Negative); Color Urine Yellow (Yellow); Glucose Urine UA Negative (Negative); Ketones Urine Trace mg/dL (Negative); Leukocyte Esterase Ur Negative LEU/UL (Negative); Need Manual Microscopic Reviewed; Nitrate Urine Negative (Negative); Protein Urine 1+ mg/dL (Negative); RBC Urine 0-2 /hpf (0-2); Specific Grav Ur 1.021 (1.001-1.035); Squamous Epithelial Cell Urine Few /hpf (Few); WBC Urine 0-5 /hpf (0-3); pH Urine 5.5 (5.0-9.0)
[2025-01-01] VITALS (11 sets, daily range): BP systolic 117–184; BP diastolic 59–112; PULSE 51–117; RESP 18–20; TEMP 36.8–39.2; O2SAT 89–100
[2025-01-01] MEDS: SODIUM CHLORIDE 0.9% IV 1,000 ML 125 ML IV CONT (02:43)
[2025-01-01] MEDS: PIPERACILLN/TAZ 3.375GM/NS50ML 3.375 GM/50 ML BAG IVPB ×3 (06:13→17:31)
[2025-01-01 06:14] LABS: Anion Gap 9 mmol/L (4-12); Blood Urea Nitrogen 13 mg/dL (7-17); Calcium 8.1 mg/dL (8.4-10.2); Carbon Dioxide 22 mmol/L (22-30); Chloride 102 mmol/L (98-107); Estimated CRCL calculation 56 ml/min; Estimated Glomerular Filt Rate > 60; Glucose 86 mg/dL (65-110); Magnesium 1.6 mg/dL (1.6-2.3); Sodium 133 mmol/L (137-145)
[2025-01-01] MEDS: WATER IVPB ×3 (06:46→21:07)
[2025-01-01] MEDS: ACYCLOVIR SODIUM IVPB ×3 (06:46→21:07)
[2025-01-01] MEDS: DEXTROSE 5% IVPB ×3 (06:46→21:07)
[2025-01-01 07:24] LABS: Basophils Percent Auto 0.3 % (0.2-1.2); Eosinophils Absolute Auto 0.1 K/mm3 (0-0.3); Eosinophils Percent Auto 0.4 % (0-4.4); Hematocrit 27.1 % (37.0-47.0); Hemoglobin 8.8 g/dL (12.0-15.0); Immature Granulocyte Absolute 0.09 K/mm3 (0.00-0.031); Immature Granulocyte Percent A 0.6 % (0-0.5); Lymphocytes Absolute Auto 1.12 K/mm3 (0.9-3.2); Lymphocytes Percent Auto 7.4 % (18.3-44.2); Mean Corpuscular HGB Conc 32.5 g/dl (32-36); Mean Corpuscular Hemoglobin 29.5 pg (26-34); Mean Corpuscular Volume 90.9 fl (80-100); Mean Platelet Volume 12.1 fl (7.4-10.4); Monocytes Absolute Auto 0.3 K/mm3 (0.1-0.6); Monocytes Percent Auto 1.8 % (2.6-8.5); Neutrophils Absolute Auto 13.6 K/mm3 (1.3-6.7); Neutrophils Percent Auto 89.5 % (45.5-73.1); Platelet Count Result 216 k/mm3 (150-375); Red Blood Count 2.98 M/mm3 (4.2-5.4); Red Cell Distribution Width 14.5 % (11.5-14.5); White Blood Count 15.2 K/mm3 (4.5-10.0)
--- NOTE | 2025-01-01 09:57 | P.PNIM_ITS ---
Progress Note: A&P Assessment and Plan (1) PRASANTH (acute kidney injury): Code(s): N17.9 - Acute kidney failure, unspecified Status: Acute (2) Sepsis: Code(s): A41.9 - Sepsis, unspecified organism Status: Acute (3) Delirium due to general medical condition: Code(s): F05 - Delirium due to known physiological condition Status: Acute (4) COVID-19: Code(s): U07.1 - COVID-19 Status: Acute Plan sepsis Code(s): R65.10 - Systemic inflammatory response syndrome (SIRS) of non-infectious origin without acute organ dysfunction Status: Acute Assessment and Plan: Patient presents with fever and found to have elevated WBC, tachycardia and tachypnea. CT of the chest, abdomen and pelvis with contrast showed no acute cardiopulmonary disease and no acute findings in the abdomen or pelvis imaging. She had air in the bile ducts but had undergone recent ERCP on 12/10/2024. UCx grew Enterococus last month but was a contaminated sample. Urinalysis here was clear. Patient was treated with IV antibiotics after appropriate cultures obtain but antibiotics were not continued. BCx are no growth to date. CXR was clear. Fever has recurred. Suspect SIRS related to COVID but still having fevers. WBC still elevated but trending down. Recultured yesterday but no other source of infection noted. Continue scheduled Tylenol 12/29: Patient had fever 103.2 yesterday evening, rapid response was called, leukocytosis is trending up yesterday, white blood cell 20507 with neutrophils left shift. Meeting criteria of sepsis Repeated CT scan December 28, that showed Pneumobilia is again identified, for which prior sphincterotomy (on 12/10/2024) is suspected. Repeat blood culture on December 28 has no growth so far. Started with doxycycline and Zosyn on December 28, patient is afebrile overnight, but leukocytosis is getting worse, continue Zosyn and switch from doxy to vancomycin IV 12/29 Leukocytosis improving, blood culture negative, patient fever yesterday, afebrile overnight per nurse report, repeated chest x-ray on December 29 shows no acute cardiopulmonary issues. Continue current treatment 12/30 Patient had fever overnight, but leukocytosis is trending down, will repeat blood culture urine culture and CTA chest abdomen pelvis, unclear source of infe ction, lumbar puncture, continue vancomycin and Zosyn, and add acyclovir , I have discussed case with Dr. De La Rosa neurologist, he agrees the plan 12/31 Patient is afebrile overnight, blood pressure stable, pulse ox 100% on room air, leukocytosis persists, 15,200, with left shift, chemistry shows hyponatremia 133, potassium 3.0 CSF showed increased right blood cell 3.8 H, limit set within normal limit, margin high protein, pending herpes PCR, UA unremarkable CT head shows no acute intracranial issues CT chest abdomen pelvis showed 1. Fluid throughout the colon consistent with nonspecific diarrhea. Correlate clinically for gastroenteritis. 2. Small right and trace left posterior layering pleural effusions. 3. Mild cardiomegaly. 4. Indeterminate 8 mm soft tissue density lesion at the lower pole the left kidney which could represent a proteinaceous/hemorrhagic cyst or solid renal cell carcinoma. Recommend pre and postcontrast MRI or CT for further evaluation. continue current treatment 01/01 Altered mental status Patient had fever overnight, patient is on vancomycin Zosyn Pending CT head without contrast, lumbar puncture, add Acyclovir Neuro check COVID: Code(s): U07.1 - COVID-19 Status: Acute Assessment and Plan: Patient tested positive for COVID on 12/22/24. Paxlovid ordered but she had not started this yet. Patient currently on room air. hold on starting remdesivir since her only risk factor is age. CRP 7.3 (cut off at >7.5) and Troponin not 2xULN. Continue supportive care. Hypomagnesemia and hypokalemia Replete with potassium chloride and magnesium sulfate Follow-up BMP magnesium PRASANTH (acute kidney injury), hyponatremia Code(s): N17.9 - Acute kidney failure, unspecified Status: Acute Assessment and Plan: Creatinine elevated at 1.4 with a normal underlying baseline. Kidneys appeared normal by imaging. s/w NS 125 mL/hour on 12/29, patient had high fever yesterday (4) Hypokalemia: Code(s): E87.6 - Hypokalemia Status: Acute Assessment and Plan: Patient with potassium 3.1. Potassium was replaced. Continue to monitor and replace Sinus bradycardia EKG shows sinus bradycardia heart rate 45, no specific ST or T-wave changes QTC 460 Follow-up BMP magnesium level, follow-up echocardiogram Avoid beta-frieda and calcium channel frieda Telemetry monitoring. Chest pain Moderate high troponin, EKG shows no specific ST T-wave changes Appreciate cardiology consultation, sky recommends no further workup for cardiac ischemia Dementia: Qualifiers: Dementia type: unspecified type Code(s): F03.90 - Unspecified dementia, unspecified severity, without behavioral disturbance, psychotic disturbance, mood disturbance, and anxiety Status: Chronic Assessment and Plan: Stable. Continue Namenda. (6) Hypertension: Qualifiers: Hypertension type: primary hypertension Qualified Code(s): I10 - Essential (primary) hypertension Code(s): I10 - Essential (primary) hypertension Status: Chronic Assessment and Plan: Blood pressure stable (7) Bradycardia: Code(s): R00.1 - Bradycardia, unspecified Status: Acute Assessment and Plan: HR drops to 30's overnight so metoprolol held. She now has tachycardia but sinus mechanism and felt related to agitation. Persistent bradycardia at night so will stop metoprolol TSH normal. Follow on tele. Subjective Date/time seen: 01/01/25 09:57 Interval history: I saw and examined patient today. Patient mental status improving, patient is arousable, able to follow commands, answer questions. Patient feels abdomen pain, denies chest pain nausea vomiting. Patient is afebrile overnight, blood pressure stable, pulse ox 100% on room air, leukocytosis persists, 15,200, with left shift, chemistry shows hyponatremia 133, potassium 3.0 CSF showed increased right blood cell 3.8 H, limit set within normal limit, margin high protein, pending herpes PCR Exam Narrative: GENERAL: Somnolent in no acute distress. Well-nourished. - EYES: EOMI. Anicteric. - HENT: Moist mucous membranes. - LUNGS: Clear to auscultation bilateral ly, no wheezing, rhonchi, or rales. - CARDIOVASCULAR: Regular rate and rhyth m. No murmur. No JVD. - ABDOMEN: Soft, non-tender and non-dist ended. No palpable masses. - EXTREMITIES: No edema. Peripheral puls es 2+. Non-tender. - NEUROLOGIC: Moving all extremities, - PSYCHIATRIC: Alert but not oriented x 3. - SKIN: No rashes or lesions. Warm. - LYMPH: No cervical lymphadenopathy. Objective Data Vital Signs Vital Signs: Vital Signs - 24 hr 12/31/24 10:49 12/31/24 12:00 12/31/24 13:09 Temperature 98.8 F Pulse Rate 81 79 Respiratory Rate 18 Blood Pressure 111/59 L Pulse Oximetry 93 12/31/24 13:09 12/31/24 13:58 12/31/24 16:00 Temperature 97.6 F Pulse Rate 77 67 55 L Respiratory Rate 16 18 Blood Pressure 113/60 100/57 L Pulse Oximetry 92 97 12/31/24 19:44 12/31/24 20:00 12/31/24 23:52 Temperature 98.0 F 98.0 F Pulse Rate 55 L 58 L Respiratory Rate 17 Blood Pressure 140/64 Pulse Oximetry 99 01/01/25 00:00 01/01/25 04:00 01/01/25 05:25 Temperature 98.3 F Pulse Rate 51 L 56 L 58 L Respiratory Rate 18 Blood Pressure 147/82 H Pulse Oximetry 100 Intake/Output Intake/Output: Intake & Output 12/29/24 12/30/24 12/31/24 01/01/25 23:59 23:59 23:59 23:59 Intake Total 1540 3998.8 3327.8 804.2 Output Total 300 300 50 200 Balance 1240 3698.8 3277.8 604.2 Meds/Results Medications: Active Medications Generic Name Dose Route Start Last Admin Trade Name Freq PRN Reason Stop Dose Admin Acetaminophen 1,000 mg 12/28/24 18:59 12/31/24 05:36 Acetaminophen 500 Mg Tablet PO 1,000 mg Q6H PRN Administration Mild Pain (1-3) or Fever Albuterol/Ipratropium 3 ml 12/25/24 00:57 Ipratropium 0.5 Mg/Albuterol Sulfate 2.5 Mg Ampul.Neb 3 Ml INHALATION Q4HRT PRN shortness of breath/Wheezing Allopurinol 300 mg 12/25/24 09:00 12/31/24 08:43 Allopurinol 300 Mg Tablet PO 300 mg DAILY IDALIA Administration Anastrozole 1 mg 12/26/24 09:00 12/31/24 08:43 Anastrozole (*Chemo) 1 Mg Tablet PO 1 mg DAILY IDALIA Administration Aspirin 81 mg 12/25/24 09:00 12/31/24 08:43 Aspirin 81 Mg Enteric Tablet PO 81 mg DAILY IDALIA Administration Aspirin 325 mg 01/01/25 08:00 Aspirin 325 Mg Tablet PO DAILY@0800 IDALIA Enalapril Maleate 10 mg 12/25/24 09:00 12/31/24 08:43 Enalapril Maleate 10 Mg Tablet PO 10 mg DAILY IDALIA Administration Famotidine 20 mg 12/25/24 09:00 12/31/24 20:53 Famotidine 20 Mg Tablet PO 20 mg Q12HR IDALIA Administration Guaifenesin/Dextromethorphan 10 ml 12/25/24 00:57 Guaifenesin/Dextromethorphan 10 Ml Udc PO Q4H PRN Cough Heparin Sodium (Porcine) 5,000 units 12/25/24 09:00 12/31/24 20:56 Heparin Sodium 5,000 Units/Ml Vial SUB-Q 5,000 units Q12HR IDALIA Administration Hydroxyzine HCl 25 mg 12/25/24 21:00 12/31/24 20:53 Hydroxyzine Hcl 25 Mg Tablet PO 25 mg HS IDALIA Administration Piperacillin/Tazobactam/Dextrose 3.375 gm in 50 mls @ 100 mls/hr 12/28/24 17:00 01/01/25 06:45 Zosyn 3.375 Gm/Ns 50 Ml IVPB Infused Q6HR IDALIA Infusion Sodium Chloride 1,000 mls @ 125 mls/hr 12/29/24 09:50 01/01/25 08:45 Normal Saline Iv IV CONT 0 mls/hr .Q8H IDALIA Infusion Acyclovir Sodium 695 mg/ 263.9 mls @ 250 mls/hr 12/31/24 12:00 01/01/25 06:46 Dextrose IVPB 250 mls/hr Q8HR IDALIA Administration Vancomycin HCl 1,250 mg in 250 mls @ 166.667 mls/hr 12/31/24 11:00 12/31/24 15:25 Vancomycin 1,250 Mg/Ns 250 Ml IVPB Infused Q24H IDALIA Infusion Melatonin 5 mg 12/27/24 21:00 12/31/24 20:53 Melatonin 5 Mg Tablet PO 5 mg HS IDALIA Administration Memantine 10 mg 12/25/24 09:00 12/31/24 20:53 Memantine 10 Mg Tablet PO 10 mg Q12HR IDALIA Administration Ondansetron HCl 4 mg 12/24/24 22:04 Ondansetron Inj 4 Mg/2 Ml Vial IV PUSH Q4H PRN Nausea Perflutren Lipid Microsphere 0 ml 12/30/24 08:08 Perflutren Lipid Microspheres 1.5 Ml Vial Diluted To 10 Ml Total Volume IV PUSH 01/02/25 08:08 ONCE PRN adequate visualization Protocol Prochlorperazine Edisylate 10 mg 12/25/24 00:57 Prochlorperazine Edisylate 10 Mg/2 Ml Vial IV PUSH Q6H PRN Nausea And Vomiting Radiology Results: ITS Impressions Chest/Abdomen/Pelvis CT 12/24/24 20:40 IMPRESSION: CHEST: 1. No acute cardiopulmonary pathology. 2. Loss of volume of T12 which is most likely chronic. ABDOMEN/PELVIS: 1. No evidence of appendicitis, diverticulitis or intestinal obstruction. 2. Air is seen in the bile ducts of the left lobe of the liver. Abdomen/Pelvis CT 12/28/24 19:00 IMPRESSION: No findings within the abdomen or pelvis to suggest a source of patient's fever, as detailed above. Chest X-Ray 12/29/24 11:24 IMPRESSION: 1. No acute cardiopulmonary disease. Lumbar Puncture Fluoroscopy 12/31/24 13:16 IMPRESSION: 1. Successful fluoro-guided lumbar puncture. Head CT 12/31/24 13:28 IMPRESSION: 1. Mild nonspecific cerebral white matter disease, which likely represents chronic small vessel ischemic disease. Chest/Abdomen/Pelvis CTA 12/31/24 13:29 IMPRESSION: 1. Fluid throughout the colon consistent with nonspecific diarrhea. Correlate clinically for gastroenteritis. 2. Small right and trace left posterior layering pleural effusions. 3. Mild cardiomegaly. 4. Indeterminate 8 mm soft tissue density lesion at the lower pole the left kidney which could represent a proteinaceous/hemorrhagic cyst or solid renal cell carcinoma. Recommend pre and postcontrast MRI or CT for further evaluation. Labs Labs: Laboratory Results - last 24 hr 12/31/24 12/31/24 12/31/24 09:38 11:20 12:46 WBC RBC Hgb Hct MCV MCH MCHC RDW Plt Count MPV Immature Gran % (Auto) Neut % (Auto) Lymph % (Auto) [place] % (Auto) Eos % (Auto) Baso % (Auto) Lymph # (Auto) [place] # (Auto) Eos # (Auto) Baso # (Auto) Abs Immat Gran (auto) Absolute Neuts (auto) Absolute Nucleated RBC Nucleated RBC % PT 13.9 INR 1.0 APTT 35.3 Sodium Potassium Chloride Carbon Dioxide Anion Gap BUN Creatinine Estim Creat Clear Calc Estimated GFR Glucose Calcium Magnesium Troponin I 0.048 H* Urine Color Urine Appearance Urine pH Ur Specific [place] Urine Protein Urine Glucose (UA) Urine Ketones Ur Blood (Man) Urine Nitrate Urine Bilirubin Urine Urobilinogen Ur Leukocyte Esterase Add Ur Microanalysis Urine RBC Urine WBC Ur Squamous Epith Cells Urine Bacteria Urine Casts CSF Source Csf CSF Appearance Clear CSF Color Colorless CSF RBC 3.85 H CSF Tot Nucleated Cells 6 H CSF Neutrophils 1 CSF Lymphocytes 69 CSF Monocytes 20 CSF Macrophages 3 CSF Other Cells 7 CSF Glucose CSF Total Protein Vancomycin Trough 12.8 12/31/24 12/31/24 12/31/24 12:47 14:19 17:10 WBC RBC Hgb Hct MCV MCH MCHC RDW Plt Count MPV Immature Gran % (Auto) Neut % (Auto) Lymph % (Auto) [place] % (Auto) Eos % (Auto) Baso % (Auto) Lymph # (Auto) [place] # (Auto) Eos # (Auto) Baso # (Auto) Abs Immat Gran (auto) Absolute Neuts (auto) Absolute Nucleated RBC Nucleated RBC % PT INR APTT Sodium Potassium Chloride Carbon Dioxide Anion Gap BUN Creatinine Estim Creat Clear Calc Estimated GFR Glucose Calcium Magnesium Troponin I 0.051 H* 0.043 H* Urine Color Urine Appearance Urine pH Ur Specific [place] Urine Protein Urine Glucose (UA) Urine Ketones Ur Blood (Man) Urine Nitrate Urine Bilirubin Urine Urobilinogen Ur Leukocyte Esterase Add Ur Microanalysis Urine RBC Urine WBC Ur Squamous Epith Cells Urine Bacteria Urine Casts CSF Source CSF Appearance CSF Color CSF RBC CSF Tot Nucleated Cells CSF Neutrophils CSF Lymphocytes CSF Monocytes CSF Macrophages CSF Other Cells CSF Glucose 45 CSF Total Protein 72 H Vancomycin Trough 12/31/24 01/01/25 22:19 05:40 WBC 15.2 H RBC 2.98 L Hgb 8.8 L Hct 27.1 L MCV 90.9 MCH 29.5 MCHC 32.5 RDW 14.5 Plt Count 216 MPV 12.1 H Immature Gran % (Auto) 0.6 H Neut % (Auto) 89.5 H Lymph % (Auto) 7.4 L [place] % (Auto) 1.8 L Eos % (Auto) 0.4 Baso % (Auto) 0.3 Lymph # (Auto) 1.12 [place] # (Auto) 0.3 Eos # (Auto) 0.1 Baso # (Auto) 0.0 Abs Immat Gran (auto) 0.09 H Absolute Neuts (auto) 13.6 H Absolute Nucleated RBC 0.000 Nucleated RBC % 0.0 PT INR APTT Sodium 133 L Potassium 3.0 L Chloride 102 Carbon Dioxide 22 Anion Gap 9 BUN 13 Creatinine 0.68 L Estim Creat Clear Calc 56 Estimated GFR > 60 Glucose 86 Calcium 8.1 L Magnesium 1.6 Troponin I Urine Color Yellow Urine Appearance Clear Urine pH 5.5 Ur Specific [place] 1.021 Urine Protein 1+ H Urine Glucose (UA) Negative Urine Ketones Trace H Ur Blood (Man) Negative Urine Nitrate Negative Urine Bilirubin Negative Urine Urobilinogen 1.0 Ur Leukocyte Esterase Negative Add Ur Microanalysis Reviewed Urine RBC 0-2 Urine WBC 0-5 Ur Squamous Epith Cells Few Urine Bacteria None seen Urine Casts 3-5 CSF Source CSF Appearance CSF Color CSF RBC CSF Tot Nucleated Cells CSF Neutrophils CSF Lymphocytes CSF Monocytes CSF Macrophages CSF Other Cells CSF Glucose CSF Total Protein Vancomycin Trough
[2025-01-01] MEDS: HEPARIN SODIUM 5,000 UNITS/ML VIAL 5000 UNITS SUB-Q ×2 (11:02→20:50)
[2025-01-01] MEDS: POTASSIUM CHLORIDE INJ 40 MEQ in SODIUM CHLORIDE 0.9% IV 500 ML 130 MEQ IVPB (14:13)
[2025-01-01] MEDS: VANCOMYCIN 1,250 MG/NS 250 ML 1,250 MG/250 ML BAG 166.6 MG IVPB (14:14)
[2025-01-01] MEDS: SODIUM CHLORIDE 0.9% IV 500 ML 130 ML (14:14)
[2025-01-01] MEDS: HYDROmorphone HCL INJ (*CRX) 1 MG/ML SYR 0.3 MG IV PUSH (15:54)
--- NOTE | 2025-01-01 17:14 | P.CONNEU_ITS ---
Assessment and Plan Assessment and plan (1) Delirium due to general medical condition: Code(s): F05 - Delirium due to known physiological condition Status: Acute (2) Dementia: Qualifiers: Dementia type: unspecified type Code(s): F03.90 - Unspecified dementia, unspecified severity, without behavioral disturbance, psychotic disturbance, mood disturbance, and anxiety Status: Chronic Plan CT scan of brain did not show any significant abnormalities. Chronic white matter changes were noted. Although patient may have underlying dementia of the current deterioration appears to most likely due to some sort of sepsis. Spinal tap did not show evidence for meningitis. She did have COVID infection on 12/22 however the most current test is negative. Investigations underway for any other identifiable etiology for the infection and treat accordingly. White cell count was high but is improving. which should follow up the results of remainder of the CSF findings. Consult date: 01/01/25 HPI: Sanam Yu is a 74 year old female With history of altered mental status and fever was seen for neurologic evaluation. The emergency room physician has discussed with me and the patient underwent a spinal tap which showed a protein of 72 and white cell count of 6. The patient continues to be unable to offer any history and she seems to be at times moaning but more less nonresponsive to verbal commands. CT scan brain did not show any significant abnormality. Her COVID test was positive on 12/22/2024 however now it is negative. Her heart is also low at 45. There is a history of dementia. Troponin level was high. She is being evaluated by supervisor [employer]. She is thought to have sepsis. Review of Systems 2 Review of Systems: ROS unobtainable: Yes unobtainable due to mental status PMFSH Past Medical History Medical History SIRS (systemic inflammatory response syndrome) Leukocytosis Anemia Gout Gastroesophageal reflux disease Hypertension Alzheimer's dementia Breast cancer Surgical History Surgical History History of ERCP History of open reduction and internal fixation (ORIF) procedure (04/08/22) Repair of left hip fracture with IM nail. History of cholecystectomy History of appendectomy History of bilateral mastectomy Family History Family History Other Family history unknown Social History Social History Social History: Surrogate decision maker: Daya Carmona, daughter. Code status: Full code. Smoking status: Never smoker Second hand tobacco smoke exposure: No Alcohol intake: never Substance use: never Substance use type: does not use Do You Feel Safe in your Home?: Yes Lack of Transportation: YES Lack of Food: Never True Current Housing: I Have Housing Concerned About Future Housing: No Difficulty Paying Gas/Electric Bills: No Difficulty Paying for Meds: No Currently Unemployed: No Education: High School Diploma/GED Difficulty w/ Childcare or Family Care: No Spiritual care concerns: No Meds Home Medications and Allergies Home Medications ?Medication ?Instructions ?Recorded ?Confirmed ?Type acetaminophen 500 mg tablet 500 mg PO Q6H 04/19/22 12/25/24 History allopurinol 300 mg tablet 300 mg PO DAILY 04/19/22 12/25/24 History anastrozole 1 mg tablet 1 mg PO DAILY 04/19/22 12/25/24 History aspirin 81 mg tablet,delayed 81 mg PO DAILY 04/19/22 12/25/24 History release enalapril maleate 10 mg tablet 10 mg PO DAILY 04/19/22 12/25/24 History famotidine 20 mg tablet 20 mg PO BID 04/19/22 12/25/24 History memantine 10 mg tablet 10 mg PO BID 04/19/22 12/25/24 History metoprolol tartrate 25 mg tablet 12.5 mg PO BID 04/19/22 12/25/24 History nirmatrelvir 300 mg (150 mg See Rx Instructions PO .COMPLEX 12/22/24 12/25/24 Rx x2)-ritonavir 100 mg tablet,dose #30 ea pack (Paxlovid) hydroxyzine HCl 25 mg tablet 25 mg PO HS 12/25/24 12/25/24 History Allergies Allergy/AdvReac Type Severity Reaction Status Date / Time Sulfa (Sulfonamide Allergy Unknown Unknown Verified 12/25/24 08:02 Antibiotics) naproxen Allergy Unknown Verified 12/25/24 08:02 quetiapine AdvReac Unknown Unknown Verified 12/25/24 08:02 Vital Signs Vital Signs - 24 hr 12/31/24 19:44 12/31/24 20:00 12/31/24 23:52 Temperature 98.0 F 98.0 F Pulse Rate 55 L 58 L Respiratory Rate 17 Blood Pressure 140/64 Pulse Oximetry 99 Oxygen Delivery 01/01/25 00:00 01/01/25 04:00 01/01/25 05:25 Temperature 98.3 F Pulse Rate 51 L 56 L 58 L Respiratory Rate 18 Blood Pressure 147/82 H Pulse Oximetry 100 Oxygen Delivery 01/01/25 08:15 01/01/25 08:29 01/01/25 13:05 Temperature Pulse Rate 66 90 Respiratory Rate Blood Pressure Pulse Oximetry Oxygen Delivery Room Air 01/01/25 13:27 01/01/25 15:12 01/01/25 16:03 Temperature 98.9 F 100.8 F H Pulse Rate 84 117 H 106 H Respiratory Rate 18 20 Blood Pressure 184/84 H 156/112 H Pulse Oximetry 95 89 L Oxygen Delivery Exam 2 Narrative: Unable to cooperate since the patient is a almost daily radius a time she will moan but does not cooperate with the neurologic examination. She did squeeze my fingers on both sides once. The tone appears symmetric on both sides. no involuntary movements are seen. Deep tendon reflexes did not show any significant abnormalities. Results Labs 01/01/25 05:40 01/01/25 05:40 Labs: Short CBC 01/01/25 Range/Units 05:40 WBC 15.2 H (4.5-10.0) K/mm3 Hgb 8.8 L (12.0-15.0) g/dL Hct 27.1 L (37.0-47.0) % Plt Count 216 (150-375) k/mm3 BMP 01/01/25 05:40 Sodium 133 L Potassium 3.0 L Chloride 102 Carbon Dioxide 22 BUN 13 Creatinine 0.68 L Glucose 86 Calcium 8.1 L Cardiac Enzymes 12/31/24 Range/Units 17:10 Troponin I 0.043 H* (0.000-0.034) ng/mL Urine 12/31/24 Range/Units 22:19 Urine Color Yellow (Yellow) Urine Appearance Clear (Clear) Urine pH 5.5 (5.0-9.0) Ur Specific [place] 1.021 (1.001-1.035) Urine Protein 1+ H (Negative) mg/dL Urine Glucose (UA) Negative (Negative) mg/dL
[2025-01-01] MEDS: ACETAMINOPHEN 650 MG SUPPOSITORY RECTAL (18:35)
[2025-01-02] VITALS (11 sets, daily range): BP systolic 145–168; BP diastolic 62–87; PULSE 45–99; RESP 18; TEMP 36.4–38.4; O2SAT 100
[2025-01-02] MEDS: PIPERACILLN/TAZ 3.375GM/NS50ML 3.375 GM/50 ML BAG IVPB ×2 (00:02→05:41)
[2025-01-02] MEDS: SODIUM CHLORIDE 0.9% IV 1,000 ML 125 ML IV CONT ×2 (01:31→10:31)
--- NOTE | 2025-01-02 01:51 | PC.NURSE ---
Daylight Savings Time For Daylight Savings Time Ending in the Fall - Clocks are moved back. For Daylight Savings Time Beginning in the Spring - Clocks are moved ahead. For [facility], the time of change occurs at 0200 hrs. Time is taken from the seismic prospecting observer. This entry on the patient's chart recognizes the change in time reflected during documentation. Example: 2 entries for vital signs may be charted for 0200 hrs.
[2025-01-02 05:12] LABS: Basophils Percent Auto 0.2 % (0.2-1.2); Eosinophils Percent Auto 0.1 % (0-4.4); Hematocrit 26.7 % (37.0-47.0); Hemoglobin 8.8 g/dL (12.0-15.0); Immature Granulocyte Percent A 0.7 % (0-0.5); Lymphocytes Absolute Auto 0.93 K/mm3 (0.9-3.2); Lymphocytes Percent Auto 6.2 % (18.3-44.2); Mean Corpuscular Hemoglobin 29.5 pg (26-34); Mean Corpuscular Volume 89.6 fl (80-100); Mean Platelet Volume 11.6 fl (7.4-10.4); Monocytes Absolute Auto 0.4 K/mm3 (0.1-0.6); Monocytes Percent Auto 2.8 % (2.6-8.5); Neutrophils Absolute Auto 13.4 K/mm3 (1.3-6.7); Platelet Count Result 186 k/mm3 (150-375); Red Blood Count 2.98 M/mm3 (4.2-5.4); Red Cell Distribution Width 14.2 % (11.5-14.5); White Blood Count 14.9 K/mm3 (4.5-10.0)
[2025-01-02 05:42] LABS: Vitamin D 25 Hydroxy < 12.8 ng/mL
[2025-01-02 06:30] LABS: Folic Acid 6.4 ng/mL (2.76->20)
[2025-01-02] MEDS: WATER IVPB (06:38)
[2025-01-02] MEDS: DEXTROSE 5% IVPB (06:38)
[2025-01-02] MEDS: ACYCLOVIR SODIUM IVPB (06:38)
--- NOTE | 2025-01-02 09:06 | P.PNIM_ITS ---
Progress Note: A&P Assessment and Plan (1) PRASANTH (acute kidney injury): Code(s): N17.9 - Acute kidney failure, unspecified Status: Acute (2) Sepsis: Code(s): A41.9 - Sepsis, unspecified organism Status: Acute (3) Delirium due to general medical condition: Code(s): F05 - Delirium due to known physiological condition Status: Acute (4) COVID-19: Code(s): U07.1 - COVID-19 Status: Acute Plan sepsis Code(s): R65.10 - Systemic inflammatory response syndrome (SIRS) of non-infectious origin without acute organ dysfunction Status: Acute Assessment and Plan: Patient presents with fever and found to have elevated WBC, tachycardia and tachypnea. CT of the chest, abdomen and pelvis with contrast showed no acute cardiopulmonary disease and no acute findings in the abdomen or pelvis imaging. She had air in the bile ducts but had undergone recent ERCP on 12/10/2024. UCx grew Enterococus last month but was a contaminated sample. Urinalysis here was clear. Patient was treated with IV antibiotics after appropriate cultures obtain but antibiotics were not continued. BCx are no growth to date. CXR was clear. Fever has recurred. Suspect SIRS related to COVID but still having fevers. WBC still elevated but trending down. Recultured yesterday but no other source of infection noted. Continue scheduled Tylenol 12/29: Patient had fever 103.2 yesterday evening, rapid response was called, leukocytosis is trending up yesterday, white blood cell 23100 with neutrophils left shift. Meeting criteria of sepsis Repeated CT scan December 28, that showed Pneumobilia is again identified, for which prior sphincterotomy (on 12/10/2024) is suspected. Repeat blood culture on December 28 has no growth so far. Started with doxycycline and Zosyn on December 28, patient is afebrile overnight, but leukocytosis is getting worse, continue Zosyn and switch from doxy to vancomycin IV 12/29 Leukocytosis improving, blood culture negative, patient fever yesterday, afebrile overnight per nurse report, repeated chest x-ray on December 29 shows no acute cardiopulmonary issues. Continue current treatment 12/30 Patient had fever overnight, but leukocytosis is trending down, will repeat blood culture urine culture and CTA chest abdomen pelvis, unclear source of infe ction, lumbar puncture, continue vancomycin and Zosyn, and add acyclovir , I have discussed case with Dr. De La Rosa neurologist, he agrees the plan 12/31 Patient is afebrile overnight, blood pressure stable, pulse ox 100% on room air, leukocytosis persists, 15,200, with left shift, chemistry shows hyponatremia 133, potassium 3.0 CSF showed increased right blood cell 3.8 H, limit set within normal limit, margin high protein, pending herpes PCR, UA unremarkable CT head shows no acute intracranial issues CT chest abdomen pelvis showed 1. Fluid throughout the colon consistent with nonspecific diarrhea. Correlate clinically for gastroenteritis. 2. Small right and trace left posterior layering pleural effusions. 3. Mild cardiomegaly. 4. Indeterminate 8 mm soft tissue density lesion at the lower pole the left kidney which could represent a proteinaceous/hemorrhagic cyst or solid renal cell carcinoma. Recommend pre and postcontrast MRI or CT for further evaluation. continue current treatment 01/01 Appreciate neurology's consultation, spinal fluid does not show better infection, tried hold vancomycin Zosyn today to see foot patient continued to improve. Continue acyclovir 01/02 Altered mental status Patient had fever overnight, patient is on vancomycin Zosyn Pending CT head without contrast, lumbar puncture, add Acyclovir 01/01 Neuro check now patient is alert, abdomen follow command, back to the baseline,01/02 COVID: Code(s): U07.1 - COVID-19 Status: Acute Assessment and Plan: Patient tested positive for COVID on 12/22/24. Paxlovid ordered but she had not started this yet. Patient currently on room air. hold on starting remdesivir since her only risk factor is age. CRP 7.3 (cut off at >7.5) and Troponin not 2xULN. Continue supportive care. Hypomagnesemia and hypokalemia Replete with potassium chloride and magnesium sulfate Follow-up BMP magnesium PRASANTH (acute kidney injury), hyponatremia Code(s): N17.9 - Acute kidney failure, unspecified Status: Acute Assessment and Plan: Creatinine elevated at 1.4 with a normal underlying baseline. Kidneys appeared normal by imaging. s/w NS 125 mL/hour on 12/29, patient had high fever yesterday (4) Hypokalemia: Code(s): E87.6 - Hypokalemia Status: Acute Assessment and Plan: Patient with potassium 3.1. Potassium was replaced. Continue to monitor and replace Sinus bradycardia EKG shows sinus bradycardia heart rate 45, no specific ST or T-wave changes QTC 460 Follow-up BMP magnesium level, follow-up echocardiogram Avoid beta-frieda and calcium channel frieda Telemetry monitoring. Chest pain Moderate high troponin, EKG shows no specific ST T-wave changes Appreciate cardiology consultation, cardia recommends no further workup for cardiac ischemia Dementia: Qualifiers: Dementia type: unspecified type Code(s): F03.90 - Unspecified dementia, unspecified severity, without behavioral disturbance, psychotic disturbance, mood disturbance, and anxiety Status: Chronic Assessment and Plan: Stable. Continue Namenda. (6) Hypertension: Qualifiers: Hypertension type: primary hypertension Qualified Code(s): I10 - Essential (primary) hypertension Code(s): I10 - Essential (primary) hypertension Status: Chronic Assessment and Plan: Blood pressure stable (7) Bradycardia: Code(s): R00.1 - Bradycardia, unspecified Status: Acute Assessment and Plan: HR drops to 30's overnight so metoprolol held. She now has tachycardia but sinus mechanism and felt related to agitation. Persistent bradycardia at night so will stop metoprolol TSH normal. Follow on tele. Subjective Date/time seen: 01/02/25 09:06 Interval history: Patient mental status is improving, patient had a good appetite today, ate food today. Patient is able to follow commands. leukocytosis improving Exam Narrative: GENERAL: Somnolent in no acute distress. Well-nourished. - EYES: EOMI. Anicteric. - HENT: Moist mucous membranes. - LUNGS: Clear to auscultation bilateral ly, no wheezing, rhonchi, or rales. - CARDIOVASCULAR: Regular rate and rhyth m. No murmur. No JVD. - ABDOMEN: Soft, non-tender and non-dist ended. No palpable masses. - EXTREMITIES: No edema. Peripheral puls es 2+. Non-tender. - NEUROLOGIC: Moving all extremities, - PSYCHIATRIC: Alert but not oriented x 3. - SKIN: No rashes or lesions. Warm. - LYMPH: No cervical lymphadenopathy. Objective Data Vital Signs Vital Signs: Vital Signs - 24 hr 01/01/25 08:15 01/01/25 08:29 01/01/25 13:05 Temperature Pulse Rate 66 90 Respiratory Rate Blood Pressure Pulse Oximetry Oxygen Delivery Room Air 01/01/25 13:27 01/01/25 15:12 01/01/25 16:03 Temperature 98.9 F 100.8 F H Pulse Rate 84 117 H 106 H Respiratory Rate 18 20 Blood Pressure 184/84 H 156/112 H Pulse Oximetry 95 89 L Oxygen Delivery 01/01/25 18:30 01/01/25 20:00 01/01/25 20:00 Temperature 102.5 F H Pulse Rate 94 93 Respiratory Rate 18 Blood Pressure Pulse Oximetry 96 Oxygen Delivery Room Air 01/01/25 20:46 01/02/25 00:00 01/02/25 04:00 Temperature 98.7 F Pulse Rate 94 52 L 45 L Respiratory Rate 18 Blood Pressure 117/59 L Pulse Oximetry 96 Oxygen Delivery 01/02/25 07:23 Temperature Pulse Rate 53 L Respiratory Rate 18 Blood Pressure 145/62 H Pulse Oximetry 100 Oxygen Delivery Intake/Output Intake/Output: Intake & Output 12/30/24 12/31/24 01/01/25 01/03/25 23:59 23:59 23:59 00:59 Intake Total 3998.8 3327.8 2141.7 100 Output Total 123 76 6809 Balance 3698.8 3277.8 341.7 100 Meds/Results Medications: Active Medications Generic Name Dose Route Start Last Admin Trade Name Freq PRN Reason Stop Dose Admin Acetaminophen 1,000 mg 12/28/24 18:59 12/31/24 05:36 Acetaminophen 500 Mg Tablet PO 1,000 mg Q6H PRN Administration Mild Pain (1-3) or Fever Acetaminophen 650 mg 01/01/25 15:14 01/01/25 18:35 Acetaminophen 650 Mg Suppository RECTAL 650 mg Q6H PRN Administration Mild Pain (1-3) or Fever Albuterol/Ipratropium 3 ml 12/25/24 00:57 Ipratropium 0.5 Mg/Albuterol Sulfate 2.5 Mg Ampul.Neb 3 Ml INHALATION Q4HRT PRN shortness of breath/Wheezing Allopurinol 300 mg 12/25/24 09:00 01/01/25 11:12 Allopurinol 300 Mg Tablet PO Not Given DAILY [facility] Anastrozole 1 mg 12/26/24 09:00 01/01/25 11:12 Anastrozole (*Chemo) 1 Mg Tablet PO Not Given DAILY [facility] Aspirin 81 mg 12/25/24 09:00 01/01/25 11:12 Aspirin 81 Mg Enteric Tablet PO Not Given DAILY [facility] Aspirin 325 mg 01/01/25 08:00 01/01/25 11:12 Aspirin 325 Mg Tablet PO Not Given DAILY@0800 [facility] Enalapril Maleate 10 mg 12/25/24 09:00 01/01/25 11:12 Enalapril Maleate 10 Mg Tablet PO Not Given DAILY [facility] Famotidine 20 mg 12/25/24 09:00 01/01/25 22:09 Famotidine 20 Mg Tablet PO Not Given Q12HR [facility] Guaifenesin/Dextromethorphan 10 ml 12/25/24 00:57 Guaifenesin/Dextromethorphan 10 Ml Udc PO Q4H PRN Cough Heparin Sodium (Porcine) 5,000 units 12/25/24 09:00 01/01/25 20:50 Heparin Sodium 5,000 Units/Ml Vial SUB-Q 5,000 units Q12HR IDALIA Administration Hydromorphone HCl 0.3 mg 01/01/25 15:14 01/01/25 15:54 Hydromorphone Hcl Inj (*Crx) 1 Mg/Ml Syr IV PUSH 0.3 mg Q4H PRN Administration Pain Rated 7-10 Hydroxyzine HCl 25 mg 12/25/24 21:00 01/01/25 22:10 Hydroxyzine Hcl 25 Mg Tablet PO Not Given HS [facility] Piperacillin/Tazobactam/Dextrose 3.375 gm in 50 mls @ 100 mls/hr 12/28/24 17:00 01/02/25 06:11 Zosyn 3.375 Gm/Ns 50 Ml IVPB Infused Q6HR [facility] Infusion Sodium Chloride 1,000 mls @ 125 mls/hr 12/29/24 09:50 01/02/25 01:31 Normal Saline Iv IV CONT 125 mls/hr .Q8H [facility]AL[facility] Administration Acyclovir Sodium 695 mg/ 263.9 mls @ 250 mls/hr 12/31/24 12:00 01/02/25 06:38 Dextrose IVPB 250 mls/hr Q8HR IDALIA Administration Vancomycin HCl 1,250 mg in 250 mls @ 166.667 mls/hr 12/31/24 11:00 01/01/25 14:14 Vancomycin 1,250 Mg/Ns 250 Ml IVPB 166.6 mls/hr Q24H IDALIA Administration Melatonin 5 mg 12/27/24 21:00 01/01/25 22:10 Melatonin 5 Mg Tablet PO Not Given HS [facility]AL[facility] Memantine 10 mg 12/25/24 09:00 01/01/25 22:10 Memantine 10 Mg Tablet PO Not Given Q12HR [facility] Ondansetron HCl 4 mg 12/24/24 22:04 Ondansetron Inj 4 Mg/2 Ml Vial IV PUSH Q4H PRN Nausea Prochlorperazine Edisylate 10 mg 12/25/24 00:57 Prochlorperazine Edisylate 10 Mg/2 Ml Vial IV PUSH Q6H PRN Nausea And Vomiting Radiology Results: ITS Impressions Chest/Abdomen/Pelvis CT 12/24/24 20:40 IMPRESSION: CHEST: 1. No acute cardiopulmonary pathology. 2. Loss of volume of T12 which is most likely chronic. ABDOMEN/PELVIS: 1. No evidence of appendicitis, diverticulitis or intestinal obstruction. 2. Air is seen in the bile ducts of the left lobe of the liver. Abdomen/Pelvis CT 12/28/24 19:00 IMPRESSION: No findings within the abdomen or pelvis to suggest a source of patient's fever, as detailed above. Chest X-Ray 12/29/24 11:24 IMPRESSION: 1. No acute cardiopulmonary disease. Lumbar Puncture Fluoroscopy 12/31/24 13:16 IMPRESSION: 1. Successful fluoro-guided lumbar puncture. Head CT 12/31/24 13:28 IMPRESSION: 1. Mild nonspecific cerebral white matter disease, which likely represents chronic small vessel ischemic disease. Chest/Abdomen/Pelvis CTA 12/31/24 13:29 IMPRESSION: 1. Fluid throughout the colon consistent with nonspecific diarrhea. Correlate clinically for gastroenteritis. 2. Small right and trace left posterior layering pleural effusions. 3. Mild cardiomegaly. 4. Indeterminate 8 mm soft tissue density lesion at the lower pole the left kidney which could represent a proteinaceous/hemorrhagic cyst or solid renal cell carcinoma. Recommend pre and postcontrast MRI or CT for further evaluation. Labs Labs: Laboratory Results - last 24 hr 01/02/25 01/02/25 05:05 05:06 WBC 14.9 H RBC 2.98 L Hgb 8.8 L Hct 26.7 L MCV 89.6 MCH 29.5 MCHC 33.0 RDW 14.2 Plt Count 186 MPV 11.6 H Immature Gran % (Auto) 0.7 H Neut % (Auto) 90.0 H Lymph % (Auto) 6.2 L Imperial % (Auto) 2.8 Eos % (Auto) 0.1 Baso % (Auto) 0.2 Lymph # (Auto) 0.93 Imperial # (Auto) 0.4 Eos # (Auto) 0.0 Baso # (Auto) 0.0 Abs Immat Gran (auto) 0.10 H Absolute Neuts (auto) 13.4 H Absolute Nucleated RBC 0.000 Nucleated RBC % 0.0 Vitamin B12 954.0 H Vitamin D 25-Hydroxy < 12.8 Folate 6.4
[2025-01-02] MEDS: HEPARIN SODIUM 5,000 UNITS/ML VIAL 5000 UNITS SUB-Q ×2 (09:45→20:51)
[2025-01-02] MEDS: ENALAPRIL MALEATE 10 MG TABLET PO (09:45)
[2025-01-02] MEDS: ANASTROZOLE (*CHEMO) 1 MG TABLET PO (09:45)
[2025-01-02] MEDS: FAMOTIDINE 20 MG TABLET PO ×2 (09:45→20:51)
[2025-01-02] MEDS: allopurinoL 300 MG TABLET PO (09:45)
[2025-01-02] MEDS: ASPIRIN 325 MG TABLET PO (09:45)
[2025-01-02] MEDS: MEMANTINE 10 MG TABLET PO ×2 (09:45→20:51)
[2025-01-02 11:03] LABS: Vancomycin Trough 14.1 ug/mL (10.0-20.0)
[2025-01-02] MEDS: ONDANSETRON HCL ODT 4 MG TABLET PO (16:49)
[2025-01-02] MEDS: ACETAMINOPHEN 500 MG TABLET 1000 MG PO (20:51)
[2025-01-02 21:18] LABS: Herpes Simplex Type 1 DNA PCR Not Detected (Not Detected); Herpes Simplex Type 2 DNA PCR Not Detected (Not Detected)
[2025-01-03] VITALS (11 sets, daily range): BP systolic 140–163; BP diastolic 67–98; PULSE 51–120; RESP 16–20; TEMP 36.1–39; O2SAT 99–100
[2025-01-03] MEDS: SODIUM CHLORIDE 0.9% IV 1,000 ML 125 ML IV CONT ×2 (02:00→17:58)
[2025-01-03] MEDS: ACETAMINOPHEN 650 MG SUPPOSITORY RECTAL (03:04)
--- NOTE | 2025-01-03 03:30 | P.PNCROSS_ITS ---
Event Note Event Note Event Note: Interval history: Patient spiked a temp of 102.5? again today. She is tachycardic at 109. It appears that the patient has been spiking temps off and on since 12/24/2024 when patient initially presented. It appears that she had multiple blood cultures which so far have been and coming back with no growth on final read and no growth on preliminary read. She also had a spinal tap with cultures pending. 12/31/2024 She had a chest/abdomen/pelvis CTA which showed fluid throughout the colon consistent with nonspecific diarrhea likely a gastroenteritis. Head CT on 12/31/2024 was negative for any acute intracranial process and only showed mild nonspecific cerebral white matter disease likely representing chronic small- vessel ischemic disease. She had a UA on 12/31/2024 which only showed 1+ urine protein, trace ketones otherwise negative and did not reflux to a culture. HSV showed no growth. Respiratory panel on 12/28/2024 was negative even though she tested positive for COVID on 12/22/2024. She had an echocardiogram on 12/30/2024 which shown normal LV systolic function with an estimated EF of 60- 65%, grade 2 diastolic dysfunction the pericardium was not well visualized on this echo to suggest pericarditis. Her vancomycin and Zosyn were placed on hold for today and she continues on acyclovir. Exam: General: Appears to be acutely ill, lying in the bed moaning Head: acute encephalopathy and confusion--reporting headache Eyes: PERRLA, sclera injected ENT: Excessively dry mucous membranes, nasal passages clear Neck: supple, no JVD, no adenopathy, trachea midline Cardiac: Normal S1 and S2. No murmur, gallops or friction rubs, peripheral pulses intact. Respiratory: Lungs clear to auscultation, no adventitious lung sounds currently on room air Gastrointestinal: soft, non-distended, non-tender, hypo active bowel sounds. : voiding without difficulty. Extremities: moves all extremities well, no edema Skin: clean, dry, intact. No wounds or lesions. Lipoma on right trapezius Neuro: Alert and confused, cranial nerves intact, no neuro deficits. Psych: Tearful and moaning Plan: * Repeat blood cultures * Skin assessment did not show any rashes, lesions, open areas. She does have a peripheral IV in, no central line. * White blood cell count yesterday morning 14.9 * ESR 127, CRP 12.6 * Will check for Lyme disease, HIV * Will recheck UA with reflex to culture * Will check syphilis, gonorrhea, chlamydia * Will also check respiratory pathogen panel * EEG pending * Cerebral spinal fluid cultures and fungal culture and smear pending * Neurology following * Consider transfer to tertiary care for Infectious Disease consult if not showing signs of improvement * Consider checking for Giant cell arteritis with MRA * Continue to hold Vancomycin and Zosyn for now * Continue Acyclovir * Patient has been on Allopurinol which can be associated with fevers however she has been on this at least since 2021 when reviewing. Allopurinol hypersensitivity syndrome is less likely * Will check Rheumatoid factor, GRACIELA, Uric acid, and immunoglobulins * Check random cortisol * Consider Cortisol stimulation test * Considering elevated ESR and CRP--may consider steroids as a treatment option. Due to a high probability of clinically significant, life threatening deterioration, the patient required my highest level of preparedness to intervene emergently and I personally spent this critical care time directly and personally managing the patient. I have personally spent 55 minutes of critical care time, exclusive of time spent on evaluation and management of this critically ill patient's condition of fever of unknown origin.
[2025-01-03 03:34] LABS: Erythrocyte Sedimentation Rate 127 mm/hr (0-20)
[2025-01-03 03:40] LABS: CRP 12.6 mg/dL (<1.0)
[2025-01-03 03:50] LABS: Syphilis IgG/IgM Antibody Negative (Negative)
[2025-01-03 05:23] LABS: Basophils Percent Auto 0.2 % (0.2-1.2); Hematocrit 24.5 % (37.0-47.0); Hemoglobin 8.2 g/dL (12.0-15.0); Immature Granulocyte Absolute 0.12 K/mm3 (0.00-0.031); Immature Granulocyte Percent A 0.8 % (0-0.5); Lymphocytes Absolute Auto 0.81 K/mm3 (0.9-3.2); Lymphocytes Percent Auto 5.4 % (18.3-44.2); Mean Corpuscular HGB Conc 33.5 g/dl (32-36); Mean Corpuscular Hemoglobin 29.7 pg (26-34); Mean Corpuscular Volume 88.8 fl (80-100); Mean Platelet Volume 11.4 fl (7.4-10.4); Monocytes Absolute Auto 0.5 K/mm3 (0.1-0.6); Monocytes Percent Auto 3.2 % (2.6-8.5); Neutrophils Absolute Auto 13.6 K/mm3 (1.3-6.7); Neutrophils Percent Auto 90.4 % (45.5-73.1); Platelet Count Result 189 k/mm3 (150-375); Red Blood Count 2.76 M/mm3 (4.2-5.4); Red Cell Distribution Width 14.2 % (11.5-14.5)
[2025-01-03 05:43] LABS: Estimated CRCL calculation 48 ml/min; Estimated Glomerular Filt Rate > 60; Uric Acid 2.4 mg/dL (2.5-7.5)
[2025-01-03] MEDS: ACYCLOVIR SODIUM IVPB (05:45)
[2025-01-03] MEDS: WATER IVPB (05:45)
[2025-01-03] MEDS: DEXTROSE 5% IVPB (05:45)
[2025-01-03 05:48] LABS: Rheumatoid Factor < 12.0 IU/ML (<12)
[2025-01-03 05:50] LABS: Immunoglobulin A 378 mg/dL (70-400); Immunoglobulin G 870 mg/dL (700-1600); Immunoglobulin M 36 mg/dL (40-230)
--- NOTE | 2025-01-03 08:14 | PM.IMPN ---
Progress Note: A&P Assessment and Plan (1) PRASANTH (acute kidney injury): Code(s): N17.9 - Acute kidney failure, unspecified Status: Acute (2) Sepsis: Code(s): A41.9 - Sepsis, unspecified organism Status: Acute (3) Delirium due to general medical condition: Code(s): F05 - Delirium due to known physiological condition Status: Acute (4) COVID-19: Code(s): U07.1 - COVID-19 Status: Acute Plan sepsis Code(s): R65.10 - Systemic inflammatory response syndrome (SIRS) of non-infectious origin without acute organ dysfunction Status: Acute Assessment and Plan: Patient presents with fever and found to have elevated WBC, tachycardia and tachypnea. CT of the chest, abdomen and pelvis with contrast showed no acute cardiopulmonary disease and no acute findings in the abdomen or pelvis imaging. She had air in the bile ducts but had undergone recent ERCP on 12/10/2024. UCx grew Enterococus last month but was a contaminated sample. Urinalysis here was clear. Patient was treated with IV antibiotics after appropriate cultures obtain but antibiotics were not continued. BCx are no growth to date. CXR was clear. Fever has recurred. Suspect SIRS related to COVID but still having fevers. WBC still elevated but trending down. Recultured yesterday but no other source of infection noted. Continue scheduled Tylenol 12/29: Patient had fever 103.2 yesterday evening, rapid response was called, leukocytosis is trending up yesterday, white blood cell [id number] with neutrophils left shift. Meeting criteria of sepsis Repeated CT scan December 28, that showed Pneumobilia is again identified, for which prior sphincterotomy (on 12/10/2024) is suspected. Repeat blood culture on December 28 has no growth so far. Started with doxycycline and Zosyn on December 28, patient is afebrile overnight, but leukocytosis is getting worse, continue Zosyn and switch from doxy to vancomycin IV 12/29 Leukocytosis improving, blood culture negative, patient fever yesterday, afebrile overnight per nurse report, repeated chest x-ray on December 29 shows no acute cardiopulmonary issues. Continue current treatment 12/30 Patient had fever overnight, but leukocytosis is trending down, will repeat blood culture urine culture and CTA chest abdomen pelvis, unclear source of infection, lumbar puncture, continue vancomycin and Zosyn, and add acyclovir , I have discussed case with Dr. De La Rosa neurologist, he agrees the plan 12/31 Patient is afebrile overnight, blood pressure stable, pulse ox 100% on room air, leukocytosis persists, 15,200, with left shift, chemistry shows hyponatremia 133, potassium 3.0 CSF showed increased right blood cell 3.8 H, limit set within normal limit, margin high protein, pending herpes PCR, UA unremarkable CT head shows no acute intracranial issues CT chest abdomen pelvis showed 1. Fluid throughout the colon consistent with nonspecific diarrhea. Correlate clinically for gastroenteritis. 2. Small right and trace left posterior layering pleural effusions. 3. Mild cardiomegaly. 4. Indeterminate 8 mm soft tissue density lesion at the lower pole the left kidney which could represent a proteinaceous/hemorrhagic cyst or solid renal cell carcinoma. Recommend pre and postcontrast MRI or CT for further evaluation. continue current treatment 01/01 Appreciate neurology's consultation, spinal fluid does not show bacteria infection, patient still have fever, leukocytosis persists, herpes negative, patient pulled out line yesterday Discontinue acyclovir. Given recent intra-abdominal procedure, patient has risk of fungal infection, start micafungin, switch from Zosyn to cefepime, continue vancomycin today, f/u c diff, blood fungal culture, chest x-ray I discussed case with ID pharmacist and ID Dr. Pacheco. Watch patient in [facility] today. If patient will not respond to treatment, will transfer patient to [facility]. Altered mental status Patient had fever overnight, patient is on vancomycin Zosyn Pending CT head without contrast, lumbar puncture, add Acyclovir 01/01 Neuro check now patient is alert, able to follow command, back to the baseline,01/02 COVID: Code(s): U07.1 - COVID-19 Status: Acute Assessment and Plan: Patient tested positive for COVID on 12/22/24. Paxlovid ordered but she had not started this yet. Patient currently on room air. No need remdesivir Hypomagnesemia and hypokalemia Replete with potassium chloride and magnesium sulfate Follow-up BMP magnesium PRASANTH (acute kidney injury), hyponatremia Code(s): N17.9 - Acute kidney failure, unspecified Status: Acute Assessment and Plan: Creatinine elevated at 1.4 with a normal underlying baseline. Kidneys appeared normal by imaging. s/w NS 125 mL/hour on 12/29, patient had high fever yesterday (4) Hypokalemia: Code(s): E87.6 - Hypokalemia Status: Acute Assessment and Plan: Patient with potassium 3.1. Potassium was replaced. Continue to monitor and replace Sinus bradycardia EKG shows sinus bradycardia heart rate 45, no specific ST or T-wave changes QTC 460 Follow-up BMP magnesium level, follow-up echocardiogram Avoid beta-frieda and calcium channel frieda Telemetry monitoring. Chest pain Moderate high troponin, EKG shows no specific ST T-wave changes Appreciate cardiology consultation, cardia recommends no further workup for cardiac ischemia Dementia: Qualifiers: Dementia type: unspecified type Code(s): F03.90 - Unspecified dementia, unspecified severity, without behavioral disturbance, psychotic disturbance, mood disturbance, and anxiety Status: Chronic Assessment and Plan: Stable. Continue Namenda. (6) Hypertension: Qualifiers: Hypertension type: primary hypertension Qualified Code(s): I10 - Essential (primary) hypertension Code(s): I10 - Essential (primary) hypertension Status: Chronic Assessment and Plan: Blood pressure stable (7) Bradycardia: Code(s): R00.1 - Bradycardia, unspecified Status: Acute Assessment and Plan: HR drops to 30's overnight so metoprolol held. She now has tachycardia but sinus mechanism and felt related to agitation. Persistent bradycardia at night so will stop metoprolol TSH normal. Follow on tele. Subjective Date/time seen: 01/03/25 08:14 Interval history: I saw examined the patient today, patient is alert, able follow commands, patient cannot provide reliable history. Appetite is good. Patient denies headache, chest pain shortness breast abdomen pain. Patient had a spike fever overnight, antibiotics was not given yesterday because patient pulled of IV. Repeat blood culture negative. Leukocytosis persists Exam Narrative: GENERAL: no acute distress. Well-nourished. - EYES: EOMI. Anicteric. - HENT: Moist mucous membranes. - LUNGS: Clear to auscultation bilaterally, no wheezing, rhonchi, or rales. - CARDIOVASCULAR: Regular rate and rhythm. No murmur. No JVD. - ABDOMEN: Soft, non-tender and non-distended. No palpable masses. - EXTREMITIES: No edema. Peripheral pulses 2+. Non-tender. - NEUROLOGIC: Moving all extremities, - PSYCHIATRIC: Alert, able to follow commands, but not oriented x 3. - SKIN: No rashes or lesions. Warm. - LYMPH: No cervical lymphadenopathy. Objective Data Vital Signs Vital Signs: Vital Signs - 24 hr 01/02/25 09:45 01/02/25 09:52 01/02/25 12:24 Temperature 97.6 F Pulse Rate 66 Respiratory Rate Blood Pressure Pulse Oximetry Oxygen Delivery Room Air 01/02/25 16:02 01/02/25 20:00 01/02/25 20:00 Temperature Pulse Rate 75 99 98 Respiratory Rate 18 Blood Pressure Pulse Oximetry 100 Oxygen Delivery Room Air 01/02/25 20:44 01/02/25 20:51 01/02/25 21:51 Temperature 101.1 F H 101.1 F H 101.1 F H Pulse Rate 99 Respiratory Rate 18 Blood Pressure 168/87 H Pulse Oximetry 100 Oxygen Delivery 01/03/25 00:00 01/03/25 02:02 01/03/25 04:00 Temperature 102.2 F H Pulse Rate 120 H 109 H 89 Respiratory Rate Blood Pressure Pulse Oximetry Oxygen Delivery 01/03/25 04:43 Temperature 97.2 F L Pulse Rate 70 Respiratory Rate 18 Blood Pressure 140/67 Pulse Oximetry 100 Oxygen Delivery Intake/Output Intake/Output: Intake & Output 12/31/24 01/01/25 01/03/25 01/03/25 23:59 23:59 00:59 23:59 Intake Total 3327.8 2141.7 603.9 313.9 Output Total 50 1800 300 600 Balance 3277.8 341.7 303.9 -286.1 Meds/Results Medications: Active Medications Generic Name Dose Route Start Last Admin Trade Name Freq PRN Reason Stop Dose Admin Acetaminophen 1,000 mg 12/28/24 18:59 01/02/25 20:51 Acetaminophen 500 Mg Tablet PO 1,000 mg Q6H PRN Administration Mild Pain (1-3) or Fever Acetaminophen 650 mg 01/01/25 15:14 01/03/25 03:04 Acetaminophen 650 Mg Suppository RECTAL 650 mg Q6H PRN Administration Mild Pain (1-3) or Fever Albuterol/Ipratropium 3 ml 12/25/24 00:57 Ipratropium 0.5 Mg/Albuterol Sulfate 2.5 Mg Ampul.Neb 3 Ml INHALATION Q4HRT PRN shortness of breath/Wheezing Allopurinol 300 mg 12/25/24 09:00 01/02/25 09:45 Allopurinol 300 Mg Tablet PO 300 mg DAILY IDALIA Administration Anastrozole 1 mg 12/26/24 09:00 01/02/25 09:45 Anastrozole (*Chemo) 1 Mg Tablet PO 1 mg DAILY IDALIA Administration Aspirin 81 mg 12/25/24 09:00 01/02/25 09:46 Aspirin 81 Mg Enteric Tablet PO Not Given DAILY [facility] Aspirin 325 mg 01/01/25 08:00 01/02/25 09:45 Aspirin 325 Mg Tablet PO 325 mg DAILY@0800 [facility] Administration Enalapril Maleate 10 mg 12/25/24 09:00 01/02/25 09:45 Enalapril Maleate 10 Mg Tablet PO 10 mg DAILY IDALIA Administration Famotidine 20 mg 12/25/24 09:00 01/02/25 20:51 Famotidine 20 Mg Tablet PO 20 mg Q12HR IDALIA Administration Guaifenesin/Dextromethorphan 10 ml 12/25/24 00:57 Guaifenesin/Dextromethorphan 10 Ml Udc PO Q4H PRN Cough Heparin Sodium (Porcine) 5,000 units 12/25/24 09:00 01/02/25 20:51 Heparin Sodium 5,000 Units/Ml Vial SUB-Q 5,000 units Q12HR IDALIA Administration Hydromorphone HCl 0.3 mg 01/01/25 15:14 01/01/25 15:54 Hydromorphone Hcl Inj (*Crx) 1 Mg/Ml Syr IV PUSH 0.3 mg Q4H PRN Administration Pain Rated 7-10 Piperacillin/Tazobactam/Dextrose 3.375 gm in 50 mls @ 100 mls/hr 12/28/24 17:00 01/02/25 06:11 Zosyn 3.375 Gm/Ns 50 Ml IVPB Infused Q6HR [facility] Infusion Sodium Chloride 1,000 mls @ 125 mls/hr 12/29/24 09:50 01/02/25 18:01 Normal Saline Iv IV CONT Not Given .Q8H IDALIA Acyclovir Sodium 695 mg/ 263.9 mls @ 250 mls/hr 12/31/24 12:00 01/03/25 06:49 Dextrose IVPB Infused Q8HR IDALIA Infusion Vancomycin HCl 1,250 mg in 250 mls @ 166.667 mls/hr 12/31/24 11:00 01/01/25 14:14 Vancomycin 1,250 Mg/Ns 250 Ml IVPB 166.6 mls/hr Q24H IDALIA Administration Memantine 10 mg 12/25/24 09:00 01/02/25 20:51 Memantine 10 Mg Tablet PO 10 mg Q12HR IDALIA Administration Ondansetron HCl 4 mg 01/02/25 16:32 01/02/25 16:49 Ondansetron Hcl Odt 4 Mg Tablet PO 4 mg Q6H PRN Administration Nausea And Vomiting Prochlorperazine Edisylate 10 mg 12/25/24 00:57 Prochlorperazine Edisylate 10 Mg/2 Ml Vial IV PUSH Q6H PRN Nausea And Vomiting Radiology Results: ITS Impressions Chest/Abdomen/Pelvis CT 12/24/24 20:40 IMPRESSION: CHEST: 1. No acute cardiopulmonary pathology. 2. Loss of volume of T12 which is most likely chronic. ABDOMEN/PELVIS: 1. No evidence of appendicitis, diverticulitis or intestinal obstruction. 2. Air is seen in the bile ducts of the left lobe of the liver. Abdomen/Pelvis CT 12/28/24 19:00 IMPRESSION: No findings within the abdomen or pelvis to suggest a source of patient's fever, as detailed above. Chest X-Ray 12/29/24 11:24 IMPRESSION: 1. No acute cardiopulmonary disease. Lumbar Puncture Fluoroscopy 12/31/24 13:16 IMPRESSION: 1. Successful fluoro-guided lumbar puncture. Head CT 12/31/24 13:28 IMPRESSION: 1. Mild nonspecific cerebral white matter disease, which likely represents chronic small vessel ischemic disease. Chest/Abdomen/Pelvis CTA 12/31/24 13:29 IMPRESSION: 1. Fluid throughout the colon consistent with nonspecific diarrhea. Correlate clinically for gastroenteritis. 2. Small right and trace left posterior layering pleural effusions. 3. Mild cardiomegaly. 4. Indeterminate 8 mm soft tissue density lesion at the lower pole the left kidney which could represent a proteinaceous/hemorrhagic cyst or solid renal cell carcinoma. Recommend pre and postcontrast MRI or CT for further evaluation. Labs Labs: Laboratory Results - last 24 hr 12/31/24 01/02/25 01/03/25 12:47 10:37 02:59 WBC RBC Hgb Hct MCV MCH MCHC RDW Plt Count MPV Immature Gran % (Auto) Neut % (Auto) Lymph % (Auto) Cedar % (Auto) Eos % (Auto) Baso % (Auto) Lymph # (Auto) Cedar # (Auto) Eos # (Auto) Baso # (Auto) Abs Immat Gran (auto) Absolute Neuts (auto) Absolute Nucleated RBC Nucleated RBC % ESR Creatinine Estim Creat Clear Calc Estimated GFR Uric Acid C-Reactive Protein 12.6 H Random Cortisol CSF Herpes I DNA (PCR) Not detected CSF Herpes II DNA (PCR) Not detected Vancomycin Trough 14.1 IgG IgA IgM Rheumatoid Factor Syphilis IgG/IgM Ab HSV (PCR) Source No growth 01/03/25 01/03/25 01/03/25 03:00 03:01 05:14 WBC 15.0 H RBC 2.76 L Hgb 8.2 L Hct 24.5 L MCV 88.8 MCH 29.7 MCHC 33.5 RDW 14.2 Plt Count 189 MPV 11.4 H Immature Gran % (Auto) 0.8 H Neut % (Auto) 90.4 H Lymph % (Auto) 5.4 L Cedar % (Auto) 3.2 Eos % (Auto) 0.0 Baso % (Auto) 0.2 Lymph # (Auto) 0.81 L Cedar # (Auto) 0.5 Eos # (Auto) 0.0 Baso # (Auto) 0.0 Abs Immat Gran (auto) 0.12 H Absolute Neuts (auto) 13.6 H Absolute Nucleated RBC 0.000 Nucleated RBC % 0.0 ESR 127 H Creatinine 0.81 Estim Creat Clear Calc 48 Estimated GFR > 60 Uric Acid 2.4 L C-Reactive Protein Random Cortisol 15.90 CSF Herpes I DNA (PCR) CSF Herpes II DNA (PCR) Vancomycin Trough IgG 870 IgA 378 IgM 36 L Rheumatoid Factor < 12.0 Syphilis IgG/IgM Ab Negative HSV (PCR) Source
[2025-01-03] MEDS: FAMOTIDINE 20 MG TABLET PO (09:01)
[2025-01-03] MEDS: allopurinoL 300 MG TABLET PO (09:01)
[2025-01-03] MEDS: ASPIRIN 325 MG TABLET PO (09:01)
[2025-01-03] MEDS: MEMANTINE 10 MG TABLET PO (09:01)
[2025-01-03] MEDS: ASPIRIN 81 MG ENTERIC TABLET PO (09:02)
[2025-01-03] MEDS: ENALAPRIL MALEATE 10 MG TABLET PO (09:02)
[2025-01-03] MEDS: HEPARIN SODIUM 5,000 UNITS/ML VIAL 5000 UNITS SUB-Q ×2 (09:02→21:54)
[2025-01-03] MEDS: ANASTROZOLE (*CHEMO) 1 MG TABLET PO (09:02)
[2025-01-03] MEDS: CEFEPIME 2 GM/NS 50 ML 2 GM/50 ML BAG IVPB ×2 (09:11→21:54)
[2025-01-03] MEDS: metroNIDAZOLE 500 MG/ISO 100ML 500 MG/100 ML BAG 100 MG IVPB ×2 (09:41→16:46)
[2025-01-03 09:59] LABS: Alanine Aminotransferase 11 U/L (6-35); Albumin Level 2.7 g/dL (3.5-5.1); Alkaline Phosphatase 91 U/L (38-126); Anion Gap 10 mmol/L (4-12); Aspartate Amino Transferase 20 U/L (14-36); Bilirubin,Total 0.4 mg/dL (0.2-1.3); Blood Urea Nitrogen 9 mg/dL (7-17); Calcium 7.8 mg/dL (8.4-10.2); Carbon Dioxide 23 mmol/L (22-30); Chloride 99 mmol/L (98-107); Estimated CRCL calculation 48 ml/min; Estimated Glomerular Filt Rate > 60; Glucose 105 mg/dL (65-110); Potassium 2.4 mmol/L (3.4-5.0); Sodium 132 mmol/L (137-145)
[2025-01-03] MEDS: MICAFUNGIN SODIUM 100 MG in SODIUM CHLORIDE 0.9% IV 100 ML IVPB (10:42)
[2025-01-03] MEDS: POTASSIUM CHLORIDE 20 MEQ PACKET (FOR LIQUID) 40 MEQ PO (10:45)
[2025-01-03] MEDS: POTASSIUM CHLORIDE INJ 40 MEQ in SODIUM CHLORIDE 0.9% IV 500 ML 130 MEQ IVPB ×2 (10:45→15:18)
--- NOTE | 2025-01-03 11:08 | WPDNEUROLOGY ---
Neurology EEG Report General Information Date of Study: 01/03/25 TEST Electroencephalogram DIAGNOSIS altered mental status, dementia CONDITION OF RECORDING bedside record EEG NUMBER [id number] CLINICAL HISTORY history of dementia, changes in mental status , syncope and collapse EEG DESCRIPTION at the beginning of the recording the patient was reported to be asleep. The background activity consists of predominantly theta and Delta activity. Towards the later part when awake the background activity still appears to be in theta activity and poorly defined without any significant anteroposterior gradient. Hyperventilation or photic stimulation were not performed. During sleep diffuse theta activity and occasional sleep spindle activity was noted. IMPRESSION This is an abnormal EEG due to presence of moderate diffuse background slowing suggests a generalized encephalopathy. No focal or paroxysmal epileptiform abnormalities were seen.
--- NOTE | 2025-01-03 11:11 | PCNFU ---
Nutrition Follow-Up Complete: Severe Protein Calorie Malnutrition as related to inadequate protein energy intake in setting of acute disease as evidenced by < 50% of estimated energy needs and significant weight loss of 1% (8 ibs) in 5 days. Adequate Intake of at least 75% of meals/supplements - Not meeting goal. Continue with goal Goal: Pt current nutrition is Regular diet with Ensure Enlive TID (350 kcal, 20 g protein). Nutrition recommendation: Continue with diet orders. Recommend NG tube feeding if family is agreeable: Jevity 1.5 at 20 ml/hr advance by 10 ml q 4 hours to goal rate of 50 ml/hr. Flush 100 ml q 4 hours. Last recorded weight is 68.8 kg. Bowel Motility: +1 BM 01/02/25 Labs Reviewed: Hgb 8.2, Hct 24.5, Alb 2.7, Na 132, K+ 2.4 Meds Noted: Kcl, Pepcid, namenda Skin: WNL Additional Notes: Very poor/minimal intakes continue on regular diet. Intake has been < 25% of meals at least 12 days. 0-10% intakes, refused meals last 2 days. Pt would benefit from enteral nutrition. If family is agreeable to NGT feedings, recommend Jevity 1.5 at 20 ml/hr advance by 10 ml q 4 hours to goal rate of 50 ml/hr. Tube feeding at goal rate providing 1650 kcal/70 gm protein/836 ml water. Flush 100 ml q [address] will monitor weight, ,labs, skin, intake, meds every 3 days.
[2025-01-03] MEDS: VANCOMYCIN 1,500 MG/NS 500 ML 1,500 MG/500 ML BAG 200 MG IVPB (11:41)
[2025-01-04] VITALS (12 sets, daily range): BP systolic 114–174; BP diastolic 73–100; PULSE 51–133; RESP 16–22; TEMP 35–40.1; O2SAT 100
[2025-01-04 00:28] LABS: Add Urine Microscopic? YES; Appearance Urine Clear (Clear); Bacteria Urine None Seen /hpf; Bilirubin Urine Negative (Negative); Blood Urine Trace (Negative); Color Urine Yellow (Yellow); Glucose Urine UA Negative (Negative); Ketones Urine Trace mg/dL (Negative); Leukocyte Esterase Ur Trace LEU/UL (Negative); Nitrate Urine Negative (Negative); Non Pathogenic Casts 0-2; Protein Urine Negative (Negative); RBC Urine 0-2 /hpf (0-2); Squamous Epithelial Cell Urine None Seen /hpf (Few); Urobilinogen Urine 0.2 mg/dL (<2.0); WBC Urine 0-5 /hpf (0-3); pH Urine 6.5 (5.0-9.0)
[2025-01-04] MEDS: metroNIDAZOLE 500 MG/ISO 100ML 500 MG/100 ML BAG 100 MG IVPB ×3 (01:10→17:41)
[2025-01-04 01:52] LABS: Chlamydia trachomatis NOT DETECTED (NOT DETECTE); Neisseria gonorrhoeae PCR NOT DETECTED (NOT DETECTE)
[2025-01-04] MEDS: ACETAMINOPHEN 650 MG SUPPOSITORY RECTAL (03:27)
[2025-01-04] MEDS: SODIUM CHLORIDE 0.9% IV 1,000 ML 125 ML IV CONT (05:58)
--- NOTE | 2025-01-04 06:33 | PC.NURSE ---
Notified provider of temperatures. 102.3 at 0330 (rectal Tylenol given) and 104.1 at 0600. Provider is concerned, but did not give new orders. Did suggest icepacks and a cool bath.
[2025-01-04 07:24] LABS: HIV 1 2 Ag Ab 4th Gen w Rflxs NON-REACTIVE (NON-REACTIVE)
[2025-01-04 07:34] LABS: Estimated CRCL calculation 50 ml/min; Estimated Glomerular Filt Rate > 60
[2025-01-04 08:15] LABS: Erythrocyte Sedimentation Rate 119 mm/hr (0-20)
[2025-01-04 08:21] LABS: Basophils Absolute Auto 0.1 K/mm3 (0.0-0.1); Basophils Percent Auto 0.3 % (0.2-1.2); Hematocrit 32.5 % (37.0-47.0); Hemoglobin 10.9 g/dL (12.0-15.0); Immature Granulocyte Absolute 0.18 K/mm3 (0.00-0.031); Immature Granulocyte Percent A 0.8 % (0-0.5); Lymphocytes Absolute Auto 0.26 K/mm3 (0.9-3.2); Lymphocytes Percent Auto 1.2 % (18.3-44.2); Mean Corpuscular HGB Conc 33.5 g/dl (32-36); Mean Corpuscular Hemoglobin 29.4 pg (26-34); Mean Corpuscular Volume 87.6 fl (80-100); Monocytes Absolute Auto 0.5 K/mm3 (0.1-0.6); Monocytes Percent Auto 2.2 % (2.6-8.5); Neutrophils Absolute Auto 21.6 K/mm3 (1.3-6.7); Neutrophils Percent Auto 95.5 % (45.5-73.1); Platelet Count Result 243 k/mm3 (150-375); Red Blood Count 3.71 M/mm3 (4.2-5.4); Red Cell Distribution Width 14.4 % (11.5-14.5); White Blood Count 22.6 K/mm3 (4.5-10.0)
[2025-01-04 08:27] LABS: Alanine Aminotransferase 13 U/L (6-35); Albumin Level 3.6 g/dL (3.5-5.1); Alkaline Phosphatase 127 U/L (38-126); Anion Gap 16 mmol/L (4-12); Aspartate Amino Transferase 26 U/L (14-36); Bilirubin,Total 0.8 mg/dL (0.2-1.3); Blood Urea Nitrogen 9 mg/dL (7-17); Calcium 8.6 mg/dL (8.4-10.2); Carbon Dioxide 20 mmol/L (22-30); Chloride 96 mmol/L (98-107); Estimated CRCL calculation 49 ml/min; Estimated Glomerular Filt Rate > 60; Glucose 99 mg/dL (65-110); Sodium 132 mmol/L (137-145)
--- NOTE | 2025-01-04 08:39 | PM.IMPN ---
Progress Note: A&P Assessment and Plan (1) PRASANTH (acute kidney injury): Code(s): N17.9 - Acute kidney failure, unspecified Status: Acute (2) Sepsis: Code(s): A41.9 - Sepsis, unspecified organism Status: Acute (3) Delirium due to general medical condition: Code(s): F05 - Delirium due to known physiological condition Status: Acute (4) COVID-19: Code(s): U07.1 - COVID-19 Status: Acute Plan sepsis Code(s): R65.10 - Systemic inflammatory response syndrome (SIRS) of non-infectious origin without acute organ dysfunction Status: Acute Assessment and Plan: Patient presents with fever and found to have elevated WBC, tachycardia and tachypnea. CT of the chest, abdomen and pelvis with contrast showed no acute cardiopulmonary disease and no acute findings in the abdomen or pelvis imaging. She had air in the bile ducts but had undergone recent ERCP on 12/10/2024. UCx grew Enterococus last month but was a contaminated sample. Urinalysis here was clear. Patient was treated with IV antibiotics after appropriate cultures obtain but antibiotics were not continued. BCx are no growth to date. CXR was clear. Fever has recurred. Suspect SIRS related to COVID but still having fevers. WBC still elevated but trending down. Recultured yesterday but no other source of infection noted. Continue scheduled Tylenol 12/29: Patient had fever 103.2 yesterday evening, rapid response was called, leukocytosis is trending up yesterday, white blood cell [id number] with neutrophils left shift. Meeting criteria of sepsis Repeated CT scan December 28, that showed Pneumobilia is again identified, for which prior sphincterotomy (on 12/10/2024) is suspected. Repeat blood culture on December 28 has no growth so far. Started with doxycycline and Zosyn on December 28, patient is afebrile overnight, but leukocytosis is getting worse, continue Zosyn and switch from doxy to vancomycin IV 12/29 Leukocytosis improving, blood culture negative, patient fever yesterday, afebrile overnight per nurse report, repeated chest x-ray on December 29 shows no acute cardiopulmonary issues. Continue current treatment 12/30 Patient had fever overnight, but leukocytosis is trending down, will repeat blood culture urine culture and CTA chest abdomen pelvis, unclear source of infection, lumbar puncture, continue vancomycin and Zosyn, and add acyclovir , I have discussed case with Dr. De La Rosa neurologist, he agrees the plan 12/31 Patient is afebrile overnight, blood pressure stable, pulse ox 100% on room air, leukocytosis persists, 15,200, with left shift, chemistry shows hyponatremia 133, potassium 3.0 CSF showed increased right blood cell 3.8 H, limit set within normal limit, margin high protein, pending herpes PCR, UA unremarkable CT head shows no acute intracranial issues CT chest abdomen pelvis showed 1. Fluid throughout the colon consistent with nonspecific diarrhea. Correlate clinically for gastroenteritis. 2. Small right and trace left posterior layering pleural effusions. 3. Mild cardiomegaly. 4. Indeterminate 8 mm soft tissue density lesion at the lower pole the left kidney which could represent a proteinaceous/hemorrhagic cyst or solid renal cell carcinoma. Recommend pre and postcontrast MRI or CT for further evaluation. continue current treatment 01/01 Appreciate neurology's consultation, spinal fluid does not show bacteria infection, patient still have fever, leukocytosis persists, herpes negative, patient pulled out line yesterday Discontinue acyclovir. Given recent intra-abdominal procedure, patient has risk of fungal infection, start micafungin, switch from Zosyn to cefepime, continue vancomycin today, f/u c diff, blood fungal culture, chest x-ray I discussed case with ID pharmacist and ID Dr. Pacheco. Watch patient in [facility] today. If patient will not respond to treatment, will transfer patient to [facility]. 01/04: Patient still has back fever over the night, leukocytosis is trending up, patient denies abdomen pain, chest pain shortness breast dysuria. Unclear source of infection. Blood cultures are negative chest x-ray on January 03 showed no consolidation Discussed the case with [facility], patient is accepted. Patient will be transferred to [facility] in [place] for further evaluation and treatment Altered mental status Patient had fever overnight, patient is on vancomycin Zosyn Pending CT head without contrast, lumbar puncture, add Acyclovir 01/01 Neuro check now patient is alert, able to follow command, back to the baseline,01/02 COVID: Code(s): U07.1 - COVID-19 Status: Acute Assessment and Plan: Patient tested positive for COVID on 12/22/24. Paxlovid ordered but she had not started this yet. Patient currently on room air. No need remdesivir Hypomagnesemia and hypokalemia Replete with potassium chloride and magnesium sulfate Follow-up BMP magnesium PRASANTH (acute kidney injury), hyponatremia Code(s): N17.9 - Acute kidney failure, unspecified Status: Acute Assessment and Plan: Creatinine elevated at 1.4 with a normal underlying baseline. Kidneys appeared normal by imaging. s/w NS 125 mL/hour on 12/29, patient had high fever yesterday (4) Hypokalemia: Code(s): E87.6 - Hypokalemia Status: Acute Assessment and Plan: Patient with potassium 3.1. Potassium was replaced. Continue to monitor and replace Sinus bradycardia EKG shows sinus bradycardia heart rate 45, no specific ST or T-wave changes QTC 460 Follow-up BMP magnesium level, follow-up echocardiogram Avoid beta-frieda and calcium channel frieda Telemetry monitoring. Chest pain Moderate high troponin, EKG shows no specific ST T-wave changes Appreciate cardiology consultation, cardia recommends no further workup for cardiac ischemia Dementia: Qualifiers: Dementia type: unspecified type Code(s): F03.90 - Unspecified dementia, unspecified severity, without behavioral disturbance, psychotic disturbance, mood disturbance, and anxiety Status: Chronic Assessment and Plan: Stable. Continue Namenda. (6) Hypertension: Qualifiers: Hypertension type: primary hypertension Qualified Code(s): I10 - Essential (primary) hypertension Code(s): I10 - Essential (primary) hypertension Status: Chronic Assessment and Plan: Blood pressure stable (7) Bradycardia: Code(s): R00.1 - Bradycardia, unspecified Status: Acute Assessment and Plan: HR drops to 30's overnight so metoprolol held. She now has tachycardia but sinus mechanism and felt related to agitation. Persistent bradycardia at night so will stop metoprolol TSH normal. Follow on tele. Subjective Date/time seen: 01/04/25 08:39 Interval history: Patient still had fever overnight, patient has received antibiotics for broad-spectrum better infection, fungal infection and herpes infection. Patient still has high-grade fever. Multiple blood culture negative, CSF stain did show better infection, herpes PCR negative. Multiple CT scan shows no consolidation lung only pneumobilia in bile duct. No clear source infection, consulted GI, GI did not consider infection due to previous ERCP. Will consult general surgeon for evaluation to rule out intra-abdominal infection Also called [facility] transfer center to transfer patient to higher level hospital for evaluation treatment Exam Narrative: GENERAL: no acute distress. Well-nourished. - EYES: EOMI. Anicteric. - HENT: Moist mucous membranes. - LUNGS: Clear to auscultation bilaterally, no wheezing, rhonchi, or rales. - CARDIOVASCULAR: Regular rate and rhythm. No murmur. No JVD. - ABDOMEN: Soft, non-tender and non-distended. No palpable masses. - EXTREMITIES: No edema. Peripheral pulses 2+. Non-tender. - NEUROLOGIC: Moving all extremities, - PSYCHIATRIC: Alert, able to follow commands, but not oriented x 3. - SKIN: No rashes or lesions. Warm. - LYMPH: No cervical lymphadenopathy. Objective Data Vital Signs Vital Signs: Vital Signs - 24 hr 01/03/25 09:02 01/03/25 09:02 01/03/25 12:00 Temperature Pulse Rate 55 L 56 L Respiratory Rate 18 Blood Pressure Pulse Oximetry 100 Oxygen Delivery Room Air 01/03/25 14:00 01/03/25 16:04 01/03/25 19:54 Temperature 97 F L 97.7 F Pulse Rate 58 L 57 L 67 Respiratory Rate 16 20 Blood Pressure 163/76 H 156/98 H Pulse Oximetry 100 99 Oxygen Delivery 01/03/25 20:00 01/03/25 20:00 01/04/25 00:00 Temperature Pulse Rate 67 60 72 Respiratory Rate 20 Blood Pressure Pulse Oximetry 99 Oxygen Delivery Room Air 01/04/25 03:27 01/04/25 03:27 01/04/25 04:00 Temperature 102.3 F H 102.3 F H Pulse Rate 133 H 133 H Respiratory Rate 22 H Blood Pressure Pulse Oximetry Oxygen Delivery 01/04/25 06:03 Temperature 104.1 F H Pulse Rate 121 H Respiratory Rate Blood Pressure Pulse Oximetry Oxygen Delivery Intake/Output Intake/Output: Intake & Output 01/01/25 01/03/25 01/03/25 01/04/25 23:59 00:59 23:59 23:59 Intake Total 2141.7 2603.9 2942.4 1097.9 Output Total 1800 201 840 8735 Balance 341.7 2303.9 2342.4 -1702.1 Meds/Results Medications: Active Medications Generic Name Dose Route Start Last Admin Trade Name Freq PRN Reason Stop Dose Admin Acetaminophen 1,000 mg 12/28/24 18:59 01/02/25 20:51 Acetaminophen 500 Mg Tablet PO 1,000 mg Q6H PRN Administration Mild Pain (1-3) or Fever Acetaminophen 650 mg 01/01/25 15:14 01/04/25 03:27 Acetaminophen 650 Mg Suppository RECTAL 650 mg Q6H PRN Administration Mild Pain (1-3) or Fever Albuterol/Ipratropium 3 ml 12/25/24 00:57 Ipratropium 0.5 Mg/Albuterol Sulfate 2.5 Mg Ampul.Neb 3 Ml INHALATION Q4HRT PRN shortness of breath/Wheezing Allopurinol 300 mg 12/25/24 09:00 01/03/25 09:01 Allopurinol 300 Mg Tablet PO 300 mg DAILY IDALIA Administration Anastrozole 1 mg 12/26/24 09:00 01/03/25 09:02 Anastrozole (*Chemo) 1 Mg Tablet PO 1 mg DAILY IDALIA Administration Aspirin 81 mg 12/25/24 09:00 01/03/25 09:02 Aspirin 81 Mg Enteric Tablet PO 81 mg DAILY IDALIA Administration Aspirin 325 mg 01/01/25 08:00 01/03/25 09:01 Aspirin 325 Mg Tablet PO 325 mg DAILY@0800 IDALIA Administration Enalapril Maleate 10 mg 12/25/24 09:00 01/03/25 09:02 Enalapril Maleate 10 Mg Tablet PO 10 mg DAILY IDALIA Administration Famotidine 20 mg 12/25/24 09:00 01/03/25 22:02 Famotidine 20 Mg Tablet PO Not Given Q12HR IDALIA Guaifenesin/Dextromethorphan 10 ml 12/25/24 00:57 Guaifenesin/Dextromethorphan 10 Ml Udc PO Q4H PRN Cough Heparin Sodium (Porcine) 5,000 units 12/25/24 09:00 01/03/25 21:54 Heparin Sodium 5,000 Units/Ml Vial SUB-Q 5,000 units Q12HR IDALIA Administration Hydromorphone HCl 0.3 mg 01/01/25 15:14 01/01/25 15:54 Hydromorphone Hcl Inj (*Crx) 1 Mg/Ml Syr IV PUSH 0.3 mg Q4H PRN Administration Pain Rated 7-10 Sodium Chloride 1,000 mls @ 125 mls/hr 12/29/24 09:50 01/04/25 05:58 Normal Saline Iv IV CONT 125 mls/hr .Q8H IDALIA Administration Metronidazole 500 mg in 100 mls @ 100 mls/hr 01/03/25 09:00 01/04/25 02:10 Flagyl 500 Mg/Iso Soln 100 Ml IVPB Infused Q8H IDALIA Infusion Cefepime HCl 2 gm in 50 mls @ 100 mls/hr 01/03/25 09:05 01/03/25 22:24 Maxipime 2 Gm/Ns 50 Ml IVPB Infused Q12HR IDALIA Infusion Micafungin Sodium 100 mg/ 100 mls @ 100 mls/hr 01/03/25 10:00 01/03/25 11:41 Sodium Chloride IVPB Infused Q24H IDALIA Infusion Vancomycin HCl 1,500 mg in 500 mls @ 250 mls/hr 01/03/25 11:00 01/03/25 14:11 Vancomycin 1,500 Mg/Ns 500 Ml IVPB Infused Q24H IDALIA Infusion Memantine 10 mg 12/25/24 09:00 01/03/25 22:02 Memantine 10 Mg Tablet PO Not Given Q12HR IDALIA Ondansetron HCl 4 mg 01/02/25 16:32 01/02/25 16:49 Ondansetron Hcl Odt 4 Mg Tablet PO 4 mg Q6H PRN Administration Nausea And Vomiting Prochlorperazine Edisylate 10 mg 12/25/24 00:57 Prochlorperazine Edisylate 10 Mg/2 Ml Vial IV PUSH Q6H PRN Nausea And Vomiting Radiology Results: ITS Impressions Chest/Abdomen/Pelvis CT 12/24/24 20:40 IMPRESSION: CHEST: 1. No acute cardiopulmonary pathology. 2. Loss of volume of T12 which is most likely chronic. ABDOMEN/PELVIS: 1. No evidence of appendicitis, diverticulitis or intestinal obstruction. 2. Air is seen in the bile ducts of the left lobe of the liver. Abdomen/Pelvis CT 12/28/24 19:00 IMPRESSION: No findings within the abdomen or pelvis to suggest a source of patient's fever, as detailed above. Lumbar Puncture Fluoroscopy 12/31/24 13:16 IMPRESSION: 1. Successful fluoro-guided lumbar puncture. Head CT 12/31/24 13:28 IMPRESSION: 1. Mild nonspecific cerebral white matter disease, which likely represents chronic small vessel ischemic disease. Chest/Abdomen/Pelvis CTA 12/31/24 13:29 IMPRESSION: 1. Fluid throughout the colon consistent with nonspecific diarrhea. Correlate clinically for gastroenteritis. 2. Small right and trace left posterior layering pleural effusions. 3. Mild cardiomegaly. 4. Indeterminate 8 mm soft tissue density lesion at the lower pole the left kidney which could represent a proteinaceous/hemorrhagic cyst or solid renal cell carcinoma. Recommend pre and postcontrast MRI or CT for further evaluation. Chest X-Ray 01/03/25 09:24 IMPRESSION: Prominent markings in the lower lobes with interstitial thickening. Pneumonitis cannot be excluded. Follow-up advised. Labs Labs: Laboratory Results - last 24 hr 01/03/25 01/03/25 01/03/25 00:13 02:59 05:02 ESR Sodium 132 L Potassium 2.4 L* Chloride 99 Carbon Dioxide 23 Anion Gap 10 BUN 9 Creatinine 0.81 Estim Creat Clear Calc 48 Estimated GFR > 60 Glucose 105 Calcium 7.8 L Total Bilirubin 0.4 AST 20 ALT 11 Alkaline Phosphatase 91 C-Reactive Protein Total Protein 6.0 L Albumin 2.7 L Urine Color Urine Appearance Urine pH Ur Specific Seanor Urine Protein Urine Glucose (UA) Urine Ketones Ur Blood (Man) Urine Nitrate Urine Bilirubin Urine Urobilinogen Leukocyte Esterase Rfl Urine RBC Urine WBC Ur Squamous Epith Cells Urine Bacteria Urine Casts C. trachomatis (PCR) Not detected HIV 1&2 Ag/Ab, 4th Gen Non-reactive N. gonorrhoeae (PCR) Not detected 01/04/25 01/04/25 01/04/25 00:13 06:57 06:57 ESR 119 H Sodium 132 L Potassium 3.0 L Chloride 96 L Carbon Dioxide 20 L Anion Gap 16 H BUN 9 Creatinine 0.77 0.78 Estim Creat Clear Calc 50 Estimated GFR Glucose Calcium Total Bilirubin AST ALT Alkaline Phosphatase C-Reactive Protein Total Protein Albumin Urine Color Yellow Urine Appearance Clear Urine pH 6.5 Ur Specific Seanor 1.010 Urine Protein Negative Urine Glucose (UA) Negative Urine Ketones Trace H Ur Blood (Man) Trace Urine Nitrate Negative Urine Bilirubin Negative Urine Urobilinogen 0.2 Leukocyte Esterase Rfl Trace H Urine RBC 0-2 Urine WBC 0-5 Ur Squamous Epith Cells None seen Urine Bacteria None seen Urine Casts 0-2 C. trachomatis (PCR) HIV 1&2 Ag/Ab, 4th Gen N. gonorrhoeae (PCR) 01/04/25 01/04/25 06:57 06:57 ESR Sodium Potassium Chloride Carbon Dioxide Anion Gap BUN Creatinine Estim Creat Clear Calc 49 Estimated GFR > 60 > 60 Glucose 99 Calcium 8.6 Total Bilirubin 0.8 AST 26 ALT 13 Alkaline Phosphatase 127 H C-Reactive Protein 13.0 H Total Protein 7.0 Albumin 3.6 Urine Color Urine Appearance Urine pH Ur Specific Seanor Urine Protein Urine Glucose (UA) Urine Ketones Ur Blood (Man) Urine Nitrate Urine Bilirubin Urine Urobilinogen Leukocyte Esterase Rfl Urine RBC Urine WBC Ur Squamous Epith Cells Urine Bacteria Urine Casts C. trachomatis (PCR) HIV 1&2 Ag/Ab, 4th Gen N. gonorrhoeae (PCR)
[2025-01-04] MEDS: HEPARIN SODIUM 5,000 UNITS/ML VIAL 5000 UNITS SUB-Q ×2 (09:07→20:36)
[2025-01-04] MEDS: CEFEPIME 2 GM/NS 50 ML 2 GM/50 ML BAG IVPB (09:07)
[2025-01-04] MEDS: MICAFUNGIN SODIUM 100 MG in SODIUM CHLORIDE 0.9% IV 100 ML IVPB (12:35)
[2025-01-04] MEDS: VANCOMYCIN 1,500 MG/NS 500 ML 1,500 MG/500 ML BAG 250 MG IVPB (13:58)
--- NOTE | 2025-01-04 14:27 | PM.CNGS ---
Assessment and Plan Assessment and plan (1) Sepsis: Code(s): A41.9 - Sepsis, unspecified organism Status: Acute Assessment and Plan: The patient was initially admitted with COVID, PRASANTH, and hypokalemia nearly two weeks ago. For the past 8 days, she has had an intermittent fever with persistent leukocytosis. She has had an extensive workup for sepsis without a clear source. We have been consulted for the persistent fever of unknown origin and findings of pneumobilia on CT. The CT findings are likely related to her recent ERCP with sphincterotomy. She does not have jaundice, abdominal pain, or any other abdominal complaints. Her WBC has gone up over the past two days and she again had a fever this morning of 104.1F. Blood cultures have remained negative after being repeated multiple times. Her most recent CT scan of the abdomen and pelvis was 4 days ago with no findings other than nonspecific diarrhea and unchanged pneumobilia. Clinically, she has no abdominal complaints, bowels are moving, and her abdominal exam is benign. She has a Cdiff ordered, although it does not appear that she has been having excessive diarrhea. She has had 4 CT scans in the past 2 weeks and at this time, my suspicion for an intraabdominal source for her fever is low. Would only repeat a CT scan if her abdominal exam changed or she was having complaints concerning for an intraabdominal process. Otherwise, there is no current surgical indication for her fever. Would recommend continued investigation for other sources of the fever, such as other potential infectious causes, rheumatologic conditions, drugs?, or considering transfer to a tertiary care facility for Infectious disease consultation. (2) Pneumobilia: Code(s): K83.8 - Other specified diseases of biliary tract Status: Acute Assessment and Plan: Patient has had multiple CT scans since admission, all with findings of unchanged pneumobilia in the setting of an ERCP with sphincterotomy on 12/10/24. She had a cholecystectomy many years ago and has has post cholecystectomy choledocholithiasis on a few occasions. Her LFTs have been normal during this admission. The CT findings of pneumobilia are likely related to her recent ERCP and is not the cause of her fever. (3) History of ERCP: Code(s): Z98.890 - Other specified postprocedural states Status: Acute (4) History of cholecystectomy: Code(s): Z90.49 - Acquired absence of other specified parts of digestive tract Status: Acute Plan I have discussed the patient's case and plan of care with Dr. Reeves. History of Present Illness Consult details Consult date: 01/04/25 Reason for consult: other (Fever of unknown origin, Pneumobilia on CT) Requesting physician: Baltazar Walden MD Narrative: This is a 74-year-old woman with dementia and multiple other medical problems, who we have been asked to see in surgical consultation for fever of an unknown origin and CT findings of pneumobilia. The patient was admitted on 12/24/24 for COVID, PRASANTH, and hypokalemia after presenting to the ER with abdominal pain and fever. She was initially treated for COVID and was febrile on admission, which resolved. After a few days, she developed a fever again starting on 12/27/24. Since then, she had intermittent fevers daily. She has had multiple blood cultures, which have been negative. She had a lumbar puncture on 12/31/24 with cultures negative thus far. Multiple UAs, which have been negative. HIV testing and nonreactive. HSV negative. Influenza A/B negative. RSV negative. Multiple CT scans of the abdomen and pelvis, as well as head CT x 2 since admission. She has had a total of 4 CT scans of the abdomen over the past 2 weeks that all showed pneumobilia, but without any other acute intraabdominal findings. The most recent CT of the abdomen/pelvis on 12/31/24 showed findings of nonspecific diarrhea. Chest x-rays have been negative, other than today there were findings of prominent markings int eh lower lobes with interstitial thickening, pneumonitis cannot be excluded. Her WBC count has fluctuated anywhere from 19.7 on admission to as low as 11.9, but has never normalized. Over the past few days, the WBC count has gone up and is at 22.6 today. She had a fever as high as 104.1F this morning, which she received acetaminophen and it has normalized. She is now seen in surgical consultation. Her history is primarily obtained by review of the EMR, as she has dementia and is confused at baseline. She is not able to provide any additional history and is unable to even answer orientation questions appropriately. She is alert and sitting comfortably in the chair on my exam. She shows no signs of discomfort and denies any current symptoms. She denies abdominal pain, nausea, vomiting, any pain anywhere, or any other specific complaints. Meals have not been consistently charted, but it appears she has not had much oral intake from her meals. She has been moving her bowels 1-2 times per day over the past few days. Cdiff was ordered. Although her CT scan showed findings of nonspecific diarrhea, it does not appear to be excessive. She had an open cholecystectomy many years ago. She has had choledocholithiasis over the past few years, at least once in 2021 requiring ERCP and again on 12/10/24 requiring ERCP. LFTs have been normal. Lyme panel and respiratory panel have been ordered today. She also has other tests still pending. She received a dose of Remdesivir today and was put on broad-spectrum IV antibiotics and IV Micafungin today as well. Review of Systems Review of Systems: ROS unobtainable: Yes unobtainable due to mental status (dementia) [facility] Past Medical History Medical History SIRS (systemic inflammatory response syndrome) Leukocytosis Anemia Gout Gastroesophageal reflux disease Hypertension Alzheimer's dementia Breast cancer Surgical History Surgical History History of ERCP History of open reduction and internal fixation (ORIF) procedure (04/08/22) Repair of left hip fracture with IM nail. History of cholecystectomy History of appendectomy History of bilateral mastectomy Family History Family History Other Family history unknown Social History Social History Social History: Surrogate decision maker: Daya Carmona, daughter. Code status: Full code. Smoking status: Never smoker Second hand tobacco smoke exposure: No Alcohol intake: never Substance use: never Substance use type: does not use Do You Feel Safe in your Home?: Yes Lack of Transportation: YES Lack of Food: Never True Current Housing: I Have Housing Concerned About Future Housing: No Difficulty Paying Gas/Electric Bills: No Difficulty Paying for Meds: No Currently Unemployed: No Education: High School Diploma/GED Difficulty w/ Childcare or Family Care: No Spiritual care concerns: No Meds Home Medications and Allergies Home Medications ?Medication ?Instructions ?Recorded ?Confirmed ?Type acetaminophen 500 mg tablet 500 mg PO Q6H 04/19/22 12/25/24 History allopurinol 300 mg tablet 300 mg PO DAILY 04/19/22 12/25/24 History anastrozole 1 mg tablet 1 mg PO DAILY 04/19/22 12/25/24 History aspirin 81 mg tablet,delayed 81 mg PO DAILY 04/19/22 12/25/24 History release enalapril maleate 10 mg tablet 10 mg PO DAILY 04/19/22 12/25/24 History famotidine 20 mg tablet 20 mg PO BID 04/19/22 12/25/24 History memantine 10 mg tablet 10 mg PO BID 04/19/22 12/25/24 History metoprolol tartrate 25 mg tablet 12.5 mg PO BID 04/19/22 12/25/24 History nirmatrelvir 300 mg (150 mg See Rx Instructions PO .COMPLEX 12/22/24 12/25/24 Rx x2)-ritonavir 100 mg tablet,dose #30 ea pack (Paxlovid) hydroxyzine HCl 25 mg tablet 25 mg PO HS 12/25/24 12/25/24 History Allergies Allergy/AdvReac Type Severity Reaction Status Date / Time Sulfa (Sulfonamide Allergy Unknown Unknown Verified 12/25/24 08:02 Antibiotics) naproxen Allergy Unknown Verified 12/25/24 08:02 quetiapine AdvReac Unknown Unknown Verified 12/25/24 08:02 Vital Signs Vital Signs - 24 hr 01/03/25 16:04 01/03/25 19:54 01/03/25 20:00 Temperature 97.7 F Pulse Rate 57 L 67 67 Respiratory Rate 20 20 Blood Pressure 156/98 H Pulse Oximetry 99 99 Oxygen Delivery Room Air 01/03/25 20:00 01/04/25 00:00 01/04/25 03:27 Temperature 102.3 F H Pulse Rate 60 72 133 H Respiratory Rate 22 H Blood Pressure Pulse Oximetry Oxygen Delivery 01/04/25 03:27 01/04/25 04:00 01/04/25 06:03 Temperature 102.3 F H 104.1 F H Pulse Rate 133 H 121 H Respiratory Rate Blood Pressure Pulse Oximetry Oxygen Delivery 01/04/25 08:55 01/04/25 09:00 Temperature 98.2 F Pulse Rate 95 Respiratory Rate 18 Blood Pressure 114/100 H Pulse Oximetry 100 Oxygen Delivery Room Air Exam Const: General: comfortable, no acute distress and alert Nutritional Appearance: average body habitus Orientation/consciousness: No oriented to place, No oriented to time and confusion HENMT: Head: normocephalic and atraumatic Ears: hearing grossly normal bilaterally Mouth: Yes moist mucous membranes Eyes: General: appearance normal, both eyes and all related structures Pupils: Equal, round and reactive pupils present Neck: Neck: normal visual inspection and full ROM Resp: Effort & Inspection: no respiratory distress Auscultation: clear to auscultation bilaterally Cardio: Rate: regular rate Rhythm: regular rhythm Peripheral pulses: Peripheral pulses 2+ throughout GI: Inspection: non-distended, scar (large transverse RUQ scar) and no visible herniation GI Palp: Yes Soft to palpation, No Tenderness to palpation present (GI), No Guarding due to palpation present (GI), No Rigid due to palpation, Yes No hepatosplenomegaly present and No Rebound tenderness present Percussion: Yes normal to percussion Auscultation: normal bowel sounds Rectal Exam: deferred and other (deferred as patient was sitting in chair) Skin: General skin exam: normal color Neuro: General: moves all extremities and no focal motor deficits Speech: normal speech Motor exam (neuro): 5/5 motor strength present throughout Extrem: General: normal to inspection, no calf tenderness and no edema Psych: Attitude: cooperative Insight: Limited insight present (Psych) Judgement: Limited judgement present (Psych) Results Labs 01/04/25 06:57 01/04/25 06:57 Labs: Abnormal lab results 01/04/25 01/04/25 Range/Units 00:13 06:57 WBC 22.6 H (4.5-10.0) K/mm3 RBC 3.71 L (4.2-5.4) M/mm3 Hgb 10.9 L (12.0-15.0) g/dL Hct 32.5 L (37.0-47.0) % MPV 12.0 H (7.4-10.4) fl Immature Gran % (Auto) 0.8 H (0-0.5) % Neut % (Auto) 95.5 H (45.5-73.1) % Lymph % (Auto) 1.2 L (18.3-44.2) % [place] % (Auto) 2.2 L (2.6-8.5) % Lymph # (Auto) 0.26 L (0.9-3.2) K/mm3 Abs Immat Gran (auto) 0.18 H (0.00-0.031) K/mm3 Absolute Neuts (auto) 21.6 H (1.3-6.7) K/mm3 ESR 119 H (0-20) mm/hr Sodium 132 L (137-145) mmol/L Potassium 3.0 L (3.4-5.0) mmol/L Chloride 96 L (98-107) mmol/L Carbon Dioxide 20 L (22-30) mmol/L Anion Gap 16 H (4-12) mmol/L Alkaline Phosphatase 127 H (38-126) U/L C-Reactive Protein 13.0 H (<1.0) mg/dL Urine Ketones Trace H (Negative) mg/dL Leukocyte Esterase Rfl Trace H (Negative) RITA/UL Diabetes panel 01/04/25 01/04/25 Range/Units 06:57 06:57 Sodium 132 L (137-145) mmol/L Potassium 3.0 L (3.4-5.0) mmol/L Chloride 96 L (98-107) mmol/L Carbon Dioxide 20 L (22-30) mmol/L BUN 9 (7-17) mg/dL Creatinine 0.77 0.78 (0.7-1.0) mg/dL Glucose 99 (65-110) mg/dL Calcium 8.6 (8.4-10.2) mg/dL AST 26 (14-36) U/L ALT 13 (6-35) U/L Alkaline Phosphatase 127 H (38-126) U/L Total Protein 7.0 (6.3-8.2) g/dL Albumin 3.6 (3.5-5.1) g/dL Calcium panel 01/04/25 Range/Units 06:57 Calcium 8.6 (8.4-10.2) mg/dL Albumin 3.6 (3.5-5.1) g/dL Pituitary panel 01/04/25 01/04/25 Range/Units 06:57 06:57 Sodium 132 L (137-145) mmol/L Potassium 3.0 L (3.4-5.0) mmol/L Chloride 96 L (98-107) mmol/L Carbon Dioxide 20 L (22-30) mmol/L BUN 9 (7-17) mg/dL Creatinine 0.77 0.78 (0.7-1.0) mg/dL Glucose 99 (65-110) mg/dL Calcium 8.6 (8.4-10.2) mg/dL Adrenal panel 01/04/25 01/04/25 Range/Units 06:57 06:57 Sodium 132 L (137-145) mmol/L Potassium 3.0 L (3.4-5.0) mmol/L Chloride 96 L (98-107) mmol/L Carbon Dioxide 20 L (22-30) mmol/L BUN 9 (7-17) mg/dL Creatinine 0.77 0.78 (0.7-1.0) mg/dL Glucose 99 (65-110) mg/dL Calcium 8.6 (8.4-10.2) mg/dL Total Bilirubin 0.8 (0.2-1.3) mg/dL AST 26 (14-36) U/L ALT 13 (6-35) U/L Alkaline Phosphatase 127 H (38-126) U/L Total Protein 7.0 (6.3-8.2) g/dL Albumin 3.6 (3.5-5.1) g/dL All other labs normal. Imaging Additional studies: ITS Impressions Head CT 12/24/24 20:34 IMPRESSION: No acute intracranial findings. Chest/Abdomen/Pelvis CT 12/24/24 20:40 IMPRESSION: CHEST: 1. No acute cardiopulmonary pathology. 2. Loss of volume of T12 which is most likely chronic. ABDOMEN/PELVIS: 1. No evidence of appendicitis, diverticulitis or intestinal obstruction. 2. Air is seen in the bile ducts of the left lobe of the liver. Chest X-Ray 12/27/24 12:35 IMPRESSION: 1. No acute cardiopulmonary disease. Abdomen/Pelvis CT 12/28/24 19:00 IMPRESSION: No findings within the abdomen or pelvis to suggest a source of patient's fever, as detailed above. Chest X-Ray 12/29/24 11:24 IMPRESSION: 1. No acute cardiopulmonary disease. Lumbar Puncture Fluoroscopy 12/31/24 13:16 IMPRESSION: 1. Successful fluoro-guided lumbar puncture. Head CT 12/31/24 13:28 IMPRESSION: 1. Mild nonspecific cerebral white matter disease, which likely represents chronic small vessel ischemic disease. Chest/Abdomen/Pelvis CTA 12/31/24 13:29 IMPRESSION: 1. Fluid throughout the colon consistent with nonspecific diarrhea. Correlate clinically for gastroenteritis. 2. Small right and trace left posterior layering pleural effusions. 3. Mild cardiomegaly. 4. Indeterminate 8 mm soft tissue density lesion at the lower pole the left kidney which could represent a proteinaceous/hemorrhagic cyst or solid renal cell carcinoma. Recommend pre and postcontrast MRI or CT for further evaluation. Chest X-Ray 01/03/25 09:24 IMPRESSION: Prominent markings in the lower lobes with interstitial thickening. Pneumonitis cannot be excluded. Follow-up advised.
[2025-01-04 14:45] LABS: Troponin I 0.043 ng/mL (0.000-0.034)
[2025-01-04] MEDS: POTASSIUM CHLORIDE INJ 40 MEQ in SODIUM CHLORIDE 0.9% IV 500 ML 130 MEQ IVPB (16:21)
[2025-01-04] MEDS: ACETAMINOPHEN 500 MG TABLET 1000 MG PO (20:36)
[2025-01-04] MEDS: FAMOTIDINE 20 MG TABLET PO (20:36)
[2025-01-04] MEDS: MEMANTINE 10 MG TABLET PO (20:36)
--- NOTE | 2025-01-04 23:45 | P.RRN_ITS ---
Critical Care Event Note Summary Code activated: No Narrative: 00:17a.m.--Was called by bedside nursing about hypothermia of 95 and HR dipping down in the 30's, looks like sinus melly on the monitor. We will get a STAT EKG and STAT labs with Lactic acid and troponin. Nursing called family to notify them of this change. They were able to get ahold of grand daughter Alanna and I was able to speak to her about the patient's change in condition. Alanna states that she is a full code as Sanam had stated in the past her wishes. Alanna will be coming up to the hospital. She is 1 hour away. EKG showing sinus bradycardia with heart rate of 51, QTc 489. Notified warehouse receiving clerk of patient condition and possible need to transfer her to higher level of care. Daughter Daya called back at 00:11 and agrees that she wants to keep her a full code. Cristi tran in place. 3:10 a.m.-- Labs reviewed and shown a white blood cell count of 11.2, hemoglobin 8.3, ESR 108, sodium 130, potassium 3.0, creatinine 0.68, troponin 0.034, CRP 12.3, lactic acid was normal at 0.7. Nursing reporting that her heart rate has been staying in the 40s to 50s however tib still down into the 30s on monitor. She also has not made any urine output despite giving her maintenance IV fluids at 125 mL/hour. Bladder scan shown about 100 mL in bladder. We will go ahead and give her 1 L normal saline bolus x1 now. 04:46 a.m. HR now in the 50-60's, her temp is 95.9, continue Cristi chelsea. Will hold off on moving patient to IMU. We will continue to monitor her closely. This case had a high probability of a clinically significant, sudden, or life threatening deterioration of this patient's condition which required my full and direct attention, intervention and personal management. Critical care time: 75 - 104 mins
[2025-01-05] VITALS (24 sets, daily range): BP systolic 139–174; BP diastolic 76–84; PULSE 49–89; RESP 16–24; TEMP 34.6–39; O2SAT 93–100
--- NOTE | 2025-01-05 | ECG_ITS ---
Test Date: 2025-01-05 00:00:51 Measurements Intervals [place] Rate: 51 P: 45 GA: 133 QRS: 14 QRSD: 99 T: 37 QT: 512 QTc: 474 Interpretive Statements SINUS BRADYCARDIA NONSPECIFIC T WAVE ABNORMALITY Compared to ECG 12/31/2024 11:16:32 SINUS BRADYCARDIA NOW PRESENT Electronically Signed On 01-05-2025 13:33:27 CDT by Leni Schultz M.D.
--- NOTE | 2025-01-05 00:01 | ECG_ITS ---
Test Date: 2025-01-05 00:01:37 Measurements Intervals [place] Rate: 48 P: 87 AL: 156 QRS: 6 QRSD: 96 T: 25 QT: 521 QTc: 469 Interpretive Statements SINUS BRADYCARDIA PROLONGED QT INTERVAL NONSPECIFIC T WAVE ABNORMALITY Compared to ECG 01/05/2025 00:00:51 NO SIGNIFICANT CHANGES Electronically Signed On 01-05-2025 13:37:49 CDT by Leni Schultz M.D.
[2025-01-05] MEDS: CEFEPIME 2 GM/NS 50 ML 2 GM/50 ML BAG IVPB ×2 (00:37→09:25)
[2025-01-05 00:40] LABS: Basophils Absolute Auto 0.1 K/mm3 (0.0-0.1); Basophils Percent Auto 0.4 % (0.2-1.2); Eosinophils Absolute Auto 0.1 K/mm3 (0-0.3); Eosinophils Percent Auto 1.1 % (0-4.4); Hematocrit 24.7 % (37.0-47.0); Hemoglobin 8.3 g/dL (12.0-15.0); Immature Granulocyte Absolute 0.07 K/mm3 (0.00-0.031); Immature Granulocyte Percent A 0.6 % (0-0.5); Lymphocytes Absolute Auto 1.27 K/mm3 (0.9-3.2); Lymphocytes Percent Auto 11.3 % (18.3-44.2); Mean Corpuscular HGB Conc 33.6 g/dl (32-36); Mean Corpuscular Hemoglobin 29.5 pg (26-34); Mean Corpuscular Volume 87.9 fl (80-100); Mean Platelet Volume 10.8 fl (7.4-10.4); Monocytes Absolute Auto 0.3 K/mm3 (0.1-0.6); Monocytes Percent Auto 2.9 % (2.6-8.5); Neutrophils Absolute Auto 9.4 K/mm3 (1.3-6.7); Neutrophils Percent Auto 83.7 % (45.5-73.1); Platelet Count Result 167 k/mm3 (150-375); Red Blood Count 2.81 M/mm3 (4.2-5.4); Red Cell Distribution Width 14.3 % (11.5-14.5); White Blood Count 11.2 K/mm3 (4.5-10.0)
[2025-01-05 00:53] LABS: Alanine Aminotransferase 11 U/L (6-35); Albumin Level 2.6 g/dL (3.5-5.1); Alkaline Phosphatase 83 U/L (38-126); Anion Gap 9 mmol/L (4-12); Aspartate Amino Transferase 18 U/L (14-36); Bilirubin,Total 0.5 mg/dL (0.2-1.3); Blood Urea Nitrogen 13 mg/dL (7-17); Calcium 8.1 mg/dL (8.4-10.2); Carbon Dioxide 22 mmol/L (22-30); Chloride 99 mmol/L (98-107); Estimated CRCL calculation 56 ml/min; Estimated Glomerular Filt Rate > 60; Glucose 91 mg/dL (65-110); Sodium 130 mmol/L (137-145)
[2025-01-05 00:54] LABS: Lactic Acid Reflex 0.7 mmol/L (0.7-2.0)
[2025-01-05 01:05] LABS: Troponin I 0.034 ng/mL (0.000-0.034)
[2025-01-05 01:10] LABS: Erythrocyte Sedimentation Rate 108 mm/hr (0-20)
[2025-01-05 01:19] LABS: CRP 12.3 mg/dL (<1.0)
[2025-01-05] MEDS: metroNIDAZOLE 500 MG/ISO 100ML 500 MG/100 ML BAG 100 MG IVPB ×3 (01:46→17:00)
[2025-01-05] MEDS: SODIUM CHLORIDE 0.9% IV 1,000 ML 999 ML IV CONT (03:47)
[2025-01-05] MEDS: SODIUM CHLORIDE 0.9% IV 1,000 ML 125 ML IV CONT ×2 (04:45→20:42)
[2025-01-05 05:29] LABS: Basophils Percent Auto 0.4 % (0.2-1.2); Eosinophils Absolute Auto 0.1 K/mm3 (0-0.3); Eosinophils Percent Auto 1.5 % (0-4.4); Hematocrit 21.8 % (37.0-47.0); Hemoglobin 7.2 g/dL (12.0-15.0); Immature Granulocyte Absolute 0.03 K/mm3 (0.00-0.031); Immature Granulocyte Percent A 0.4 % (0-0.5); Lymphocytes Absolute Auto 1.03 K/mm3 (0.9-3.2); Lymphocytes Percent Auto 12.2 % (18.3-44.2); Mean Corpuscular Hemoglobin 29.9 pg (26-34); Mean Corpuscular Volume 90.5 fl (80-100); Mean Platelet Volume 11.6 fl (7.4-10.4); Monocytes Absolute Auto 0.3 K/mm3 (0.1-0.6); Monocytes Percent Auto 3.6 % (2.6-8.5); Neutrophils Absolute Auto 6.9 K/mm3 (1.3-6.7); Neutrophils Percent Auto 81.9 % (45.5-73.1); Platelet Count Result 146 k/mm3 (150-375); Red Blood Count 2.41 M/mm3 (4.2-5.4); Red Cell Distribution Width 14.3 % (11.5-14.5); White Blood Count 8.4 K/mm3 (4.5-10.0)
[2025-01-05 05:51] LABS: Troponin I 0.031 ng/mL (0.000-0.034)
[2025-01-05 05:51] LABS: Anion Gap 8 mmol/L (4-12); Blood Urea Nitrogen 13 mg/dL (7-17); Calcium 7.5 mg/dL (8.4-10.2); Carbon Dioxide 19 mmol/L (22-30); Chloride 104 mmol/L (98-107); Estimated CRCL calculation 60 ml/min; Estimated Glomerular Filt Rate > 60; Glucose 78 mg/dL (65-110); Potassium 2.6 mmol/L (3.4-5.0); Sodium 131 mmol/L (137-145)
[2025-01-05 06:01] LABS: Vancomycin Trough 15.5 ug/mL (10.0-20.0)
[2025-01-05] MEDS: POTASSIUM CHLORIDE INJ 40 MEQ in SODIUM CHLORIDE 0.9% IV 500 ML 130 MEQ IVPB ×2 (06:23→12:44)
--- NOTE | 2025-01-05 07:59 | P.PNIM_ITS ---
Progress Note: A&P Assessment and Plan (1) PRASANTH (acute kidney injury): Code(s): N17.9 - Acute kidney failure, unspecified Status: Acute (2) Sepsis: Code(s): A41.9 - Sepsis, unspecified organism Status: Acute (3) Delirium due to general medical condition: Code(s): F05 - Delirium due to known physiological condition Status: Acute (4) COVID-19: Code(s): U07.1 - COVID-19 Status: Acute Plan sepsis Code(s): R65.10 - Systemic inflammatory response syndrome (SIRS) of non-infectious origin without acute organ dysfunction Status: Acute Assessment and Plan: Patient presents with fever and found to have elevated WBC, tachycardia and tachypnea. CT of the chest, abdomen and pelvis with contrast showed no acute cardiopulmonary disease and no acute findings in the abdomen or pelvis imaging. She had air in the bile ducts but had undergone recent ERCP on 12/10/2024. UCx grew Enterococus last month but was a contaminated sample. Urinalysis here was clear. Patient was treated with IV antibiotics after appropriate cultures obtain but antibiotics were not continued. BCx are no growth to date. CXR was clear. Fever has recurred. Suspect SIRS related to COVID but still having fevers. WBC still elevated but trending down. Recultured yesterday but no other source of infection noted. Continue scheduled Tylenol 12/29: Patient had fever 103.2 yesterday evening, rapid response was called, leukocytosis is trending up yesterday, white blood cell [id number] with neutrophils left shift. Meeting criteria of sepsis Repeated CT scan December 28, that showed Pneumobilia is again identified, for which prior sphincterotomy (on 12/10/2024) is suspected. Repeat blood culture on December 28 has no growth so far. Started with doxycycline and Zosyn on December 28, patient is afebrile overnight, but leukocytosis is getting worse, continue Zosyn and switch from doxy to vancomycin IV 12/29 Leukocytosis improving, blood culture negative, patient fever yesterday, afebrile overnight per nurse report, repeated chest x-ray on December 29 shows no acute cardiopulmonary issues. Continue current treatment 12/30 Patient had fever overnight, but leukocytosis is trending down, will repeat blood culture urine culture and CTA chest abdomen pelvis, unclear source of infe ction, lumbar puncture, continue vancomycin and Zosyn, and add acyclovir , I have discussed case with Dr. De La Rosa neurologist, he agrees the plan 12/31 Patient is afebrile overnight, blood pressure stable, pulse ox 100% on room air, leukocytosis persists, 15,200, with left shift, chemistry shows hyponatremia 133, potassium 3.0 CSF showed increased right blood cell 3.8 H, limit set within normal limit, margin high protein, pending herpes PCR, UA unremarkable CT head shows no acute intracranial issues CT chest abdomen pelvis showed 1. Fluid throughout the colon consistent with nonspecific diarrhea. Correlate clinically for gastroenteritis. 2. Small right and trace left posterior layering pleural effusions. 3. Mild cardiomegaly. 4. Indeterminate 8 mm soft tissue density lesion at the lower pole the left kidney which could represent a proteinaceous/hemorrhagic cyst or solid renal cell carcinoma. Recommend pre and postcontrast MRI or CT for further evaluation. continue current treatment 01/01 Appreciate neurology's consultation, spinal fluid does not show bacteria infection, patient still have fever, leukocytosis persists, herpes negative, patient pulled out line yesterday Discontinue acyclovir. Given recent intra-abdominal procedure, patient has risk of fungal infection, start micafungin, switch from Zosyn to cefepime, continue vancomycin today, f/u c diff, blood fungal culture, chest x-ray I discussed case with ID pharmacist and ID Dr. Pacheco. Watch patient in [facility] today. If patient will not respond to treatment, will transfer patient to [facility]. 01/04: Patient still has back fever over the night, leukocytosis is trending up, patient denies abdomen pain, chest pain shortness breast dysuria. Unclear source of infection. Blood cultures are negative chest x-ray on January 03 showed no consolidation Discussed the case with [facility], patient is accepted. Patient will be transferred to [facility] in [place] for further evaluation and treatment 01/05: Patient had hypothermia or night, leukocytosis resolved, blood cultures negative. hypothermia over the night the lowest temperature 94.3, blood pressure stable, no O2 desaturation on room air, leukocytosis resolved Discontinue vancomycin continue cefepime micafungin and Flagyl per ID pharmacist recommendation Anemia Hemoglobin continue to drop, no obvious bleeding Stool guaiac Altered mental status Pending CT head without contrast, lumbar puncture, added Acyclovir 01/01, herpes PCR negative, discontinued acyclovir Neuro check now patient is alert, able to follow command, back to the baseline,01/02 COVID: Code(s): U07.1 - COVID-19 Status: Acute Assessment and Plan: Patient tested positive for COVID on 12/22/24. Paxlovid ordered but she had not started this yet. Patient currently on room air. No need remdesivir Hypomagnesemia and hypokalemia Replete with potassium chloride and magnesium sulfate Follow-up BMP magnesium PRASANTH (acute kidney injury), hyponatremia Code(s): N17.9 - Acute kidney failure, unspecified Status: Acute Assessment and Plan: Creatinine elevated at 1.4 with a normal underlying baseline. Kidneys appeared normal by imaging. on NS 125 mL/hour on 12/29, Hypokalemia: Code(s): E87.6 - Hypokalemia Status: Acute Assessment and Plan: Patient with potassium 3.1. Potassium was replaced. Continue to monitor and replace Sinus bradycardia EKG shows sinus bradycardia heart rate 45, no specific ST or T-wave changes QTC 460 Follow-up BMP magnesium level, follow-up echocardiogram Avoid beta-frieda and calcium channel frieda Telemetry monitoring. Chest pain Moderate high troponin, EKG shows no specific ST T-wave changes Appreciate cardiology consultation, cardia recommends no further workup for cardiac ischemia Dementia: Qualifiers: Dementia type: unspecified type Code(s): F03.90 - Unspecified dementia, unspecified severity, without behavioral disturbance, psychotic disturbance, mood disturbance, and anxiety Status: Chronic Assessment and Plan: Stable. Continue Namenda. (6) Hypertension: Qualifiers: Hypertension type: primary hypertension Qualified Code(s): I10 - Essential (primary) hypertension Code(s): I10 - Essential (primary) hypertension Status: Chronic Assessment and Plan: Blood pressure stable (7) Bradycardia: Code(s): R00.1 - Bradycardia, unspecified Status: Acute Assessment and Plan: HR drops to 30's overnight so metoprolol held. Persistent bradycardia stop metoprolol TSH normal. Follow on tele. Discussed with transfer center of [facility], patient is accepted to be transferred to [facility] Patient is awaiting for placement. Subjective Date/time seen: 01/05/25 07:59 Interval history: I saw examined the patient in presents of patient's son and daughter. Patient alert, able to engage conversation, patient does not have obvious distress, does not have complained. Patient denies headache, nausea vomiting diarrhea dysuria. Patient has hypothermia over the night the lowest temperature 94.3, blood pressure stable, no O2 desaturation on room air, leukocytosis continue to improve, hemoglobin 7.2, potassium 2.6 Mental status improving Exam Narrative: GENERAL: no acute distress. Well-nourished. - EYES: EOMI. Anicteric. - HENT: Moist mucous membranes. - LUNGS: Clear to auscultation bilateral ly, no wheezing, rhonchi, or rales. - CARDIOVASCULAR: Regular rate and rhyth m. No murmur. No JVD. - ABDOMEN: Soft, non-tender and non-dist ended. No palpable masses. - EXTREMITIES: No edema. Peripheral puls es 2+. Non-tender. - NEUROLOGIC: Moving all extremities, - PSYCHIATRIC: Alert, able to follow co mmands, but not oriented x 3. - SKIN: No rashes or lesions. Warm. - LYMPH: No cervical lymphadenopathy. Objective Data Vital Signs Vital Signs: Vital Signs - 24 hr 01/04/25 08:00 01/04/25 08:55 01/04/25 09:00 Temperature 98.2 F Pulse Rate 92 95 Respiratory Rate 18 Blood Pressure 114/100 H Pulse Oximetry 100 Oxygen Delivery Room Air 01/04/25 12:00 01/04/25 14:00 01/04/25 16:00 Temperature 97.3 F L Pulse Rate 73 65 64 Respiratory Rate 20 Blood Pressure 146/75 H Pulse Oximetry 100 Oxygen Delivery 01/04/25 20:00 01/04/25 20:00 01/04/25 20:03 Temperature 97.7 F Pulse Rate 61 64 61 Respiratory Rate 18 18 Blood Pressure 164/73 H Pulse Oximetry 100 100 Oxygen Delivery Room Air 01/04/25 23:39 01/05/25 00:00 01/05/25 00:00 Temperature 95.0 F L 94.7 F L Pulse Rate 51 L 49 L Respiratory Rate 16 Blood Pressure 174/77 H Pulse Oximetry 100 Oxygen Delivery 01/05/25 00:15 01/05/25 00:26 01/05/25 00:30 Temperature 94.7 F L 94.7 F L 94.7 F L Pulse Rate Respiratory Rate Blood Pressure Pulse Oximetry Oxygen Delivery 01/05/25 00:45 01/05/25 01:09 01/05/25 01:30 Temperature 94.3 F L 95.0 F L 94.8 F L Pulse Rate Respiratory Rate Blood Pressure Pulse Oximetry Oxygen Delivery 01/05/25 01:36 01/05/25 02:00 01/05/25 02:30 Temperature 94.8 F L 94.9 F L 95.2 F L Pulse Rate Respiratory Rate Blood Pressure Pulse Oximetry Oxygen Delivery 01/05/25 02:41 01/05/25 03:30 01/05/25 04:00 Temperature 95.4 F L 95.4 F L 95.9 F L Pulse Rate 66 Respiratory Rate 16 Blood Pressure 139/76 Pulse Oximetry 95 Oxygen Delivery 01/05/25 04:00 01/05/25 04:30 Temperature 96.4 F L Pulse Rate 63 Respiratory Rate Blood Pressure Pulse Oximetry Oxygen Delivery Intake/Output Intake/Output: Intake & Output 01/03/25 01/03/25 01/04/25 01/05/25 00:59 23:59 23:59 23:59 Intake Total 2603.9 3273.9 3747.9 1150 Output Total 216 566 0402 0 Balance 2303.9 2673.9 347.9 1150 Meds/Results Medications: Active Medications Generic Name Dose Route Start Last Admin Trade Name Freq PRN Reason Stop Dose Admin Acetaminophen 1,000 mg 12/28/24 18:59 01/04/25 20:36 Acetaminophen 500 Mg Tablet PO 1,000 mg Q6H PRN Administration Mild Pain (1-3) or Fever Acetaminophen 650 mg 01/01/25 15:14 01/04/25 03:27 Acetaminophen 650 Mg Suppository RECTAL 650 mg Q6H PRN Administration Mild Pain (1-3) or Fever Albuterol/Ipratropium 3 ml 12/25/24 00:57 Ipratropium 0.5 Mg/Albuterol Sulfate 2.5 Mg Ampul.Neb 3 Ml INHALATION Q4HRT PRN shortness of breath/Wheezing Allopurinol 300 mg 12/25/24 09:00 01/04/25 12:33 Allopurinol 300 Mg Tablet PO Not Given DAILY [facility] Anastrozole 1 mg 12/26/24 09:00 01/04/25 12:33 Anastrozole (*Chemo) 1 Mg Tablet PO Not Given DAILY [facility] Aspirin 325 mg 01/01/25 08:00 01/04/25 12:33 Aspirin 325 Mg Tablet PO Not Given DAILY@0800 [facility] Enalapril Maleate 10 mg 12/25/24 09:00 01/04/25 12:34 Enalapril Maleate 10 Mg Tablet PO Not Given DAILY [facility] Famotidine 20 mg 12/25/24 09:00 01/04/25 20:36 Famotidine 20 Mg Tablet PO 20 mg Q12HR IDALIA Administration Guaifenesin/Dextromethorphan 10 ml 12/25/24 00:57 Guaifenesin/Dextromethorphan 10 Ml Udc PO Q4H PRN Cough Heparin Sodium (Porcine) 5,000 units 12/25/24 09:00 01/04/25 20:36 Heparin Sodium 5,000 Units/Ml Vial SUB-Q 5,000 units Q12HR IDALIA Administration Hydromorphone HCl 0.3 mg 01/01/25 15:14 01/01/25 15:54 Hydromorphone Hcl Inj (*Crx) 1 Mg/Ml Syr IV PUSH 0.3 mg Q4H PRN Administration Pain Rated 7-10 Sodium Chloride 1,000 mls @ 125 mls/hr 12/29/24 09:50 01/05/25 04:45 Normal Saline Iv IV CONT 125 mls/hr .Q8H IDALIA Administration Metronidazole 500 mg in 100 mls @ 100 mls/hr 01/03/25 09:00 01/05/25 02:46 Flagyl 500 Mg/Iso Soln 100 Ml IVPB Infused Q8H [facility] Infusion Cefepime HCl 2 gm in 50 mls @ 100 mls/hr 01/03/25 09:05 01/05/25 01:07 Maxipime 2 Gm/Ns 50 Ml IVPB Infused Q12HR IDALIA Infusion Micafungin Sodium 100 mg/ 100 mls @ 100 mls/hr 01/03/25 10:00 01/04/25 13:35 Sodium Chloride IVPB Infused Q24H IDALIA Infusion Vancomycin HCl 1,500 mg in 500 mls @ 250 mls/hr 01/03/25 11:00 01/04/25 15:58 Vancomycin 1,500 Mg/Ns 500 Ml IVPB Infused Q24H IDALIA Infusion Potassium Chloride 40 meq/ 520 mls @ 130 mls/hr 01/05/25 05:53 01/05/25 06:23 Sodium Chloride IVPB 01/05/25 09:52 130 mls/hr ONCE ONE Administration Potassium Chloride 40 meq/ 520 mls @ 130 mls/hr 01/05/25 12:00 Sodium Chloride IVPB NOON IDALIA Memantine 10 mg 12/25/24 09:00 01/04/25 20:36 Memantine 10 Mg Tablet PO 10 mg Q12HR IDALIA Administration Ondansetron HCl 4 mg 01/02/25 16:32 01/02/25 16:49 Ondansetron Hcl Odt 4 Mg Tablet PO 4 mg Q6H PRN Administration Nausea And Vomiting Prochlorperazine Edisylate 10 mg 12/25/24 00:57 Prochlorperazine Edisylate 10 Mg/2 Ml Vial IV PUSH Q6H PRN Nausea And Vomiting Radiology Results: ITS Impressions Chest/Abdomen/Pelvis CT 12/24/24 20:40 IMPRESSION: CHEST: 1. No acute cardiopulmonary pathology. 2. Loss of volume of T12 which is most likely chronic. ABDOMEN/PELVIS: 1. No evidence of appendicitis, diverticulitis or intestinal obstruction. 2. Air is seen in the bile ducts of the left lobe of the liver. Abdomen/Pelvis CT 12/28/24 19:00 IMPRESSION: No findings within the abdomen or pelvis to suggest a source of patient's fever, as detailed above. Lumbar Puncture Fluoroscopy 12/31/24 13:16 IMPRESSION: 1. Successful fluoro-guided lumbar puncture. Head CT 12/31/24 13:28 IMPRESSION: 1. Mild nonspecific cerebral white matter disease, which likely represents chronic small vessel ischemic disease. Chest/Abdomen/Pelvis CTA 12/31/24 13:29 IMPRESSION: 1. Fluid throughout the colon consistent with nonspecific diarrhea. Correlate clinically for gastroenteritis. 2. Small right and trace left posterior layering pleural effusions. 3. Mild cardiomegaly. 4. Indeterminate 8 mm soft tissue density lesion at the lower pole the left kidney which could represent a proteinaceous/hemorrhagic cyst or solid renal cell carcinoma. Recommend pre and postcontrast MRI or CT for further evaluation. Chest X-Ray 01/03/25 09:24 IMPRESSION: Prominent markings in the lower lobes with interstitial thickening. Pneumonitis cannot be excluded. Follow-up advised. Labs Labs: Laboratory Results - last 24 hr 12/31/24 01/02/25 01/04/25 17:10 05:06 06:57 WBC 22.6 H RBC 3.71 L Hgb 10.9 L Hct 32.5 L MCV 87.6 MCH 29.4 MCHC 33.5 RDW 14.4 Plt Count 243 MPV 12.0 H Immature Gran % (Auto) 0.8 H Neut % (Auto) 95.5 H Lymph % (Auto) 1.2 L [place] % (Auto) 2.2 L Eos % (Auto) 0.0 Baso % (Auto) 0.3 Lymph # (Auto) 0.26 L [place] # (Auto) 0.5 Eos # (Auto) 0.0 Baso # (Auto) 0.1 Abs Immat Gran (auto) 0.18 H Absolute Neuts (auto) 21.6 H Absolute Nucleated RBC 0.000 Nucleated RBC % 0.0 ESR 119 H Sodium 132 L Potassium 3.0 L Chloride 96 L Carbon Dioxide 20 L Anion Gap 16 H BUN 9 Creatinine 0.78 Estim Creat Clear Calc 49 Estimated GFR > 60 Glucose 99 Lactic Acid Calcium 8.6 Total Bilirubin 0.8 AST 26 ALT 13 Alkaline Phosphatase 127 H Troponin I 0.043 H* C-Reactive Protein Total Protein 7.0 Albumin 3.6 Homocysteine 12.0 H Vancomycin Trough 01/05/25 01/05/25 01/05/25 00:32 00:33 04:44 WBC 11.2 H 8.4 RBC 2.81 L 2.41 L Hgb 8.3 L 7.2 L Hct 24.7 L 21.8 L MCV 87.9 90.5 MCH 29.5 29.9 MCHC 33.6 33.0 RDW 14.3 14.3 Plt Count 167 146 L MPV 10.8 H 11.6 H Immature Gran % (Auto) 0.6 H 0.4 Neut % (Auto) 83.7 H 81.9 H Lymph % (Auto) 11.3 L 12.2 L [place] % (Auto) 2.9 3.6 Eos % (Auto) 1.1 1.5 Baso % (Auto) 0.4 0.4 Lymph # (Auto) 1.27 1.03 [place] # (Auto) 0.3 0.3 Eos # (Auto) 0.1 0.1 Baso # (Auto) 0.1 0.0 Abs Immat Gran (auto) 0.07 H 0.03 Absolute Neuts (auto) 9.4 H 6.9 H Absolute Nucleated RBC 0.000 0.000 Nucleated RBC % 0.0 0.0 ESR 108 H Sodium 130 L 131 L Potassium 3.0 L 2.6 L* Chloride 99 104 Carbon Dioxide 22 19 L Anion Gap 9 8 BUN 13 13 Creatinine 0.68 L Cancelled 0.63 L Estim Creat Clear Calc 56 Cancelled 60 Estimated GFR > 60 Cancelled > 60 Glucose 91 78 Lactic Acid 0.7 Calcium 8.1 L 7.5 L Total Bilirubin 0.5 AST 18 ALT 11 Alkaline Phosphatase 83 Troponin I 0.034 C-Reactive Protein 12.3 H Total Protein 6.0 L Albumin 2.6 L Homocysteine Vancomycin Trough 01/05/25 04:45 WBC RBC Hgb Hct MCV MCH MCHC RDW Plt Count MPV Immature Gran % (Auto) Neut % (Auto) Lymph % (Auto) [place] % (Auto) Eos % (Auto) Baso % (Auto) Lymph # (Auto) [place] # (Auto) Eos # (Auto) Baso # (Auto) Abs Immat Gran (auto) Absolute Neuts (auto) Absolute Nucleated RBC Nucleated RBC % ESR Sodium Potassium Chloride Carbon Dioxide Anion Gap BUN Creatinine Estim Creat Clear Calc Estimated GFR Glucose Lactic Acid Calcium Total Bilirubin AST ALT Alkaline Phosphatase Troponin I 0.031 C-Reactive Protein Total Protein Albumin Homocysteine Vancomycin Trough 15.5
[2025-01-05] MEDS: FAMOTIDINE 20 MG TABLET PO ×2 (09:12→20:41)
[2025-01-05] MEDS: MEMANTINE 10 MG TABLET PO ×2 (09:12→20:41)
[2025-01-05] MEDS: ANASTROZOLE (*CHEMO) 1 MG TABLET PO (09:13)
[2025-01-05] MEDS: allopurinoL 300 MG TABLET PO (09:13)
[2025-01-05] MEDS: ASPIRIN 325 MG TABLET PO (09:13)
[2025-01-05] MEDS: ENALAPRIL MALEATE 10 MG TABLET PO (09:13)
[2025-01-05] MEDS: HEPARIN SODIUM 5,000 UNITS/ML VIAL 5000 UNITS SUB-Q (09:23)
[2025-01-05 10:27] LABS: IFOB Positive Control Positive; Immunochemical Fecal Occult Bl Negative (N)
[2025-01-05 11:09] LABS: Toxigenic C. Diff NEGATIVE (NEGATIVE)
[2025-01-05] MEDS: LIDOCAINE 1% PF INJ 5 ML VIAL INFILTRATE (12:00)
[2025-01-05] MEDS: MICAFUNGIN SODIUM 100 MG in SODIUM CHLORIDE 0.9% IV 100 ML IVPB (12:44)
[2025-01-05 13:39] LABS: Methylmalonic Acid 142 nmol/L (69-390)
[2025-01-05] MEDS: ACETAMINOPHEN 650 MG SUPPOSITORY RECTAL (14:58)
[2025-01-05] MEDS: CENTRAL LINE FLUSH 10 ML IV PUSH (15:01)
--- NOTE | 2025-01-05 15:15 | PM.PNGS ---
Progress Note: A&P Assessment and Plan (1) Sepsis: Code(s): A41.9 - Sepsis, unspecified organism Status: Acute Assessment and Plan: Leukocytosis improved, although hypothermic and bradycardic overnight. Still no abdominal complaints and abdominal exam is benign. Agree with transfer to a tertiary care facility for ID evaluation if not improving. No surgical indications at this time. We will sign off. Call with any future surgical concerns. (2) Pneumobilia: Code(s): K83.8 - Other specified diseases of biliary tract Status: Acute Assessment and Plan: Likely an incidental finding from previous ERCP with sphincterotomy. No surgical indication. (3) History of ERCP: Code(s): Z98.890 - Other specified postprocedural states Status: Acute (4) History of cholecystectomy: Code(s): Z90.49 - Acquired absence of other specified parts of digestive tract Status: Acute Plan I have discussed the patient's case and plan of care with Dr. Reeves. Subjective Subjective Date/Time Seen: 01/05/25 15:15 Interval history: Patient seen again today. She has dementia and is confused at baseline. She does not answer questions appropriately. She denies any abdominal pain at this time. She reports feeling cold but no other issues. She had a rapid response overnight for bradycardia and hypothermia. Temperature has normalized and is 99.3F this afternoon. Exam Const: General: comfortable and no acute distress GI: Inspection: non-distended GI Palp: Yes Soft to palpation, No Tenderness to palpation present (GI), No Guarding due to palpation present (GI) and No Rebound tenderness present Auscultation: normal bowel sounds Objective Data Vital Signs Vital Signs: Vital Signs - 24 hr 01/04/25 16:00 01/04/25 20:00 01/04/25 20:00 Temperature Pulse Rate 64 61 64 Respiratory Rate 18 Blood Pressure Pulse Oximetry 100 Oxygen Delivery Room Air 01/04/25 20:03 01/04/25 23:39 01/05/25 00:00 Temperature 97.7 F 95.0 F L 94.7 F L Pulse Rate 61 51 L Respiratory Rate 18 16 Blood Pressure 164/73 H 174/77 H Pulse Oximetry 100 100 Oxygen Delivery 01/05/25 00:00 01/05/25 00:15 01/05/25 00:26 Temperature 94.7 F L 94.7 F L Pulse Rate 49 L Respiratory Rate Blood Pressure Pulse Oximetry Oxygen Delivery 01/05/25 00:30 01/05/25 00:45 01/05/25 01:09 Temperature 94.7 F L 94.3 F L 95.0 F L Pulse Rate Respiratory Rate Blood Pressure Pulse Oximetry Oxygen Delivery 01/05/25 01:30 01/05/25 01:36 01/05/25 02:00 Temperature 94.8 F L 94.8 F L 94.9 F L Pulse Rate Respiratory Rate Blood Pressure Pulse Oximetry Oxygen Delivery 01/05/25 02:30 01/05/25 02:41 01/05/25 03:30 Temperature 95.2 F L 95.4 F L 95.4 F L Pulse Rate 66 Respiratory Rate 16 Blood Pressure 139/76 Pulse Oximetry 95 Oxygen Delivery 01/05/25 04:00 01/05/25 04:00 01/05/25 04:30 Temperature 95.9 F L 96.4 F L Pulse Rate 63 Respiratory Rate Blood Pressure Pulse Oximetry Oxygen Delivery 01/05/25 08:00 01/05/25 08:44 01/05/25 09:20 Temperature 97.4 F L Pulse Rate 78 65 Respiratory Rate 20 Blood Pressure 174/78 H Pulse Oximetry 100 Oxygen Delivery Room Air 01/05/25 12:00 01/05/25 14:58 01/05/25 15:06 Temperature 99.3 F 99.3 F Pulse Rate 69 79 Respiratory Rate 24 H Blood Pressure 142/84 H Pulse Oximetry 93 Oxygen Delivery Intake/Output Intake/Output: Intake & Output 01/03/25 01/03/25 01/04/25 01/05/25 00:59 23:59 23:59 23:59 Intake Total 2603.9 3273.9 3747.9 1300 Output Total 710 254 2691 0 Balance 2303.9 2673.9 347.9 1300 Meds/Results Medications: Active Medications Generic Name Dose Route Start Last Admin Trade Name Freq PRN Reason Stop Dose Admin Acetaminophen 1,000 mg 12/28/24 18:59 01/04/25 20:36 Acetaminophen 500 Mg Tablet PO 1,000 mg Q6H PRN Administration Mild Pain (1-3) or Fever Acetaminophen 650 mg 01/01/25 15:14 01/05/25 14:58 Acetaminophen 650 Mg Suppository RECTAL 650 mg Q6H PRN Administration Mild Pain (1-3) or Fever Albuterol/Ipratropium 3 ml 12/25/24 00:57 Ipratropium 0.5 Mg/Albuterol Sulfate 2.5 Mg Ampul.Neb 3 Ml INHALATION Q4HRT PRN shortness of breath/Wheezing Allopurinol 300 mg 12/25/24 09:00 01/05/25 09:13 Allopurinol 300 Mg Tablet PO 300 mg DAILY IDALIA Administration Anastrozole 1 mg 12/26/24 09:00 01/05/25 09:13 Anastrozole (*Chemo) 1 Mg Tablet PO 1 mg DAILY IDALIA Administration Aspirin 325 mg 01/01/25 08:00 01/05/25 09:13 Aspirin 325 Mg Tablet PO 325 mg DAILY@0800 IDALIA Administration Enalapril Maleate 10 mg 12/25/24 09:00 01/05/25 09:13 Enalapril Maleate 10 Mg Tablet PO 10 mg DAILY IDALIA Administration Famotidine 20 mg 12/25/24 09:00 01/05/25 09:12 Famotidine 20 Mg Tablet PO 20 mg Q12HR IDALIA Administration Guaifenesin/Dextromethorphan 10 ml 12/25/24 00:57 Guaifenesin/Dextromethorphan 10 Ml Udc PO Q4H PRN Cough Heparin Sodium (Porcine) 5,000 units 12/25/24 09:00 01/05/25 09:23 Heparin Sodium 5,000 Units/Ml Vial SUB-Q 5,000 units Q12HR IDALIA Administration Hydromorphone HCl 0.3 mg 01/01/25 15:14 01/01/25 15:54 Hydromorphone Hcl Inj (*Crx) 1 Mg/Ml Syr IV PUSH 0.3 mg Q4H PRN Administration Pain Rated 7-10 Sodium Chloride 1,000 mls @ 125 mls/hr 12/29/24 09:50 01/05/25 04:45 Normal Saline Iv IV CONT 125 mls/hr .Q8H IDALIA Administration Metronidazole 500 mg in 100 mls @ 100 mls/hr 01/03/25 09:00 01/05/25 10:47 Flagyl 500 Mg/Iso Soln 100 Ml IVPB 100 mls/hr Q8H IDALIA Administration Cefepime HCl 2 gm in 50 mls @ 100 mls/hr 01/03/25 09:05 01/05/25 09:55 Maxipime 2 Gm/Ns 50 Ml IVPB Infused Q12HR IDALIA Infusion Micafungin Sodium 100 mg/ 100 mls @ 100 mls/hr 01/03/25 10:00 01/05/25 13:44 Sodium Chloride IVPB Infused Q24H IDALIA Infusion Potassium Chloride 40 meq/ 520 mls @ 130 mls/hr 01/05/25 12:00 Sodium Chloride IVPB NOON IDALIA Memantine 10 mg 12/25/24 09:00 01/05/25 09:12 Memantine 10 Mg Tablet PO 10 mg Q12HR IDALIA Administration Ondansetron HCl 4 mg 01/02/25 16:32 01/02/25 16:49 Ondansetron Hcl Odt 4 Mg Tablet PO 4 mg Q6H PRN Administration Nausea And Vomiting Potassium Chloride 40 meq 01/05/25 09:00 01/05/25 09:31 Potassium Chloride 20 Meq Packet (For Liquid) PO Not Given BID IDALIA Prochlorperazine Edisylate 10 mg 12/25/24 00:57 Prochlorperazine Edisylate 10 Mg/2 Ml Vial IV PUSH Q6H PRN Nausea And Vomiting Sodium Chloride 10 ml 01/05/25 14:00 01/05/25 15:01 Central Line Flush IV PUSH 10 ml Q8HR IDALIA Administration Sodium Chloride 10 ml 01/05/25 12:45 Central Line Flush IV PUSH PRN PRN with TPN bag changes Sodium Chloride 20 ml 01/05/25 12:45 Central Line Flush IV PUSH PRN PRN after blood draws Radiology Results: ITS Impressions Chest/Abdomen/Pelvis CT 12/24/24 20:40 IMPRESSION: CHEST: 1. No acute cardiopulmonary pathology. 2. Loss of volume of T12 which is most likely chronic. ABDOMEN/PELVIS: 1. No evidence of appendicitis, diverticulitis or intestinal obstruction. 2. Air is seen in the bile ducts of the left lobe of the liver. Abdomen/Pelvis CT 12/28/24 19:00 IMPRESSION: No findings within the abdomen or pelvis to suggest a source of patient's fever, as detailed above. Lumbar Puncture Fluoroscopy 12/31/24 13:16 IMPRESSION: 1. Successful fluoro-guided lumbar puncture. Head CT 12/31/24 13:28 IMPRESSION: 1. Mild nonspecific cerebral white matter disease, which likely represents chronic small vessel ischemic disease. Chest/Abdomen/Pelvis CTA 12/31/24 13:29 IMPRESSION: 1. Fluid throughout the colon consistent with nonspecific diarrhea. Correlate clinically for gastroenteritis. 2. Small right and trace left posterior layering pleural effusions. 3. Mild cardiomegaly. 4. Indeterminate 8 mm soft tissue density lesion at the lower pole the left kidney which could represent a proteinaceous/hemorrhagic cyst or solid renal cell carcinoma. Recommend pre and postcontrast MRI or CT for further evaluation. Chest X-Ray 01/05/25 12:25 IMPRESSION: 1. PICC tip at the superior cavoatrial junction. Abdomen X-Ray 01/05/25 14:08 IMPRESSION: 1. Normal bowel gas pattern. Labs Labs: Laboratory Results - last 24 hr 01/02/25 01/05/25 01/05/25 05:06 00:32 00:33 WBC 11.2 H RBC 2.81 L Hgb 8.3 L Hct 24.7 L MCV 87.9 MCH 29.5 MCHC 33.6 RDW 14.3 Plt Count 167 MPV 10.8 H Immature Gran % (Auto) 0.6 H Neut % (Auto) 83.7 H Lymph % (Auto) 11.3 L [place] % (Auto) 2.9 Eos % (Auto) 1.1 Baso % (Auto) 0.4 Lymph # (Auto) 1.27 [place] # (Auto) 0.3 Eos # (Auto) 0.1 Baso # (Auto) 0.1 Abs Immat Gran (auto) 0.07 H Absolute Neuts (auto) 9.4 H Absolute Nucleated RBC 0.000 Nucleated RBC % 0.0 ESR 108 H Sodium 130 L Potassium 3.0 L Chloride 99 Carbon Dioxide 22 Anion Gap 9 BUN 13 Creatinine 0.68 L Cancelled Estim Creat Clear Calc 56 Cancelled Estimated GFR > 60 Cancelled Glucose 91 Lactic Acid 0.7 Calcium 8.1 L Total Bilirubin 0.5 AST 18 ALT 11 Alkaline Phosphatase 83 Troponin I 0.034 C-Reactive Protein 12.3 H Total Protein 6.0 L Albumin 2.6 L Methylmalonic Acid 142 Stl Occult Blood (IFOB) Vancomycin Trough C. difficile (PCR) 01/05/25 01/05/25 01/05/25 04:44 04:45 10:05 WBC 8.4 RBC 2.41 L Hgb 7.2 L Hct 21.8 L MCV 90.5 MCH 29.9 MCHC 33.0 RDW 14.3 Plt Count 146 L MPV 11.6 H Immature Gran % (Auto) 0.4 Neut % (Auto) 81.9 H Lymph % (Auto) 12.2 L [place] % (Auto) 3.6 Eos % (Auto) 1.5 Baso % (Auto) 0.4 Lymph # (Auto) 1.03 [place] # (Auto) 0.3 Eos # (Auto) 0.1 Baso # (Auto) 0.0 Abs Immat Gran (auto) 0.03 Absolute Neuts (auto) 6.9 H Absolute Nucleated RBC 0.000 Nucleated RBC % 0.0 ESR Sodium 131 L Potassium 2.6 L* Chloride 104 Carbon Dioxide 19 L Anion Gap 8 BUN 13 Creatinine 0.63 L Estim Creat Clear Calc 60 Estimated GFR > 60 Glucose 78 Lactic Acid Calcium 7.5 L Total Bilirubin AST ALT Alkaline Phosphatase Troponin I 0.031 C-Reactive Protein Total Protein Albumin Methylmalonic Acid Stl Occult Blood (IFOB) Negative Vancomycin Trough 15.5 C. difficile (PCR) Negative
[2025-01-05 16:09] LABS: Lyme Disease Ab (IgM), Blot NEGATIVE (NEGATIVE); Lyme Disease Ab(IgG), Blot NEGATIVE (NEGATIVE)
[2025-01-06 11:33] LABS: Anti Nuclear Antibody Pattern Nuclear, Homogeneous; Anti Nuclear Antibody Titer 1:40 titer
--- NOTE | 2025-01-06 16:26 | P.TS_ITS ---
Transfer Discharge Sum: Prov Provider Date of admission: 12/24/24 22:04 Primary care physician: Julia Gutierrez, Admitting clinician: Valente Cadet MD Consults: 12/31/24 Consult to Physician Routine Comment: Consulting Provider: Yadira De La Rosa editing clerk/ group to consult: On-call neurologist Dr. Walden called Dr 12/31 @ 1000 Reason for consultation: Fever, confusion, meningitis? Has provider been notified: Yes Consult to Physician Routine Comment: Spoke to exchange @7860 01/01 [facility] [place]: Bandar Mares editing clerk/ group to consult: cardiology Reason for consultation: chest pain Has provider been notified: Yes 01/04/25 Consult to Physician Routine Comment: Spoke to Basia in office @5965 01/04 [facility] [place] Provider: Tomas Reeves editing clerk/ group to consult: On-call general surgeon Reason for consultation: Fever, unknown source infection, but pneumobilia common bile duct Has provider been notified: Yes DS: Admitting Diagnosis Discharge Date 01/05/25 Admitting Diagnosis (1) PRASANTH (acute kidney injury): Code(s): N17.9 - Acute kidney failure, unspecified Status: Acute (2) Sepsis: Code(s): A41.9 - Sepsis, unspecified organism Status: Acute (3) Delirium due to general medical condition: Code(s): F05 - Delirium due to known physiological condition Status: Acute (4) COVID-19: Code(s): U07.1 - COVID-19 Status: Acute DS: Discharge Diagnosis Discharge Diagnosis (1) PRASANTH (acute kidney injury): Code(s): N17.9 - Acute kidney failure, unspecified Status: Acute (2) Sepsis: Code(s): A41.9 - Sepsis, unspecified organism Status: Acute (3) Delirium due to general medical condition: Code(s): F05 - Delirium due to known physiological condition Status: Acute (4) COVID-19: Code(s): U07.1 - COVID-19 Status: Acute Transfer Discharge Sum: Med Medications Active and Home Medications: Home Medications acetaminophen 500 mg tablet 500 mg PO Q6H 04/19/22 [History Confirmed 12/25/24] allopurinol 300 mg tablet 300 mg PO DAILY 04/19/22 [History Confirmed 12/25/24] anastrozole 1 mg tablet 1 mg PO DAILY 04/19/22 [History Confirmed 12/25/24] aspirin 81 mg tablet,delayed release 81 mg PO DAILY 04/19/22 [History Confirmed 12/25/24] enalapril maleate 10 mg tablet 10 mg PO DAILY 04/19/22 [History Confirmed 12/25/24] famotidine 20 mg tablet 20 mg PO BID 04/19/22 [History Confirmed 12/25/24] memantine 10 mg tablet 10 mg PO BID 04/19/22 [History Confirmed 12/25/24] metoprolol tartrate 25 mg tablet 12.5 mg PO BID 04/19/22 [History Confirmed 12/25/24] nirmatrelvir 300 mg (150 mg x2)-ritonavir 100 mg tablet,dose pack (Paxlovid) See Rx Instructions PO .COMPLEX #30 ea 12/22/24 [Rx Confirmed 12/25/24] hydroxyzine HCl 25 mg tablet 25 mg PO HS 12/25/24 [History Confirmed 12/25/24] Transfer Discharge Sum: Hosp Hospital Course Hospital course: Per H&P, Sanam Yu is a 74 year old female with a mhx significant for dementia, GERD, Hypertension, She presented to the emergency department for evaluation of high fever and abdominal pain per the memory care unit where she resides. With no known modifying factors for her symptoms, she has become progressively fatigued with increased somnolence and anorexia. She denies symptoms of chest pain shortness of breath, nausea vomiting diarrhea. Patient is well-appearing in no distress. She does not smoke/chew tobacco, drink alcohol or consume recreational drugs. The following med issues have been addressed during hospitalization sepsis Code(s): R65.10 - Systemic inflammatory response syndrome (SIRS) of non-infectious origin without acute organ dysfunction Status: Acute Assessment and Plan: Patient presents with fever and found to have elevated WBC, tachycardia and tachypnea. CT of the chest, abdomen and pelvis with contrast showed no acute cardiopulmonary disease and no acute findings in the abdomen or pelvis imaging. She had air in the bile ducts but had undergone recent ERCP on 12/10/2024. UCx grew Enterococus last month but was a contaminated sample. Urinalysis here was clear. Patient was treated with IV antibiotics after appropriate cultures obtain but antibiotics were not continued. BCx are no growth to date. CXR was clear. Fever has recurred. Suspect SIRS related to COVID but still having fevers. WBC still elevated but trending down. Recultured yesterday but no other source of infection noted. Continue scheduled Tylenol 12/29: Patient had fever 103.2 yesterday evening, rapid response was called, leukocytosis is trending up yesterday, white blood cell [id number] with neutrophils left shift. Meeting criteria of sepsis Repeated CT scan December 28, that showed Pneumobilia is again identified, for which prior sphincterotomy (on 12/10/2024) is suspected. Repeat blood culture on December 28 has no growth so far. Started with doxycycline and Zosyn on December 28, patient is afebrile overnight, but leukocytosis is getting worse, continue Zosyn and switch from doxy to va ncomycin IV 12/29 Leukocytosis improving, blood culture negative, patient fever yesterday, afebrile overnight per nurse report, repeated chest x-ray on December 29 shows no acute cardiopulmonary issues. Continue current treatment 12/30 Patient had fever overnight, but leukocytosis is trending down, will repeat blood culture urine culture and CTA chest abdomen pelvis, unclear source of infection, lumbar puncture, continue vancomycin and Zosyn, and add acyclovir , I have discussed case with Dr. De La Rosa neurologist, he agrees the plan 12/31 Patient is afebrile overnight, blood pressure stable, pulse ox 100% on room air, leukocytosis persists, 15,200, with left shift, chemistry shows hyponatremia 133, potassium 3.0 CSF showed increased right blood cell 3.8 H, limit set within normal limit, margin high protein, pending herpes PCR, UA unremarkable CT head shows no acute intracranial issues CT chest abdomen pelvis showed 1. Fluid throughout the colon consistent with nonspecific diarrhea. Correlate clinically for gastroenteritis. 2. Small right and trace left posterior layering pleural effusions. 3. Mild cardiomegaly. 4. Indeterminate 8 mm soft tissue density lesion at the lower pole the left kidney which could represent a proteinaceous/hemorrhagic cyst or solid renal cell carcinoma. Recommend pre and postcontrast MRI or CT for further evaluation. continue current treatment 01/01 Appreciate neurology's consultation, spinal fluid does not show bacteria infection, patient still have fever, leukocytosis persists, herpes negative, patient pulled out line yesterday Discontinue acyclovir. Given recent intra-abdominal procedure, patient has risk of fungal infection, start micafungin, switch from Zosyn to cefepime, continue vancomycin today, f/u c diff, blood fungal culture, chest x-ray I discussed case with ID pharmacist and ID Dr. Pacheco. Watch patient in [facility] today. If patient will not respond to treatment, will transfer patient to [facility]. 01/04: Patient still has back fever over the night, leukocytosis is trending up, patient denies abdomen pain, chest pain shortness breast dysuria. Unclear source of infection. Blood cultures are negative chest x-ray on January 03 showed no consolidation Discussed the case with [facility], patient is accepted. Patient will be transferred to [facility] in [place] for further evaluation and treatment 01/05: Patient had hypothermia or night, leukocytosis resolved, blood cultures negative. hypothermia over the night the lowest temperature 94.3, blood pressure stable, no O2 desaturation on room air, leukocytosis resolved Discontinue vancomycin continue cefepime micafungin and Flagyl per ID pharmacist recommendation Anemia Hemoglobin continue to drop, no obvious bleeding Stool guaiac Altered mental status Pending CT head without contrast, lumbar puncture, added Acyclovir 01/01, herpes PCR negative, discontinued acyclovir Neuro check now patient is alert, able to follow command, back to the baseline,01/02 COVID: Code(s): U07.1 - COVID-19 Status: Acute Assessment and Plan: Patient tested positive for COVID on 12/22/24. Paxlovid ordered but she had not started this yet. Patient currently on room air. No need remdesivir Hypomagnesemia and hypokalemia Replete with potassium chloride and magnesium sulfate Follow-up BMP magnesium PRASANTH (acute kidney injury), hyponatremia Code(s): N17.9 - Acute kidney failure, unspecified Status: Acute Assessment and Plan: Creatinine elevated at 1.4 with a normal underlying baseline. Kidneys appeared normal by imaging. on NS 125 mL/hour on 12/29, Hypokalemia: Code(s): E87.6 - Hypokalemia Status: Acute Assessment and Plan: Patient with potassium 3.1. Potassium was replaced. Continue to monitor and replace Sinus bradycardia EKG shows sinus bradycardia heart rate 45, no specific ST or T-wave changes QTC 460 Follow-up BMP magnesium level, follow-up echocardiogram Avoid beta-frieda and calcium channel frieda Telemetry monitoring. Chest pain Moderate high troponin, EKG shows no specific ST T-wave changes Appreciate cardiology consultation, sky recommends no further workup for cardiac ischemia Dementia: Qualifiers: Dementia type: unspecified type Code(s): F03.90 - Unspecified dementia, unspecified severity, without behavioral disturbance, psychotic disturbance, mood disturbance, and anxiety Status: Chronic Assessment and Plan: Stable. Continue Namenda. (6) Hypertension: Qualifiers: Hypertension type: primary hypertension Qualified Code(s): I10 - Essential (primary) hypertension Code(s): I10 - Essential (primary) hypertension Status: Chronic Assessment and Plan: Blood pressure stable (7) Bradycardia: Code(s): R00.1 - Bradycardia, unspecified Status: Acute Assessment and Plan: HR drops to 30's overnight so metoprolol held. Persistent bradycardia stop metoprolol TSH normal. Follow on tele. Discussed with transfer center of [facility], patient is accepted to be transferred to [facility] Before transfer, patient is condition stable Time Spent with Patient Time attestation: Total time spent providing and/or coordinating transfer services: Exam Narrative: GENERAL: no acute distress. Well-nourished. - EYES: EOMI. Anicteric. - HENT: Moist mucous membranes. - LUNGS: Clear to auscultation bilateral ly, no wheezing, rhonchi, or rales. - CARDIOVASCULAR: Regular rate and rhyth m. No murmur. No JVD. - ABDOMEN: Soft, non-tender and non-dist ended. No palpable masses. - EXTREMITIES: No edema. Peripheral puls es 2+. Non-tender. - NEUROLOGIC: Moving all extremities, - PSYCHIATRIC: Alert, able to follow co mmands, but not oriented x 3. - SKIN: No rashes or lesions. Warm. - LYMPH: No cervical lymphadenopathy. DS: Data Data Completed and Pending Labs on day of discharge: Labs from last 24 hours 01/03/25 05:14 GRACIELA Screen Positive A GRACIELA Titer 1:40 H GRACIELA Pattern Nuclear, homogeneous A Preliminary micro results at discharge 01/03/25 02:38 Blood Culture - Preliminary Blood 12/31/24 12:46 Fungal Culture and Stain - Preliminary Cerebral Spinal Fluid
[2025-01-06 17:24] LABS: Adenovirus DNA Not Detected (Not Detected); Chlamydophila pneumoniae Not Detected (Not Detected); Coronavirus 229E Not Detected (Not Detected); Coronavirus HKU1 Not Detected (Not Detected); Coronavirus NL63 Not Detected (Not Detected); Coronavirus OC43 Detected (Not Detected); Human Metapneumovirus Not Detected (Not Detected); Human Parainfluenza Virus 1 Not Detected (Not Detected); Human Parainfluenza Virus 2 Not Detected (Not Detected); Human Parainfluenza Virus 3 Not Detected (Not Detected); Human Parainfluenza Virus 4 Not Detected (Not Detected); Human RSV B Not Detected (Not Detected); Influenza A Not Detected (Not Detected); Influenza B Not Detected (Not Detected); Mycoplasma pneumoniae Not Detected (Not Detected); Rhinovirus/Enterovirus Not Detected (Not Detected)
[2025-01-06 22:13] LABS: RF IGG <5 U (<=6); RF IGM <5 U (<=6)
[2025-01-08 22:19] LABS: RF IgA <5 U (<=6)
== END 2025-01-05 21:32 | disposition short-term general hospital (02) | DRG 177 ==
LOC: ANHED 19:09 → ANHIMU 23:11 → ANH2MED 12-27 16:30
PROVIDERS: Emergency Medicine; Internal Medicine; Nurse Practitioner Acute Care; Psychiatry & Neurology Neurology; Admitting Provider Internal Medicine; Emergency Provider Student in an Organized Health Care Education/Training Program; PCP Internal Medicine; Visit Provider Hospitalist
DX: U07.1 COVID-19 (principal); A41.9 Sepsis, unspecified organism; E44.1 Mild protein-calorie malnutrition; E87.1 Hypo-osmolality and hyponatremia; N17.9 Acute kidney failure, unspecified; R65.10 Systemic inflammatory response syndrome (SIRS) of non-infectious origin without acute organ dysfunction; G93.40 Encephalopathy, unspecified; E83.42 Hypomagnesemia; E87.6 Hypokalemia; R07.9 Chest pain, unspecified; R00.1 Bradycardia, unspecified; K83.8 Other specified diseases of biliary tract; T68.XXXA Hypothermia, initial encounter; I10 Essential (primary) hypertension; K21.9 Gastro-esophageal reflux disease without esophagitis; M10.9 Gout, unspecified; F03.90 Unspecified dementia, unspecified severity, without behavioral disturbance, psychotic disturbance, mood disturbance, and anxiety; Z68.24 Body mass index [BMI] 24.0-24.9, adult; Z79.82 Long term (current) use of aspirin; Z85.3 Personal history of malignant neoplasm of breast
CPT/HCPCS: 36415; 36569; 62328; 70450; 71045; 71046; 71260; 71275; 74018; 74174; 74177; 80048; 80053; 80069; 80202; 81001; 82274; 82306; 82533; 82565; 82607; 82746; 82784; 82945; 83090; 83605; 83690; 83735; 83921; 84132; 84145; 84157; 84443; 84484; 84550; 85025; 85055; 85610; 85652; 85730; 86038; 86039; 86140; 86430; 86593; 86617; 87040; 87070; 87102; 87205; 87206; 87389; 87491; 87493; 87529; 87591; 87633; 87637; 87641; 89051; 93005; 93306; 95816; 96365; 96367; 96375; 97110; 97161; 97166; 97530; 97535; 99285; A9270; C1751; J0133; J0692; J1171; J1644; J1836; J2003; J2060; J2248; J2543; J3370; J3475; J3480; J7030; J7040; J7060; J7120; Q9967